=== PATIENT | female | born 1975 | race Two or more races ===

== ENCOUNTER 2020-09-10 10:29 | Outpatient (REF) | payer MEDICARE, MEDICAID, SELFPAY | END 2020-09-10 10:30 | disposition home or self-care (01) | LOC: HO.LAB 10:29 | PROVIDERS: Visit Provider Nurse Practitioner Family | DX: Z20.828 Contact with and (suspected) exposure to other viral communicable diseases (principal) | CPT/HCPCS: U0003 ==

== ENCOUNTER → 2020-10-19 08:56 | Outpatient (BNVA) | payer MEDICARE, MEDICAID, SELFPAY | PROVIDERS: PCP Internal Medicine; Referring Provider Internal Medicine; Visit Provider Internal Medicine Gastroenterology | DX: Z13.89 Encounter for screening for other disorder (principal) | CPT/HCPCS: Q3014 ==

== ENCOUNTER 2020-10-23 12:26 | Emergency (ER) | payer MEDICARE, MEDICAID, SELFPAY ==
[2020-10-23 12:39] VITALS: BP 123/74; PULSE 98; RESP 16; TEMP 36.8; O2SAT 98; BMI 39.6
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
[2020-10-23] MEDS: Acetaminophen 325 MG TABLET 650 MG PO (13:53)
[2020-10-23] MEDS: Ibuprofen 800 MG TABLET PO (15:11)
== END 2020-10-23 15:16 | disposition home or self-care (01) ==
PROVIDERS: Emergency Provider Emergency Medicine; PCP Internal Medicine
DX: S09.90XA Unspecified injury of head, initial encounter (principal); S00.03XA Contusion of scalp, initial encounter; Y00.XXXA Assault by blunt object, initial encounter; Y93.F9 Activity, other caregiving; Y92.9 Unspecified place or not applicable; Y99.0 Civilian activity done for income or pay
CPT/HCPCS: 70450; 72125; 99283; 99284

== ENCOUNTER 2020-11-02 15:18 | Outpatient (REF) | payer MEDICARE, MEDICAID, SELFPAY ==
[2020-11-02 15:47] LABS: MANUAL DIFF FLAG NO
[2020-11-02 15:52] LABS: Basophils Absolute Auto 0.1 X10*3/uL (0.0-0.2); Basophils Percent Auto 0.8 % (0-2); Eosinophils Absolute Auto 0.1 X10*3/uL (0.0-0.4); Hematocrit 33.5 % (37-47); Hemoglobin 10.8 g/dl (12.0-16.0); Imm Gran Abs Auto 0.05 X10*3/uL (0.00-0.03); Imm Gran Pct Auto 0.5 % (0.0-0.4); Immature Retic Fraction 13.8 % (3.0-15.9); Lymphocytes Absolute Auto 1.9 X10*3/uL (1.2-4.9); Lymphocytes Percent Auto 19.6 % (20-40); Mean Corpuscular HGB Conc 32.2 g/dl (31.0-35.0); Mean Corpuscular Hemoglobin 26.5 pg (27.0-33.0); Mean Corpuscular Volume 82.1 fL (80-98); Mean Platelet Volume 11.6 fL (9.4-12.3); Monocytes Percent Auto 10.2 % (2-11); Neutrophils Absolute Auto 6.4 X10*3/uL (2.0-8.3); Neutrophils Percent Auto 67.9 % (45-73); Platelet Count 321 X10*3/uL (160-400); Red Blood Count 4.08 X10*6/uL (4.20-5.50); Red Cell Distribution Width 15.6 % (11.0-16.0); Retic HGB Equivalent 32.3 pg (30.0-35.0); Reticulocyte Percent 1.4 % (0.5-1.8); Reticulocytes Absolute 0.057 X10*6/uL (0.026-0.095); White Blood Count 9.5 X10*3/uL (4.8-10.8)
[2020-11-02 16:12] LABS: Glucose Urine UA NEG (NEG); Leukocyte Esterase Urine TRACE (NEG); Nitrite Urine NEG (NEG); Specific Gravity - Urine >= 1.030 (1.005-1.025); Urine Blood NEG (NEG); Urine Ketones NEG (NEG); Urine Protein NEG (NEG-TRACE)
[2020-11-02 16:14] LABS: Appearance Urine HAZY; Color Urine YELLOW
[2020-11-02 16:18] LABS: Alanine Aminotransferase 23 U/L (0-31); Albumin Level 4.2 g/dL (3.5-5.0); Alkaline Phosphatase 95 U/L (39-117); Anion Gap 14 (12-20); Aspartate Amino Transferase 23 U/L (5-31); Bilirubin Total 0.3 mg/dL (0.0-1.0); Blood Urea Nitrogen 18 mg/dL (9-16); Calcium 8.9 mg/dL (8.4-10.2); Carbon Dioxide 24 mmol/L (22-29); Chloride 104 mmol/L (96-108); Cholesterol 224 mg/dL; Estimated Glomerular Filt Rate > 60; Glucose Random 86 mg/dL (60-115); HDL Cholesterol 52 mg/dL; Iron 63 mcg/dL (30-160); LDL Cholesterol Calculated 150 mg/dl; Percent Iron Saturation 15 % (15-50); Potassium 3.5 mmol/L (3.3-5.1); Sodium 138 mmol/L (135-145); Total Iron Binding Capacity 416 mcg/dL (228-428); Total Protein 7.2 g/dL (6.5-8.0); Triglycerides 113 mg/dL; Unsaturated Iron Binding 353 ug/dL
[2020-11-02 16:19] LABS: Bacteria Urine 2+ /LPF; RBC Urine 0 /HPF (0); Squamous Epithelial Cell Urine 2+ /LPF; Urine Talc Crystals 1+ /LPF; WBC Urine 0-2 /HPF (0-4)
[2020-11-02 16:41] LABS: Ferritin 24 ng/mL (10-250); Free T4 (Free Thyroxine) 1.03 ng/dL (0.71-1.85); Thyroid Stimulating Hormone 0.84 uIU/mL (0.32-4.0)
[2020-11-02 16:52] LABS: Folate 16.8 ng/mL (> or = 4.0); Vitamin B12 645 pg/mL (200-900)
== END 2020-11-02 15:19 | disposition home or self-care (01) ==
LOC: HO.LAB 15:18
PROVIDERS: PCP Internal Medicine; Visit Provider Internal Medicine
DX: D64.9 Anemia, unspecified (principal); E78.00 Pure hypercholesterolemia, unspecified; I10 Essential (primary) hypertension
CPT/HCPCS: 36415; 80053; 80061; 81001; 82306; 82607; 82728; 82746; 83540; 84439; 84443; 85025; 85045

== ENCOUNTER → 2020-11-05 09:04 | Outpatient (BNVA) | payer MEDICARE, MEDICAID, SELFPAY | PROVIDERS: PCP Internal Medicine; Visit Provider Anesthesiology | DX: M46.1 Sacroiliitis, not elsewhere classified (principal); E66.01 Morbid (severe) obesity due to excess calories; M53.3 Sacrococcygeal disorders, not elsewhere classified | CPT/HCPCS: 99212 ==

== ENCOUNTER 2020-12-11 06:11 | Outpatient (REF) | payer MEDICARE, MEDICAID, SELFPAY | END 2020-12-11 06:12 | disposition home or self-care (01) | LOC: HO.RADIR 06:11 | PROVIDERS: Visit Provider Anesthesiology | DX: M46.1 Sacroiliitis, not elsewhere classified (principal); M53.3 Sacrococcygeal disorders, not elsewhere classified; E66.01 Morbid (severe) obesity due to excess calories; M51.36 Other intervertebral disc degeneration, lumbar region; Z88.8 Allergy status to other drugs, medicaments and biological substances; Z91.09 Other allergy status, other than to drugs and biological substances | CPT/HCPCS: 27096; J3300; Q9967 ==

== ENCOUNTER 2020-12-11 08:53 | Day surgery (SDC) | payer MEDICARE, MEDICAID, SELFPAY ==
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
--- NOTE | ~2020-12-11 | FL_ITS ---
EXAMINATION: XR FLUOROSCOPY WITH IMAGES CLINICAL INFORMATION: M53.3 - Sacrococcygeal disorders, not elsewhere classified COMPARISON: MR lumbar spine 12/29/2019 TECHNIQUE: Fluoroscopy performed by Bela Jimenez NP. Fluoroscopy time: 0.4 minutes DAP: 2.9 Gycm2 Images: 3 FINDINGS: There are spinal needles overlying the mid aspect bilateral SI joints with some intra-articular contrast and periarticular contrast. FL/FL guidance in treatment room IMPRESSION: Fluoroscopy for pain management procedures.
[2020-12-11 10:29] VITALS: BP 118/72; PULSE 86; RESP 18; TEMP 36.6; O2SAT 98; BMI 42.3
[2020-12-11 10:41] LABS: UPreg QC Valid YES; Urine Pregnancy NEGATIVE (NEGATIVE)
[2020-12-11] MEDS: Lactated Ringers 1,000 ML 100 ML IVCONT (10:46)
--- NOTE | 2020-12-11 11:29 | PC.NURSE ---
pt to DR Norris for injections. spoke with Dr Marquez. Ok with both DR to do the injections first then the edg and sigmoidoscopy.
--- NOTE | 2020-12-11 12:27 | P.HPSUR_ITS ---
Pre-Procedural Eval Section B Chief Complaint: early satiety,ibs without diarrhea Relevant Family History (Specify if Yes): No Relevant Social History: None Present Medications: see Short Stay Collaborative assessment Medical History: Significant History (Anxiety and depression Barretts esophagus Carpal tunnel syndrome on both sides Cholelithiasis Constipation Fatty liver GERD (gastroesophageal reflux disease) Hypercholesterolemia Hypertension Increa sed BMI Lumbar degenerative disc disease Osteoarthritis, knee Sacroiliac joint dysfunction of both crista) History of Previous Operations: Relevant previous surgery/procedure and date(s) (H/O gastric bypass History of breast mammoplasty History of carpal tunnel release History of section) Allergies: Allergies Allergy/AdvReac Type Severity Reaction Status Date / Time topiramate [From TOPAMAX] Allergy Intermediate NAUSEA & Verified 12/11/20 10:37 VOMITING ENVIRONMENTAL Allergy Severe SINUS Uncoded 12/11/20 10:37 INFXN SYMPTOMS STATED BY PT Review of Systems Sugical H&P ROS: Negative: Constitution, Cardiovascular, Respiratory, Neurological, Psychiatric, Hem-Onc, Allergic/Immunologic, Gastrointestinal, Genitourinary, Musculoskeletal, Integumentary, Endocrine and Eyes/Ears/Nose/Throat Exam Surgical H&P Exam: Normal: HEENT, Normal: Heart, Normal: Lungs, Normal: Extremities, Normal: Abdomen, Normal: Skin and Normal: Neurological Plan Diagnosis/Plan: Unchanged I have reviewed the history and physical and performed a pertinent physical examination on my patient. No changes have occurred unless specified.
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
--- NOTE | 2020-12-11 13:12 | PM.OP ---
Brief Operative Note Date of Service: 12/11/20 Pre-op diagnosis: dysphagia and rectal bleeding Post-op diagnosis: same Procedure: see op note Surgeon: Dayne Marquez MD Anesthesia: MAC Estimated blood loss (mL): 0 Condition: stable Disposition: PACU
[2020-12-11 13:20] VITALS: BP 114/73; PULSE 88; RESP 14; TEMP 37.1; O2SAT 97
[2020-12-11 13:35] VITALS: BP 125/74; PULSE 82; RESP 18; O2SAT 99
== END 2020-12-11 14:12 | disposition home or self-care (01) ==
PROVIDERS: Nurse Practitioner; PCP Internal Medicine; Visit Provider Internal Medicine Gastroenterology
PROC: 0DJD8ZZ Inspection of Lower Intestinal Tract, Via Natural or Artificial Opening Endoscopic (ICD-10-PCS; CPT 45330; principal; 2020-12-11 12:20)
DX: K58.9 Irritable bowel syndrome, unspecified (principal); K64.0 First degree hemorrhoids; R68.81 Early satiety; K22.8 Other specified diseases of esophagus; K20.80 Other esophagitis without bleeding; K44.9 Diaphragmatic hernia without obstruction or gangrene; Z98.84 Bariatric surgery status; M53.3 Sacrococcygeal disorders, not elsewhere classified; M46.1 Sacroiliitis, not elsewhere classified; Z79.899 Other long term (current) drug therapy
CPT/HCPCS: 45330; 43249; 43239; 81025; 88305; 88342; C1726; J3010

== ENCOUNTER → 2020-12-17 12:28 | Outpatient (BNVA) | payer MEDICARE, MEDICAID, SELFPAY | PROVIDERS: PCP Internal Medicine; Visit Provider Internal Medicine Gastroenterology ==

== ENCOUNTER 2021-01-20 08:17 | Emergency (ER) | payer MEDICARE, MEDICAID, SELFPAY ==
--- NOTE | ~2021-01-20 | CT_ITS ---
EXAMINATION: CT HEAD WITHOUT CONTRAST CLINICAL INFORMATION: Headache postconcussion COMPARISON: October 23, 2020 TECHNIQUE: Contiguous axial imaging was performed from the skull base to vertex without intravenous administration of contrast. This CT examination was performed using dose optimization techniques as appropriate, variously including the following: *Automated exposure control *Adjustment of mA and/or kV according to patient size (this includes techniques or standardized protocols for targeted exams where dose is matched to indication/reason for exam; i.e. extremities or head) *Use of iterative reconstruction technique DLP: 702 mGy-cm FINDINGS: There is no evidence of acute intracranial hemorrhage or territorial infarction. No abnormal mass effect or midline shift is seen. Russ to white matter differentiation is well preserved. No extra-axial fluid collections are identified. The ventricles are normal in size. There is no abnormal attenuation within the brain parenchyma. The osseous structures and soft tissues are normal. The mastoid air cells and visualized portions of the paranasal sinuses are well aerated. CT/CT head/brain wo con IMPRESSION: No acute intracranial pathology.
[2021-01-20 08:23] VITALS: BP 147/96; PULSE 107; RESP 20; TEMP 37; O2SAT 98; BMI 40.2
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
[2021-01-20 09:06] LABS: MANUAL DIFF FLAG NO
[2021-01-20 09:07] LABS: Basophils Absolute Auto 0.1 X10*3/uL (0.0-0.2); Basophils Percent Auto 0.7 % (0-2); Eosinophils Absolute Auto 0.1 X10*3/uL (0.0-0.4); Eosinophils Percent Auto 0.8 % (0-4); Hemoglobin 10.5 g/dl (12.0-16.0); Imm Gran Abs Auto 0.05 X10*3/uL (0.00-0.03); Imm Gran Pct Auto 0.6 % (0.0-0.4); Lymphocytes Absolute Auto 1.9 X10*3/uL (1.2-4.9); Lymphocytes Percent Auto 21.4 % (20-40); Mean Corpuscular HGB Conc 31.8 g/dl (31.0-35.0); Mean Corpuscular Hemoglobin 26.5 pg (27.0-33.0); Mean Corpuscular Volume 83.3 fL (80-98); Mean Platelet Volume 10.1 fL (9.4-12.3); Monocytes Absolute Auto 0.8 X10*3/uL (0.1-1.2); Monocytes Percent Auto 9.6 % (2-11); Neutrophils Absolute Auto 5.9 X10*3/uL (2.0-8.3); Neutrophils Percent Auto 66.9 % (45-73); Platelet Count 338 X10*3/uL (160-400); Red Blood Count 3.96 X10*6/uL (4.20-5.50); Red Cell Distribution Width 14.7 % (11.0-16.0); White Blood Count 8.7 X10*3/uL (4.8-10.8)
[2021-01-20] MEDS: Ketorolac Tromethamine 30 MG/ML VIAL IVPUSH (09:33)
[2021-01-20] MEDS: LORazepam 2 MG/ML VIAL 1 MG IVPUSH (09:33)
[2021-01-20] MEDS: Metoclopramide HCl 10 MG/2 ML VIAL IVPUSH (09:34)
[2021-01-20] MEDS: Magnesium Hydrox/Alum Hydrox 30 ML ORAL.SUSP PO (09:36)
[2021-01-20] MEDS: Omeprazole 40 MG CAPSULE.DR PO (09:36)
[2021-01-20] MEDS: 0.9 % Sodium Chloride 1,000 ML 999 ML IVCONT (09:36)
[2021-01-20] MEDS: Lidocaine HCl Viscous 2 % 15 ML SOLUTION MUCOUS MEM (09:36)
[2021-01-20] MEDS: diphenhydrAMINE HCL 50 MG/ML VIAL 25 MG IVPUSH (09:36)
[2021-01-20 09:38] VITALS: BP 121/76; PULSE 97; RESP 20; O2SAT 98
[2021-01-20 09:42] LABS: Alanine Aminotransferase 29 U/L (0-31); Alkaline Phosphatase 109 U/L (39-117); Anion Gap 13 (12-20); Aspartate Amino Transferase 22 U/L (5-31); Bilirubin Direct 0.2 mg/dL (0.0-0.5); Bilirubin Total 0.3 mg/dL (0.0-1.0); Blood Urea Nitrogen 14 mg/dL (9-16); Carbon Dioxide 22 mmol/L (22-29); Chloride 107 mmol/L (96-108); Creatinine Clr Calc Pharmacy 111.7; Estimated Glomerular Filt Rate > 60; Glucose Random 80 mg/dL (60-115); Magnesium 1.9 mg/dL (1.6-2.6); Potassium 4.2 mmol/L (3.3-5.1); Sodium 138 mmol/L (135-145); Total Protein 6.9 g/dL (6.5-8.0)
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
[2021-01-20 11:35] LABS: Glucose Urine UA NEG (NEG); Leukocyte Esterase Urine NEG (NEG); Nitrite Urine NEG (NEG); PH 6.5 (5.0-8.0); Urine Blood NEG (NEG); Urine Ketones NEG (NEG); Urine Protein NEG (NEG-TRACE)
[2021-01-20 11:37] LABS: Appearance Urine CLEAR; Color Urine YELLOW
[2021-01-20 11:45] VITALS: BP 111/77; PULSE 88; RESP 18; O2SAT 100
== END 2021-01-20 12:55 | disposition home or self-care (01) ==
PROVIDERS: Physician Assistant; Emergency Provider Emergency Medicine; PCP Internal Medicine
DX: F41.9 Anxiety disorder, unspecified (principal); K29.00 Acute gastritis without bleeding; G44.329 Chronic post-traumatic headache, not intractable; F07.81 Postconcussional syndrome; I10 Essential (primary) hypertension; E78.00 Pure hypercholesterolemia, unspecified; Z79.899 Other long term (current) drug therapy
CPT/HCPCS: 36415; 70450; 80048; 80076; 81003; 83735; 85025; 96361; 96374; 96375; 99284; J1200; J1885; J2060; J2765

== ENCOUNTER → 2021-01-22 14:30 | Outpatient (BNVA) | payer MEDICARE, MEDICAID, SELFPAY | PROVIDERS: PCP Internal Medicine; Visit Provider Internal Medicine Gastroenterology | DX: R10.9 Unspecified abdominal pain (principal); R63.5 Abnormal weight gain; Z79.899 Other long term (current) drug therapy | CPT/HCPCS: Q3014 ==

== ENCOUNTER → 2021-04-23 08:38 | Outpatient (BNVA) | payer MEDICARE, MEDICAID, SELFPAY | PROVIDERS: PCP Internal Medicine; Visit Provider Internal Medicine Gastroenterology | CPT/HCPCS: Q3014 ==

== ENCOUNTER → 2021-04-24 09:12 | Outpatient (BNVA) | payer MEDICARE, MEDICAID, SELFPAY | PROVIDERS: PCP Internal Medicine; Visit Provider Anesthesiology | DX: M46.1 Sacroiliitis, not elsewhere classified (principal); E66.01 Morbid (severe) obesity due to excess calories; M53.3 Sacrococcygeal disorders, not elsewhere classified | CPT/HCPCS: 99212 ==

== ENCOUNTER 2021-06-07 07:00 | Outpatient (RCR) | payer MEDICARE, MEDICAID, SELFPAY | END 2021-06-17 11:53 | disposition home or self-care (01) | LOC: HO.PTCHIC 07:00 | PROVIDERS: PCP Internal Medicine; Visit Provider Physician Assistant Surgical | DX: S06.0X9D Concussion with loss of consciousness of unspecified duration, subsequent encounter (principal); M54.2 Cervicalgia | CPT/HCPCS: 97110; 97162 ==

== ENCOUNTER 2021-06-18 07:40 | Outpatient (REF) | payer MEDICARE, MEDICAID, SELFPAY ==
--- NOTE | ~2021-06-18 | FL_ITS ---
EXAMINATION: XR FLUOROSCOPY WITH IMAGES CLINICAL INFORMATION: Sacroiliitis COMPARISON: None. TECHNIQUE: Fluoroscopy performed by Bela Jimenez NP. Fluoroscopy time: 0.4 minutes DAP: 7 Gycm2 Images: 4 FINDINGS: Images demonstrate needle placement and contrast injection over the bilateral sacroiliac joints. There is a linear radiopaque density seen in the right pelvis suggestive of an Essure fallopian tube device. FL/FL guidance in treatment room IMPRESSION: Fluoroscopy guidance for pain management procedure.
== END 2021-06-18 07:41 | disposition home or self-care (01) ==
LOC: HO.RADIR 07:40
PROVIDERS: Visit Provider Anesthesiology
DX: M46.1 Sacroiliitis, not elsewhere classified (principal)
CPT/HCPCS: 27096; Q9967

== ENCOUNTER → 2021-06-26 08:16 | Outpatient (BNVA) | payer MEDICARE, MEDICAID, SELFPAY | PROVIDERS: PCP Internal Medicine; Visit Provider Anesthesiology | DX: M46.1 Sacroiliitis, not elsewhere classified (principal); M53.3 Sacrococcygeal disorders, not elsewhere classified; E66.01 Morbid (severe) obesity due to excess calories | CPT/HCPCS: Q3014 ==

== ENCOUNTER → 2021-11-27 14:50 | Outpatient (BNVA) | payer MEDICARE, MEDICAID, SELFPAY | PROVIDERS: PCP Internal Medicine; Visit Provider Anesthesiology | DX: M46.1 Sacroiliitis, not elsewhere classified (principal); M53.3 Sacrococcygeal disorders, not elsewhere classified; E66.01 Morbid (severe) obesity due to excess calories; Z68.41 Body mass index [BMI] 40.0-44.9, adult | CPT/HCPCS: 99212 ==

== ENCOUNTER → 2022-01-06 09:40 | Outpatient (BNVA) | payer MEDICARE, MEDICAID, SELFPAY | PROVIDERS: PCP Internal Medicine; Visit Provider Anesthesiology | DX: Z13.89 Encounter for screening for other disorder (principal) | CPT/HCPCS: Q3014 ==

== ENCOUNTER 2022-01-14 12:48 | Outpatient (REF) | payer MEDICARE, MEDICAID, SELFPAY ==
[2022-01-14 13:20] LABS: COVID-19 Test Negative (Negative); IDNOW Serial# 08D9AD1C
== END 2022-01-14 12:49 | disposition home or self-care (01) ==
LOC: HO.LAB 12:48
PROVIDERS: Visit Provider Internal Medicine
DX: Z20.822 Contact with and (suspected) exposure to COVID-19 (principal)
CPT/HCPCS: 87635; C9803

== ENCOUNTER 2022-04-29 06:10 | Outpatient (REF) | payer MEDICARE, MEDICAID, SELFPAY ==
--- NOTE | ~2022-04-29 | FL_ITS ---
EXAMINATION: XR FLUOROSCOPY WITH IMAGES CLINICAL INFORMATION: M46.1 - Sacroiliitis, not elsewhere classified COMPARISON: None. TECHNIQUE: Fluoroscopy performed by Dr. Bill Norris. Fluoroscopy time: 0.2 minutes. Cumulative Dose: 12.8 mGy. DAP: 3.51 Gy-cm2. Images: 2. FINDINGS: Spinal needle overlies lower bilateral SI joints. There is contrast in the periarticular soft tissues with probable early intra-articular contrast. No vasculature communication appreciated. FL/FL guidance in treatment room IMPRESSION: Fluoroscopy for pain management procedure.
[2022-04-29 11:09] LABS: MANUAL DIFF FLAG NO
[2022-04-29 11:50] LABS: Basophils Absolute Auto 0.1 X10*3/uL (0.0-0.2); Basophils Percent Auto 0.9 % (0-2); Eosinophils Absolute Auto 0.1 X10*3/uL (0.0-0.4); Eosinophils Percent Auto 0.7 % (0-4); Hematocrit 28.7 % (37.0-47.0); Hemoglobin 8.5 g/dl (12.0-16.0); Imm Gran Abs Auto 0.04 X10*3/uL (0.00-0.03); Imm Gran Pct Auto 0.5 % (0.0-0.4); Lymphocytes Percent Auto 25.9 % (20-40); Mean Corpuscular HGB Conc 29.6 g/dl (31.0-35.0); Mean Corpuscular Hemoglobin 21.4 pg (27.0-33.0); Mean Corpuscular Volume 72.1 fL (80.0-98.0); Monocytes Absolute Auto 0.7 X10*3/uL (0.1-1.2); Monocytes Percent Auto 9.1 % (2-11); Neutrophils Absolute Auto 4.8 x10*3/uL (2.0-8.3); Neutrophils Percent Auto 62.9 % (45-73); Platelet Count 413 X10*3/uL (160-400); Red Blood Count 3.98 X10*6/uL (4.20-5.50); Red Cell Distribution Width 17.6 % (11.0-16.0); White Blood Count 7.6 X10*3/uL (4.8-10.8)
[2022-04-29 11:58] LABS: Estimated Average Glucose 108 mg/dL; Hemoglobin A1c % 5.4 %
[2022-04-29 12:02] LABS: Appearance Urine HAZY; Color Urine RED; Glucose Urine UA NEG (NEG); Leukocyte Esterase Urine NEG (NEG); Nitrite Urine NEG (NEG); PH 5.5 (5.0-8.0); Urine Blood 3+ (NEG); Urine Ketones NEG (NEG); Urine Protein 1+ MG/DL (NEG-TRACE)
[2022-04-29 12:20] LABS: WBC Urine 0-2 /HPF (0-4)
[2022-04-29 12:21] LABS: Squamous Epithelial Cell Urine 2+ /LPF
[2022-04-29 12:40] LABS: Ferritin 9 ng/mL (10-250); Free T4 (Free Thyroxine) 1.16 ng/dL (0.71-1.85); Thyroid Stimulating Hormone 0.91 uIU/mL (0.32-4.0)
[2022-04-29 12:44] LABS: Alanine Aminotransferase 14 U/L (0-31); Albumin Level 4.2 g/dL (3.5-5.0); Alkaline Phosphatase 110 U/L (39-117); Anion Gap 15 (12-20); Aspartate Amino Transferase 17 U/L (5-31); Bilirubin Total 0.4 mg/dL (0.0-1.0); Blood Urea Nitrogen 13 mg/dL (9-16); Carbon Dioxide 21 mmol/L (22-29); Chloride 108 mmol/L (96-108); Cholesterol 207 mg/dL; Estimated Glomerular Filt Rate > 60; Glucose Random 88 mg/dL (60-115); HDL Cholesterol 55 mg/dL; Iron 26 mcg/dL (30-160); LDL Cholesterol Calculated 136 mg/dl; Percent Iron Saturation 5 % (15-50); Potassium 4.6 mmol/L (3.3-5.1); Sodium 139 mmol/L (135-145); Total Iron Binding Capacity 532 mcg/dL (228-428); Total Protein 7.2 g/dL (6.5-8.0); Triglycerides 84 mg/dL; Unsaturated Iron Binding 506 ug/dL
[2022-04-29 12:55] LABS: Folate 12.7 ng/mL (> or = 4.0); Vitamin B12 392 pg/mL (200-900)
== END 2022-04-29 06:11 | disposition home or self-care (01) ==
LOC: HO.RADIR 06:10
PROVIDERS: Absent Provider Internal Medicine; PCP Internal Medicine; Visit Provider Anesthesiology
DX: M46.1 Sacroiliitis, not elsewhere classified (principal); M53.3 Sacrococcygeal disorders, not elsewhere classified; E66.01 Morbid (severe) obesity due to excess calories; I10 Essential (primary) hypertension; E78.00 Pure hypercholesterolemia, unspecified; K21.9 Gastro-esophageal reflux disease without esophagitis; E55.9 Vitamin D deficiency, unspecified
CPT/HCPCS: 27096; 36415; 80053; 80061; 81001; 82306; 82607; 82728; 82746; 83036; 83540; 84439; 84443; 85025; J3300

== ENCOUNTER 2022-04-30 08:38 | Emergency (ER) | payer MEDICARE, MEDICAID, SELFPAY ==
--- NOTE | ~2022-04-30 | XR_ITS ---
EXAMINATION: XR CHEST CLINICAL INFORMATION: Leukocytosis COMPARISON: None TECHNIQUE: Frontal view of the chest was obtained. FINDINGS: Lungs grossly clear. No consolidations. Heart size borderline with normal caliber pulmonary vessels. XR/XR chest 1V IMPRESSION: No active disease.
[2022-04-30 09:08] VITALS: BMI 43.4
[2022-04-30 09:11] VITALS: BP 117/70; PULSE 83; RESP 16; TEMP 36.9; O2SAT 97
--- NOTE | 2022-04-30 11:43 | ED_ITS ---
HPI - General Adult General Chief complaint: Recheck/Abnormal Lab/Rx Stated complaint: low iron Time Seen by Provider: 04/30/22 11:25 Source: patient Mode of arrival: ambulatory Limitations: no limitations History of Present Illness HPI narrative: Patient comes to the emergency room after her PCP call her and tell her that her hemoglobin is on the lower side and her iron studies show iron deficiency. Patient states that the labs were done because she has been feeling tired and weak. Patient was recently seen by Gastroenterology, perigastric notes, patient reported a mild rectal GI bleed approximately 3 weeks ago. Also, patient is currently menstruating. Patient denies any abdominal pain, no rectal pain, denies any black stool or rectal bleeding. Related Data Home Medications Medication Instructions Recorded Confirmed clonazepam 0.5 mg tablet 0.5 mg PO TID 04/08/22 04/08/22 duloxetine 20 mg capsule,delayed 20 mg PO BID 04/08/22 04/08/22 release Previous Rx's Medication Instructions Recorded hydrochlorothiazide 25 mg tablet 25 mg PO QAM #90 tabs 09/14/20 loratadine 10 mg tablet 10 mg PO DAILY #28 tabs 09/24/20 cholecalciferol (vitamin D3) 50 50 mcg PO DAILY #28 tabs 10/02/20 mcg (2,000 unit) tablet trazodone 50 mg tablet 50 mg PO BEDTIME PRN insomnia 90 10/03/20 days #90 tabs hydroxyzine HCl 50 mg tablet 50 mg PO BID PRN anxiety #10 tabs 01/20/21 sucralfate 1 gram tablet (Carafate) 1 g PO BID #20 tabs 01/20/21 dicyclomine 10 mg capsule 10 mg PO TID #84 caps 01/22/21 lactulose 10 gram/15 mL oral 30 ml PO BID #1,800 mL 02/04/21 solution atorvastatin 20 mg tablet 20 mg PO BEDTIME 90 days #90 tabs 03/07/21 sennosides 8.6 mg capsule (senna) 8.6 mg PO BID PRN constipation #60 04/23/21 caps simethicone 125 mg capsule 125 mg PO TID-QID PRN abdominal 04/23/21 distention #90 caps docusate sodium 100 mg capsule 100 mg PO DAILY #90 caps 06/24/21 tizanidine 2 mg tablet 2 mg PO TID PRN muscle spasticity 11/27/21 30 days #90 tabs clonazepam 0.5 mg tablet 0.5 mg PO TID #90 tabs 04/21/22 clotrimazole 1 % topical cream 1 appl topical BID 4 weeks #90 04/21/22 grams gabapentin 300 mg capsule 300 mg PO TID #84 caps 04/21/22 miconazole nitrate 2 % topical See Rx Instructions topical BID 30 04/21/22 powder (Zeasorb AF) days #71 grams omeprazole 20 mg capsule,delayed 20 mg PO DAILY 90 days #90 caps 04/21/22 release ascorbic acid (vitamin C) 500 mg 500 mg PO DAILY #28 tabs 04/29/22 tablet (Vitamin C) ferrous sulfate 325 mg (65 mg 325 mg PO DAILY 90 days #90 tabs 04/29/22 iron) tablet ferrous sulfate 325 mg (65 mg 325 mg PO DAILY #30 tabs 04/30/22 iron) tablet polyethylene glycol 3350 17 17 g PO DAILY #238 grams 04/30/22 gram/dose oral powder (Miralax) sennosides 8.6 mg capsule (senna) 8.6 mg PO BID PRN constipation #60 04/30/22 caps Allergies Allergy/AdvReac Type Severity Reaction Status Date / Time topiramate [From TOPAMAX] Allergy Intermediate NAUSEA & Verified 04/30/22 09:08 VOMITING ENVIRONMENTAL Allergy Severe SINUS Uncoded 04/29/22 10:14 INFXN SYMPTOMS STATED BY PT Review of Systems Review of Systems: Constitutional : No Weight loss, No Fever, No Chills, No Night Sweats, complaining of fatigue and weakness ENT/Mouth : No Hearing loss, No Ear Pain, No Nasal Congestion, No Sinus Pain, No Hoarseness, No sore throat, No Rhinorrhea, No Swallowing Difficulty Eyes: No Eye Pain, No Swelling, No Redness, No Foreign Body, No Discharge, No Vision Changes Cardiovascular : No Chest Pain, No SOB, No Dyspnea on Exertion, No Orthopnea, No Edema, No Palpitations Respiratory : No Cough, No Sputum, No Wheezing, No Smoke Exposure, No Dyspnea Gastrointestinal : No Nausea, No Vomiting, No Diarrhea, No Constipation, No abdominal Pain, No Hematochezia, No Melena Genitourinary : no irregular bleeding, No Dysuria, No Urinary Frequency, No Hematuria, No Urinary Incontinence, No Urgency, No Flank Pain, No Urinary Flow Changes, No Hesitancy Musculoskeletal : No joint pain, No Myalgias, No Joint Swelling Skin : No Skin Lesions, No rash Neuro : No Weakness, No Numbness, No Paresthesias, No Loss of Consciousness, No Dizziness, No Headache Psych : No Anxiety/Panic, No Depression, No SI/HI/AH/VH, No Social Issues, Heme/Lymph: No Bruising, No Bleeding,No Lymphadenopathy Endocrine : No Polyuria, No Polydipsia, No Temperature Intolerance [facility] Past Medical History Medical History Anxiety and depression Barretts esophagus Carpal tunnel syndrome on both sides Cholelithiasis Chronic pain syndrome Constipation Fatty liver GERD (gastroesophageal reflux disease) H/O sigmoidoscopy Hypercholesterolemia Hypertension Lumbar degenerative disc disease Osteoarthritis, knee Sacroiliitis Sacroiliitis Tinea corporis Vitamin D deficiency Surgical History H/O colonoscopy H/O esophagogastroduodenoscopy H/O gastric bypass History of breast mammoplasty History of carpal tunnel release History of section Family History Family History Father Colon cancer CVD (cardiovascular disease) Mother Breast cancer Brain tumor Sister Colon cancer Social History Social History Household Members: None Housing: Apartment Alcohol intake: never Patient Tobacco Use Status: Never used Tobacco e-Cigarette/Vaping Use: Never Used Second Hand Smoke Exposure: No Advance Directives: No Advance Directives Information Provided: No Current occupational status: disabled Cognitive needs: No Hearing needs: No Vision needs: No Physical Exam ED Vital Signs: Vital Signs - 24 hr 04/30/22 09:11 Temperature 98.4 F Pulse Rate 83 Respiratory Rate 16 Blood Pressure 117/70 Pulse Oximetry 97 Oxygen Delivery Method Room Air BMI result Body Mass Index 43.4 Const Other: Appearance: Alert. Oriented X3. No acute distress. Eyes: Pupils equal, round and reactive to light. Pale conjunctiva ENT: Pharynx normal. Neck: Normal inspection. Neck supple. No lymph nodes noted. No crepitus CVS: Normal heart rate and rhythm. Pulses normal. Normal S1 and S2 Respiratory: No respiratory distress. Breath sounds normal. No Wheezing. No rales Abdomen: Soft and nontender. No rigidity. No distention. Digital rectal exam shows brown stool Skin: Skin warm and dry. Pale, normal skin turgor Extremities: No lower extremity edema. No Lacerations. No Rash Neuro: Oriented X 3. No motor deficit. No sensory deficit. Moving all extremities. No slurred speech. CN 2 through 12 grossly intact Psych: calm, cooperative, normal affect Course Course Course Narrative: Patient's hemoglobin was 8.5 yesterday, we will repeated today. Occult blood pending. Patient's stool guaiac test is negative. Patient's hemoglobin is better than yesterday. Patient will benefit from p.o. iron. At this time, iron infusion or the laceration is not indicated. I discussed with the patient the plan, patient agrees. Medical Decision Making Lab Data Result diagrams: 04/30/22 11:54 Labs: Lab Results 04/30/22 04/30/22 04/30/22 Range/Units 11:44 11:54 12:30 WBC 14.1 H (4.8-10.8) X10*3/uL RBC 4.41 (4.20-5.50) X10*6/uL Hgb 9.6 L (12.0-16.0) g/dl Hct 31.9 L (37.0-47.0) % MCV 72.3 L (80.0-98.0) fL MCH 21.8 L (27.0-33.0) pg MCHC 30.1 L (31.0-35.0) g/dl RDW 17.6 H (11.0-16.0) % Plt Count 400 (160-400) X10*3/uL MPV 11.4 (9.4-12.3) fL Immature Gran % (Auto) 0.5 H (0.0-0.4) % Neut % (Auto) 81.7 H (45-73) % Lymph % (Auto) 11.5 L (20-40) % [place] % (Auto) 6.0 (2-11) % Eos % (Auto) 0.0 (0-4) % Baso % (Auto) 0.3 (0-2) % Lymph # (Auto) 1.6 (1.2-4.9) X10*3/uL [place] # (Auto) 0.9 (0.1-1.2) X10*3/uL Eos # (Auto) 0.0 (0.0-0.4) X10*3/uL Baso # (Auto) 0.0 (0.0-0.2) X10*3/uL Abs Immat Gran (auto) 0.07 H (0.00-0.03) X10*3/uL Absolute Neuts (auto) 11.5 H (2.0-8.3) x10*3/uL Absolute Nucleated RBC 0.000 (0.0-0.012) X10*3/uL Nucleated RBC % (auto) 0.0 (0.0-0.2) /100WBC Urine Color Urine Appearance Urine pH (5.0-8.0) Ur Specific [place] (1.005-1.025) Urine Protein (NEG-TRACE) MG/DL Urine Glucose (UA) (NEG) MG/DL Urine Ketones (NEG) MG/DL Urine Blood (NEG) Urine Nitrite (NEG) Ur Leukocyte Esterase (NEG) Urine RBC (0) /HPF Urine WBC (0-4) /HPF Ur Squamous Epith Cells /LPF Urine Bacteria /LPF Stool Occult Blood NEGATIVE (NEGATIVE) COVID-19 (ANDER) Negative (Negative) COVID-19 Clin Com See Note 04/30/22 Range/Units 12:30 WBC (4.8-10.8) X10*3/uL RBC (4.20-5.50) X10*6/uL Hgb (12.0-16.0) g/dl Hct (37.0-47.0) % MCV (80.0-98.0) fL MCH (27.0-33.0) pg MCHC (31.0-35.0) g/dl RDW (11.0-16.0) % Plt Count (160-400) X10*3/uL MPV (9.4-12.3) fL Immature Gran % (Auto) (0.0-0.4) % Neut % (Auto) (45-73) % Lymph % (Auto) (20-40) % [place] % (Auto) (2-11) % Eos % (Auto) (0-4) % Baso % (Auto) (0-2) % Lymph # (Auto) (1.2-4.9) X10*3/uL [place] # (Auto) (0.1-1.2) X10*3/uL Eos # (Auto) (0.0-0.4) X10*3/uL Baso # (Auto) (0.0-0.2) X10*3/uL Abs Immat Gran (auto) (0.00-0.03) X10*3/uL Absolute Neuts (auto) (2.0-8.3) x10*3/uL Absolute Nucleated RBC (0.0-0.012) X10*3/uL Nucleated RBC % (auto) (0.0-0.2) /100WBC Urine Color YELLOW Urine Appearance HAZY Urine pH 6.0 (5.0-8.0) Ur Specific [place] 1.025 (1.005-1.025) Urine Protein NEG (NEG-TRACE) MG/DL Urine Glucose (UA) NEG (NEG) MG/DL Urine Ketones NEG (NEG) MG/DL Urine Blood 2+ H (NEG) Urine Nitrite NEG (NEG) Ur Leukocyte Esterase NEG (NEG) Urine RBC 1-4 (0) /HPF Urine WBC 0-2 (0-4) /HPF Ur Squamous Epith Cells 1+ /LPF Urine Bacteria NONE /LPF Stool Occult Blood (NEGATIVE) COVID-19 (ANDER) (Negative) COVID-19 Clin Com Discharge Plan Discharge Clinical Impression: Iron deficiency anemia Patient Disposition: Home, Self-Care Instructions: Iron Deficiency Anemia (ED) Additional Instructions: Please follow-up with your primary care physician tomorrow. If you have any worsening or new symptoms, please return to the emergency room or call 911 Prescriptions: New ferrous sulfate 325 mg (65 mg iron) tablet 325 mg PO DAILY Qty: 30 1RF senna 8.6 mg capsule 8.6 mg PO BID PRN (Reason: constipation) Qty: 60 0RF polyethylene glycol 3350 [Miralax] 17 gram/dose powder 17 g PO DAILY Qty: 238 0RF No Action hydrochlorothiazide 25 mg tablet 25 mg PO QAM Qty: 90 0RF loratadine 10 mg tablet 10 mg PO DAILY Qty: 28 11RF cholecalciferol (vitamin D3) 50 mcg (2,000 unit) tablet 50 mcg PO DAILY Qty: 28 11RF dicyclomine 10 mg capsule 10 mg PO TID Qty: 84 11RF lactulose 10 gram/15 mL solution 30 ml PO BID Qty: 1800 3RF atorvastatin 20 mg tablet 20 mg PO BEDTIME 90 Days Qty: 90 0RF docusate sodium 100 mg capsule 100 mg PO DAILY Qty: 90 3RF ferrous sulfate 325 mg (65 mg iron) tablet 325 mg PO DAILY 90 Days Qty: 90 0RF ascorbic acid (vitamin C) [Vitamin C] 500 mg tablet 500 mg PO DAILY Qty: 28 11RF hydroxyzine HCl 50 mg tablet 50 mg PO BID PRN (Reason: anxiety) Qty: 10 0RF sucralfate [Carafate] 1 gram tablet 1 g PO BID Qty: 20 0RF trazodone 50 mg tablet 50 mg PO BEDTIME PRN (Reason: insomnia) 90 Days Qty: 90 1RF clonazepam 0.5 mg tablet 0.5 mg PO TID duloxetine 20 mg capsule,delayed release(DR/EC) 20 mg PO BID clotrimazole 1 % cream 1 appl topical BID 28 Days Qty: 90 0RF Zeasorb AF 2 % powder See Rx Instructions topical BID 30 Days Qty: 71 2RF Rx Instructions: apply under breast, under abdominal fold and groin area topically 2 times a day; clonazepam 0.5 mg tablet 0.5 mg PO TID Qty: 90 0RF gabapentin 300 mg capsule 300 mg PO TID Qty: 84 5RF omeprazole 20 mg capsule,delayed release(DR/EC) 20 mg PO DAILY 90 Days Qty: 90 3RF simethicone 125 mg capsule 125 mg PO TID-QID PRN (Reason: abdominal distention) Qty: 90 2RF Rx Instructions: soft gel version please senna 8.6 mg capsule 8.6 mg PO BID PRN (Reason: constipation) Qty: 60 3RF tizanidine 2 mg tablet 2 mg PO TID PRN (Reason: muscle spasticity) 30 Days Qty: 90 8RF
[2022-04-30 11:49] LABS: OBS Int Ctl Valid YES; OBS1 NEGATIVE (NEGATIVE)
[2022-04-30 11:58] LABS: MANUAL DIFF FLAG NO
[2022-04-30 11:59] LABS: Basophils Percent Auto 0.3 % (0-2); Hematocrit 31.9 % (37.0-47.0); Hemoglobin 9.6 g/dl (12.0-16.0); Imm Gran Abs Auto 0.07 X10*3/uL (0.00-0.03); Imm Gran Pct Auto 0.5 % (0.0-0.4); Lymphocytes Absolute Auto 1.6 X10*3/uL (1.2-4.9); Lymphocytes Percent Auto 11.5 % (20-40); Mean Corpuscular HGB Conc 30.1 g/dl (31.0-35.0); Mean Corpuscular Hemoglobin 21.8 pg (27.0-33.0); Mean Corpuscular Volume 72.3 fL (80.0-98.0); Mean Platelet Volume 11.4 fL (9.4-12.3); Monocytes Absolute Auto 0.9 X10*3/uL (0.1-1.2); Neutrophils Absolute Auto 11.5 x10*3/uL (2.0-8.3); Neutrophils Percent Auto 81.7 % (45-73); Platelet Count 400 X10*3/uL (160-400); Red Blood Count 4.41 X10*6/uL (4.20-5.50); Red Cell Distribution Width 17.6 % (11.0-16.0); White Blood Count 14.1 X10*3/uL (4.8-10.8)
[2022-04-30 12:39] LABS: Appearance Urine HAZY; Color Urine YELLOW; Glucose Urine UA NEG (NEG); Leukocyte Esterase Urine NEG (NEG); Nitrite Urine NEG (NEG); Specific Gravity - Urine 1.025 (1.005-1.025); UACC Culture Trigger NO; Urine Blood 2+ (NEG); Urine Ketones NEG (NEG); Urine Protein NEG (NEG-TRACE)
[2022-04-30 12:51] LABS: Squamous Epithelial Cell Urine 1+ /LPF; WBC Urine 0-2 /HPF (0-4)
[2022-04-30 12:55] LABS: COVID-19 Test Negative (Negative); IDNOW Serial# 16C4AD1C
== END 2022-04-30 13:43 | disposition home or self-care (01) ==
PROVIDERS: Emergency Provider Emergency Medicine; PCP Internal Medicine
DX: D50.9 Iron deficiency anemia, unspecified (principal); R53.1 Weakness; R79.89 Other specified abnormal findings of blood chemistry; D72.829 Elevated white blood cell count, unspecified; Z20.822 Contact with and (suspected) exposure to COVID-19
CPT/HCPCS: 36415; 71045; 81001; 82272; 85025; 87635; 99283

== ENCOUNTER → 2022-05-28 10:04 | Outpatient (BNVA) | payer MEDICARE, MEDICAID, SELFPAY | PROVIDERS: PCP Internal Medicine; Visit Provider Anesthesiology | DX: M46.1 Sacroiliitis, not elsewhere classified (principal); E66.01 Morbid (severe) obesity due to excess calories; M53.3 Sacrococcygeal disorders, not elsewhere classified; Z68.41 Body mass index [BMI] 40.0-44.9, adult | CPT/HCPCS: 99212 ==

== ENCOUNTER 2022-06-04 14:44 | Outpatient (REF) | payer MEDICARE, MEDICAID, SELFPAY ==
[2022-06-04 15:09] LABS: MANUAL DIFF FLAG NO
[2022-06-04 15:16] LABS: Basophils Absolute Auto 0.1 X10*3/uL (0.0-0.2); Basophils Percent Auto 0.7 % (0-2); Eosinophils Absolute Auto 0.1 X10*3/uL (0.0-0.4); Eosinophils Percent Auto 1.2 % (0-4); Hemoglobin 8.5 g/dl (12.0-16.0); Imm Gran Abs Auto 0.06 X10*3/uL (0.00-0.03); Imm Gran Pct Auto 0.6 % (0.0-0.4); Immature Retic Fraction 28.1 % (3.0-15.9); Lymphocytes Absolute Auto 2.1 X10*3/uL (1.2-4.9); Lymphocytes Percent Auto 21.7 % (20-40); Mean Corpuscular HGB Conc 29.3 g/dl (31.0-35.0); Mean Corpuscular Hemoglobin 21.1 pg (27.0-33.0); Mean Platelet Volume 9.5 fL (9.4-12.3); Monocytes Absolute Auto 0.8 X10*3/uL (0.1-1.2); Monocytes Percent Auto 8.2 % (2-11); Neutrophils Absolute Auto 6.5 x10*3/uL (2.0-8.3); Neutrophils Percent Auto 67.6 % (45-73); Platelet Count 408 X10*3/uL (160-400); Red Blood Count 4.03 X10*6/uL (4.20-5.50); Red Cell Distribution Width 17.2 % (11.0-16.0); Reticulocyte Percent 1.4 % (0.5-1.8); Reticulocytes Absolute 0.054 X10*6/uL (0.026-0.095); White Blood Count 9.7 X10*3/uL (4.8-10.8)
[2022-06-04 15:48] LABS: Alanine Aminotransferase 19 U/L (0-31); Alkaline Phosphatase 114 U/L (39-117); Anion Gap 14 (12-20); Aspartate Amino Transferase 22 U/L (5-31); Bilirubin Total 0.2 mg/dL (0.0-1.0); Blood Urea Nitrogen 15 mg/dL (9-16); Calcium 8.8 mg/dL (8.4-10.2); Carbon Dioxide 24 mmol/L (22-29); Chloride 104 mmol/L (96-108); Estimated Glomerular Filt Rate > 60; Glucose Random 87 mg/dL (60-115); Iron 17 mcg/dL (30-160); Percent Iron Saturation 3 % (15-50); Potassium 4.3 mmol/L (3.3-5.1); Sodium 138 mmol/L (135-145); Total Iron Binding Capacity 530 mcg/dL (228-428); Total Protein 7.1 g/dL (6.5-8.0); Unsaturated Iron Binding 513 ug/dL
[2022-06-04 16:09] LABS: Ferritin 7 ng/mL (10-250)
[2022-06-04 16:24] LABS: Folate 8.5 ng/mL (> or = 4.0); Vitamin B12 344 pg/mL (200-900)
== END 2022-06-04 14:45 | disposition home or self-care (01) ==
LOC: HO.LAB 14:44
PROVIDERS: PCP Internal Medicine; Visit Provider Internal Medicine
DX: D64.9 Anemia, unspecified (principal)
CPT/HCPCS: 36415; 80053; 82607; 82728; 82746; 83540; 85025; 85045

== ENCOUNTER 2022-06-17 13:14 | Outpatient (REF) | payer MEDICARE, MEDICAID, SELFPAY ==
--- NOTE | ~2022-06-17 | MM_ITS ---
EXAMINATION: MM SCREENING DIGITAL BREAST TOMOSYNTHESIS, BILATERAL CLINICAL INFORMATION: Screening. Asymptomatic. Prior history reduction mammoplasty, 2010. The lifetime risk of breast cancer based on the Tyrer-Cuzick Model is 16%. COMPARISON: Mammography: 08/04/2018, 06/17/2017 TECHNIQUE: Digital breast tomosynthesis is performed in both the craniocaudal and mediolateral oblique views along with computer-aided detection (CAD). Synthesized 2D images are generated from the tomosynthesis. Additional left MLO view is provided. FINDINGS: There are scattered areas of fibroglandular density (ACR BI-RADS breast composition Category b). Right breast has smooth nodule posterior upper outer quadrant, 1.5 x 0.8 cm. Margins are partly obscured. The finding represents change from prior studies. Patient will be recalled for additional imaging. The remainder of the breasts show no interval mass or architectural abnormality or abnormal calcifications. The axilla and skin contours are unremarkable. MM/MM tomosynthesis screening BI IMPRESSION: Right: -Nodule posterior upper outer quadrant 1.5 x 0.8 cm. Left: -No mammographic evidence of malignancy. ASSESSMENT: BI-RADS 0: Incomplete - Need Additional Imaging Evaluation RECOMMENDATION: 1. Additional views of the right breast spot CC and spot MLO for margins). 2. Targeted ultrasound right breast. 3. Radiology department staff will contact the patient for additional imaging. This patient's information was entered into a reminder system with a target due date for their next mammogram.
== END 2022-06-17 13:15 | disposition home or self-care (01) ==
LOC: HO.MAMMO 13:14
PROVIDERS: PCP Internal Medicine; Visit Provider Internal Medicine
DX: Z12.31 Encounter for screening mammogram for malignant neoplasm of breast (principal)
CPT/HCPCS: 77063; 77067

== ENCOUNTER 2022-07-01 13:59 | Outpatient (REF) | payer MEDICARE, MEDICAID, SELFPAY ==
--- NOTE | ~2022-07-01 | MM_ITS ---
EXAMINATION: MM DIAGNOSTIC DIGITAL BREAST TOMOSYNTHESIS, RIGHT US DIAGNOSTIC ULTRASOUND BREAST, RIGHT CLINICAL INFORMATION: Recall from screening for smooth nodule posterior upper outer right breast with partly obscured margins. COMPARISON: Mammography: 06/17/2022, 08/04/2018 TECHNIQUE: Digital breast tomosynthesis is performed. 2D images are generated from the tomosynthesis. The following views are obtained: Spot CC, spot MLO. Ultrasound right breast is targeted to the upper and outer quadrant. FINDINGS: There are scattered areas of fibroglandular density (ACR BI-RADS breast composition Category b). The additional views demonstrate smooth macrolobulated nodule with incompletely defined margins posterior outer right breast measuring approximately 1.4 x 0.9 cm. This represents change from prior mammography 2018, prior dimensions 0.8 x 0.4 cm. Ultrasound right breast demonstrates a solid macrolobulated nodule 9:00 position 12 cm from nipple measuring approximately 1.3 x 0.5 x 0.8 cm. There is no increased or decreased through transmission of sound. There is color flow within the lesion. Differential considerations include fibroadenoma as well as reactive intramammary node. Suggest ultrasound-guided sampling. Results are discussed with the patient at time of visit. Results and recommendation called to messenger office ([place]) for Dr. Lazcano on 07/01/2022. MM/MM tomosynthesis added views R IMPRESSION: Solid nodule posterior 9:00-10:00 position under 1.5 cm, possibly fibroadenoma or reactive intramammary node. ASSESSMENT: BI-RADS 4: Suspicious (subcategory 4A: Low suspicion for malignancy) RECOMMENDATION: Ultrasound-guided core biopsy right breast nodule. This patient's information was entered into a reminder system with a target due date for their next mammogram.
== END 2022-07-01 14:00 | disposition home or self-care (01) ==
LOC: HO.MAMMO 13:59
PROVIDERS: Visit Provider Internal Medicine
DX: N63.11 Unspecified lump in the right breast, upper outer quadrant (principal)
CPT/HCPCS: 76642; 77061; 77065

== ENCOUNTER → 2022-07-02 14:56 | Outpatient (BNVA) | payer MEDICARE, MEDICAID, SELFPAY | PROVIDERS: PCP Internal Medicine; Visit Provider Surgery | DX: N63.15 Unspecified lump in the right breast, overlapping quadrants (principal); Z80.3 Family history of malignant neoplasm of breast | CPT/HCPCS: 99202 ==

== ENCOUNTER 2022-07-08 07:48 | Outpatient (REF) | payer MEDICARE, MEDICAID, SELFPAY ==
--- NOTE | ~2022-07-08 | MM_ITS ---
EXAMINATION: ULTRASOUND GUIDED CORE BIOPSY BREAST, RIGHT POST PROCEDURE DIGITAL BREAST TOMOSYNTHESIS, RIGHT CLINICAL INFORMATION: Solid nodule posterior 9:30 right breast approximately 1.3 cm, possibly fibroadenoma or reactive lymph node. COMPARISON: Mammography 06/17/2022, 07/01/2022, ultrasound right breast 07/01/2022. FINDINGS: Proper informed consent is obtained from the patient after discussion of the procedure, potential risks and complications, and alternatives. Patient was given an opportunity for questions. The patient appeared to understand. The patient consented to the procedure and signed the consent form. GUIDANCE: Ultrasound-guided; aseptic technique. LESION: Solid macrolobulated nodule 9:00 12 cm from nipple measuring 1.3 cm in greatest dimension. APPROACH: Lateral medial. ANESTHESIA: 10 mL carbonated 1% lidocaine. DERMATOTOMY: Single skin scott dermatotomy performed. NEEDLE: 14-gauge Achieve core biopsy device with 13.5-gauge co-axial guide needle. CORES: 5. CLIP: HydroMARK; shape: open coil. POST PROCEDURE UNILATERAL DIGITAL BREAST TOMOSYNTHESIS: The post biopsy mammogram is performed in separate room using separate digital breast tomosynthesis equipment from the biopsy procedure. CC and ML views are obtained. Synthesized 2-D images are generated from the tomography. There are scattered areas of fibroglandular density (breast composition category: b). The clip marker is in position. No gross hematoma. The patient tolerated the procedure well. No immediate complications. Home instructions reviewed with the patient. Final pathology results are pending. MM/MM tomosynthesis diagnostic RT IMPRESSION: 1. Status post ultrasound-guided core biopsy right breast. 2. Clip placed: HydroMARK; shape: open coil. 3. Pathology pending. An addendum report will be issued.
[2022-07-08] MEDS: Lidocaine HCl 1 % 20 ML VIAL 9 ML SUBCUT (09:20)
[2022-07-08] MEDS: Sodium Bicarbonate 8.4% 50 MEQ/50 ML VIAL SUBCUT (09:21)
== END 2022-07-08 07:49 | disposition home or self-care (01) ==
LOC: HO.MAMMO 07:48
PROVIDERS: PCP Internal Medicine; Visit Provider Internal Medicine
DX: N63.15 Unspecified lump in the right breast, overlapping quadrants (principal)
CPT/HCPCS: 19083; 77061; 77065; 88305; A4648

== ENCOUNTER → 2022-07-16 10:27 | Outpatient (BNVA) | payer MEDICARE, MEDICAID, SELFPAY | PROVIDERS: PCP Internal Medicine; Visit Provider Surgery | DX: D24.9 Benign neoplasm of unspecified breast (principal); Z80.41 Family history of malignant neoplasm of ovary | CPT/HCPCS: 99212 ==

== ENCOUNTER 2022-07-22 06:09 | Outpatient (REF) | payer MEDICARE, MEDICAID, SELFPAY ==
--- NOTE | ~2022-07-22 | FL_ITS ---
EXAMINATION: XR FLUOROSCOPY WITH IMAGES CLINICAL INFORMATION: Sacroiliitis. COMPARISON: 04/29/2022. TECHNIQUE: Fluoroscopy performed by Dr Norris Fluoroscopy time: 0.2 minutes. Cumulative Dose: 15 mGy. DAP: 4.10 Gy-cm2. Images: 2. FINDINGS: On lateral film needle is seen overlying the lower sacrum with contrast seen in the epidural space. On AP view contrast is seen overlying the sacroiliac joints with needle overlying the left sacroiliac joint. Fallopian tube occlusion device is in place. FL/FL guidance in treatment room IMPRESSION: Fluoroscopy provided for intraoperative pain management procedure.
== END 2022-07-22 06:10 | disposition home or self-care (01) ==
LOC: CF 06:09
PROVIDERS: Visit Provider Anesthesiology
DX: M46.1 Sacroiliitis, not elsewhere classified (principal)
CPT/HCPCS: 27096; J3300

== ENCOUNTER 2022-07-24 13:20 | Outpatient (REF) | payer MEDICARE, MEDICAID, SELFPAY | END 2022-07-24 13:21 | disposition home or self-care (01) | LOC: HO.MDS 13:20 | PROVIDERS: Visit Provider Internal Medicine Medical Oncology | DX: D50.9 Iron deficiency anemia, unspecified (principal) | CPT/HCPCS: 96365; J1756 ==

== ENCOUNTER 2022-08-01 08:06 | Outpatient (REF) | payer MEDICARE, MEDICAID, SELFPAY | END 2022-08-01 08:07 | disposition home or self-care (01) | LOC: HO.MDS 08:06 | PROVIDERS: Visit Provider Internal Medicine Medical Oncology | DX: D50.9 Iron deficiency anemia, unspecified (principal) | CPT/HCPCS: 96365; J1756 ==

== ENCOUNTER 2022-08-08 07:50 | Outpatient (REF) | payer MEDICARE, MEDICAID, SELFPAY | END 2022-08-08 07:51 | disposition home or self-care (01) | LOC: HO.MDS 07:50 | PROVIDERS: Visit Provider Internal Medicine Medical Oncology | DX: D50.9 Iron deficiency anemia, unspecified (principal) | CPT/HCPCS: 96365; J1756 ==

== ENCOUNTER 2022-08-12 10:28 | Outpatient (REF) | payer MEDICARE, MEDICAID, SELFPAY ==
--- NOTE | ~2022-08-12 | XR_ITS ---
EXAMINATION: XR CHEST CLINICAL INFORMATION: Chest pain COMPARISON: Previous chest x-ray April 2022 TECHNIQUE: 2 views of the chest were obtained. FINDINGS: No significant abnormality is noted involving the heart, lungs, mediastinum, bony thorax or soft tissues. XR/XR chest 2V IMPRESSION: Unremarkable examination.
== END 2022-08-12 10:29 | disposition home or self-care (01) ==
LOC: HO.HMGCX 10:28
PROVIDERS: PCP Internal Medicine; Visit Provider Internal Medicine
DX: R07.9 Chest pain, unspecified (principal)
CPT/HCPCS: 71046

== ENCOUNTER 2022-08-15 08:25 | Outpatient (REF) | payer MEDICARE, MEDICAID, SELFPAY | END 2022-08-15 08:26 | disposition home or self-care (01) | LOC: HO.MDS 08:25 | PROVIDERS: Visit Provider Internal Medicine Medical Oncology | DX: D50.9 Iron deficiency anemia, unspecified (principal) | CPT/HCPCS: 96365; J1756 ==

== ENCOUNTER 2022-08-19 10:04 | Outpatient (REF) | payer MEDICARE, MEDICAID, SELFPAY ==
[2022-08-19 18:08] LABS: CT PCR NOT DETECTED (Not Detect.); NG PCR NOT DETECTED (Not Detect.)
== END 2022-08-19 10:05 | disposition home or self-care (01) ==
LOC: HO.LNP 10:04
PROVIDERS: PCP Internal Medicine; Visit Provider Obstetrics & Gynecology
DX: N93.9 Abnormal uterine and vaginal bleeding, unspecified (principal); T83.32XA Displacement of intrauterine contraceptive device, initial encounter; Z01.419 Encounter for gynecological examination (general) (routine) without abnormal findings; Z53.8 Procedure and treatment not carried out for other reasons; Z97.5 Presence of (intrauterine) contraceptive device
CPT/HCPCS: 87491; 87591; 99212

== ENCOUNTER 2022-08-19 11:26 | Outpatient (REF) | payer MEDICARE, MEDICAID, SELFPAY ==
--- NOTE | ~2022-08-19 | US_ITS ---
EXAMINATION: US PELVIS CLINICAL INFORMATION: Abnormal uterine and vaginal bleeding COMPARISON: Previous pelvic ultrasounds most recent February 2019 TECHNIQUE: Ultrasound of the pelvis is performed using both transabdominal and transvaginal transducers along with Doppler. Transvaginal imaging is performed due to inadequate visualization transabdominally. FINDINGS: Exam is very limited. The uterus is not well visualized. The uterus measures 9.7 x 3 x 3.8 cm and appears anteverted and retroflexed. The endometrium is not seen. There is a nabothian cyst in the cervix. The right ovary is enlarged and measures 4.8 x 4.2 x 4.3 cm. There is a 4.2 x 4 x 3.5 cm simple right ovarian cyst. The left ovary is not seen. There is no fluid in the pelvis. US/US pelvic and transvaginal IMPRESSION: Very limited exam. The endometrium and left ovary are not well visualized. The right ovary is enlarged. There is a 4.2 x 4 x 3.5 cm simple right ovarian cyst.
[2022-08-19 12:09] LABS: Hematocrit 34.5 % (37.0-47.0); Hemoglobin 10.6 g/dl (12.0-16.0); Mean Corpuscular HGB Conc 30.7 g/dl (31.0-35.0); Mean Corpuscular Hemoglobin 23.7 pg (27.0-33.0); Mean Corpuscular Volume 77.2 fL (80.0-98.0); Mean Platelet Volume 11.2 fL (9.4-12.3); Platelet Count 293 X10*3/uL (160-400); Red Blood Count 4.47 X10*6/uL (4.20-5.50); Red Cell Distribution Width 24.7 % (11.0-16.0); White Blood Count 9.6 X10*3/uL (4.8-10.8)
[2022-08-19 13:31] LABS: HCG Quantitative < 2 mIU/mL; TSH reflex Free T4 0.96 uIU/mL (0.32-4.0)
== END 2022-08-19 11:27 | disposition home or self-care (01) ==
LOC: HO.US 11:26
PROVIDERS: PCP Internal Medicine; Visit Provider Obstetrics & Gynecology
DX: Z11.3 Encounter for screening for infections with a predominantly sexual mode of transmission (principal); N93.9 Abnormal uterine and vaginal bleeding, unspecified; T83.32XA Displacement of intrauterine contraceptive device, initial encounter
CPT/HCPCS: 36415; 76830; 76856; 84443; 84702; 85027; 87491; 87591; 99212

== ENCOUNTER 2022-08-20 08:23 | Outpatient (REF) | payer MEDICARE, MEDICAID, SELFPAY | END 2022-08-20 08:24 | disposition home or self-care (01) | LOC: HO.MDS 08:23 | PROVIDERS: Visit Provider Internal Medicine Medical Oncology | DX: D50.9 Iron deficiency anemia, unspecified (principal) | CPT/HCPCS: 96365; J1756 ==

== ENCOUNTER → 2022-08-26 09:35 | Outpatient (BNVA) | payer MEDICARE, MEDICAID, SELFPAY | PROVIDERS: PCP Internal Medicine; Visit Provider Obstetrics & Gynecology | DX: N93.9 Abnormal uterine and vaginal bleeding, unspecified (principal); R10.2 Pelvic and perineal pain | CPT/HCPCS: 99212 ==

== ENCOUNTER → 2022-08-27 12:53 | Outpatient (BNVA) | payer MEDICARE, MEDICAID, SELFPAY | PROVIDERS: PCP Internal Medicine; Visit Provider Anesthesiology | DX: M46.1 Sacroiliitis, not elsewhere classified (principal); E66.01 Morbid (severe) obesity due to excess calories; M53.3 Sacrococcygeal disorders, not elsewhere classified; Z68.41 Body mass index [BMI] 40.0-44.9, adult; Z80.41 Family history of malignant neoplasm of ovary | CPT/HCPCS: 99212 ==

== ENCOUNTER 2022-08-29 08:35 | Outpatient (REF) | payer MEDICARE, MEDICAID, SELFPAY | END 2022-08-29 08:36 | disposition home or self-care (01) | LOC: HO.MDS 08:35 | PROVIDERS: Visit Provider Internal Medicine Medical Oncology | DX: D50.9 Iron deficiency anemia, unspecified (principal) | CPT/HCPCS: 96365; J1756 ==

== ENCOUNTER 2022-09-05 08:35 | Outpatient (REF) | payer MEDICARE, MEDICAID, SELFPAY | END 2022-09-05 08:36 | disposition home or self-care (01) | LOC: HO.MDS 08:35 | PROVIDERS: Visit Provider Internal Medicine Medical Oncology | DX: D50.9 Iron deficiency anemia, unspecified (principal) | CPT/HCPCS: 96365; J1756 ==

== ENCOUNTER 2022-09-12 08:29 | Outpatient (REF) | payer MEDICARE, MEDICAID, SELFPAY ==
[2022-09-12 10:21] LABS: MANUAL DIFF FLAG NO
[2022-09-12 11:23] LABS: Basophils Absolute Auto 0.1 X10*3/uL (0.0-0.2); Basophils Percent Auto 0.8 % (0-2); Eosinophils Absolute Auto 0.1 X10*3/uL (0.0-0.4); Eosinophils Percent Auto 1.2 % (0-4); Hematocrit 40.3 % (37.0-47.0); Hemoglobin 12.7 g/dl (12.0-16.0); Imm Gran Abs Auto 0.06 X10*3/uL (0.00-0.03); Imm Gran Pct Auto 0.8 % (0.0-0.4); Mean Corpuscular HGB Conc 31.5 g/dl (31.0-35.0); Mean Corpuscular Hemoglobin 25.3 pg (27.0-33.0); Mean Corpuscular Volume 80.3 fL (80.0-98.0); Mean Platelet Volume 11.2 fL (9.4-12.3); Monocytes Absolute Auto 0.7 X10*3/uL (0.1-1.2); Monocytes Percent Auto 9.4 % (2-11); Neutrophils Absolute Auto 4.6 x10*3/uL (2.0-8.3); Neutrophils Percent Auto 60.8 % (45-73); Platelet Count 311 X10*3/uL (160-400); Red Blood Count 5.02 X10*6/uL (4.20-5.50); White Blood Count 7.5 X10*3/uL (4.8-10.8)
[2022-09-12 13:26] LABS: Alanine Aminotransferase 31 U/L (0-31); Albumin Level 4.2 g/dL (3.5-5.0); Alkaline Phosphatase 101 U/L (39-117); Anion Gap 13 (12-20); Aspartate Amino Transferase 21 U/L (5-31); Bilirubin Total 0.3 mg/dL (0.0-1.0); Blood Urea Nitrogen 12 mg/dL (9-16); Calcium 9.4 mg/dL (8.4-10.2); Carbon Dioxide 22 mmol/L (22-29); Chloride 109 mmol/L (96-108); Estimated Glomerular Filt Rate > 60; Ferritin 416 ng/mL (10-250); Glucose Random 81 mg/dL (60-115); Potassium 4.7 mmol/L (3.3-5.1); Sodium 139 mmol/L (135-145); Total Protein 6.7 g/dL (6.5-8.0)
== END 2022-09-12 08:30 | disposition home or self-care (01) ==
LOC: HO.MDS 08:29
PROVIDERS: PCP Internal Medicine; Visit Provider Internal Medicine Medical Oncology
DX: D50.9 Iron deficiency anemia, unspecified (principal)
CPT/HCPCS: 36415; 80053; 82728; 85025; 96365; J1756

== ENCOUNTER 2022-09-16 15:39 | Outpatient (REF) | payer MEDICARE, MEDICAID, SELFPAY ==
[2022-09-16] MEDS: iohexoL 350 MG/ML 100 ML INFUS..BTL IV (16:35)
== END 2022-09-16 15:40 | disposition home or self-care (01) ==
LOC: HO.CT 15:39
PROVIDERS: PCP Internal Medicine; Visit Provider Obstetrics & Gynecology
DX: R10.2 Pelvic and perineal pain (principal)
CPT/HCPCS: 72193; Q9967

== ENCOUNTER 2022-10-16 08:16 | Outpatient (REF) | payer MEDICARE, MEDICAID, SELFPAY | END 2022-10-16 08:17 | disposition home or self-care (01) | LOC: HO.LNP 08:16 | PROVIDERS: Visit Provider Obstetrics & Gynecology | DX: N93.9 Abnormal uterine and vaginal bleeding, unspecified (principal); R10.2 Pelvic and perineal pain | CPT/HCPCS: 58100; 88305; 99212 ==

== ENCOUNTER → 2022-11-18 08:51 | Outpatient (BNVA) | payer MEDICARE, MEDICAID, SELFPAY | PROVIDERS: PCP Internal Medicine; Referring Provider Internal Medicine; Visit Provider Physician Assistant | DX: Z13.89 Encounter for screening for other disorder (principal) ==

== ENCOUNTER 2023-01-29 17:40 | Outpatient (REF) | payer MEDICARE, MEDICAID, SELFPAY ==
[2023-01-29 18:30] LABS: Influenza A PCR NEGATIVE (Negative); Influenza B PCR NEGATIVE (Negative); Resp Syncy Virus RNA Qual PCR NEGATIVE (Negative); SARS COV2 PCR INHOUSE NEGATIVE (Negative)
== END 2023-01-29 17:41 | disposition home or self-care (01) ==
LOC: HO.LNP 17:40
PROVIDERS: Visit Provider Physician Assistant Medical
DX: Z20.822 Contact with and (suspected) exposure to COVID-19 (principal); R05.9 Cough, unspecified
CPT/HCPCS: 0241U

== ENCOUNTER 2023-02-03 09:27 | Outpatient (REF) | payer MEDICARE, MEDICAID, SELFPAY ==
[2023-02-03 11:13] LABS: MANUAL DIFF FLAG NO
[2023-02-03 11:36] LABS: Basophils Absolute Auto 0.1 X10*3/uL (0.0-0.2); Basophils Percent Auto 0.6 % (0-2); Eosinophils Absolute Auto 0.1 X10*3/uL (0.0-0.4); Eosinophils Percent Auto 0.7 % (0-4); Hematocrit 41.4 % (37.0-47.0); Hemoglobin 13.5 g/dl (12.0-16.0); Imm Gran Abs Auto 0.05 X10*3/uL (0.00-0.03); Imm Gran Pct Auto 0.6 % (0.0-0.4); Lymphocytes Absolute Auto 1.7 X10*3/uL (1.2-4.9); Lymphocytes Percent Auto 20.6 % (20-40); Mean Corpuscular HGB Conc 32.6 g/dl (31.0-35.0); Mean Corpuscular Hemoglobin 29.9 pg (27.0-33.0); Mean Corpuscular Volume 91.6 fL (80.0-98.0); Mean Platelet Volume 12.3 fL (9.4-12.3); Monocytes Absolute Auto 0.6 X10*3/uL (0.1-1.2); Neutrophils Absolute Auto 5.7 x10*3/uL (2.0-8.3); Neutrophils Percent Auto 70.5 % (45-73); Platelet Count 270 X10*3/uL (160-400); Red Blood Count 4.52 X10*6/uL (4.20-5.50); Red Cell Distribution Width 13.1 % (11.0-16.0); White Blood Count 8.1 X10*3/uL (4.8-10.8)
[2023-02-03 12:39] LABS: Alanine Aminotransferase 27 U/L (0-31); Albumin Level 4.2 g/dL (3.5-5.0); Alkaline Phosphatase 100 U/L (39-117); Anion Gap 13 (12-20); Aspartate Amino Transferase 20 U/L (5-31); Bilirubin Direct 0.2 mg/dL (0.0-0.5); Bilirubin Total 0.6 mg/dL (0.0-1.0); Blood Urea Nitrogen 9 mg/dL (9-16); Calcium 9.1 mg/dL (8.4-10.2); Carbon Dioxide 21 mmol/L (22-29); Chloride 111 mmol/L (96-108); Cholesterol 226 mg/dL; Estimated Glomerular Filt Rate > 60; Free T4 (Free Thyroxine) 1.08 ng/dL (0.71-1.85); Glucose Random 79 mg/dL (60-115); HDL Cholesterol 50 mg/dL; LDL Cholesterol Calculated 156 mg/dl; Potassium 4.5 mmol/L (3.3-5.1); Sodium 140 mmol/L (135-145); Thyroid Stimulating Hormone 0.79 uIU/mL (0.32-4.0); Total Protein 6.9 g/dL (6.5-8.0); Triglycerides 103 mg/dL
== END 2023-02-03 09:28 | disposition home or self-care (01) ==
LOC: HO.HMGCLDS 09:27
PROVIDERS: PCP Internal Medicine; Visit Provider Internal Medicine Medical Oncology
DX: E78.00 Pure hypercholesterolemia, unspecified (principal); B34.9 Viral infection, unspecified
CPT/HCPCS: 36415; 80053; 80061; 82248; 84439; 84443; 85025; 85027

== ENCOUNTER 2023-05-18 11:29 | Outpatient (AMB) | payer MEDICARE, MEDICAID, SELFPAY ==
--- NOTE | 2023-05-18 11:29 | A.OFFVIS_ITS ---
Intake Intake Visit Reasons: Abd Pains, Rediscuss [place] Intake Note: Eliza presents as a video call today for Abdominal pains. CC: States she is always having stomach pains, diarrhea with constipation and lots of nausea. Director Athletic Required: No Allergies topiramate [From TOPAMAX] Allergy (Intermediate, Verified 05/18/23 11:30) NAUSEA & VOMITING ENVIRONMENTAL Allergy (Severe, Uncoded 05/18/23 11:30) SINUS INFXN SYMPTOMS STATED BY PT HPI Abd Pains, Rediscuss [place] HPI Details A 47 y/o female WITH HX OF GASTRIC BYPASS, SPONDYLOSIS, cholecystectomy being called for f/u. ? ? ? RECAP; saw [facility] [place] ? she had been c/o abdo pain, nausea, ? Its hard to eat steak- no milk or cheese. ? Went to ER- had a GI shot- it numbed my entire GI tract . ? Omeprazole not really helpful. ? She was very worried about having cancer ? Father -colon cancer @ 50 ? Sister colon cancer in her early 40s. ? TESTS: egd/COLONOSCOPY---01/2020 ? esophagus dilated, retianed eduardo removed, barretts esophagus w/ chronic inactive inflammation on bx, ? colon, with small internal hemorrhoids, fiar prep--rept 3 yrs due to FH CRC ? bx with focal active colitis, no chronic injury ? small bowel f/u--03/2020--rapid transit, small hiatal henria, reflux, no obstruction ? LABS: 05/2020--LFt, BMp--nml, CBC, mild anemia EGD/sigmoidoscopy-11/2020-schatzki ring, internal hemorrhoids--she had dilation of esophagus ? INTERIM; she has ongoing pain in her abdomen she has variable bowel habit she has nausea, cramping sidney with food she can have vomiting attacks as well she does have swollen hands at times she has had these sx since 2001 at least she feels her dysphagia is relapsed--has to take soft diet, EXAM: good color, talking easily, appears comfortable Assessments ? 1. Ongoing abdominal pain and abn bowel habits, prior bx with focal colitis, ? IBD, adhesions from gastric bypass 2. Dysphagia- relapsed, good result with prior dilaiton PLAN: 1/ cont with PPI TID--works better for her 2/ EGD and colonoscopy 3/ Ct e and stool studies [facility] Medical History (Updated 05/18/23 @ 11:50 by Dayne Marquez MD) Anxiety and depression Barretts esophagus Breast mass, right Carpal tunnel syndrome on both sides Cholelithiasis Chronic pain syndrome Constipation Encounter for Essure implantation Family history of breast cancer Family history of ovarian cancer Fatty liver Fibroadenoma GERD (gastroesophageal reflux disease) H/O sigmoidoscopy Hypercholesterolemia Hypertension Lumbar degenerative disc disease Osteoarthritis, knee Tinea corporis Vitamin D deficiency Surgical History (Updated 12/10/22 @ 12:08 by Bethany Frank PA-C) H/O colonoscopy H/O esophagogastroduodenoscopy H/O gastric bypass History of breast mammoplasty History of carpal tunnel release History of section Family History (Updated 11/18/22 @ 09:23 by Seema Leonard CMA) Father Colon cancer CVD (cardiovascular disease) Mother Breast cancer Brain tumor Sister Colon cancer Breast cancer Social History Household Members: Children Housing: Apartment Are you a primary care center manager to a significant other at home: No Do you presently have visiting nurse or other home services: No Alcohol intake: never Patient Tobacco Use Status: Never used Tobacco e-Cigarette/Vaping Use: Never Used Second Hand Smoke Exposure: No service: No Current occupational status: disabled Cognitive needs: No Hearing needs: No Vision needs: No Female Reproductive History Menstrual Age of Menarche: 14 Assessment & Plan Assessment & Plan Orders: Orders CT enterography Today K50.90 - Crohn's disease, unspecified, without complications, R10.33 - Periumbilical pain, R19.8 - Other specified symptoms and signs involving the digestive system and abdomen Lactoferrin, Fecal, Quant. Today K51.50 - Left sided colitis without complications, R19.8 - Other specified symptoms and signs involving the digestive system and abdomen CDiff Gene PCR Today R19.8 - Other specified symptoms and signs involving the digestive system and abdomen GI Panel Today R19.7 - Diarrhea, unspecified, R19.8 - Other specified symptoms and signs involving the digestive system and abdomen Medications: New peg-electrolyte soln 420 gram until fecal effluent is clear; do not exceed a total volume of 2,000 mL 240 mL PO Q10M 4,000 mL 0RF Changed From omeprazole 20 mg PO DAILY 90 days 90 caps 3RF K22.70 - Renee's esophagus without dysplasia To omeprazole 20 mg PO TID 270 caps 3RF 90 days K22.70 - Renee's esophagus without dysplasia Refilled ondansetron 4 mg PO TID PRN 60 tabs 2RF nausea and vomiting 5 days Z12.11 - Encounter for screening for malignant neoplasm of colon Telehealth Telehealth Location of provider rendering services: practice address Location of patient: address on file Patient Identification confirmed using: Name, : Yes Telehealth method: video Patient verbally consented to treatment: Yes Patient verbally consented to billing insurance company: Yes Patient informed of any privacy concerns related to visit: Yes Minutes spent on Phone/Video with Pt.: 12 Coding Level of Care Code Tele Est Pt Level 4 (18179) Diagnoses
== END 2023-05-18 15:56 | disposition home or self-care (01) ==
LOC: HO.HGI 11:29
PROVIDERS: PCP Internal Medicine; Visit Provider Internal Medicine Gastroenterology
DX: K50.90 Crohn's disease, unspecified, without complications (principal); R19.8 Other specified symptoms and signs involving the digestive system and abdomen
CPT/HCPCS: 99214

== ENCOUNTER → 2023-05-18 11:29 | Outpatient (BNVA) | payer MEDICARE, MEDICAID, SELFPAY | PROVIDERS: PCP Internal Medicine; Visit Provider Internal Medicine Gastroenterology ==

== ENCOUNTER 2023-05-28 11:32 | Outpatient (AMB) | payer MEDICARE, MEDICAID, SELFPAY ==
[2023-05-28 11:37] VITALS: BP 118/72; PULSE 76; O2SAT 98; BMI 42.4
--- NOTE | 2023-05-28 11:37 | A.OFFPC_ITS ---
Vital Signs 05/28/23 11:37 Height 5 ft 1.5 in Weight 228 lb BMI 42.4 BP 118/72 Blood Pressure Location Lt brachial Position Sitting Pulse 76 Pulse Source Pulse Oximeter Pulse Oximetry (%) 98 Oxygen Delivery Method Room Air Intake Visit Reasons: cholesterol , obesity, HTN Allergies topiramate [From TOPAMAX] Allergy (Intermediate, Verified 05/28/23 11:37) NAUSEA & VOMITING ENVIRONMENTAL Allergy (Severe, Uncoded 05/28/23 11:37) SINUS INFXN SYMPTOMS STATED BY PT Tobacco use date assessed: 02/10/23 Dental Screening Dental Screen Date: 05/28/23 Did you have a dental visit in the last 12 months?: No Did you have a dental problem in the last 6 months where you did not have access to dental care?: No Was dental information given to patient?: No HPI cholesterol , obesity, HTN HPI Details 47-year-old obese female with GERD hypertension hypercholesterolemia generalized anxiety disorder last seen in January 2023. Patient was advised blood work and was referred to the bottom buffer for colon cancer screening. Patient is here for follow-up mammogram is due next month. Patient was seen by the bottom buffer in 05/18/2023 history of gastric bypass cholecystectomy, patient had colonoscopy done in January 2020 esophagus was dilated Renee's esophagus had another dilatation in November 2020 question of colitis and will schedule for colon test again at that time patient was advised to have CT enterography. Patient also follows up with Rheumatology and had an x-ray of the right knee showing no arthritic changes patient also had right elbow pain but the x-ray was negative also [facility] Medical History (Updated 05/18/23 @ 11:50 by Dayne Marquez MD) Anxiety and depression Barretts esophagus Breast mass, right Carpal tunnel syndrome on both sides Cholelithiasis Chronic pain syndrome Constipation Encounter for Essure implantation Family history of breast cancer Family history of ovarian cancer Fatty liver Fibroadenoma GERD (gastroesophageal reflux disease) H/O sigmoidoscopy Hypercholesterolemia Hypertension Lumbar degenerative disc disease Osteoarthritis, knee Tinea corporis Vitamin D deficiency Surgical History (Updated 12/10/22 @ 12:08 by Bethany Frank PA-C) H/O colonoscopy H/O esophagogastroduodenoscopy H/O gastric bypass History of breast mammoplasty History of carpal tunnel release History of section Family History (Updated 05/28/23 @ 11:38 by Marielos Saavedra CMA) Father Colon cancer CVD (cardiovascular disease) Mother Breast cancer Brain tumor Sister Colon cancer Breast cancer Social History Household Members: Children Housing: Apartment Are you a primary caretaker grounds to a significant other at home: No Do you presently have visiting nurse or other home services: No Alcohol intake: never Patient Tobacco Use Status: Never used Tobacco e-Cigarette/Vaping Use: Never Used Second Hand Smoke Exposure: No service: No Current occupational status: disabled Cognitive needs: No Hearing needs: No Vision needs: No Female Reproductive History Menstrual Age of Menarche: 14 Questionnaire PHQ-9 Over the last 2 weeks, how often have you been bothered by any of the following problems? 1. Little interest or pleasure in doing things: not at all 2. Feeling down, depressed, or hopeless: not at all 3. Trouble falling or staying asleep, or sleeping too much: not at all 4. Feeling tired or having little energy: nearly every day 5. Poor appetite or overeating: not at all 6. Feeling bad about yourself - or that you are a failure or have let yourself or your family down: not at all 7. Trouble concentrating on things, such as reading the newspaper or watching television: nearly every day 8. Moving or speaking so slowly that other people could have noticed. Or the opposite - being so fidgety or restless that you have been moving around a lot more than usual: nearly every day 9. Thoughts that you would be better off or of hurting yourself in some way: not at all Total score: 9 Depression Screening Interpretation: Positive Source: Developed by Drs. Curly Williamson, Yue Ren, Mathew wiley nd colleagues, with an educational kenneth from [employer]. Thrive Questionnaire Date Thrive assessed: 11/11/22 AUDIT C Alcohol Use Questionnaire (AUDIT-C) 1. How often do you have a drink containing alcohol?: Never 2. How many drinks containing alcohol do you have on a typical day when you are drinking?: 1 or 2 (0) 3. How often do you have six or more drinks on one occasion?: Never Total Score: 0 SHARON-7 AMB Questionnaire SHARON-7 Date SHARON - 7 assessed: 11/11/22 Source: Developed by Drs. Curly Williamson, Yue Ren, Mathew Newton and colleagues, with an educational kenneth from [employer]. Physical exam (Primary Care) Vital Signs: Last Vital Signs Pulse 76 05/28/23 11:37 BP 118/72 05/28/23 11:37 Pulse Ox 98 05/28/23 11:37 Oxygen Delivery Method Room Air 05/28/23 11:37 BMI result Body Mass Index 42.4 Tobacco/Smoking Status: Tobacco use Status Tobacco use date assessed 02/10/23 05/28/23 11:43 Patient Tobacco Use Status Never used Tobacco 05/28/23 11:43 e-Cigarette/Vaping Use Never Used 05/28/23 11:43 PHQ-9: PHQ-9 Score PHQ-9: Total score 9 05/28/23 11:43 Depression Screening Interpretation: Positive Thrive Assessment: Date of Thrive Assessment Date Thrive assessed 11/11/22 05/28/23 11:43 Const General: alert; No acute distress Eyes Conjunctivae: conjunctivae normal Resp Auscultation: clear to auscultation bilaterally Cardio Rate: regular rate Rhythm: regular rhythm GI Inspection: Yes normal to inspection Extrem General: Yes normal to inspection and No edema Assessment and Plan Assessment & Plan (1) H/O gastric bypass: Comment: [address] [facility] [address] Tang Code(s): Z98.84 - Bariatric surgery status (2) Morbid obesity: Code(s): E66.01 - Morbid (severe) obesity due to excess calories Plan: Patient needs to diet and exercise (3) Generalized anxiety disorder: Comment: Referral to [facility] Counseling Code(s): F41.1 - Generalized anxiety disorder Plan: Continue with counseling and therapy patient is on clonazepam duloxetine gabapentin hydroxyzine- on gthe waiting list for counselling with [facility] (4) Barretts esophagus: Code(s): K22.70 - Renee's esophagus without dysplasia Qualifiers: Renee's esophagus type: without dysplasia Qualified Code(s): K22.70 - Renee's esophagus without dysplasia Plan: Avoid the foods that causes that usually spicy foods, tomato products, juices, coffee, soda and foods that your sensitive to. After eating do not lie down, allow 3-4 hours before in lie down. And keep the head of bed above 30 degrees to avoid the acid from going up. Patient is on Carafate omeprazole (5) Hypercholesterolemia: Code(s): E78.00 - Pure hypercholesterolemia, unspecified Plan: Avoid fried foods, chicken skin, eggs, butter margarine, pastries and meat. Be it pork or beef they have a lot of cholesterol LDL goal of less than 130 and triglyceride of less than 150 (6) Hypertension: Code(s): I10 - Essential (primary) hypertension Qualifiers: Hypertension type: essential hypertension Qualified Code(s): I10 - Essential (primary) hypertension Plan: Continue with blood pressure medication. Decrease salt intake and exercise continue with hydrochlorothiazide 25 mg once a day Coding Level of Care Code Est Pt Level 4 (75105) Diagnoses H/O gastric bypass Z98.84 Morbid obesity E66.01 Generalized anxiety disorder F41.1 Barretts esophagus K22.70 Renee's esophagus type: without dysplasia Hypercholesterolemia E78.00 Hypertension I10 Hypertension type: essential hypertension
== END 2023-05-28 12:12 | disposition home or self-care (01) ==
PROVIDERS: PCP Internal Medicine; Visit Provider Internal Medicine
DX: K22.70 Barrett's esophagus without dysplasia (principal); Z98.84 Bariatric surgery status; I10 Essential (primary) hypertension; E66.01 Morbid (severe) obesity due to excess calories; Z68.41 Body mass index [BMI] 40.0-44.9, adult; F41.1 Generalized anxiety disorder; E78.00 Pure hypercholesterolemia, unspecified
CPT/HCPCS: 99214

== ENCOUNTER 2023-05-28 12:19 | Outpatient (REF) | payer MEDICARE, MEDICAID, SELFPAY | END 2023-05-28 12:20 | disposition home or self-care (01) | LOC: HO.LAB 12:19 | PROVIDERS: PCP Internal Medicine; Visit Provider Internal Medicine Medical Oncology | DX: Z13.89 Encounter for screening for other disorder (principal) ==

== ENCOUNTER 2023-05-29 08:46 | Outpatient (REF) | payer MEDICARE, MEDICAID, SELFPAY ==
[2023-05-29 10:47] LABS: Alanine Aminotransferase 47 U/L (0-31); Albumin Level 4.2 g/dL (3.5-5.0); Alkaline Phosphatase 107 U/L (39-117); Anion Gap 14 (12-20); Aspartate Amino Transferase 30 U/L (5-31); Bilirubin Total 0.4 mg/dL (0.0-1.0); Blood Urea Nitrogen 11 mg/dL (9-16); Calcium 9.5 mg/dL (8.4-10.2); Carbon Dioxide 23 mmol/L (22-29); Chloride 107 mmol/L (96-108); Cholesterol 238 mg/dL (<200); Estimated Glomerular Filt Rate > 60; Glucose Random 93 mg/dL (60-115); HDL Cholesterol 57 mg/dL (>40); LDL Cholesterol Calculated 164 mg/dL (<100); Potassium 4.1 mmol/L (3.3-5.1); Sodium 140 mmol/L (135-145); Total Protein 7.3 g/dL (6.5-8.0); Triglycerides 89 mg/dL (<150)
[2023-05-29 11:00] LABS: CDiff Gene PCR NEGATIVE (Negative)
[2023-05-29 12:01] LABS: Adenovirus F 40/41 Not Detected (Not Detect.); Astrovirus Not Detected (Not Detect.); Campylobacter Not Detected (Not Detect.); Cryptosporidium Not Detected (Not Detect.); Cyclospora cayetanensis Not Detected (Not Detect.); E. coli EAEC Not Detected (Not Detect.); E. coli EPEC Not Detected (Not Detect.); E. coli ETEC Not Detected (Not Detect.); E. coli STEC Not Detected (Not Detect.); Entamoeba histolytica Not Detected (Not Detect.); Giardia lamblia Not Detected (Not Detect.); Norovirus GI/GII Not Detected (Not Detect.); Plesiomonas shigelloides Not Detected (Not Detect.); Rotavirus A Not Detected (Not Detect.); Salmonella Not Detected (Not Detect.); Sapovirus Not Detected (Not Detect.); Shigella sp./EIEC Not Detected (Not Detect.); Vibrio Not Detected (Not Detect.); Vibrio Cholerae Not Detected (Not Detect.); Yersinia enterocolitica Not Detected (Not Detect.)
[2023-06-06 23:32] LABS: Lactoferrin, Fecal, Quant. 37.98 mcg/mL (<7.25)
== END 2023-05-29 08:47 | disposition home or self-care (01) ==
LOC: HO.LAB 08:46
PROVIDERS: PCP Internal Medicine; Visit Provider Internal Medicine Gastroenterology
DX: R19.7 Diarrhea, unspecified (principal); R19.8 Other specified symptoms and signs involving the digestive system and abdomen; K51.50 Left sided colitis without complications; E78.00 Pure hypercholesterolemia, unspecified
CPT/HCPCS: 36415; 80053; 80061; 83631; 87493; 87507

== ENCOUNTER 2023-06-02 14:48 | Outpatient (AMB) | payer MEDICARE, MEDICAID, SELFPAY ==
[2023-06-02 14:49] VITALS: BP 112/64; PULSE 89; O2SAT 99; BMI 42.0
--- NOTE | 2023-06-02 14:49 | A.OFFVIS_ITS ---
Intake Vital Signs 06/02/23 14:49 Height 5 ft 1.5 in Weight 226 lb BMI 42.0 BP 112/64 Blood Pressure Location Lt brachial Position Sitting Pulse 89 Pulse Source Pulse Oximeter Temp Source Skin Pulse Oximetry (%) 99 Oxygen Delivery Method Room Air Intake Visit Reasons: AWV Intake Note: Patient is here for an Annual Wellness Visit. Heating Technician Required: No Allergies topiramate [From TOPAMAX] Allergy (Intermediate, Verified 06/02/23 15:09) NAUSEA & VOMITING ENVIRONMENTAL Allergy (Severe, Uncoded 06/02/23 15:09) SINUS INFXN SYMPTOMS STATED BY PT Medication List - Last Reconciled 06/02/23 by YANNICK Anaya ascorbic acid (vitamin C) (Vitamin C) 500 mg PO DAILY atorvastatin 40 mg PO DAILY 90 days [AUTO PAP 6-15 CM H20 humidified AIR As directed] cholecalciferol (vitamin D3) 50 mcg PO DAILY clonazepam 0.5 mg PO TID 30 days clotrimazole 1% 1 appl topical BID 4 weeks dicyclomine 10 mg PO TID docusate sodium 200 mg (2 x 100 mg) PO BEDTIME 90 days duloxetine 20 mg PO BID 90 days ferrous sulfate 325 mg PO DAILY 90 days gabapentin 300 mg PO TID 90 days hydrochlorothiazide 25 mg PO DAILY hydroxyzine HCl 50 mg PO BEDTIME PRN 90 days lactulose 30 mL PO BID loratadine 10 mg PO DAILY 90 days miconazole nitrate 2% (Zeasorb AF) apply under breast, under abdominal fold and groin area topically 2 times a day; 30 days omeprazole 20 mg PO TID 90 days ondansetron 4 mg PO TID PRN 5 days peg-electrolyte soln 420 gram 240 mL PO Q10M polyethylene glycol 3350 (Miralax) 17 grams PO DAILY sennosides (senna) 17.2 mg PO DAILY simethicone 125 mg PO TID-QID PRN sucralfate (Carafate) 1 g PO BID 90 days tizanidine 2 mg PO TID PRN 30 days trazodone 50 mg PO BEDTIME PRN 90 days HPI AWV HPI Details Patient is a 47-year-old female who presents today for subsequent wellness visit. Patient of Dr. Lazcano. Patient has upcoming mammogram 06/23/2023. Pap smear 07/2018 which was normal, patient will be seeing fund development manager Dr. Puente for annual exam 07/2023. Sigmoidoscopy 11/2020 with internal hemorrhoids, patient reports that she will be having colonoscopy this year. [place] of care was reviewed with the patient and she was provided with a screening schedule. End of life planning was discussed with the patient and she was provided with healthcare proxy and MOLST forms. [facility] Medical History Anxiety and depression Barretts esophagus Breast mass, right Carpal tunnel syndrome on both sides Cholelithiasis Chronic pain syndrome Constipation Encounter for Essure implantation Family history of breast cancer Family history of ovarian cancer Fatty liver Fibroadenoma GERD (gastroesophageal reflux disease) H/O sigmoidoscopy Hypercholesterolemia Hypertension Lumbar degenerative disc disease Osteoarthritis, knee Tinea corporis Vitamin D deficiency Surgical History H/O colonoscopy H/O esophagogastroduodenoscopy H/O gastric bypass History of breast mammoplasty History of carpal tunnel release History of section Family History Father Colon cancer CVD (cardiovascular disease) Mother Breast cancer Brain tumor Sister Colon cancer Breast cancer Social History Household Members: Children Housing: Apartment Are you a primary career technical counselor to a significant other at home: No Do you presently have visiting nurse or other home services: No Alcohol intake: never Patient Tobacco Use Status: Never used Tobacco e-Cigarette/Vaping Use: Never Used Second Hand Smoke Exposure: No service: No Current occupational status: disabled Cognitive needs: No Hearing needs: No Vision needs: No Female Reproductive History Menstrual Age of Menarche: 14 Questionnaire Medicare Wellness Checkup What [age] your [age]?: 65-69 (47) What gender do you identify with?: female During the past 4 weeks, how much have you been bothered by emotional problems such as feeling anxious, depressed, irritable, sad or downhearted, and blue?: extremely During the past 4 weeks, has your physical & emotional health limited your social activities with family, friends, neighbors, or groups?: extremely During the past 4 weeks, how much bodily pain have you generally had?: severe pain During the past 4 weeks, was someone available to help you if you needed & wanted help?: yes, quite a bit During the past 4 weeks, what was the hardest physical activity you could do for at least 2 minutes?: light Can you get to places out of walking distance without help? (For eg., can you travel alone on buses, taxis or drive your car?): No Can you go shopping for groceries or clothes without someone's help?: No Can you prepare your own meals?: No Can you do your housework without help?: No Because of any health problems, do you need the help of another person with your personal care needs such as eating, bathing, dressing or getting around the house?: Yes Can you handle your own money without help?: No During the past 4 weeks, how would you rate your health in general?: good During the past 4 weeks how have things been going for you?: good & bad parts about equal Are you having difficulties driving your car?: not applicable, I don't use a car Do you always fasten your seat belt when you are in a car?: yes, usually During past 4 weeks, have you been bothered by the following: never: Sexual problems? and Teeth or denture problems?, sometimes: Falling or dizzy when st anding up, Trouble eating well? and Problems using the telephone? and always: Tiredness or fatigue? Have you fallen 2 or more times in the past year?: Yes Are you afraid of falling?: Yes Are you a smoker?: no During the past 4 weeks, how many drinks of wine, beer, or other alcoholic beverages did you have?: no alcohol at all Do you exercise for about 20 minutes 3 or more times a week?: yes, some of the time Have you been given information to help with the following?: yes: Hazards in your house that might hurt you? and yes: Keeping track of your medications? How often do you have trouble taking medicines the way you have been told to yaritza e them?: I always take medicine as prescribed How confident are you that you can control & manage most of your health problems?: somewhat confident What is your race?: or origin or descent Mini Mental State Exam (MMSE) Orientation What is the (year) (season) (date) (day) (month)?: year, season, date, day and month Score Score: 5 Activity of Daily Living Bathing - sponge bath, tub bath or shower: receives help in bathing more than one body part (or not bathed) Dressing - getting clothes from closets & drawers, including inner/outer g arments & fasteners.: receives help getting clothes or getting dressed, or stays undressed Toileting - going to the 'toilet room' for urine/bowel elimination & cleaning self/arranging clothes: goes to toilet room, cleans self, arranges clothes without help Transfer: moves in & out of bed and chair without help (may use support object) Continence: has occasional 'accidents' Feeding: feeds self without help Total Score: 2 Information obtained from: patient Using telephone: independent Traveling: dependent Shopping: dependent Preparing meals: dependent Housework: dependent Taking medicine: needs assistance Managing money: dependent PHQ-9 Over the last 2 weeks, how often have you been bothered by any of the following problems? 1. Little interest or pleasure in doing things: more than half the days 2. Feeling down, depressed, or hopeless: more than half the days 3. Trouble falling or staying asleep, or sleeping too much: nearly every day 4. Feeling tired or having little energy: nearly every day 5. Poor appetite or overeating: nearly every day 6. Feeling bad about yourself - or that you are a failure or have let yourself or your family down: nearly every day 7. Trouble concentrating on things, such as reading the newspaper or watching television: nearly every day 8. Moving or speaking so slowly that other people could have noticed. Or the opposite - being so fidgety or restless that you have been moving around a lot more than usual: nearly every day 9. Thoughts that you would be better off or of hurting yourself in some way: not at all Total score: 22 Depression Screening Interpretation: Positive Depression Screening Follow-up: Community Mental [facility] Worker F/U and Other (on waiting list for therapist ) 23359 - PHQ-9 Billing: Yes Source: Developed by Drs. Curly Williamson, Yue Ren, Mathew Newton and colleagues, with an educational kenneth from [employer]. Physical Exam Vital Signs: Last Vital Signs Pulse 89 09/05/23 14:49 BP 112/64 06/02/23 14:49 Pulse Ox 99 06/02/23 14:49 Oxygen Delivery Method Room Air 06/02/23 14:49 BMI result Body Mass Index 42.0 Const General: cooperative and no acute distress Orientation/consciousness: patient oriented x3 HEENT Other: Whisper test: pass Neuro Other: Balance: Normal Get up and walk: unable to Romberg: negative Tandem gait: able to General: patient oriented x3 Assessment & Plan Assessment & Plan (1) Morbid obesity: Code(s): E66.01 - Morbid (severe) obesity due to excess calories Plan: Healthy food choices and exercise as tolerated (2) Iron deficiency anemia: Code(s): D50.9 - Iron deficiency anemia, unspecified Plan: Continue to follow-up with Dr. Benz (3) Breast cancer screening by mammogram: Code(s): Z12.31 - Encounter for screening mammogram for malignant neoplasm of breast Plan: Patient has an upcoming mammogram 05/2023 (4) Barretts esophagus: Code(s): K22.70 - Renee's esophagus without dysplasia Qualifiers: Renee's esophagus type: without dysplasia Qualified Code(s): K22.70 - Renee's esophagus without dysplasia Plan: Continue to follow-up with Dr. Marquez (5) Anxiety and depression: Code(s): F41.9 - Anxiety disorder, unspecified; F32.9 - Major depressive disorder, single episode, unspecified Plan: Continue current treatment Patient reports that she is on waiting list for therapist Patient denies SI or HI (6) Hypercholesterolemia: Code(s): E78.00 - Pure hypercholesterolemia, unspecified Plan: Continue atorvastatin Low-cholesterol diet and weight loss (7) Hypertension: Code(s): I10 - Essential (primary) hypertension Qualifiers: Hypertension type: essential hypertension Qualified Code(s): I10 - Essential (primary) hypertension Plan: Goal BP equal or less than 140/90 Low-sodium diet (8) Medicare annual wellness visit, subsequent: Code(s): Z00.00 - Encounter for general adult medical examination without abnormal findings Quality Reporting (2019) Depression/Bipolar (159/160/161/177) PHQ-9: Total score: 22 Coding Level of Care Code Medicare Subsequent (G0439) Diagnoses Morbid obesity E66.01 Iron deficiency anemia D50.9 Breast cancer screening by mammogram Z12.31 Barretts esophagus K22.70 Renee's esophagus type: without dysplasia Anxiety and depression F41.9; F32.9 Hypercholesterolemia E78.00 Hypertension I10 Hypertension type: essential hypertension Medicare annual wellness visit, subsequent Z00.00 CPT Codes Advance Care Planning - Time spent: 1-15 minutes, not on file ([id number]) Advance Care Planning Date of discussion: 06/02/23 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
== END 2023-06-02 15:31 | disposition home or self-care (01) ==
PROVIDERS: PCP Internal Medicine; Visit Provider Nurse Practitioner Family
DX: Z00.00 Encounter for general adult medical examination without abnormal findings (principal); I10 Essential (primary) hypertension; K22.70 Barrett's esophagus without dysplasia; F41.9 Anxiety disorder, unspecified; E66.01 Morbid (severe) obesity due to excess calories; F32.9 Major depressive disorder, single episode, unspecified; D50.9 Iron deficiency anemia, unspecified; E78.00 Pure hypercholesterolemia, unspecified
CPT/HCPCS: 1124F; G0439

== ENCOUNTER 2023-06-23 08:38 | Outpatient (REF) | payer MEDICARE, MEDICAID, SELFPAY ==
--- NOTE | ~2023-06-23 | CT_ITS ---
EXAMINATION: CT ENTEROGRAPHY ABDOMEN AND PELVIS WITH CONTRAST CLINICAL INFORMATION: Crohn's disease. COMPARISON: 09/16/2022 TECHNIQUE: Study performed with oral VoLumen (1350 mL) and 480 mL of water to distend the abdomen. The patient was injected with 85 mL Omnipaque 350 intravenous contrast which was administered without adverse effect. Coronal and sagittal reformatted images were obtained at the technologist's workstation. This CT examination was performed using dose optimization techniques as appropriate, variously including the following: *Automated exposure control *Adjustment of mA and/or kV according to patient size (this includes techniques or standardized protocols for targeted exams where dose is matched to indication/reason for exam; i.e. extremities or head) *Use of iterative reconstruction technique DLP: 657 mGy-cm FINDINGS: GASTROINTESTINAL FINDINGS: Stomach: Status post gastric bypass. Small intestine: Satisfactorily distended and normal in appearance. Large intestine: Satisfactorily distended and normal in appearance. No perirectal changes demonstrated. The appendix is normal. Additional findings: No abnormal enhancement of the vasa recta or significant mesenteric or retroperitoneal lymphadenopathy is seen. No abdominal abscess or fistulous tract demonstrated. ABDOMINAL AND PELVIC CT FINDINGS: Liver, gallbladder, biliary tract: The liver is normal in size and contour. No focal hepatic lesion. No biliary ductal dilatation. The gallbladder is distended. Pancreas: No ductal dilatation. Spleen: Not enlarged. Adrenal glands and kidneys: No adrenal mass. The kidneys are symmetric in size and enhance normally. No hydronephrosis or perinephric fluid collection. Ureters and bladder: Urinary bladder is decompressed. Bilateral fallopian tube occlusion devices. Uterus is inverted. Lymphovascular structures: No bulky abdominal or pelvic lymphadenopathy. Bones: No destructive bone lesions. Lung bases: No pleural or pericardial effusion. CT/CT enterography IMPRESSION: No acute abnormality.
[2023-06-23] MEDS: iohexoL 350 MG/ML 75 ML INFUS..BTL 85 ML IV (11:06)
[2023-06-23] MEDS: Sorbitol/Mannit/Xanth Imaging 500 ML LIQUID 1500 ML PO (11:07)
== END 2023-06-23 08:39 | disposition home or self-care (01) ==
LOC: HO.CT 08:38
PROVIDERS: PCP Internal Medicine; Visit Provider Internal Medicine Gastroenterology
DX: Z12.31 Encounter for screening mammogram for malignant neoplasm of breast (principal); R10.33 Periumbilical pain; K50.90 Crohn's disease, unspecified, without complications; R19.8 Other specified symptoms and signs involving the digestive system and abdomen
CPT/HCPCS: 74177; 77063; 77067; Q9967

== ENCOUNTER → 2023-06-23 14:00 | Outpatient (BNV) | payer MEDICARE, MEDICAID, SELFPAY | PROVIDERS: PCP Internal Medicine; Visit Provider Radiology Diagnostic Radiology | DX: Z12.31 Encounter for screening mammogram for malignant neoplasm of breast (principal) | CPT/HCPCS: 77063; 77067 ==

== ENCOUNTER 2023-06-23 14:03 | Outpatient (REF) | payer MEDICARE, MEDICAID, SELFPAY ==
--- NOTE | ~2023-06-23 | MM_ITS ---
EXAMINATION: MM SCREENING DIGITAL BREAST TOMOSYNTHESIS, BILATERAL CLINICAL INFORMATION: Screening. Asymptomatic. COMPARISON: Mammography: This study is compared with prior exams dating back to 2017. TECHNIQUE: Digital breast tomosynthesis is performed in both the craniocaudal and mediolateral oblique views along with computer-aided detection (CAD). Synthesized 2D images are generated from the tomosynthesis. FINDINGS: There are scattered areas of fibroglandular density (ACR BI-RADS breast composition Category b). There are no significant masses, abnormal calcifications, or other abnormalities. There is tissue marker present in the right breast from prior benign percutaneous biopsy. MM/MM tomosynthesis screening BI IMPRESSION: No mammographic evidence of malignancy. ASSESSMENT: BI-RADS BI-RADS 2 - Benign Findings RECOMMENDATION: Routine annual mammography screening. 1 year F/U This examination should not preclude the clinical evaluation of a suspicious palpable abnormality. This patient's information was entered into a reminder system with a target due date for their next mammogram.
== END 2023-06-23 14:04 | disposition home or self-care (01) ==
LOC: HO.MAMMO 14:03
PROVIDERS: PCP Internal Medicine; Visit Provider Internal Medicine
DX: Z12.31 Encounter for screening mammogram for malignant neoplasm of breast (principal)
CPT/HCPCS: 77063; 77067

== ENCOUNTER 2023-08-06 07:11 | Day surgery (SDC) | payer MEDICARE, MEDICAID, SELFPAY ==
[2023-08-04 15:43] VITALS: BMI 42.0
--- NOTE | 2023-08-05 11:58 | P.CONAN_ITS ---
Documented by User: Lucille Jhaveri NP 08/05/23 11:59 HPI - Anesthesia Eval Consult details Narrative: 48yo F for Upper Endoscopy and Colonoscopy PMFSH Active Problems Active Problems: All Active Problems (Updated 06/09/23 @ 11:49 by Heysan MI) Medicare annual wellness visit, subsequent (Acute) Abnormal bowel habits (Acute) H/O gastric bypass (Acute) Morbid obesity (Acute) Mild obstructive sleep apnea (Acute) Pelvic pain (Acute) Attempted IUD removal, unsuccessful (Acute) IUD strings lost (Acute) Abnormal uterine bleeding (AUB) (Acute) Well woman exam (Acute) Chest pain (Acute) Family history of ovarian cancer (Acute) Fibroadenoma (Acute) Family history of breast cancer (Acute) Breast mass, right (Acute) Iron deficiency anemia (Acute) Menorrhagia (Acute) Tinea cruris (Acute) Vision blurring (Acute) Medicare annual wellness visit, initial (Acute) Breast cancer screening by mammogram (Acute) Colon cancer screening (Acute) Obesity (Acute) Generalized anxiety disorder (Acute) Sacroiliitis (Acute) Chronic pain syndrome (Acute) Gastroenteritis (Acute) Osteoarthritis, knee (Acute) Schatzki's ring (Acute) Post concussive syndrome (Acute) Sacroiliitis (Acute) IBS (irritable bowel syndrome) (Acute) Anemia (Acute) Barretts esophagus (Acute) Anxiety and depression (Acute) Allergic rhinitis (Acute) Carpal tunnel syndrome on both sides (Acute) Hypercholesterolemia (Acute) Hypertension (Acute) Vitamin D deficiency (Acute) Tinea corporis (Acute) GERD (gastroesophageal reflux disease) (Acute) Constipation (Acute) Past Medical History Medical History Encounter for Essure implantation Family history of ovarian cancer Fibroadenoma Family history of breast cancer Breast mass, right Chronic pain syndrome H/O sigmoidoscopy Barretts esophagus Anxiety and depression Osteoarthritis, knee Fatty liver Cholelithiasis Carpal tunnel syndrome on both sides Lumbar degenerative disc disease Hypercholesterolemia Hypertension Vitamin D deficiency Tinea corporis GERD (gastroesophageal reflux disease) Constipation Family History Family History Father Colon cancer CVD (cardiovascular disease) Mother Breast cancer Brain tumor Sister Colon cancer Breast cancer Family history of problems with anesthesia: No Surgical History Surgical History H/O esophagogastroduodenoscopy H/O colonoscopy History of section History of breast mammoplasty H/O gastric bypass History of carpal tunnel release History of Problems with Anesthesia: No Social History Social History Household Members: Children Housing: Apartment Are you a primary healthcare consulting manager to a significant other at home: No Do you presently have visiting nurse or other home services: No Alcohol intake: never Patient Tobacco Use Status: Never used Tobacco e-Cigarette/Vaping Use: Never Used Second Hand Smoke Exposure: No Are you DNR?: No Advance Directives: No Advance Directives Information Provided: Yes Nutrition Risks: No Nutritional Risk Patient : No FDLMP: LAST MTH service: No Current occupational status: disabled Cognitive needs: No Hearing needs: No Vision needs: No Meds Allergies Allergy/AdvReac Type Severity Reaction Status Date / Time topiramate [From TOPAMAX] Allergy Intermediate NAUSEA & Verified 06/02/23 15:09 VOMITING ENVIRONMENTAL Allergy Severe SINUS Uncoded 06/02/23 15:09 INFXN SYMPTOMS STATED BY PT Home Medications Medication Instructions Recorded Confirmed Last Taken Type hydrochlorothiazide 25 mg tablet 25 mg PO DAILY 05/18/23 06/02/23 Unknown History sennosides 8.6 mg tablet (senna) 17.2 mg PO DAILY 05/18/23 06/02/23 Unknown History Exam Exam Date and Time: August 05, 2023 1158 Height,Weight and Vital Signs: Height 5 ft 1.5 in Weight 102.512 kg Pertinent Lab Results Pertinent Lab Results: Laboratory Tests 02/03/23 05/29/23 09:36 08:58 WBC 8.1 Hgb 13.5 Hct 41.4 Plt Count 270 Sodium 140 Potassium 4.1 Chloride 107 Carbon Dioxide 23 BUN 11 Creatinine 0.72 Assessment and Plan Assessment Anesthesia Assessment: Chart Reviewed Final Anesthetic Review Family History of Problems with Anesthesia: No History of Problems with Anesthesia: No Documented by User: Yvonne Salomon MD 08/06/23 08:51 [facility] Past Medical History Medical History Encounter for Essure implantation Family history of ovarian cancer Fibroadenoma Family history of breast cancer Breast mass, right Chronic pain syndrome H/O sigmoidoscopy Barretts esophagus Anxiety and depression Osteoarthritis, knee Fatty liver Cholelithiasis Carpal tunnel syndrome on both sides Lumbar degenerative disc disease Hypercholesterolemia Hypertension Vitamin D deficiency Tinea corporis GERD (gastroesophageal reflux disease) Constipation Family History Family History Father Colon cancer CVD (cardiovascular disease) Mother Breast cancer Brain tumor Sister Colon cancer Breast cancer Surgical History Surgical History H/O esophagogastroduodenoscopy H/O colonoscopy History of section History of breast mammoplasty H/O gastric bypass History of carpal tunnel release Social History Social History Household Members: Children Housing: Apartment Are you a primary healthcare consulting manager to a significant other at home: No Do you presently have visiting nurse or other home services: No Alcohol intake: never Patient Tobacco Use Status: Never used Tobacco e-Cigarette/Vaping Use: Never Used Second Hand Smoke Exposure: No Are you DNR?: No Advance Directives: No Advance Directives Information Provided: Yes Nutrition Risks: No Nutritional Risk Patient : No FDLMP: LAST MTH service: No Current occupational status: disabled Cognitive needs: No Hearing needs: No Vision needs: No Meds Allergies Allergy/AdvReac Type Severity Reaction Status Date / Time topiramate [From TOPAMAX] Allergy Intermediate NAUSEA & Verified 06/02/23 15:09 VOMITING ENVIRONMENTAL Allergy Severe SINUS Uncoded 06/02/23 15:09 INFXN SYMPTOMS STATED BY PT Home Medications Medication Instructions Recorded Confirmed Last Taken Type hydrochlorothiazide 25 mg tablet 25 mg PO DAILY 05/18/23 06/02/23 Unknown History sennosides 8.6 mg tablet (senna) 17.2 mg PO DAILY 05/18/23 06/02/23 Unknown History Exam Airway Mallampati Class: II TM Dist: >3cm Neck ROM: Full Loose/Missing/Broken Teeth: No Heart: RRR Lungs: CTA Assessment and Plan Assessment Anesthesia Assessment: Anesthesia Plan Discussed Final Anesthetic Review NPO: Yes ASA Class: III Final Preanesthetic Review: Meds/Allgs Chart Reviewed, Consent Obtained/Reviewed and Anes Risks/Benef Reviewed Patient Risk: Intermediate Procedure Risk: Intermediate Anesthetic Plan Anesthetic Plan: MAC: Disposition: Standard PACU
[2023-08-06 07:31] LABS: UPreg QC Valid YES; Urine Pregnancy NEGATIVE (NEGATIVE)
[2023-08-06 07:34] VITALS: BP 109/68; PULSE 76; RESP 19; TEMP 36.3; O2SAT 98
[2023-08-06] MEDS: Lactated Ringers 1,000 ML 100 ML IVCONT (07:40)
--- NOTE | 2023-08-06 08:09 | MHC.SHP ---
Pre-Procedural Eval Section A Date of Service: 08/06/23 Section B Chief Complaint: Renee's esophagus without dysplasia,L side colit Details of Present Illness: dysphagia Relevant Family History (Specify if Yes): No Relevant Social History: None Present Medications: see Short Stay Collaborative assessment Medical History: Significant History (Anxiety and depression Barretts esophagus Carpal tunnel syndrome on both sides Cholelithiasis Constipation Fatty liver GERD (gastroesophageal reflux disease) Hypercholesterolemia Hypertension Increased BMI Lumbar degenerative disc disease Osteoarthritis, knee Sacroiliac joint dysfunction of both crista) History of Previous Operations: Relevant previous surgery/procedure and date(s) (H/O gastric bypass History of breast mammoplasty History of carpal tunnel release History of section) Allergies: Allergies Allergy/AdvReac Type Severity Reaction Status Date / Time topiramate [From TOPAMAX] Allergy Intermediate NAUSEA & Verified 06/02/23 15:09 VOMITING ENVIRONMENTAL Allergy Severe SINUS Uncoded 06/02/23 15:09 INFXN SYMPTOMS STATED BY PT Review of Systems Sugical H&P ROS: Negative: Constitution, Cardiovascular, Respiratory, Neurological, Psychiatric, Hem-Onc, Allergic/Immunologic, Gastrointestinal, Genitourinary, Musculoskeletal, Integumentary, Endocrine and Eyes/Ears/Nose/Throat Exam Surgical H&P Exam: Normal: HEENT, Normal: Heart, Normal: Lungs, Normal: Extremities, Normal: Abdomen, Normal: Skin and Normal: Neurological Plan Diagnosis/Plan: Unchanged I have reviewed the history and physical and performed a pertinent physical examination on my patient. No changes have occurred unless specified. Time Spent With Patient Time: Total time managing care of this patient today ____ minutes.
--- NOTE | 2023-08-06 08:11 | P.OP_ITS ---
Operative Note Operative Note Date of Service: 08/06/23 Narrative: Operative Information Procedure Description: EGD, Colonoscopy Indication: dysphagia, abdominal pain Anesthesia: MAC FLEXIBLE TRANSORAL UPPER GASTROINTESTINAL ENDOSCOPY AND COLONOSCOPY PROCEDURE NOTE UPPER ENDOSCOPY Consent: Indications for the procedure and potential complications of bleeding, perforation, reaction to medications and missed diagnosis were discussed with the patient and informed consent was obtained. Instrument: Olympus GIF H 190 J mid size upper endoscope Monitoring: Vital signs and clinical assessment, continuous EKG monitoring, Pulse oximetry, Carbon Dioxide monitoring and blood pressure monitoring were done throughout the procedure. Procedure: The patient was placed in the left lateral decubitis position and pre-procedure medications were administered and a bite block was placed. The endoscope was inserted into the mouth and advanced under direct vision to the jejunum. A careful inspection was made as the upper endoscope was withdrawn including a retroflexed examination of the proximal stomach; Findings and interventions are described below. Hx of gastric bypass Findings: Larynx:normal Esophagus: GE junction at 37 cm, diaphragm hiatus at 37 cm, non obstructing schatzki ring noted, balloon dilated at 20 mm at LES and 18 mm at UES, bx taken from GEJ --LES was lax. Stomach pouch: Normal mucosa with mild erythema. Biopsies were obtained. Grade 2 flap valve on retroflexed examination of the cardia. x 2 retained eduardo noted removed with biopsy forceps jejunum: normal bx taken Intervention: Biopsies as noted above, balloon dilation esophagus COLONOSCOPY Instrument: Olympus variable stiffness pediatric scope 190L Colonoscopy Monitoring: Vital signs and clinical assessment, continuous EKG monitoring, Pulse oximetry, Carbon Dioxide monitoring and blood pressure monitoring were done throughout the procedure. Colon withdrawal time was 12 minutes. Procedure: The patient was placed in the left lateral decubitis position and pre-procedure medications were administered. After a digital rectal examination of the ano-rectum, the video colonoscope was inserted into the rectum and advanced through the colon to the cecum/TI. The colonoscope was slowly withdrawn in a retrograde panoramic fashion and the colon mucosa was carefully examined including a retroflexed view of the rectum. Findings and interventions are described below. Procedure Difficulty:moderate Findings: Terminal Ileum-normal, follicular nodular hyperplasia, bx taken Random bx taken from right, left and rectum Cecum: one area kept bleeding and x1 clip applied ?this was due to scope trauma Ascending Colon: normal Transverse Colon -normal Descending Colon:normal Sigmoid Colon: mild diverticulosis Rectum: Retroflexion with small internal hemorrhoids, grade I, 8-10 mm sessile polyp removed with cold snare Anorectum - normal Colon preparation: [place] Bowel Preparation Scale Right colon; 2 Transverse colon: 2 Left colon; 2 (0 = Unprepared colon segment with mucosa not seen due to solid stool that cannot be cleared. 1 = Portion of mucosa of the colon segment seen, but other areas of the colon segment not well seen due to staining, residual stool and/or opaque liquid. 2 = Minor amount of residual staining, small fragments of stool and/or opaque liquid, but mucosa of colon segment seen well. 3 = Entire mucosa of colon segment seen well with no residual staining, small fragments of stool or opaque liquid) Impression and Post Procedure Diagnosis: Endoscopy Findings: lax LES retained foreign bodies, Colonoscopy Findings: polyp internal hemorrhoids diverticular disease Plan: Await Pathology results Repeat Colonoscopy in 5 years due to polyp or earlier if clinically indicated High fiber diet leaflet avoid straining at stool, epsom salts and sitz bath, anusol supps or cream repeat EGD and dilation as needed Above findings were reviewed with the patient and relevant handouts were provided if indicated.
[2023-08-06 09:12] VITALS: BP 113/69; PULSE 69; RESP 18; TEMP 36.1; O2SAT 100
[2023-08-06 09:27] VITALS: BP 128/72; PULSE 64; RESP 18; O2SAT 100
== END 2023-08-06 10:12 | disposition home or self-care (01) ==
PROVIDERS: Nurse Practitioner; PCP Internal Medicine; Visit Provider Internal Medicine Gastroenterology
PROC: (CPT 45385; principal; 2023-08-06 08:20)
DX: R10.9 Unspecified abdominal pain (principal); D12.8 Benign neoplasm of rectum; K57.30 Diverticulosis of large intestine without perforation or abscess without bleeding; K64.0 First degree hemorrhoids; K59.00 Constipation, unspecified; K76.0 Fatty (change of) liver, not elsewhere classified; M79.5 Residual foreign body in soft tissue; K51.50 Left sided colitis without complications; R13.10 Dysphagia, unspecified; K22.70 Barrett's esophagus without dysplasia; K22.2 Esophageal obstruction; K22.4 Dyskinesia of esophagus; K44.9 Diaphragmatic hernia without obstruction or gangrene; Z98.84 Bariatric surgery status; I10 Essential (primary) hypertension; E78.00 Pure hypercholesterolemia, unspecified; F41.8 Other specified anxiety disorders; Z79.899 Other long term (current) drug therapy; Z88.8 Allergy status to other drugs, medicaments and biological substances
CPT/HCPCS: 45385; 45380; 43249; 43239; 43247; 81025; 88305; 88342; C1726

== ENCOUNTER 2023-08-06 13:16 | Observation (INO) | payer MEDICARE, MEDICAID, SELFPAY ==
[2023-08-06] VITALS (15 sets, daily range): BP systolic 93–141; BP diastolic 49–82; PULSE 62–97; RESP 16–20; TEMP 36.1–36.8; O2SAT 96–100; BMI 46.2; BMI 44.1
--- NOTE | 2023-08-06 13:29 | ECG_ITS ---
Test Reason : blood loss Blood Pressure : / mmHG Vent. Rate : 077 BPM Atrial Rate : 077 BPM P-R Int : 148 ms QRS Dur : 066 ms QT Int : 382 ms P-R-T Axes : 046 008 -03 degrees QTc Int : 432 ms Normal sinus rhythm RSR' or QR pattern in V1 suggests right ventricular conduction delay Nonspecific T wave abnormality Abnormal ECG When compared with ECG of 28-NOV-2019 09:12, Nonspecific T wave abnormality now evident in Anterior leads Referred By: Yaakov Pulliam Electronically Signed By:VENUS MARSH MD
--- NOTE | 2023-08-06 13:44 | ED.GENADULT ---
HPI - General Adult General Chief complaint: GI Bleed Stated complaint: RECTAL BLEEDING S/P COLONOSCOPY Time Seen by Provider: 08/06/23 13:24 Source: patient and EMS Mode of arrival: EMS Limitations: no limitations History of Present Illness HPI narrative: This is a 48-year-old female presenting with lower GI bleeding in slight left lower quadrant discomfort for the past few hours, patient reports this morning she had a colonoscopy done by Dr. Marquez earlier today. Reports she got home and has been having large amount of rectal bleeding, that is bright red with clots I filled two small buckle , EMS reports they visualized a container of around 500 cc of blood when they arrived. Patient reports dizziness and weakness. Related Data Home Medications Medication Instructions Recorded Confirmed hydrochlorothiazide 25 mg tablet 25 mg PO DAILY 05/18/23 06/02/23 sennosides 8.6 mg tablet (senna) 17.2 mg PO DAILY 05/18/23 06/02/23 Previous Rx's Medication Instructions Recorded lactulose 10 gram/15 mL oral 30 ml PO BID #1,800 mL 02/04/21 solution simethicone 125 mg capsule 125 mg PO TID-QID PRN abdominal 04/23/21 distention #90 caps dicyclomine 10 mg capsule 10 mg PO TID #84 caps 05/09/22 tizanidine 2 mg tablet 2 mg PO TID PRN muscle spasticity 07/28/22 30 days #90 tabs ascorbic acid (vitamin C) 500 mg 500 mg PO DAILY #90 tabs 09/16/22 tablet (Vitamin C) clotrimazole 1 % topical cream 1 appl topical BID 4 weeks #90 09/16/22 grams duloxetine 20 mg capsule,delayed 20 mg PO BID 90 days #180 caps 09/16/22 release gabapentin 300 mg capsule 300 mg PO TID 90 days #270 caps 09/16/22 hydroxyzine HCl 50 mg tablet 50 mg PO BEDTIME PRN anxiety 90 09/16/22 days #90 tabs loratadine 10 mg tablet 10 mg PO DAILY 90 days #90 tabs 09/16/22 sucralfate 1 gram tablet (Carafate) 1 g PO BID 90 days #180 tabs 09/16/22 trazodone 50 mg tablet 50 mg PO BEDTIME PRN insomnia 90 09/16/22 days #90 tabs AUTO PAP 6-15 CM H20 humidified AIR #1 ea 02/10/23 cholecalciferol (vitamin D3) 50 50 mcg PO DAILY #28 tabs 05/04/23 mcg (2,000 unit) tablet omeprazole 20 mg capsule,delayed 20 mg PO TID 90 days #270 caps 05/18/23 release ondansetron 4 mg disintegrating 4 mg PO TID PRN nausea and 05/18/23 tablet vomiting 5 days #60 tabs peg-electrolyte solution 420 gram 240 ml PO Q10M #4,000 mL 05/18/23 oral solution peg-electrolyte solution 420 gram 240 ml PO Q10M #4,000 mL 06/16/23 oral solution ferrous sulfate 325 mg (65 mg 325 mg PO DAILY 90 days #90 tabs 06/29/23 iron) tablet clonazepam 0.5 mg tablet 0.5 mg PO TID 30 days #90 tabs 07/20/23 sucralfate 100 mg/mL oral 10 ml PO BID #420 mL 07/20/23 suspension atorvastatin 40 mg tablet 40 mg PO DAILY 90 days #90 tabs 07/27/23 miconazole nitrate 2 % topical See Rx Instructions topical BID 30 08/03/23 powder (Zeasorb AF) days #71 grams Allergies Allergy/AdvReac Type Severity Reaction Status Date / Time topiramate [From TOPAMAX] Allergy Intermediate NAUSEA & Verified 08/06/23 13:40 VOMITING ENVIRONMENTAL Allergy Severe SINUS Uncoded 08/06/23 13:40 INFXN SYMPTOMS STATED BY PT Review of Systems Review of Systems: Constitutional : No Weight loss, No Fever, No Chills, No Fatigue, No Malaise ENT/Mouth : No sore throat, No Rhinorrhea Eyes: No Eye Pain, No Swelling, No Redness Cardiovascular : No Chest Pain, No SOB, No Dyspnea on Exertion, No Orthopnea, No Edema, No Palpitations Respiratory : No Cough, No Sputum, No Wheezing Gastrointestinal : No Nausea, No Vomiting, No Diarrhea, No Constipation, + abdominal Pain, No Hematochezia, No Melena Genitourinary : No Dysuria, No Urinary Frequency, No Hematuria, + rectal bleeding Musculoskeletal : No joint pain, No Myalgias, No Joint Swelling Skin : No Skin Lesions, No rash Neuro : No Weakness, No Numbness, + Dizziness, No Headache Psych : No Anxiety/Panic, No Depression All other systems reviewed and are negative Yes all other systems are reviewed and are negative [facility] Past Medical History Attestation statement: The following information was validated with the patient. Source: old records reviewed and nursing notes reviewed Medical History Encounter for Essure implantation Family history of ovarian cancer Fibroadenoma Family history of breast cancer Breast mass, right Chronic pain syndrome H/O sigmoidoscopy Barretts esophagus Anxiety and depression Osteoarthritis, knee Fatty liver Cholelithiasis Carpal tunnel syndrome on both sides Lumbar degenerative disc disease Hypercholesterolemia Hypertension Vitamin D deficiency Tinea corporis GERD (gastroesophageal reflux disease) Constipation Surgical History H/O esophagogastroduodenoscopy H/O colonoscopy History of section History of breast mammoplasty H/O gastric bypass History of carpal tunnel release Family History Family History Father Colon cancer CVD (cardiovascular disease) Mother Breast cancer Brain tumor Sister Colon cancer Breast cancer Social History Social History Household Members: Children Housing: Apartment Are you a primary acute care assistant to a significant other at home: No Do you presently have visiting nurse or other home services: No Unable to assess alcohol history related to: Unknown Alcohol intake: never Patient Tobacco Use Status: Never used Tobacco Smoked in Last 30 Days: No e-Cigarette/Vaping Use: Never Used Second Hand Smoke Exposure: No Use of substances other than those prescribed or required for medical reasons: Unknown Are you DNR?: No Advance Directives: No Advance Directives Information Provided: No Patient : No service: No Current occupational status: disabled Cognitive needs: No Hearing needs: No Vision needs: No Physical Exam ED Vital Signs: Vital Signs - 24 hr 08/06/23 13:41 08/06/23 14:10 08/06/23 14:25 Temperature 97.7 F 98 F 98.3 F Pulse Rate 79 78 78 Respiratory Rate 20 18 18 Blood Pressure 99/65 104/63 113/64 Pulse Oximetry 96 Oxygen Delivery Method Room Air 08/06/23 14:25 08/06/23 14:30 08/06/23 14:30 Temperature 98.3 F 98 F Pulse Rate 77 71 89 Respiratory Rate 18 20 20 Blood Pressure 99/52 L 120/57 L 120/82 Pulse Oximetry 97 98 Oxygen Delivery Method Room Air Room Air 08/06/23 14:39 08/06/23 15:30 Temperature 97 F 97 F Pulse Rate 71 73 Respiratory Rate 18 20 Blood Pressure 120/78 113/52 L Pulse Oximetry 97 99 Oxygen Delivery Method Room Air Room Air BMI result Body Mass Index 44.1 Course Reevaluation(s) Reevaluation #1: Dr. Marquez at bedside patinet will be brought back to the operating room. Labs pending. Will give 1 unit uncrossed PRBC (written and verbal consent obtained.) Time: 13:55 Reevaluation #2: I did ask surgeon if he would like a GI bleeding study however he says not necessary at this time. Patient to go straight to the operating room at this time. Time: 14:00 Reevaluation #3: Patient coming back to the emergency department GI, Dr. Marquez would like patient admited for obs. He states he clipped the area of bleeding and hemo spray was applied. Sending patient back to the emergency department I did discuss this case with hospitalist will admit patient at this time. CBC with slight leukocytosis will give reactive secondary to surgical procedure this morning. Chemistry unremarkable. Urine negative. OBS was initially positive. This is why patient was taken to the operating room. Plan for hospital admission. At time patient being admitted she is hemodynamically stable. Time: 15:25 Medical Decision Making Medical Decision Making [facility] Narrative: 1352 48-year-old female presents with active rectal bleeding for the past few hours had a colonoscopy done this morning here at [facility]. Reports she is feeling small buckets with bright red blood with clots. Physical examination there is active bleeding from the rectum. Patient is noted to have a soft pressure. Not tachycardic peer Concerns for likely postoperative bleeding likely coming from clips or surgical site or areas where a biopsy was taken. Will rule out acute blood loss anemia. Will rule out arrhythmia. No signs of acute abdomen Due to hypotension, dizziness, acute blood loss will order on crossmatch blood. Form sent down to the lab. Plan labs, rectal exam, I will speak to GI Differential Diagnosis Differential Diagnoses: The differential diagnosis associated with the presentation includes Concerns for likely postoperative bleeding likely coming from clips or surgical site or areas where a biopsy was taken. Will rule out acute blood loss anemia. Will rule out arrhythmia. No signs of acute abdomen Admission/Observation Consideration of admission/observation: Escalation of care including admission/observation considered Likely Consult Healthcare Provider Management of the patient was discussed with: Franchise Sales Representative (GI ) Lab Data [facility] Lab Attestation statement: I reviewed the patient's lab results. 08/06/23 14:10 08/06/23 14:10 Labs: Lab Results 08/06/23 08/06/23 Range/Units 13:46 14:10 WBC 12.6 H (4.8-10.8) X10*3/uL RBC 3.92 L (4.20-5.50) X10*6/uL Hgb 11.8 L (12.0-16.0) g/dl Hct 36.3 L (37.0-47.0) % MCV 92.6 (80.0-98.0) fL MCH 30.1 (27.0-33.0) pg MCHC 32.5 (31.0-35.0) g/dl RDW 12.8 (11.0-16.0) % Plt Count 246 (160-400) X10*3/uL MPV 11.3 (9.4-12.3) fL Immature Gran % (Auto) 0.6 H (0.0-0.4) % Neut % (Auto) 80.7 H (45-73) % Lymph % (Auto) 11.5 L (20-40) % [place] % (Auto) 6.0 (2-11) % Eos % (Auto) 0.6 (0-4) % Baso % (Auto) 0.6 (0-2) % Lymph # (Auto) 1.5 (1.2-4.9) X10*3/uL [place] # (Auto) 0.8 (0.1-1.2) X10*3/uL Eos # (Auto) 0.1 (0.0-0.4) X10*3/uL Baso # (Auto) 0.1 (0.0-0.2) X10*3/uL Abs Immat Gran (auto) 0.08 H (0.00-0.03) X10*3/uL Absolute Neuts (auto) 10.1 H (2.0-8.3) x10*3/uL Absolute Nucleated RBC 0.000 (0.0-0.012) X10*3/uL Nucleated RBC % (auto) 0.0 (0.0-0.2) /100WBC Sodium 141 (135-145) mmol/L Potassium 4.0 (3.3-5.1) mmol/L Chloride 110 H (96-108) mmol/L Carbon Dioxide 23 (22-29) mmol/L Anion Gap 12 (12-20) BUN 8 L (9-16) mg/dL Creatinine 0.67 (0.5-1.4) mg/dL Estim Creat Clear Calc 111.9 Estimated GFR > 60 Random Glucose 92 (60-115) mg/dL Calcium 9.2 (8.4-10.2) mg/dL Magnesium 1.7 (1.6-2.6) mg/dL Total Bilirubin 0.3 (0.0-1.0) mg/dL AST 27 (5-31) U/L ALT 34 H (0-31) U/L Alkaline Phosphatase 88 (39-117) U/L Total Protein 6.6 (6.5-8.0) g/dL Albumin 3.9 (3.5-5.0) g/dL Stool Occult Blood POSITIVE (NEGATIVE) COVID-19 (ANDER) Negative (Negative) COVID-19 Clin Com See Note Blood Type O Positive Antibody Screen NEGATIVE Crossmatch See Detail External Record Review External record reviewed: Inpatient record, Office record, Outpatient record, Prior outpatient labs, Prior outpatient radiology, Primary care record and Outside ED record Critical Care Time Critical Care Time Critical Care Time: Yes Total Critical Care Time: 45 Attestation: I attest to this time spent taking care of the patient, obtaining history, physical, reviewing labs, imaging, speaking to my attending, speaking to specialist. Discharge Plan Discharge Clinical Impression: Acute lower GI bleeding Patient Disposition: Still a Patient Interventions: Admission Worksheet (ED) Last Done: 08/06/23 15:04 Discharge Date/Time: 08/06/23 14:31
[2023-08-06 14:01] LABS: OBS Int Ctl Valid YES; OBS1 POSITIVE (NEGATIVE)
--- NOTE | 2023-08-06 14:10 | PC.NURSE ---
1410 consent obtained at bedside and blood started. infusing w/o issue. no sx reaction. left ac 20 g. iv intact. rn in room. vss.
[2023-08-06 14:19] LABS: MANUAL DIFF FLAG NO
[2023-08-06 14:21] LABS: Basophils Absolute Auto 0.1 X10*3/uL (0.0-0.2); Basophils Percent Auto 0.6 % (0-2); Eosinophils Absolute Auto 0.1 X10*3/uL (0.0-0.4); Eosinophils Percent Auto 0.6 % (0-4); Hematocrit 36.3 % (37.0-47.0); Hemoglobin 11.8 g/dl (12.0-16.0); Imm Gran Abs Auto 0.08 X10*3/uL (0.00-0.03); Imm Gran Pct Auto 0.6 % (0.0-0.4); Lymphocytes Absolute Auto 1.5 X10*3/uL (1.2-4.9); Lymphocytes Percent Auto 11.5 % (20-40); Mean Corpuscular HGB Conc 32.5 g/dl (31.0-35.0); Mean Corpuscular Hemoglobin 30.1 pg (27.0-33.0); Mean Corpuscular Volume 92.6 fL (80.0-98.0); Mean Platelet Volume 11.3 fL (9.4-12.3); Monocytes Absolute Auto 0.8 X10*3/uL (0.1-1.2); Neutrophils Absolute Auto 10.1 x10*3/uL (2.0-8.3); Neutrophils Percent Auto 80.7 % (45-73); Platelet Count 246 X10*3/uL (160-400); Red Blood Count 3.92 X10*6/uL (4.20-5.50); Red Cell Distribution Width 12.8 % (11.0-16.0); White Blood Count 12.6 X10*3/uL (4.8-10.8)
--- NOTE | 2023-08-06 14:25 | PM.GICN ---
History of Present Illness Data of Consult Service Date: 08/06/23 Requesting physician: Yaakov Pulliam Primary Care Provider: Minnie aLzcano MD HPI Reason for consult: Gi bleed 48 yr old f being seen for assessment for GI bleeding She had a colonoscopy this morning with EGD. During the colonoscopy she had an area of bleeding possibly from scope trauma in the cecum. A clip was applied and it seemed to cease bleeding. however when she went home she had a large bloody motion or two and felt dizzy with some mild cramping in the RLQ. She denies chest pain, no nausea or vomiting. no sweats or fevers. When she came to ED BP was mildly hypotensive, 1 unit PRBC ordered and fluids given, BP improved to 110 systolic. she denies taking nsaids. Review of Systems Review of Systems: Constitutional : No Weight loss, No Fever, No Chills ENT/Mouth : No sore throat, No Rhinorrhea Eyes: No Swelling, No Redness Cardiovascular : No Chest Pain, No SOB, No Edema Respiratory : No Cough, No Sputum, No Wheezing Gastrointestinal : see HPI Genitourinary : NO Dysuria, No Urinary Frequency, No Hematuria, No Urgency Musculoskeletal : No joint pain, No Myalgias, No Joint Swelling Skin : No Skin Lesions, No rash Neuro : No Weakness, No Numbness, No Dizziness, No Headache Psych : No Anxiety/Panic, No Depression Heme/Lymph: No Bruising, No Lymphadenopathy Endocrine : No Polyuria, No Polydipsia All other systems reviewed and are negative. [facility] Past Medical History Medical History Encounter for Essure implantation Family history of ovarian cancer Fibroadenoma Family history of breast cancer Breast mass, right Chronic pain syndrome H/O sigmoidoscopy Barretts esophagus Anxiety and depression Osteoarthritis, knee Fatty liver Cholelithiasis Carpal tunnel syndrome on both sides Lumbar degenerative disc disease Hypercholesterolemia Hypertension Vitamin D deficiency Tinea corporis GERD (gastroesophageal reflux disease) Constipation Family History Family History Father Colon cancer CVD (cardiovascular disease) Mother Breast cancer Brain tumor Sister Colon cancer Breast cancer Surgical History Surgical History H/O esophagogastroduodenoscopy H/O colonoscopy History of section History of breast mammoplasty H/O gastric bypass History of carpal tunnel release Social History Social History Household Members: Children Housing: Apartment Are you a primary senior resident care director to a significant other at home: No Do you presently have visiting nurse or other home services: No Unable to assess alcohol history related to: Unknown Alcohol intake: never Patient Tobacco Use Status: Never used Tobacco e-Cigarette/Vaping Use: Never Used Second Hand Smoke Exposure: No service: No Current occupational status: disabled Cognitive needs: No Hearing needs: No Vision needs: No Meds Allergies Allergy/AdvReac Type Severity Reaction Status Date / Time topiramate [From TOPAMAX] Allergy Intermediate NAUSEA & Verified 08/06/23 13:40 VOMITING ENVIRONMENTAL Allergy Severe SINUS Uncoded 08/06/23 13:40 INFXN SYMPTOMS STATED BY PT Active Medications: Current Medications Sodium Chloride (Ns) 1,000 mls @ 999 mls/hr IV .Q1H1M JOEY Stop: 08/06/23 14:45 Sodium Chloride (Ns) 1,000 mls @ 999 mls/hr IV .Q1H1M JOEY Stop: 08/06/23 14:45 Sodium Chloride (Ns) 100 mls @ 100 mls/hr IV ONCE ONE Stop: 08/06/23 14:47 Home Medications Medication Instructions Recorded Confirmed Last Taken Type hydrochlorothiazide 25 mg tablet 25 mg PO DAILY 05/18/23 06/02/23 Unknown History sennosides 8.6 mg tablet (senna) 17.2 mg PO DAILY 05/18/23 06/02/23 Unknown History Physical Exam Vital Signs: Vital Signs: Last Vital Signs Temp 97.7 F 08/06/23 13:41 Pulse 79 08/06/23 13:41 Resp 20 08/06/23 13:41 BP 99/65 08/06/23 13:41 Pulse Ox 96 08/06/23 13:41 O2 Del Method Room Air 08/06/23 13:41 BMI result Body Mass Index 44.1 EXAM: GENERAL: The patient is well developed and nontoxic. VITAL SIGNS:see workflow HEENT: Nonicteric sclerae, PERRLA, EOMI. Oropharynx clear. Moist mucous membranes. Conjunctivae appear well perfused. No thyroid mass. CHEST: Chest wall is nontender. HEART: Regular rate and rhythm without murmurs. LUNGS: Clear to auscultation bilaterally. ABDOMEN: Soft, positive bowel sounds, mildly tender RLQ, no organomegaly.no flank tenderness SKIN: No rash, no excessive bruising, petechiae, or purpura. NEUROLOGIC: Cranial nerves II-XII intact without motor/sensory deficit. Psych- nml Results Labs 08/06/23 14:10 08/06/23 14:10 Labs: Short CBC 08/06/23 Range/Units 14:10 WBC 12.6 H (4.8-10.8) X10*3/uL Hgb 11.8 L (12.0-16.0) g/dl Hct 36.3 L (37.0-47.0) % Plt Count 246 (160-400) X10*3/uL Assessment and Plan (1) Acute lower GI bleeding: Status: Acute Plan 1/ Acute GI bleed, presumably from cecum, clip may have fallen off PLAN: 1/ Keep NPO 2/ Colonoscopy today plus/minus EGD 3/ will admit for observation thereafter Procedures Date of Service Date of Service: 08/06/23
--- NOTE | 2023-08-06 14:30 | PC.NURSE ---
pt being transported to OR at this time on monitor w corn shuckersleeve turner. blood started and no transfusion rxn. consent signed at bedside at 1410 prior to start of blood.
--- NOTE | 2023-08-06 14:33 | MHC.SHP ---
Pre-Procedural Eval Section A Date of Service: 08/06/23 The patient is an INPATIENT: Yes The History & Physical has been completed within 30 days and I have reviewed it.: Yes Section B Chief Complaint: RECTAL BLEEDING S/P COLONOSCOPY Allergies: Allergies Allergy/AdvReac Type Severity Reaction Status Date / Time topiramate [From TOPAMAX] Allergy Intermediate NAUSEA & Verified 08/06/23 13:40 VOMITING ENVIRONMENTAL Allergy Severe SINUS Uncoded 08/06/23 13:40 INFXN SYMPTOMS STATED BY PT Plan Diagnosis/Plan: Unchanged I have reviewed the history and physical and performed a pertinent physical examination on my patient. No changes have occurred unless specified. colonoscopy +/- EGD for GIB Time Spent With Patient Time: Total time managing care of this patient today ____ minutes.
[2023-08-06 14:41] LABS: Alanine Aminotransferase 34 U/L (0-31); Albumin Level 3.9 g/dL (3.5-5.0); Alkaline Phosphatase 88 U/L (39-117); Anion Gap 12 (12-20); Aspartate Amino Transferase 27 U/L (5-31); Bilirubin Total 0.3 mg/dL (0.0-1.0); Blood Urea Nitrogen 8 mg/dL (9-16); Calcium 9.2 mg/dL (8.4-10.2); Carbon Dioxide 23 mmol/L (22-29); Chloride 110 mmol/L (96-108); Creatinine Clr Calc Pharmacy 111.9; Estimated Glomerular Filt Rate > 60; Glucose Random 92 mg/dL (60-115); Magnesium 1.7 mg/dL (1.6-2.6); Sodium 141 mmol/L (135-145); Total Protein 6.6 g/dL (6.5-8.0)
--- NOTE | 2023-08-06 14:51 | PC.NURSE ---
bright red rectal blood noted pt denies dizziness vss aware careplan new #22 right wrist ls clear blood infusin without difficulties anesthesia taking pt to endo
[2023-08-06 15:03] LABS: COVID-19 Test Negative (Negative); IDNOW Serial# 58CA691E
--- NOTE | 2023-08-06 15:22 | P.OP_ITS ---
Operative Note Operative Note Date of Service: 08/06/23 Narrative: Operative Information Procedure Description: Colonoscopy Indication: GI bleeding Anesthesia: MAC COLONOSCOPY Instrument: Olympus variable stiffness ADULT scope 190L Colonoscopy Monitoring: Vital signs and clinical assessment, continuous EKG monitoring, Pulse oximetry, Carbon Dioxide monitoring and blood pressure monitoring were done throughout the procedure. Colon withdrawal time was 6 minutes. Procedure: The patient was placed in the left lateral decubitis position and pre-procedure medications were administered. After a digital rectal examination of the ano-rectum, the video colonoscope was inserted into the rectum and advanced through the colon to the cecum/TI. The colonoscope was slowly withdrawn in a retrograde panoramic fashion and the colon mucosa was carefully examined including a retroflexed view of the rectum. Findings and interventions are described below. Procedure Difficulty: easy Findings: Terminal Ileum-normal, no blood seen Cecum: area that was clipped seen with clot around the clip, this was debrided and x 3 more clips were applied, v mild ozzing noted. Hemospray was then applied. clots and fresh blood noted from recent bleeding in colon Ascending Colon: normal Transverse Colon -normal Descending Colon:normal Sigmoid Colon: normal Rectum: Retroflexion with small internal hemorrhoids, grade I No active bleeding sites seen Anorectum - normal Colon preparation: [place] Bowel Preparation Scale Right colon; 2 Transverse colon: 2 Left colon; 2 (0 = Unprepared colon segment with mucosa not seen due to solid stool that cannot be cleared. 1 = Portion of mucosa of the colon segment seen, but other areas of the colon segment not well seen due to staining, residual stool and/or opaque liquid. 2 = Minor amount of residual staining, small fragments of stool and/or opaque liquid, but mucosa of colon segment seen well. 3 = Entire mucosa of colon segment seen well with no residual staining, small fragments of stool or opaque liquid) Impression and Post Procedure Diagnosis: iatrogenic GI bleeding from cecum s/p clips and hemospray Plan: keep on clear today, advance diet tomorrow, admit for observation she will likely drop HGb a little more and will still be passing some blood and clots, but no active bleeding seen, will need to follow clinically. If ongoing or repeat bleeding suspected then CTA and Ir consult Above findings were reviewed with the patient and relevant handouts were provided if indicated.
--- NOTE | 2023-08-06 16:02 | PM.IMHP ---
History of Present Illness Date of Service: 08/06/23 Chief Complaint: Rectal bleed 48 year old female with PMH as listed below who had elective colonoscopy today and had some polyps removed and was having bleeding at the site which was clipped. She went home and was having rectal bleeding and returned to the ED and went for second colonoscopy and with more clipping and hemospray and noted to have old blood . Initial BP was low but she's now stable, Hgb is 11 and she's been given blood. Review of Systems Review of Systems: Gen: no fever Resp: no sob, no cough CV: no chest, no BRAUN, no leg edema GI: No n/v, no abd pain Neuro: No confusion Yes all other systems are reviewed and are negative [facility] Medical History Encounter for Essure implantation Family history of ovarian cancer Fibroadenoma Family history of breast cancer Breast mass, right Chronic pain syndrome H/O sigmoidoscopy Barretts esophagus Anxiety and depression Osteoarthritis, knee Fatty liver Cholelithiasis Carpal tunnel syndrome on both sides Lumbar degenerative disc disease Hypercholesterolemia Hypertension Vitamin D deficiency Tinea corporis GERD (gastroesophageal reflux disease) Constipation Family History Father Colon cancer CVD (cardiovascular disease) Mother Breast cancer Brain tumor Sister Colon cancer Breast cancer Surgical History H/O esophagogastroduodenoscopy H/O colonoscopy History of section History of breast mammoplasty H/O gastric bypass History of carpal tunnel release Social History Household Members: Children Household Members Other:: Daugher Housing: Apartment Are you a primary child care lead teacher to a significant other at home: No Do you presently have visiting nurse or other home services: Yes Unable to assess alcohol history related to: Unknown Alcohol intake: never Patient Tobacco Use Status: Never used Tobacco Smoked in Last 30 Days: No e-Cigarette/Vaping Use: Never Used Second Hand Smoke Exposure: No Use of substances other than those prescribed or required for medical reasons: No Currently Displaying Signs/Symptoms of Drug Intoxication Withdrawal: No Are you DNR?: No Advance Directives: No Advance Directives Information Provided: No Do you have thoughts of harming others: None Do you have a plan to hurt others: No Plan Recently lost weight without trying: No Nutrition Risks: No Nutritional Risk Patient : No : No Poor oral hygiene: No service: No Current occupational status: disabled Cognitive needs: No Hearing needs: No Vision needs: No Meds Allergies Allergy/AdvReac Type Severity Reaction Status Date / Time topiramate [From TOPAMAX] Allergy Intermediate NAUSEA & Verified 08/06/23 13:40 VOMITING ENVIRONMENTAL Allergy Severe SINUS Uncoded 08/06/23 13:40 INFXN SYMPTOMS STATED BY PT Home Medications Medication Instructions Recorded Confirmed Last Taken Type hydrochlorothiazide 25 mg tablet 25 mg PO DAILY 05/18/23 08/06/23 Unknown History sennosides 8.6 mg tablet (senna) 17.2 mg PO DAILY 05/18/23 08/06/23 Unknown History clotrimazole 1 % topical cream 1 appl topical TID 08/06/23 08/06/23 Unknown History dicyclomine 10 mg capsule 10 mg PO TID PRN GI UPSET 08/06/23 08/06/23 Unknown History docusate sodium 100 mg capsule 100 mg PO BID 08/06/23 08/06/23 Unknown History miconazole nitrate 2 % topical 1 appl topical TID 08/06/23 08/06/23 Unknown History powder sucralfate 100 mg/mL oral 10 ml PO BIDAC 08/06/23 08/06/23 Unknown History suspension trazodone 50 mg tablet 50 mg PO BEDTIME 08/06/23 08/06/23 Unknown History Physical Exam Vital Signs and Narrative: Vital Signs: Last Vital Signs Temp 97 F 08/06/23 15:30 Pulse 66 08/06/23 16:00 Resp 18 08/06/23 16:00 BP 131/59 L 08/06/23 16:00 Pulse Ox 100 08/06/23 16:00 O2 Del Method Room Air 08/06/23 16:00 BMI result Body Mass Index 44.1 Const: Other: General: AO X 3, no acute distress Resp: CTA bilateral CVS: S1,S2,RRR GI: +BS, NT, no distention Skin: No rash Neuro: motor grossly intact Psych: appropriate affect Results Labs 08/07/23 05:30 08/06/23 14:10 Labs: Laboratory Results - last 24 hr 08/06/23 08/06/23 13:46 14:10 MCV 92.6 MCH 30.1 MCHC 32.5 RDW 12.8 Plt Count 246 MPV 11.3 Immature Gran % (Auto) 0.6 H Neut % (Auto) 80.7 H Lymph % (Auto) 11.5 L [place] % (Auto) 6.0 Eos % (Auto) 0.6 Baso % (Auto) 0.6 Lymph # (Auto) 1.5 [place] # (Auto) 0.8 Eos # (Auto) 0.1 Baso # (Auto) 0.1 Abs Immat Gran (auto) 0.08 H Absolute Neuts (auto) 10.1 H Absolute Nucleated RBC 0.000 Nucleated RBC % (auto) 0.0 Anion Gap 12 Estim Creat Clear Calc 111.9 Estimated GFR > 60 Random Glucose 92 Calcium 9.2 Magnesium 1.7 Total Bilirubin 0.3 AST 27 ALT 34 H Alkaline Phosphatase 88 Total Protein 6.6 Albumin 3.9 Stool Occult Blood POSITIVE COVID-19 (ANDER) Negative COVID-19 Clin Com See Note Blood Type O Positive Antibody Screen NEGATIVE Crossmatch See Detail Assessment and Plan (1) Acute lower GI bleeding: Status: Acute Plan Lower GI bleeding post colonoscpy and found to have polyp site--H/H is stable, being transfused 1 unit or RBC. BP is stable. Plan: observe overnight for further signs of bleeding, follow H/H. and if stable by AM discharge. Quality Stroke Does the patient have a stroke diagnosis?: No VTE Prior VTE?: No VTE Risk Level:: Medical - low VTE Device Contraindication: Treatment Not Indicated VTE Drug Contraindication: Treatment Not Indicated
[2023-08-06] MEDS: 0.9 % Sodium Chloride 1,000 ML 100 ML IVCONT (18:13)
--- NOTE | 2023-08-06 19:53 | PHA.MEDREC ---
Pharmacy Consult ? Medication Reconciliation Pharmacy has completed the medication reconciliation. Patient confirmed medications. Marlene Webb, ReggieD
[2023-08-06] MEDS: Acetaminophen 325 MG TABLET 650 MG PO (22:45)
[2023-08-07 00:24] VITALS: BP 102/55; PULSE 79; RESP 18; TEMP 36.1; O2SAT 97
[2023-08-07 03:17] LABS: Appearance Urine Clear; Color Urine Yellow; Glucose Urine UA Negative (Negative); Leukocyte Esterase Urine Negative (Negative); Nitrite Urine Negative (Negative); PH 5.5 (5.0-9.0); Specific Gravity - Urine 1.015 (1.005-1.025); UMIC TRIGGER UACC YES; Urine Blood Moderate (2+) (Negative); Urine Ketones Trace mg/dL (Negative); Urine Protein Negative (Neg-Trace)
[2023-08-07 03:30] LABS: Bacteria Urine Trace (None Seen); Hyaline Casts Urine 0-2 /LPF (0-2); RBC Urine 0-2 /HPF (0-2); Squamous Epithelial Cell Urine 0-2 /HPF (0-2); WBC Urine 0-5 /HPF (0-5)
[2023-08-07] MEDS: SUMAtriptan succinate 100 MG TABLET PO (04:29)
[2023-08-07] MEDS: 0.9 % Sodium Chloride 1,000 ML 100 ML IVCONT (04:30)
[2023-08-07 05:19] VITALS: BP 110/55; PULSE 65; RESP 18; TEMP 36.6; O2SAT 97
[2023-08-07 06:21] LABS: Hematocrit 35.3 % (37.0-47.0); Hemoglobin 11.8 g/dl (12.0-16.0); Mean Corpuscular HGB Conc 33.4 g/dl (31.0-35.0); Mean Corpuscular Volume 89.8 fL (80.0-98.0); Mean Platelet Volume 11.2 fL (9.4-12.3); Platelet Count 228 X10*3/uL (160-400); Red Blood Count 3.93 X10*6/uL (4.20-5.50); Red Cell Distribution Width 12.8 % (11.0-16.0); White Blood Count 7.7 X10*3/uL (4.8-10.8)
[2023-08-07 08:00] VITALS: BP 122/58; PULSE 77; RESP 16; TEMP 36.2; O2SAT 96
--- NOTE | 2023-08-07 09:24 | P.DS_ITS ---
DS: Providers Provider Date of Service: 08/07/23 Date of admission: 08/06/23 16:14 Primary care physician: Minnie Lazcano MD DS: Diagnosis Discharge Diagnosis (1) Acute lower GI bleeding: Status: Acute DS: Summary Hospital Course Hospital Course: Chief Complaint: Rectal bleed 48 year old female with PMH as listed below who had elective colonoscopy today and had some polyps removed and was having bleeding at the site which was clipped. She went home and was having rectal bleeding and returned to the ED and went for second colonoscopy and with more clipping and hemospray and noted to have old blood . Initial BP was low but she's now stable, Hgb is 11 and she's been given blood. Hospital course: She admitted overnight, she was transfused 1 unit of RBC. Hgb pre transfusion was 11.8 and remained the same after transfusion. No further bleeding noted. Blood pressure is stable, diet has been advanced, reassured and will be discharged. Time Attestation Discharge coordination time: Greater than 30 minutes Quality: Safe Use of Opioids Does Pt have an Active Cancer Diagnosis on the Problem List?: No Quality: Stroke Does the patient have a stroke diagnosis?: No Physical Exam Vital Signs: Vital Signs: Last Vital Signs Temp 97.2 F 08/07/23 08:00 Pulse 77 08/07/23 08:00 Resp 16 08/07/23 08:00 BP 122/58 L 08/07/23 08:00 Pulse Ox 96 08/07/23 08:00 O2 Del Method Room Air 08/07/23 08:00 BMI result Body Mass Index 44.1 General: AO X 3, no acute distress Resp: CTA bilateral CVS: S1,S2,RRR GI: +BS, NT, no distention Skin: No rash Neuro: motor grossly intact Psych: appropriate affect DS: Data Data Completed and Pending Labs on day of discharge: Laboratory Results - last 24 hr 08/06/23 08/06/23 08/07/23 13:46 14:10 03:00 WBC 12.6 H RBC 3.92 L Hgb 11.8 L Hct 36.3 L MCV 92.6 MCH 30.1 MCHC 32.5 RDW 12.8 Plt Count 246 MPV 11.3 Immature Gran % (Auto) 0.6 H Neut % (Auto) 80.7 H Lymph % (Auto) 11.5 L [place] % (Auto) 6.0 Eos % (Auto) 0.6 Baso % (Auto) 0.6 Lymph # (Auto) 1.5 [place] # (Auto) 0.8 Eos # (Auto) 0.1 Baso # (Auto) 0.1 Abs Immat Gran (auto) 0.08 H Absolute Neuts (auto) 10.1 H Absolute Nucleated RBC 0.000 Nucleated RBC % (auto) 0.0 Sodium 141 Potassium 4.0 Chloride 110 H Carbon Dioxide 23 Anion Gap 12 BUN 8 L Creatinine 0.67 Estim Creat Clear Calc 111.9 Estimated GFR > 60 Random Glucose 92 Calcium 9.2 Magnesium 1.7 Total Bilirubin 0.3 AST 27 ALT 34 H Alkaline Phosphatase 88 Total Protein 6.6 Albumin 3.9 Urine Color Yellow Urine Appearance Clear Urine pH 5.5 Ur Specific [place] 1.015 Urine Protein Negative Urine Glucose (UA) Negative Urine Ketones Trace Urine Blood Moderate (2+) H Urine Nitrite Negative Ur Leukocyte Esterase Negative Urine RBC 0-2 Urine WBC 0-5 Ur Squamous Epith Cells 0-2 Urine Bacteria Trace Hyaline Casts 0-2 Stool Occult Blood POSITIVE COVID-19 (ANDER) Negative COVID-19 Subarctic Limited Com See Note Blood Type O Positive Antibody Screen NEGATIVE Crossmatch See Detail 08/07/23 05:30 WBC 7.7 RBC 3.93 L Hgb 11.8 L Hct 35.3 L MCV 89.8 MCH 30.0 MCHC 33.4 RDW 12.8 Plt Count 228 MPV 11.2 Immature Gran % (Auto) Neut % (Auto) Lymph % (Auto) [place] % (Auto) Eos % (Auto) Baso % (Auto) Lymph # (Auto) [place] # (Auto) Eos # (Auto) Baso # (Auto) Abs Immat Gran (auto) Absolute Neuts (auto) Absolute Nucleated RBC 0.000 Nucleated RBC % (auto) 0.0 Sodium Potassium Chloride Carbon Dioxide Anion Gap BUN Creatinine Estim Creat Clear Calc Estimated GFR Random Glucose Calcium Magnesium Total Bilirubin AST ALT Alkaline Phosphatase Total Protein Albumin Urine Color Urine Appearance Urine pH Ur Specific [place] Urine Protein Urine Glucose (UA) Urine Ketones Urine Blood Urine Nitrite Ur Leukocyte Esterase Urine RBC Urine WBC Ur Squamous Epith Cells Urine Bacteria Hyaline Casts Stool Occult Blood COVID-19 (ANDER) COVID-19 Subarctic Limited Com Blood Type Antibody Screen Crossmatch Discharge Plan Discharge Anticipated Discharge Date/Time: 08/07/23 09:26 Patient Disposition: Home, Self-Care Discharge Diagnosis: Lowe gi bleeding, acute blood loss anemia Referrals: Po,Minnie Justin MD [Primary Care Provider] - 1 Week Discharge Medications: Continued cholecalciferol (vitamin D3) 50 mcg (2,000 unit) tablet 50 mcg PO DAILY Qty: 28 11RF ferrous sulfate 325 mg (65 mg iron) tablet 325 mg PO DAILY 90 Days Qty: 90 2RF atorvastatin 40 mg tablet 40 mg PO DAILY 90 Days Qty: 90 1RF docusate sodium 100 mg capsule 100 mg PO BID trazodone 50 mg tablet 50 mg PO BEDTIME sucralfate 100 mg/mL suspension 10 ml PO BIDAC miconazole nitrate 2 % Powder 1 appl TOPICAL TID dicyclomine 10 mg Capsule 10 mg PO TID PRN (Reason: GI UPSET) (DME) AUTO PAP 6-15 CM H20 humidified AIR See Rx Instructions .Route .MEDSUPPLY Qty: 1 0RF Rx Instructions: As directed hydrochlorothiazide 25 mg tablet 25 mg PO DAILY omeprazole 20 mg capsule,delayed release(DR/EC) 20 mg PO TID 90 Days Qty: 270 3RF No Action ascorbic acid (vitamin C) [Vitamin C] 500 mg tablet 500 mg PO DAILY Qty: 90 3RF duloxetine 20 mg capsule,delayed release(DR/EC) 20 mg PO BID 90 Days Qty: 180 3RF gabapentin 300 mg capsule 300 mg PO TID 90 Days Qty: 270 3RF hydroxyzine HCl 50 mg tablet 50 mg PO BEDTIME PRN (Reason: anxiety) 90 Days Qty: 90 3RF loratadine 10 mg tablet 10 mg PO DAILY 90 Days Qty: 90 3RF ondansetron 4 mg tablet,disintegrating 4 mg PO TID PRN (Reason: nausea and vomiting) 5 Days Qty: 60 2RF simethicone 125 mg capsule 125 mg PO TID-QID PRN (Reason: abdominal distention) Qty: 90 2RF Rx Instructions: soft gel version please tizanidine 2 mg tablet 2 mg PO TID PRN (Reason: muscle spasticity) 30 Days Qty: 90 8RF clonazepam 0.5 mg tablet 0.5 mg PO TID 30 Days Qty: 90 1RF nystatin 100,000 unit/gram powder 1 appl topical TID Qty: 60 2RF clotrimazole 1 % cream 1 appl TOPICAL TID Qty: 45 0RF Wegovy 0.25 mg/0.5 mL pen injector 0.25 mg subcut QWEEK Qty: 2 0RF Rx Instructions: administer weeks 1 through 4 of therapy polyethylene glycol 3350 [Miralax] 17 gram/dose powder 17 g PO BID Qty: 510 2RF mesalamine [Apriso] 0.375 gram capsule,extended release 24hr 1.5 g PO QAM 14 Days Qty: 56 0RF Discharge Orders: Discharge Order (Routine); Ordered 08/07/23 Ordered By: David Duffy Diet: Advance to usual diet Activity on Discharge: As tolerated Stand Alone Forms: Patient Portal Discharge page Care Plan Goals: resolution rectal bleeding Health Concerns: rectal bleeding, acute blood loss anemia Plan of Treatment: avoid taking NSAID (motrin, advil, naproxen or check with pharmacist for over the counter pain medications) for 5 days, follow up with Dr. Marquez, call office on Thursday Assessment: as above Discharge Date/Time: 08/07/23 13:29
[2023-08-07] MEDS: Ascorbic Acid 500 MG TABLET PO (10:19)
[2023-08-07] MEDS: Atorvastatin Calcium 40 MG TABLET PO (10:19)
[2023-08-07] MEDS: DULoxetine HCl 20 MG CAPSULE.DR PO (10:20)
[2023-08-07] MEDS: Gabapentin 300 MG CAPSULE PO (10:20)
[2023-08-07] MEDS: clonazePAM 0.5 MG TABLET PO (10:20)
[2023-08-07] MEDS: Omeprazole 20 MG CAPSULE.DR PO (10:20)
[2023-08-07] MEDS: Docusate Sodium 100 MG CAPSULE PO (10:20)
[2023-08-07] MEDS: Cholecalciferol (Vitamin D3) 25 MCG TABLET 50 MCG PO (10:20)
[2023-08-07] MEDS: Ferrous Sulfate 324 MG TABLET.DR PO (10:20)
--- NOTE | 2023-08-07 11:18 | MHC.CM.PN ---
pt lives with dgter has own ride home had no previous servies
--- NOTE | 2023-08-07 11:50 | MHC.CM.PN ---
pt dcd home no servires
--- NOTE | 2023-08-07 13:19 | HO.POSTANES ---
Post Anesthesia Evaluation Post Anesthesia Evaluation Date of Service: 08/07/23 Vital Signs: Vital Signs Temp Pulse Resp BP Pulse Ox O2 Del Method 08/07/23 08:00 97.2 F 77 16 122/58 L 96 Room Air 08/07/23 05:19 97.8 F 65 18 110/55 L 97 Room Air Anesthesia: Monitored Mental Status: Awake Pain Control: Satisfactory Nausea/Vomiting: None Hydration: Adequate Anesthesia-Related Issues: No Anes. Related Issues
== END 2023-08-07 13:29 | disposition home or self-care (01) ==
LOC: HO.ED 14:07 → HO.SSS 14:09 → HO.S3 17:07
PROVIDERS: Internal Medicine Gastroenterology; Physician Assistant; Admitting Provider Internal Medicine; Emergency Provider Student in an Organized Health Care Education/Training Program; PCP Internal Medicine; Visit Provider Internal Medicine
PROC: 0DJD8ZZ Inspection of Lower Intestinal Tract, Via Natural or Artificial Opening Endoscopic (ICD-10-PCS; CPT 45378; principal; 2023-08-06 14:20)
DX: K92.2 Gastrointestinal hemorrhage, unspecified (principal); D62 Acute posthemorrhagic anemia; I10 Essential (primary) hypertension; K64.0 First degree hemorrhoids; K21.9 Gastro-esophageal reflux disease without esophagitis; E55.9 Vitamin D deficiency, unspecified; Z11.52 Encounter for screening for COVID-19; Z79.899 Other long term (current) drug therapy
CPT/HCPCS: 45378; 36415; 36430; 80053; 81001; 81025; 82272; 83735; 85025; 85027; 86850; 86900; 86901; 86920; 87635; 88305; 88342; 93005; 96360; 96361; 99221; 99284; 99285; C1726; J2704; P9016

== ENCOUNTER → 2023-08-06 14:09 | Outpatient (BNV) | payer MEDICARE, MEDICAID, SELFPAY | PROVIDERS: Emergency Provider Student in an Organized Health Care Education/Training Program; PCP Internal Medicine; Visit Provider Internal Medicine Gastroenterology | DX: K92.2 Gastrointestinal hemorrhage, unspecified (principal); K64.0 First degree hemorrhoids | CPT/HCPCS: 45382; 99232 ==

== ENCOUNTER → 2023-08-06 16:14 | Outpatient (BNV) | payer MEDICARE, MEDICAID, SELFPAY | PROVIDERS: Admitting Provider Internal Medicine; Emergency Provider Student in an Organized Health Care Education/Training Program; PCP Internal Medicine; Visit Provider Internal Medicine | DX: K92.2 Gastrointestinal hemorrhage, unspecified (principal) | CPT/HCPCS: 99223; 99239 ==

== ENCOUNTER 2023-08-31 13:37 | Outpatient (AMB) | payer MEDICARE, MEDICAID, SELFPAY ==
--- NOTE | 2023-08-31 13:41 | A.OFFVIS_ITS ---
Intake Vital Signs 08/31/23 13:46 Height 5 ft 1 in Weight 227 lb 1.218 oz BMI 42.9 BP 139/82 Blood Pressure Location Lt brachial Position Sitting Pulse 71 Intake Visit Reasons: F/U double and CT scan Intake Note: Eliza presents in the office as a follow up EGD/COLO and CT Scan. CC: She is still having rectal bleeding. She is not able to hve solid foods because if she does she bleeds out. She has gone down a pant size due to all of this. She is having cramping and when she eats she feels her body digesting the foods. Once it gets to her lower abdomen she feels it and when she has to have a BM she gets a lot of pains. She is on a very liquid or soft diet since her procedures. She showed me a picture and her stool is solid but has blood all over and inside her stools. Allergies topiramate [From TOPAMAX] Allergy (Intermediate, Verified 08/31/23 13:46) NAUSEA & VOMITING ENVIRONMENTAL Allergy (Severe, Uncoded 08/31/23 13:46) SINUS INFXN SYMPTOMS STATED BY PT HPI F/U double and CT scan HPI Details 48 yr old f here for f/u RECAP; saw [facility] [place] ? she had been c/o abdo pain, nausea, ? Its hard to eat steak- no milk or cheese. ? Went to ER- had a GI shot- it numbed my entire GI tract . ? Omeprazole not really helpful. ? She was very worried about having cancer ? Father -colon cancer @ 50 ? Sister colon cancer in her early 40s. ? TESTS: egd/COLONOSCOPY---01/2020 ? esophagus dilated, retianed eduardo removed, barretts esophagus w/ chronic inactive inflammation on bx, ? colon, with small internal hemorrhoids, fiar prep--rept 3 yrs due to FH CRC ? bx with focal active colitis, no chronic injury ? small bowel f/u--03/2020--rapid transit, small hiatal henria, reflux, no obstruction ? LABS: 05/2020--LFt, BMp--nml, CBC, mild anemia EGD/sigmoidoscopy-11/2020-schatzki ring, internal hemorrhoids--she had dilation of esophagus EGD/Colonoscopy: 08/06/23 Endoscopy Findings: lax LES retained foreign bodies, balloon dilation Colonoscopy Findings: polyp internal hemorrhoids diverticular disease bx: tubular adenoma removed, some inflammation of stomach pouch, She had post biopsy bleed and had to get repeat colo with clipping and hemopsray and stayed in house for one night ? INTERIM; she has crmaps and constipation gas, takes lactulose blood covering stools taking bently as needed no more choking after dilation EXAM: GENERAL: The patient is well developed and nontoxic. VITAL SIGNS:see workflow HEENT: Nonicteric sclerae, PERRLA, EOMI. Oropharynx clear. Moist mucous membranes. Conjunctivae appear well perfused. No thyroid mass. CHEST: Chest wall is nontender. HEART: Regular rate and rhythm without murmurs. LUNGS: Clear to auscultation bilaterally. ABDOMEN: Soft, positive bowel sounds, nontender, no organomegaly.no flank tenderness SKIN: No rash, no excessive bruising, petechiae, or purpura. NEUROLOGIC: Cranial nerves II-XII intact without motor/sensory deficit. Assessments ? 1. Ongoing abdominal pain and abn bowel habits, prior bx with focal colitis, ? IBD, adhesions from gastric bypass--nothing this time, TA removed 2. Dysphagia- good result with prior markus diamond PLAN: 1/ cont with PPI TID-- 2/ add apriso and miralax, stop lactulos e, if ongoing sx then capsule endoscoopy [facility] Medical History Encounter for Essure implantation Family history of ovarian cancer Fibroadenoma Family history of breast cancer Breast mass, right Chronic pain syndrome H/O sigmoidoscopy Barretts esophagus Anxiety and depression Osteoarthritis, knee Fatty liver Cholelithiasis Carpal tunnel syndrome on both sides Lumbar degenerative disc disease Hypercholesterolemia Hypertension Vitamin D deficiency Tinea corporis GERD (gastroesophageal reflux disease) Constipation Surgical History H/O esophagogastroduodenoscopy H/O colonoscopy History of section History of breast mammoplasty H/O gastric bypass History of carpal tunnel release Family History Father Colon cancer CVD (cardiovascular disease) Mother Breast cancer Brain tumor Sister Colon cancer Breast cancer Social History Household Members: Children Household Members Other:: Daugher Housing: Apartment Are you a primary regular senior care provider to a significant other at home: No Do you presently have visiting nurse or other home services: Yes Unable to assess alcohol history related to: Unknown Alcohol intake: never Comment: to OR Patient Tobacco Use Status: Never used Tobacco e-Cigarette/Vaping Use: Never Used Second Hand Smoke Exposure: No service: No Current occupational status: disabled Cognitive needs: No Hearing needs: No Vision needs: No Female Reproductive History Menstrual Age of Menarche: 14 Physical Exam Vital Signs: Last Vital Signs Pulse 71 08/31/23 13:46 BP 139/82 08/31/23 13:46 BMI result Body Mass Index 42.9 Assessment & Plan Assessment & Plan (1) Abnormal bowel habits: Code(s): R19.8 - Other specified symptoms and signs involving the digestive system and abdomen Plan 1. Ongoing abdominal pain and abn bowel habits, prior bx with focal colitis, ? IBD, adhesions from gastric bypass--nothing this time, TA removed 2. Dysphagia- good result with prior dilaiton PLAN: 1/ cont with PPI TID-- 2/ add apriso and miralax, stop lactulose, if ongoing sx then capsule endoscoopy Medications: New polyethylene glycol 3350 (Miralax) 17 grams PO BID 510 grams 2RF mesalamine ER (Apriso) 1.5 grams (4 x 0.375 gram) PO QAM 2 weeks 56 caps 0RF Discontinued lactulose Discontinued Reason: Doctor's Order 30 mL PO BID 1,800 mL 3RF K59.00 - Constipation, unspecified Coding Level of Care Code Est Pt Level 3 (93246) Diagnoses Abnormal bowel habits R19.8
[2023-08-31 13:46] VITALS: BP 139/82; PULSE 71; BMI 42.9
== END 2023-08-31 14:22 | disposition home or self-care (01) ==
PROVIDERS: PCP Internal Medicine; Visit Provider Internal Medicine Gastroenterology
DX: R19.8 Other specified symptoms and signs involving the digestive system and abdomen (principal)
CPT/HCPCS: 99213

== ENCOUNTER → 2023-08-31 13:37 | Outpatient (BNVA) | payer MEDICARE, MEDICAID, SELFPAY | PROVIDERS: PCP Internal Medicine; Visit Provider Internal Medicine Gastroenterology | DX: R91.8 Other nonspecific abnormal finding of lung field (principal) | CPT/HCPCS: 99212 ==

== ENCOUNTER 2023-09-08 08:58 | Outpatient (AMB) | payer MEDICARE, MEDICAID, SELFPAY ==
--- NOTE | 2023-09-08 09:29 | A.OFFPC_ITS ---
Vital Signs 09/08/23 09:31 Height 5 ft 1 in Weight 227 lb 8 oz BMI 43.0 BP 130/70 Blood Pressure Location Lt brachial Position Sitting Intake Visit Reasons: obesity, barretts , cholesterol Intake Note: Patient is here to follow up on Obesity, Barretts, Cholesterol. Complaint of stomach, back and both knee pain. Vehicle Service Agent Required: No Machining Associate: Not Required per policy Accompanied by: Self / Same As Patient Allergies topiramate [From TOPAMAX] Allergy (Intermediate, Verified 09/08/23 09:30) NAUSEA & VOMITING ENVIRONMENTAL Allergy (Severe, Uncoded 08/31/23 13:46) SINUS INFXN SYMPTOMS STATED BY PT Medication List - Last Reconciled 09/08/23 by Minnie Lazcano MD ascorbic acid (vitamin C) (Vitamin C) 500 mg PO DAILY atorvastatin 40 mg PO DAILY 90 days [AUTO PAP 6-15 CM H20 humidified AIR As directed] cholecalciferol (vitamin D3) 50 mcg PO DAILY clonazepam 0.5 mg PO TID 30 days clotrimazole 1% 1 appl topical TID dicyclomine 10 mg PO TID PRN docusate sodium 100 mg PO BID duloxetine 20 mg PO BID 90 days ferrous sulfate 325 mg PO DAILY 90 days gabapentin 300 mg PO TID 90 days hydrochlorothiazide 25 mg PO DAILY hydroxyzine HCl 50 mg PO BEDTIME PRN 90 days loratadine 10 mg PO DAILY 90 days mesalamine ER (Apriso) 1.5 grams (4 x 0.375 gram) PO QAM 2 weeks miconazole nitrate 2% 1 appl topical TID nystatin 1 appl topical TID omeprazole 20 mg PO TID 90 days ondansetron 4 mg PO TID PRN 5 days polyethylene glycol 3350 (Miralax) 17 grams PO BID simethicone 125 mg PO TID-QID PRN sucralfate 10 mL PO BIDAC tizanidine 2 mg PO TID PRN 30 days trazodone 50 mg PO BEDTIME Tobacco use date assessed: 09/08/23 Dental Screening Dental Screen Date: 09/08/23 Did you have a dental visit in the last 12 months?: No Did you have a dental problem in the last 6 months where you did not have access to dental care?: No Was dental information given to patient?: No HPI obesity, barretts , cholesterol HPI Details 48-year-old obese female status post gas tric bypass Renee's esophagus hypercholesterolemia hypertension and generalized anxiety disorder last seen in April 2023. Patient's mammograms up-to-date colonoscopy up-to-date July 2023. Review of the notes was recently seen by the Gastroenterology due to rectal bleeding. Patient had a EGD and colonoscopy find internal hemorrhoids with diverticular disease in tubular adenoma. Patient has a lax lower ext facial sphincter. Noted retained foreign bodies and balloon dilatation done. Advised to continue with proton pump inhibitor patient was prescribed MiraLax and mesalamine. ER visit in July 2023 due to lower GI bleeding post colonoscopy. Noted also on ER visit in June right upper extremity pain with sensory changes diagnosis of headache with normal workup. PAtient was not able to get apriso due to insurance= advised to call gastro. Patient was not really seeing therapist right now and awaiting for a no therapist. Refill on the clonazepam done. Patient also complains of left foot pain has a history of plantar fasciitis and discussed about weight loss. Discussed about blood work having a high cholesterol and discussed about diet. Patient eats 4 eggs every day all mallet. Discussed about the egg yolks. And to limited twice a week on of the egg yolk. [facility] Medical History Encounter for Essure implantation Family history of ovarian cancer Fibroadenoma Family history of breast cancer Breast mass, right Chronic pain syndrome H/O sigmoidoscopy Barretts esophagus Anxiety and depression Osteoarthritis, knee Fatty liver Cholelithiasis Carpal tunnel syndrome on both sides Lumbar degenerative disc disease Hypercholesterolemia Hypertension Vitamin D deficiency Tinea corporis GERD (gastroesophageal reflux disease) Constipation Surgical History H/O esophagogastroduodenoscopy H/O colonoscopy History of section History of breast mammoplasty H/O gastric bypass History of carpal tunnel release Family History Father Colon cancer CVD (cardiovascular disease) Mother Breast cancer Brain tumor Sister Colon cancer Breast cancer Social History Household Members: Children Household Members Other:: Daugher Housing: Apartment Are you a primary pet care associate to a significant other at home: No Do you presently have visiting nurse or other home services: Yes Unable to assess alcohol history related to: Unknown Alcohol intake: never Comment: to OR Patient Tobacco Use Status: Never used Tobacco e-Cigarette/Vaping Use: Never Used Second Hand Smoke Exposure: No service: No Current occupational status: disabled Cognitive needs: No Hearing needs: No Vision needs: No Female Reproductive History Menstrual Age of Menarche: 14 Questionnaire Thrive Questionnaire Date Thrive assessed: 08/07/23 SHARON-7 AMB Questionnaire SHARON-7 Date SHARON - 7 assessed: 11/11/22 Source: Developed by Drs. Curly Williamson, Yue Ren, Mathew Newton and colleagues, with an educational kenneth from [employer]. Physical exam (Primary Care) Vital Signs: Last Vital Signs BP 130/70 09/08/23 09:31 BMI result Body Mass Index 43.0 Tobacco/Smoking Status: Tobacco use Status Tobacco use date assessed 09/08/23 09/08/23 10:00 Patient Tobacco Use Status Never used Tobacco 09/08/23 10:00 e-Cigarette/Vaping Use Never Used 09/08/23 10:00 Thrive Assessment: Date of Thrive Assessment Date Thrive assessed 08/07/23 09/08/23 10:00 Const General: alert; No acute distress Eyes Conjunctivae: conjunctivae normal Resp Auscultation: clear to auscultation bilaterally Cardio Rate: regular rate Rhythm: regular rhythm GI Inspection: Yes normal to inspection Extrem General: Yes normal to inspection and No edema Office Procedures Flu Questionnaire Does the patient have a severe egg allergy?: No Does the patient have severe life threatening allergies?: No Does the patient have a fever or illness today?: No Has the patient ever had Guillain-Ponce Syndrome?: No Has the patient ever had any past reaction to a flu shot?: No Immunizations flu vacc [id number] 6mos up(PF) 60 mcg(15 mcgx4)/0.5 mL IM syringe Performing Provider: Minnie Lazcano MD Performing Location: [facility] Administered by: Marielos Saavedra CMA on 09/08/23 10:04 Dose Route Admin Location Dispensed Lot Number Expiration Date [employer] Tester 0.5 mL IM Left Deltoid 0.5 mL [id number] 03/27/24 [id number] CNZZ VIS Given Date VIS Provided VIS Publication Date 09/08/23 Single Vaccine 21 Eligibility Eligibility Date Funding Source Not [facility] Eligible 09/08/23 Private Assessment and Plan Assessment & Plan (1) Hypertension: Code(s): I10 - Essential (primary) hypertension Qualifiers: Hypertension type: essential hypertension Qualified Code(s): I10 - Essential (primary) hypertension Plan: Continue with blood pressure medication. Decrease salt intake and exercise patient is on hydrochlorothiazide 25 mg once a day (2) Hypercholesterolemia: Code(s): E78.00 - Pure hypercholesterolemia, unspecified Plan: Avoid fried foods, chicken skin, eggs, butter margarine, pastries and meat. Be it pork or beef they have a lot of cholesterol LDL goal of less than 130 and triglyceride of less than 150 patient is on atorvastatin 40 mg once a day (3) GERD (gastroesophageal reflux disease): Code(s): K21.9 - Gastro-esophageal reflux disease without esophagitis Qualifiers: Esophagitis presence: without esophagitis Qualified Code(s): K21.9 - Gastro-esophageal reflux disease without esophagitis Plan: Avoid the foods that causes that usually spicy foods, tomato products, juices, coffee, soda and foods that your sensitive to. After eating do not lie down, allow 3-4 hours before in lie down. And keep the head of bed above 30 degrees to avoid the acid from going up. Patient follows up with Gastroenterology (4) Generalized anxiety disorder: Comment: Referral to [facility] Counsel[facility] Code(s): F41.1 - Generalized anxiety disorder Plan: Continue with therapy. Still awaiting for counseling. (5) Obesity: Code(s): E66.9 - Obesity, unspecified Plan: Diet and exercise (6) H/O gastric bypass: Comment: [address] [facility] [address] Tang Code(s): Z98.84 - Bariatric surgery status Plan: Diet and exercise (7) Acute lower GI bleeding: Code(s): K92.2 - Gastrointestinal hemorrhage, unspecified Plan: Patient follows up with Gastroenterology and has been placed on MiraLax for constipation and mesalamine but was not able to get the mesalamine due to insurance problems. Advised patient to call Gastroenterology for this (8) IUD strings lost: Code(s): T83.32XA - Displacement of intrauterine contraceptive device, initial encounter Plan: Patient states want to be referred to a different gynecology as they did try to get the IUD with no success. (9) Tinea corporis: Code(s): B35.4 - Tinea corporis Plan: Nystatin and clotrimazole refill done (10) Plantar fasciitis of left foot: Code(s): M72.2 - Plantar fascial fibromatosis Plan: Patient wants referral to another manufacturing recruiter. Discussed about weight loss Orders: Orders Influenza [id number] Immunization Today Z23 - Encounter for immunization Referrals THERMODYNAMICS ENGINEER Referral T83.32XA - Displacement of intrauterine contraceptive device, initial encounter Podiatry Referral M72.2 - Plantar fascial fibromatosis Medications: New nystatin 1 appl topical TID 60 grams 2RF B35.4 - Tinea corporis clotrimazole 1% 1 appl topical TID 45 grams 0RF B35.4 - Tinea corporis semaglutide (weight loss) (Tita) administer weeks 1 through 4 of therapy 0.25 mg (0.5 mL) subcut QWEEK 2 mL 0RF E66.9 - Obesity, unspecified Refilled loratadine 10 mg PO DAILY 90 days 90 tabs 3RF J30.9 - Allergic rhinitis, unspecified ondansetron 4 mg PO TID 5 days PRN 60 tabs 2RF nausea and vomiting Z12.11 - Encounter for screening for malignant neoplasm of colon simethicone soft gel version please 125 mg PO TID-QID PRN 90 caps 2RF abdominal distention tizanidine 2 mg PO TID 30 days PRN 90 tabs 8RF muscle spasticity clonazepam 0.5 mg PO TID 30 days 90 tabs 1RF F32.9 - Major depressive disorder, single episode, unspecified, F41.9 - Anxiety disorder, unspecified ascorbic acid (vitamin C) (Vitamin C) 500 mg PO DAILY 90 tabs 3RF duloxetine 20 mg PO BID 90 days 180 caps 3RF F41.1 - Generalized anxiety disorder gabapentin 300 mg PO TID 90 days 270 caps 3RF F41.9 - Anxiety disorder, unspecified hydroxyzine HCl 50 mg PO BEDTIME 90 days PRN 90 tabs 3RF anxiety Coding Level of Care Code Est Pt Level 4 (96295) Diagnoses Essential hypertension I10 Hypertension type: essential hypertension Hypercholesterolemia E78.00 Gastroesophageal reflux disease without esophagitis K21.9 Esophagitis presence: without esophagitis Generalized anxiety disorder F41.1 Obesity E66.9 H/O gastric bypass Z98.84 Acute lower GI bleeding K92.2 IUD strings lost T83.32XA Tinea corporis B35.4 Plantar fasciitis of left foot M72.2
[2023-09-08 09:31] VITALS: BP 130/70; BMI 43.0
== END 2023-09-08 10:47 | disposition home or self-care (01) ==
PROVIDERS: PCP Internal Medicine; Visit Provider Internal Medicine
DX: I10 Essential (primary) hypertension (principal); E78.00 Pure hypercholesterolemia, unspecified; K21.9 Gastro-esophageal reflux disease without esophagitis; Z23 Encounter for immunization; Z98.84 Bariatric surgery status; F41.1 Generalized anxiety disorder; E66.9 Obesity, unspecified; K92.2 Gastrointestinal hemorrhage, unspecified; T83.32XA Displacement of intrauterine contraceptive device, initial encounter; B35.4 Tinea corporis; M72.2 Plantar fascial fibromatosis
CPT/HCPCS: 90471; 90686; 99214

== ENCOUNTER 2023-12-10 08:42 | Outpatient (AMB) | payer MEDICARE, MEDICAID, SELFPAY ==
[2023-12-10 08:48] VITALS: BP 118/68; PULSE 77; O2SAT 98; BMI 43.1
--- NOTE | 2023-12-10 08:48 | A.OFFPC_ITS ---
Vital Signs 12/10/23 08:48 Height 5 ft 1 in Weight 228 lb BMI 43.1 BP 118/68 Blood Pressure Location Lt brachial Position Sitting Pulse 77 Pulse Source Pulse Oximeter Pulse Oximetry (%) 98 Oxygen Delivery Method Room Air Intake Visit Reasons: Obesity generalized anxiety disorder Intake Note: Patient had fall in the shower. Needs a new shower chair. Allergies topiramate [From TOPAMAX] Allergy (Intermediate, Verified 12/10/23 08:48) NAUSEA & VOMITING ENVIRONMENTAL Allergy (Severe, Uncoded 12/10/23 08:48) SINUS INFXN SYMPTOMS STATED BY PT Medication List - Last Reconciled 12/10/23 by Minnie Lazcano MD ascorbic acid (vitamin C) (Vitamin C) 500 mg PO DAILY atorvastatin 40 mg PO DAILY 90 days [AUTO PAP 6-15 CM H20 humidified AIR As directed] cholecalciferol (vitamin D3) 50 mcg PO DAILY clonazepam 0.5 mg PO TID 30 days clotrimazole 1% 1 appl topical TID dicyclomine 10 mg PO TID PRN docusate sodium 100 mg PO BID duloxetine 20 mg PO BID 90 days ferrous sulfate 325 mg PO DAILY 90 days gabapentin 300 mg PO TID 90 days hydrochlorothiazide 25 mg PO DAILY hydroxyzine HCl 50 mg PO BEDTIME PRN 90 days loratadine 10 mg PO DAILY 90 days mesalamine ER (Apriso) 1.5 grams (4 x 0.375 gram) PO QAM 2 weeks miconazole nitrate 2% 1 appl topical TID nystatin 1 appl topical TID omeprazole 20 mg PO TID 90 days ondansetron 4 mg PO TID PRN 5 days polyethylene glycol 3350 (Miralax) 17 grams PO BID semaglutide (weight loss) (Wegovy) 0.25 mg (0.5 mL) subcut QWEEK [SHOWER CHAIR As directed] simethicone 125 mg PO TID-QID PRN sucralfate 10 mL PO BIDAC tizanidine 2 mg PO TID PRN 30 days trazodone 50 mg PO BEDTIME Tobacco use date assessed: 12/10/23 Dental Screening Dental Screen Date: 12/10/23 Did you have a dental visit in the last 12 months?: Yes Did you have a dental problem in the last 6 months where you did not have access to dental care?: No Was dental information given to patient?: Patient has dentist HPI Obesity generalized anxiety disorder HPI Details 48-year-old obese female with hypertensi on hypercholesterolemia GERD generalized anxiety disorder history of gastric bypass coming in for follow-up last seen in August 2023. Mammogram is up-to-date colonoscopy up-to-date. fell in the bathroom on an old bathroom /shower chair- need replacement [facility] Medical History Encounter for Essure implantation Family history of ovarian cancer Fibroadenoma Family history of breast cancer Breast mass, right Chronic pain syndrome H/O sigmoidoscopy Barretts esophagus Anxiety and depression Osteoarthritis, knee Fatty liver Cholelithiasis Carpal tunnel syndrome on both sides Lumbar degenerative disc disease Hypercholesterolemia Hypertension Vitamin D deficiency Tinea corporis GERD (gastroesophageal reflux disease) Constipation Surgical History H/O esophagogastroduodenoscopy H/O colonoscopy History of section History of breast mammoplasty H/O gastric bypass History of carpal tunnel release Family History Father Colon cancer CVD (cardiovascular disease) Mother Breast cancer Brain tumor Sister Colon cancer Breast cancer Social History Household Members: Children Household Members Other:: [facility] [place] Housing: Apartment Are you a primary ostomy care nurse to a significant other at home: No Do you presently have visiting nurse or other home services: Yes Unable to assess alcohol history related to: Unknown Alcohol intake: never Comment: to OR Patient Tobacco Use Status: Never used Tobacco e-Cigarette/Vaping Use: Never Used Second Hand Smoke Exposure: No service: No Current occupational status: disabled Cognitive needs: No Hearing needs: No Vision needs: No Female Reproductive History Menstrual Age of Menarche: 14 Questionnaire PHQ-9 Over the last 2 weeks, how often have you been bothered by any of the following problems? 1. Little interest or pleasure in doing things: more than half the days 2. Feeling down, depressed, or hopeless: more than half the days 3. Trouble falling or staying asleep, or sleeping too much: nearly every day 4. Feeling tired or having little energy: nearly every day 5. Poor appetite or overeating: nearly every day 6. Feeling bad about yourself - or that you are a failure or have let yourself or your family down: nearly every day 7. Trouble concentrating on things, such as reading the newspaper or watching television: nearly every day 8. Moving or speaking so slowly that other people could have noticed. Or the opposite - being so fidgety or restless that you have been moving around a lot more than usual: nearly every day 9. Thoughts that you would be better off or of hurting yourself in some way : not at all Total score: 22 Depression Screening Interpretation: Positive Depression Screening Follow-up: Community Mental Health Worker F/U and Other (on waiting list for therapist ) Depression Screening Done: Yes 29259 - PHQ-9 Billing: Yes Source: Developed by Drs. Curly Williamson, Yue Ren, Mathew Newton and colleagues, with an educational kenneth from [employer]. Thrive Questionnaire Date Thrive assessed: 12/10/23 I am a: Patient What is your living situation today?: I have a steady place to live Within the past 12 months, did the food you bought not last and you didn't have the money to get more?: Never true Within the past 12 months, did you worry whether your food would run out before you got money to buy more?: Never true Do you have trouble paying for medicines?: No Do you have trouble getting transportation to medical appointments?: No Do you have trouble paying your heating and electricity bill?: No Do you have trouble taking care of your child, family member or friend?: No Do you have trouble with day-to-day activities such as bathing, preparing meals, shopping, managing finances, etc.?: No Are you currently unemployed and looking for a job?: No Are you interested in more education?: No Currently or been in a relationship where the following occur: no concerns reported THRIVE Score: 0 AUDIT C Alcohol Use Questionnaire (AUDIT-C) 1. How often do you have a drink containing alcohol?: Never 2. How many drinks containing alcohol do you have on a typical day when you are drinking?: 1 or 2 (0) 3. How often do you have six or more drinks on one occasion?: Never Total Score: 0 SHARON-7 AMB Questionnaire SHARON-7 Date SHARON - 7 assessed: 12/10/23 Feeling nervous, anxious, or on edge: 1 = Several days Not being able to stop or control worryin = Not at all Worrying too much about different things: 0 = Not at all Trouble relaxin = Not at all Being so restless that it is hard to sit still: 0 = Not at all Becoming easily annoyed or irritable: 0 = Not at all Feeling afraid as if something awful might happen: 0 = Not at all Total SHARON-7 score (0-4 normal; 5-9 mild; 10-14 moderate; 15-21 severe): 1 Source: Developed by Drs. Curly Williamson, Yue Ren, Mathew Newton and colleagues, with an educational kenneth from [employer]. Physical exam (Primary Care) Vital Signs: Last Vital Signs Pulse 77 12/10/23 08:48 BP 118/68 12/10/23 08:48 Pulse Ox 98 12/10/23 08:48 Oxygen Delivery Method Room Air 12/10/23 08:48 BMI result Body Mass Index 43.1 Tobacco/Smoking Status: Tobacco use Status Tobacco use date assessed 12/10/23 12/10/23 08:55 Patient Tobacco Use Status Never used Tobacco 12/10/23 08:55 e-Cigarette/Vaping Use Never Used 12/10/23 08:55 PHQ-9: PHQ-9 Score PHQ-9: Total score 22 12/10/23 08:55 Depression Screening Interpretation: Positive Depression Screening Follow-up: Community Mental Health Worker F/U and Other (on waiting list for therapist ) Thrive Assessment: Date of Thrive Assessment Date Thrive assessed 12/10/23 12/10/23 08:55 Currently or been in a relationship where the following occur: no concerns reported Const General: alert; No acute distress Eyes Conjunctivae: conjunctivae normal Resp Auscultation: clear to auscultation bilaterally Cardio Rate: regular rate Rhythm: regular rhythm GI Inspection: Yes normal to inspection Extrem General: Yes normal to inspection and No edema Assessment and Plan Assessment & Plan (1) H/O gastric bypass: Comment: [address] [facility] [address] Tang Code(s): Z98.84 - Bariatric surgery status Plan: Diet and exercise (2) Morbid obesity: Code(s): E66.01 - Morbid (severe) obesity due to excess calories Plan: Diet and exercise (3) Iron deficiency anemia: Code(s): D50.9 - Iron deficiency anemia, unspecified Plan: Continue to monitor blood count (4) Generalized anxiety disorder: Comment: Referral to [facility] Code(s): F41.1 - Generalized anxiety disorder Plan: Continue with counseling and therapy (5) Hypercholesterolemia: Code(s): E78.00 - Pure hypercholesterolemia, unspecified Plan: Avoid fried foods, chicken skin, eggs, butter margarine, pastries and meat. Be it pork or beef they have a lot of cholesterol LDL goal of less than 130 and triglyceride of less than 150. Patient needs blood work on atorvastatin 40 mg once a day (6) Hypertension: Code(s): I10 - Essential (primary) hypertension Qualifiers: Hypertension type: essential hypertension Qualified Code(s): I10 - Essential (primary) hypertension Plan: Continue with blood pressure medication. Decrease salt intake and exercise on hydrochlorothiazide 25 mg once a day (7) GERD (gastroesophageal reflux disease): Code(s): K21.9 - Gastro-esophageal reflux disease without esophagitis Qualifiers: Esophagitis presence: without esophagitis Qualified Code(s): K21.9 - Gastro-esophageal reflux disease without esophagitis Plan: Avoid the foods that causes that usually spicy foods, tomato products, juices, coffee, soda and foods that your sensitive to. After eating do not lie down, allow 3-4 hours before in lie down. And keep the head of bed above 30 degrees to avoid the acid from going up. Orders: Orders Comprehensive Met. Panel Today E78.00 - Pure hypercholesterolemia, unspecified Free T4 (Free Thyroxine) Today E78.00 - Pure hypercholesterolemia, unspecified Thyroid Stimulating Hormone Today E78.00 - Pure hypercholesterolemia, unspecified Complete Blood Count Auto Diff Today E78.00 - Pure hypercholesterolemia, unspecified Lipid Panel Today E78.00 - Pure hypercholesterolemia, unspecified Vitamin B12 and Folate Today E78.00 - Pure hypercholesterolemia, unspecified Referrals Medical Weight Management Referral E66.01 - Morbid (severe) obesity due to excess calories Medications: New [SHOWER CHAIR] As directed 1 ea 0RF M17.10 - Unilateral primary osteoarthritis, unspecified knee Refilled semaglutide (weight loss) (Tita) administer weeks 1 through 4 of therapy 0.25 mg (0.5 mL) subcut QWEEK 2 mL 0RF E66.9 - Obesity, unspecified duloxetine 20 mg PO BID 90 days 180 caps 1RF F41.1 - Generalized anxiety disorder hydrochlorothiazide 25 mg PO DAILY 90 tabs 3RF E78.00 - Pure hypercholesterolemia, unspecified omeprazole 20 mg PO TID 90 days 270 caps 3RF K22.70 - Renee's esophagus without dysplasia atorvastatin 40 mg PO DAILY 90 tabs 1RF 90 days E78.00 - Pure hypercholesterolemia, unspecified trazodone 50 mg PO BEDTIME 90 tabs 3RF E78.00 - Pure hypercholesterolemia, unspecified clonazepam 0.5 mg PO TID 30 days 90 tabs 1RF F32.9 - Major depressive disorder, single episode, unspecified, F41.9 - Anxiety disorder, unspecified clotrimazole 1% 1 appl topical TID 45 grams 3RF B35.4 - Tinea corporis Coding Level of Care Code Est Pt Level 4 (32833) Diagnoses H/O gastric bypass Z98.84 Morbid obesity E66.01 Iron deficiency anemia D50.9 Generalized anxiety disorder F41.1 Hypercholesterolemia E78.00 Essential hypertension I10 Hypertension type: essential hypertension Gastroesophageal reflux disease without esophagitis K21.9 Esophagitis presence: without esophagitis
== END 2023-12-10 10:18 | disposition home or self-care (01) ==
PROVIDERS: PCP Internal Medicine; Visit Provider Internal Medicine
DX: E66.01 Morbid (severe) obesity due to excess calories (principal); Z68.41 Body mass index [BMI] 40.0-44.9, adult; Z98.84 Bariatric surgery status; M46.1 Sacroiliitis, not elsewhere classified; D50.9 Iron deficiency anemia, unspecified; E78.00 Pure hypercholesterolemia, unspecified; K21.9 Gastro-esophageal reflux disease without esophagitis
CPT/HCPCS: 99214

== ENCOUNTER 2023-12-10 10:24 | Outpatient (REF) | payer MEDICARE, MEDICAID, SELFPAY ==
[2023-12-10 10:54] LABS: MANUAL DIFF FLAG NO
[2023-12-10 11:56] LABS: Basophils Absolute Auto 0.1 X10*3/uL (0.0-0.2); Basophils Percent Auto 0.8 % (0-2); Eosinophils Absolute Auto 0.1 X10*3/uL (0.0-0.4); Eosinophils Percent Auto 0.6 % (0-4); Hematocrit 43.6 % (37.0-47.0); Hemoglobin 14.3 g/dl (12.0-16.0); Imm Gran Abs Auto 0.06 X10*3/uL (0.00-0.03); Imm Gran Pct Auto 0.7 % (0.0-0.4); Lymphocytes Absolute Auto 1.8 X10*3/uL (1.2-4.9); Lymphocytes Percent Auto 20.9 % (20-40); Mean Corpuscular HGB Conc 32.8 g/dl (31.0-35.0); Mean Corpuscular Hemoglobin 28.7 pg (27.0-33.0); Mean Corpuscular Volume 87.4 fL (80.0-98.0); Mean Platelet Volume 12.7 fL (9.4-12.3); Monocytes Absolute Auto 0.8 X10*3/uL (0.1-1.2); Monocytes Percent Auto 8.6 % (2-11); Neutrophils Percent Auto 68.4 % (45-73); Platelet Count 198 X10*3/uL (160-400); Red Blood Count 4.99 X10*6/uL (4.20-5.50); Red Cell Distribution Width 13.3 % (11.0-16.0); White Blood Count 8.8 X10*3/uL (4.8-10.8)
[2023-12-10 12:31] LABS: Alanine Aminotransferase 21 U/L (0-31); Albumin Level 4.5 g/dL (3.5-5.0); Alkaline Phosphatase 95 U/L (39-117); Anion Gap 15 (12-20); Aspartate Amino Transferase 20 U/L (5-31); Bilirubin Total 0.4 mg/dL (0.0-1.0); Blood Urea Nitrogen 9 mg/dL (9-16); Calcium 9.7 mg/dL (8.4-10.2); Carbon Dioxide 22 mmol/L (22-29); Chloride 107 mmol/L (96-108); Cholesterol 241 mg/dL (<200); Estimated Glomerular Filt Rate > 60; Glucose Random 80 mg/dL (60-115); HDL Cholesterol 57 mg/dL (>40); LDL Cholesterol Calculated 161 mg/dL (<100); Potassium 3.9 mmol/L (3.3-5.1); Sodium 140 mmol/L (135-145); Triglycerides 115 mg/dL (<150)
[2023-12-10 12:49] LABS: Free T4 (Free Thyroxine) 1.06 ng/dL (0.71-1.85); Thyroid Stimulating Hormone 1.48 uIU/mL (0.32-4.0)
[2023-12-10 13:10] LABS: Folate 9.2 ng/mL (> or = 4.0); Vitamin B12 497 pg/mL (200-900)
== END 2023-12-10 10:25 | disposition home or self-care (01) ==
LOC: HO.LAB 10:24
PROVIDERS: Visit Provider Internal Medicine
DX: E78.00 Pure hypercholesterolemia, unspecified (principal)
CPT/HCPCS: 36415; 80053; 80061; 82607; 82746; 84439; 84443; 85025

== ENCOUNTER → 2024-03-08 12:45 | Outpatient (BNVA) | payer MEDICARE, MEDICAID, SELFPAY | PROVIDERS: PCP Internal Medicine; Visit Provider Physician Assistant Surgical ==

== ENCOUNTER 2024-04-06 09:28 | Outpatient (AMB) | payer OTHER, SELFPAY ==
[2024-04-06 09:33] VITALS: BP 132/80; PULSE 58; O2SAT 100; BMI 42.5
--- NOTE | 2024-04-06 09:33 | MHC.PC.OV ---
Vital Signs 04/06/24 09:33 Height 5 ft 1 in Weight 225 lb BMI 42.5 BP 132/80 Blood Pressure Location Lt brachial Position Sitting Pulse 58 Pulse Source Pulse Oximeter Pulse Oximetry (%) 100 Oxygen Delivery Method Room Air Intake Visit Reasons: HTN, Cholesterol, SHARON Allergies topiramate [From TOPAMAX] Allergy (Intermediate, Verified 03/08/24 13:08) NAUSEA & VOMITING ENVIRONMENTAL Allergy (Severe, Uncoded 03/08/24 13:08) SINUS INFXN SYMPTOMS STATED BY PT Tobacco use date assessed: 12/10/23 Dental Screening Dental Screen Date: 12/10/23 HPI HTN, Cholesterol, SHARON HPI Details 48-year-old morbidly obese female with a history of gastric bypass iron deficiency anemia generalized anxiety disorder hypercholesterolemia hypertension and GERD last seen in November 2023. Patient's mammogram is up-to-date colonoscopy done in 08/17/2023. Review of the notes in 05/17/2024 ER visit for fast heart rate with sudden onset of anxiety had CT of the brain and angio g chest and abdomen negative was given Ativan calm down. PAtient states no [place] but sees a in [facility] for head therapy due to head injury history [facility] [place] [facility] for the Headaches. referred Neurology. going also to weight management. PAtient complains of urge incontinence and seen Gynecology [facility] O[facility] and was rx med and cream . does feel better. wants bedside commode for the urge incontinence [facility] Medical History (Updated 04/06/24 @ 10:16 by Minnie Lazcano MD) Tinea corporis Anemia Colon cancer screening Menorrhagia Vision blurring Medicare annual wellness visit, initial Breast cancer screening by mammogram Sacroiliitis Gastroenteritis Chronic pain syndrome Obesity Encounter for Essure implantation Family history of ovarian cancer Fibroadenoma Family history of breast cancer Breast mass, right H/O sigmoidoscopy Barretts esophagus Osteoarthritis, knee Fatty liver Cholelithiasis Carpal tunnel syndrome on both sides Lumbar degenerative disc disease Hypercholesterolemia Hypertension Vitamin D deficiency GERD (gastroesophageal reflux disease) Constipation Surgical History (Updated 09/16/23 @ 00:04 by Mary Mcgee) H/O esophagogastroduodenoscopy H/O colonoscopy History of section History of breast mammoplasty H/O gastric bypass History of carpal tunnel release Family History Father Colon cancer CVD (cardiovascular disease) Mother Breast cancer Brain tumor Sister Colon cancer Breast cancer Social History Household Members: Children Household Members Other:: Daugher Housing: Apartment Are you a primary career technical counselor to a significant other at home: No Do you presently have visiting nurse or other home services: Yes Unable to assess alcohol history related to: Unknown Alcohol intake: never Comment: to OR Patient Tobacco Use Status: Never used Tobacco e-Cigarette/Vaping Use: Never Used Second Hand Smoke Exposure: No service: No Current occupational status: disabled Cognitive needs: No Hearing needs: No Vision needs: No Female Reproductive History Menstrual Age of Menarche: 14 Questionnaire Thrive Questionnaire Date Thrive assessed: 12/10/23 SHARON-7 AMB Questionnaire SHARON-7 Date SHARON - 7 assessed: 12/10/23 Source: Developed by Drs. Curly Williamson, Yue Ren, Mathew Newton and colleagues, with an educational kenneth from [employer]. Physical exam (Primary Care) Vital Signs: Last Vital Signs Pulse 58 04/06/24 09:33 BP 132/80 04/06/24 09:33 Pulse Ox 100 04/06/24 09:33 Oxygen Delivery Method Room Air 04/06/24 09:33 BMI result Body Mass Index 42.5 Tobacco/Smoking Status: Tobacco use Status Tobacco use date assessed 12/10/23 04/06/24 09:34 Patient Tobacco Use Status Never used Tobacco 04/06/24 09:34 e-Cigarette/Vaping Use Never Used 04/06/24 09:34 Thrive Assessment: Date of Thrive Assessment Date Thrive assessed 12/10/23 04/06/24 09:34 Const General: alert; No acute distress Eyes Conjunctivae: conjunctivae normal Resp Auscultation: clear to auscultation bilaterally Cardio Rate: regular rate Rhythm: regular rhythm GI Inspection: Yes normal to inspection Extrem General: Yes normal to inspection and No edema Assessment and Plan Assessment & Plan (1) H/O gastric bypass: Comment: [address] [facility] [address] Tang Code(s): Z98.84 - Bariatric surgery status Plan: Continue to follow-up with weight management (2) Morbid obesity: Code(s): E66.01 - Morbid (severe) obesity due to excess calories Plan: Diet and exercise (3) Generalized anxiety disorder: Comment: Referral to [facility] Counseling Code(s): F41.1 - Generalized anxiety disorder Plan: Continue with counseling and therapy (4) Iron deficiency anemia: Code(s): D50.9 - Iron deficiency anemia, unspecified Plan: Continue to monitor and take iron rich foods with vitamin-C (5) Barretts esophagus: Code(s): K22.70 - Renee's esophagus without dysplasia Qualifiers: Renee's esophagus type: without dysplasia Qualified Code(s): K22.70 - Renee's esophagus without dysplasia Plan: Avoid the foods that causes that usually spicy foods, tomato products, juices, coffee, soda and foods that your sensitive to. After eating do not lie down, allow 3-4 hours before in lie down. And keep the head of bed above 30 degrees to avoid the acid from going up. (6) Hypercholesterolemia: Code(s): E78.00 - Pure hypercholesterolemia, unspecified Plan: Avoid fried foods, chicken skin, eggs, butter margarine, pastries and meat. Be it pork or beef they have a lot of cholesterol patient is on atorvastatin 40 mg once a day LDL continues to be elevated. (7) Hypertension: Code(s): I10 - Essential (primary) hypertension Qualifiers: Hypertension type: essential hypertension Qualified Code(s): I10 - Essential (primary) hypertension Plan: Continue with blood pressure medication. Decrease salt intake and exercise on hydrochlorothiazide 25 mg once a day (8) Urge incontinence: Code(s): N39.41 - Urge incontinence Orders: Referrals Psychiatry Referral F41.1 - Generalized anxiety disorder Medications: New [bedside Commode] As directed 1 ea 0RF N39.41 - Urge incontinence Refilled semaglutide (weight loss) (Tita) administer weeks 1 through 4 of therapy 0.25 mg (0.5 mL) subcut QWEEK 2 mL 0RF E66.9 - Obesity, unspecified Coding Level of Care Code Est Pt Level 4 (73134) Diagnoses H/O gastric bypass Z98.84 Morbid obesity E66.01 Generalized anxiety disorder F41.1 Iron deficiency anemia D50.9 Renee's esophagus without dysplasia K22.70 Renee's esophagus type: without dysplasia Hypercholesterolemia E78.00 Essential hypertension I10 Hypertension type: essential hypertension Urge incontinence N39.41
== END 2024-04-06 10:24 | disposition home or self-care (01) ==
PROVIDERS: PCP Internal Medicine; Visit Provider Internal Medicine
DX: D50.9 Iron deficiency anemia, unspecified (principal); E66.01 Morbid (severe) obesity due to excess calories; Z68.41 Body mass index [BMI] 40.0-44.9, adult; Z98.84 Bariatric surgery status; F41.1 Generalized anxiety disorder; K22.70 Barrett's esophagus without dysplasia; E78.00 Pure hypercholesterolemia, unspecified; I10 Essential (primary) hypertension; N39.41 Urge incontinence
CPT/HCPCS: 99214

== ENCOUNTER 2024-06-13 14:31 | Outpatient (AMB) | payer OTHER, SELFPAY ==
--- NOTE | 2024-06-13 14:34 | A.OFFVIS_ITS ---
Vital Signs 06/13/24 14:40 Height 5 ft 1 in Weight 211 lb 10.3 oz BMI 40.0 BP 126/58 L Blood Pressure Location Lt brachial Position Sitting Pulse 97 Intake Visit Reasons: ROUTINE PE Intake Note: Eliza presents in the office as a routine follow up. CC: She states that she started wegovy - she states her weight is going down but she is having sleep and respiratory problems. Shortness of breathe when she sleeps. She has an appt next month. Ccu Nurse Required: No Allergies topiramate [From TOPAMAX] Allergy (Intermediate, Verified 06/13/24 14:40) NAUSEA & VOMITING ENVIRONMENTAL Allergy (Severe, Uncoded 06/13/24 14:40) SINUS INFXN SYMPTOMS STATED BY PT HPI HPI ROUTINE PE: Details: 48 yr old f here for f/u RECAP; saw [facility] ? she had been c/o abdo pain, nausea, ? Its hard to eat steak- no milk or cheese. ? Went to ER- had a GI shot- it numbed my entire GI tract . ? Omeprazole not really helpful. ? She was very worried about having cancer ? Father -colon cancer @ 50 ? Sister colon cancer in her early 40s. ? TESTS: egd/COLONOSCOPY---01/2020 ? esophagus dilated, retianed eduardo removed, barretts esophagus w/ chronic inactive inflammation on bx, ? colon, with small internal hemorrhoids, fiar prep--rept 3 yrs due to FH CRC ? bx with focal active colitis, no chronic injury ? small bowel f/u--03/2020--rapid transit, small hiatal henria, reflux, no obstruction ? LABS: 05/2020--LFt, BMp--nml, CBC, mild anemia EGD/sigmoidoscopy-11/2020-schatzki ring, internal hemorrhoids--she had dilation of esophagus EGD/Colonoscopy: 08/06/23 Endoscopy Findings: lax LES retained foreign bodies, balloon dilation Colonoscopy Findings: polyp internal hemorrhoids diverticular disease bx: tubular adenoma removed, some inflammation of stomach pouch, She had post biopsy bleed and had to get repeat colo with clipping and hemospray and stayed in house for one night ? INTERIM; she still has stomach cramping she is trying to eat healthy she feels her food takes a long time to digest sometimes she chokes with water and food she felt dilation helped her before she takes dulcolax for constipation she is taking ozempic she is eating more salad and taking fluids EXAM: GENERAL: The patient is well developed and nontoxic. VITAL SIGNS:see workflow HEENT: Nonicteric sclerae, PERRLA, EOMI. Oropharynx clear. Moist mucous membranes. Conjunctivae appear well perfused. No thyroid mass. CHEST: Chest wall is nontender. HEART: Regular rate and rhythm without murmurs. LUNGS: Clear to auscultation bilaterally. ABDOMEN: Soft, positive bowel sounds, nontender, no organomegaly.no flank tenderness SKIN: No rash, no excessive bruising, petechiae, or purpura. NEUROLOGIC: Cranial nerves II-XII intact without motor/sensory deficit. Assessments ? 1. Ongoing abdominal pain and abn bowel habits, prior bx with focal colitis, ? IBD, adhesions from gastric bypass--nothing this time, TA removed , may also be from ozempic use 2. Dysphagia- good result with prior dilaiton--some recurrence of sx, not taking PPI correctly PLAN: 1/ advised to open capsule PPi--and mix with apples sauce 2/ repeat EGD with balloon dilation --hold ozempic for 1 week before 3/ resent apriso as she never got it and see if helps her sx. [facility] Medical History (Updated 06/13/24 @ 14:58 by Dayne Marquez MD) Tinea corporis Anemia Colon cancer screening Menorrhagia Vision blurring Medicare annual wellness visit, initial Breast cancer screening by mammogram Sacroiliitis Gastroenteritis Chronic pain syndrome Obesity Encounter for Essure implantation Family history of ovarian cancer Fibroadenoma Family history of breast cancer Breast mass, right H/O sigmoidoscopy Barretts esophagus Osteoarthritis, knee Fatty liver Cholelithiasis Carpal tunnel syndrome on both sides Lumbar degenerative disc disease Hypercholesterolemia Hypertension Vitamin D deficiency GERD (gastroesophageal reflux disease) Constipation Surgical History (Updated 09/16/23 @ 00:04 by Mary Mcgee) H/O esophagogastroduodenoscopy H/O colonoscopy History of section History of breast mammoplasty H/O gastric bypass History of carpal tunnel release Family History Father Colon cancer CVD (cardiovascular disease) Mother Breast cancer Brain tumor Sister Colon cancer Breast cancer Social History Household Members: Children Household Members Other:: Daugher Housing: Apartment Are you a primary rn managed care to a significant other at home: No Do you presently have visiting nurse or other home services: Yes Unable to assess alcohol history related to: Unknown Alcohol intake: never Comment: to OR Patient Tobacco Use Status: Never used Tobacco e-Cigarette/Vaping Use: Never Used Second Hand Smoke Exposure: No service: No Current occupational status: disabled Cognitive needs: No Hearing needs: No Vision needs: No Female Reproductive History Menstrual Age of Menarche: 14 Physical Exam Vital Signs: BMI result Body Mass Index 40.0 Assessment & Plan Assessment & Plan (1) Dysphagia: Code(s): R13.10 - Dysphagia, unspecified Category: Medical Plan: see above Medications: Changed From mesalamine ER (Apriso) 1.5 grams (4 x 0.375 gram) PO QAM 2 weeks 56 caps 0RF To mesalamine ER (Apriso) 1.5 grams (4 x 0.375 gram) PO QAM 1 month 120 caps 2RF Coding Level of Care Code Est Pt Level 3 (83507) Diagnoses Dysphagia R13.10
[2024-06-13 14:40] VITALS: BP 126/58; PULSE 97; BMI 40.0
== END 2024-06-13 14:57 | disposition home or self-care (01) ==
PROVIDERS: PCP Internal Medicine; Visit Provider Internal Medicine Gastroenterology
DX: R13.10 Dysphagia, unspecified (principal)
CPT/HCPCS: 99213

== ENCOUNTER → 2024-06-13 14:31 | Outpatient (BNVA) | payer OTHER, SELFPAY | PROVIDERS: PCP Internal Medicine; Visit Provider Internal Medicine Gastroenterology | DX: R13.10 Dysphagia, unspecified (principal) | CPT/HCPCS: 99212 ==

== ENCOUNTER 2024-07-19 09:29 | Outpatient (AMB) | payer OTHER, SELFPAY ==
--- NOTE | 2024-07-19 09:31 | MHC.OFFWIV ---
Intake Vital Signs 07/19/24 09:36 Height 5 ft 1 in Weight 211 lb BMI 39.9 BP 80/62 L Blood Pressure Location Rt brachial Position Sitting Pulse 77 Pulse Source Pulse Oximeter Pulse Oximetry (%) 98 Oxygen Delivery Method Room Air Intake Visit Reasons: EP-low blood pressure Intake Note: Patient here for low blood pressure for the past two days, she states she has been feeling a weird trembling in chest and face. Patient Tobacco Use Status: Never used Tobacco Allergies topiramate [From TOPAMAX] Allergy (Intermediate, Verified 07/19/24 09:32) NAUSEA & VOMITING ENVIRONMENTAL Allergy (Severe, Uncoded 07/19/24 09:32) SINUS INFXN SYMPTOMS STATED BY PT Do you need a note to return to daycare/school/sports/work: No HPI HPI Comments History of Present Illness Details Patient is a 49-year-old female complaining low blood pressure and feeling dizzy for the last 3 days. She tells me she takes 25 mg of hydrochlorothiazide daily and she has been taking an each day, including this morning. She noticed that she was not feeling good for the last few days so she checked her blood pressure each day and noticed it was low. She also is complaining of some left-sided facial numbness and her heart pounding which is worse at night. She tells me her father just on June 22 and so she is still grieving his loss. She states she does feel dizzy every now and then but denies any headaches or chest pain, fevers, urinary or bowel chages, shortness of breath, numbness or tingling in arms or legs, jaw pain, back pain from her baseline, arm pain, neck pain, nausea or vomiting. Patient is taking semaglutide and has had what she thinks is about 20-30 lb weight loss over the last 6 months. [facility] Medical History (Updated 07/19/24 @ 09:52 by Lexi Pozo PA-C) Tinea corporis Anemia Colon cancer screening Menorrhagia Vision blurring Medicare annual wellness visit, initial Breast cancer screening by mammogram Sacroiliitis Gastroenteritis Chronic pain syndrome Obesity Encounter for Essure implantation Family history of ovarian cancer Fibroadenoma Family history of breast cancer Breast mass, right H/O sigmoidoscopy Barretts esophagus Osteoarthritis, knee Fatty liver Cholelithiasis Carpal tunnel syndrome on both sides Lumbar degenerative disc disease Hypercholesterolemia Hypertension Vitamin D deficiency GERD (gastroesophageal reflux disease) Constipation Surgical History (Updated 09/16/23 @ 00:04 by Mary Mcgee) H/O esophagogastroduodenoscopy H/O colonoscopy History of section History of breast mammoplasty H/O gastric bypass History of carpal tunnel release Family History Father Colon cancer CVD (cardiovascular disease) Mother Breast cancer Brain tumor Sister Colon cancer Breast cancer Social History Household Members: Children Household Members Other:: Nely Housing: Apartment Are you a primary residential care officer to a significant other at home: No Do you presently have visiting nurse or other home services: Yes Unable to assess alcohol history related to: Unknown Alcohol intake: never Comment: to OR Patient Tobacco Use Status: Never used Tobacco e-Cigarette/Vaping Use: Never Used Second Hand Smoke Exposure: No service: No Current occupational status: disabled Cognitive needs: No Hearing needs: No Vision needs: No Female Reproductive History Menstrual Age of Menarche: 14 Review of Systems Const All systems reviewed & are unremarkable except as noted in HPI and below Neuro Denies Abnormal speech present Physical Exam Vital Signs: Last Vital Signs Pulse 77 07/19/24 09:36 BP 80/62 L 07/19/24 09:36 Pulse Ox 98 07/19/24 09:36 Oxygen Delivery Method Room Air 07/19/24 09:36 Const General: cooperative, healthy appearing, comfortable, no acute distress and well developed Orientation/consciousness: patient oriented x3 Limitations: no limitations HEENT Head: Yes normal to inspection Ears: hearing grossly normal bilaterally General nose exam: Normal external nose present Face and sinus: Yes normal facial exam Eyes General: appearance normal, both eyes and all related structures Neck Neck: Yes normal visual inspection and Yes full ROM Resp Effort & Inspection: normal respiratory effort and able to speak in complete sentences Auscultation: clear to auscultation bilaterally Cardio Rate: regular rate Rhythm: regular rhythm Heart sounds: normal S1 and S2 Skin General skin exam: no rashes or lesions noted Neuro General: patient oriented x3 Cranial nerves: Yes CN's II-XII intact bilaterally Cognition (Neuro): normal cognition Speech: No Abnormal speech present Gait exam (Neuro): Normal gait present Motor exam (neuro): 5/5 motor strength present throughout Extrem General: Yes normal to inspection Assessment & Plan Assessment & Plan (1) Hypotension: Code(s): I95.9 - Hypotension, unspecified Qualifiers: Hypotension type: unspecified hypotension type Qualified Code(s): I95.9 - Hypotension, unspecified Plan: BP 80/62, cranial nerves intact, strength and sensation are intact in upper and lower extremities. EKG showed normal sinus rhythm with possible inferior infarct but I did not see any ST or T-wave changes. With patient's weight loss, she may not need her blood pressure medication anymore but as she has already taken it today and is having symptomatic hypotension, we will call an ambulance to bring her to the emergency department for fluid resuscitation and workup but this does not appear to be infectious. Called ahead to [facility] ED with expect. Plan See above Coding Level of Care Code Est Pt Level 5 (11814) Diagnoses Hypotension, unspecified hypotension type I95.9 Hypotension type: unspecified hypotension type
[2024-07-19 09:36] VITALS: BP 80/62; PULSE 77; O2SAT 98; BMI 39.9
== END 2024-07-19 10:37 | disposition home or self-care (01) ==
PROVIDERS: PCP Internal Medicine; Visit Provider Physician Assistant
DX: I95.9 Hypotension, unspecified (principal)

== ENCOUNTER → 2024-07-19 09:29 | Outpatient (BNVA) | payer OTHER, SELFPAY | PROVIDERS: PCP Internal Medicine ==

== ENCOUNTER 2024-07-19 10:33 | Emergency (ER) | payer OTHER, SELFPAY ==
--- NOTE | ~2024-07-19 | CT_ITS ---
EXAMINATION: CT HEAD WITHOUT CONTRAST CLINICAL INFORMATION: Dizziness COMPARISON: 01/20/2021 TECHNIQUE: Contiguous axial imaging was performed from the skull base to vertex without intravenous administration of contrast. This CT examination was performed using dose optimization techniques as appropriate, variously including the following: *Automated exposure control *Adjustment of mA and/or kV according to patient size (this includes techniques or standardized protocols for targeted exams where dose is matched to indication/reason for exam; i.e. extremities or head) *Use of iterative reconstruction technique DLP: 607 mGy-cm FINDINGS: No intra or extra-axial fluid collection or hemorrhage, mass, or mass effect. Calvarium intact. CT/CT head/brain wo IV con IMPRESSION: No acute intracranial pathology. Electronically signed by: Néstor Alegre MD 07/19/2024 12:39 PM EDT
--- NOTE | ~2024-07-19 | XR_ITS ---
EXAMINATION: XR CHEST CLINICAL INFORMATION: Chest pain COMPARISON: 08/12/2022 TECHNIQUE: Frontal view of the chest was obtained. FINDINGS: Lungs grossly clear. Heart and pulmonary vessels are normal. No congestive change. XR/XR chest 1V IMPRESSION: No active disease. Electronically signed by: Néstor Alegre MD 07/19/2024 12:11 PM EDT
[2024-07-19 10:41] VITALS: BP 115/61; BP 92/53; PULSE 70; PULSE 71; RESP 16; TEMP 36.4; O2SAT 100; BMI 42.8
--- NOTE | 2024-07-19 10:43 | ECG_ITS ---
Test Reason : CP Blood Pressure : / mmHG Vent. Rate : 066 BPM Atrial Rate : 066 BPM P-R Int : 174 ms QRS Dur : 078 ms QT Int : 400 ms P-R-T Axes : 010 -04 -01 degrees QTc Int : 419 ms Normal sinus rhythm Low voltage QRS Borderline ECG When compared with ECG of 06-AUG-2023 13:48, Nonspecific T wave abnormality, improved in Anterior leads Referred By: Mckinley Estrella Electronically Signed By:Kenny Bess
--- NOTE | 2024-07-19 10:45 | ED_ITS ---
HPI - General Adult General Chief complaint: General Medical Stated complaint: LOW BP 104/70,DIZZY,DISORIENTED,PALP,FROM URG CARE Source: patient Mode of arrival: EMS History of Present Illness HPI narrative: THIS IS 49 YEARS OLD FEMALE PRESENTED TO THE EMERGENCY DEPARTMENT FROM THE URGENT CARE WITH MULTIPLE COMPLAINTS WHICH INCLUDING DIZZINESS PARESTHESIA IN THE PERIORBITAL AREA, GENERALIZED MALAISE. ACCORDING TO THE URGENT CARE SHE WAS HYPOTENSIVE. PATIENT HAS HISTORY OF DIABETES, HYPERTENSION, CHRONIC PAIN. THERE IS NO REPORTED FEVER NO REPORTED VOMITING NO REPORTED ABDOMINAL PAIN NO DIARRHEA. Onset (ago): day(s) (1) Radiation: non-radiation Severity: mild Quality: burning Exacerbating factors: none Associated symptoms: denies other symptoms Related Data Home Medications ?Medication ?Instructions ?Recorded ?Confirmed dicyclomine 10 mg capsule 10 mg PO TID PRN GI UPSET 08/06/23 12/10/23 sucralfate 100 mg/mL oral 10 ml PO BIDAC 08/06/23 12/10/23 suspension estradiol 0.01% (0.1 mg/gram) vaginal 06/13/24 vaginal cream estradiol 0.05 mg/24 hr semiweekly 1 patch transdermal 2XW 06/13/24 transdermal patch progesterone micronized 200 mg 200 mg PO BEDTIME 06/13/24 capsule ubrogepant 100 mg tablet (Ubrelvy) mg PO 06/13/24 vibegron 75 mg tablet (Gemtesa) mg PO 06/13/24 Previous Rx's ?Medication ?Instructions ?Recorded AUTO PAP 6-15 CM H20 humidified AIR #1 ea 02/10/23 polyethylene glycol 3350 17 17 g PO BID #510 grams 08/31/23 gram/dose oral powder (Miralax) hydroxyzine HCl 50 mg tablet 50 mg PO BEDTIME PRN anxiety 90 09/08/23 days #90 tabs nystatin 100,000 unit/gram topical 1 appl topical TID #60 grams 09/08/23 powder ondansetron 4 mg disintegrating 4 mg PO TID PRN nausea and 09/08/23 tablet vomiting 5 days #60 tabs simethicone 125 mg capsule 125 mg PO TID-QID PRN abdominal 09/08/23 distention #90 caps tizanidine 2 mg tablet 2 mg PO TID PRN muscle spasticity 09/08/23 30 days #90 tabs ascorbic acid (vitamin C) 500 mg 500 mg PO DAILY #90 tabs 09/22/23 tablet (Vitamin C) loratadine 10 mg tablet 10 mg PO DAILY 90 days #90 tabs 09/22/23 gabapentin 300 mg capsule 300 mg PO TID 90 days #270 caps 10/13/23 docusate sodium 100 mg capsule 100 mg PO BID #56 caps 11/16/23 SHOWER CHAIR #1 ea 12/10/23 hydrochlorothiazide 25 mg tablet 25 mg PO DAILY #90 tabs 12/10/23 omeprazole 20 mg capsule,delayed 20 mg PO TID 90 days #270 caps 12/10/23 release trazodone 50 mg tablet 50 mg PO BEDTIME #90 tabs 12/10/23 bedside Commode #1 ea 04/06/24 clonazepam 0.5 mg tablet 0.5 mg PO TID 30 days #90 tabs 04/22/24 clotrimazole 1 % topical cream 1 appl topical TID #45 grams 05/03/24 mirabegron 50 mg tablet,extended 50 mg PO DAILY #30 tabs 05/19/24 release 24 hr (Myrbetriq) mesalamine 0.375 gram 1.5 g (4 x 0.375 gram) PO QAM 1 06/13/24 capsule,extended release 24 hr month #120 caps (Apriso) atorvastatin 40 mg tablet 40 mg PO DAILY 90 days #90 tabs 06/27/24 cholecalciferol (vitamin D3) 50 50 mcg PO DAILY #28 tabs 06/27/24 mcg (2,000 unit) tablet duloxetine 20 mg capsule,delayed 20 mg PO BID 90 days #180 caps 06/27/24 release ferrous sulfate 325 mg (65 mg 325 mg PO DAILY 90 days #90 tabs 06/27/24 iron) tablet miconazole nitrate 2 % topical 1 appl topical TID #85 grams 06/27/24 powder semaglutide (weight loss) 1.7 1.7 mg (0.75 mL) subcut QWEEK 30 07/05/24 mg/0.75 mL subcutaneous pen days #3.75 mL injector Allergies Allergy/AdvReac Type Severity Reaction Status Date / Time topiramate [From TOPAMAX] Allergy Intermediate NAUSEA & Verified 07/19/24 10:43 VOMITING ENVIRONMENTAL Allergy Severe SINUS Uncoded 07/19/24 10:43 INFXN SYMPTOMS STATED BY PT Review of Systems 2 Constitutional: Constitutional: Reports no additional constitutional complaints Cardiovascular: Cardiovascular: Reports no additional cardiovascular complaints Gastrointestinal: Gastrointestinal: Reports no additional gastrointestinal complaints [facility] Past Medical History Source: unable to obtain Medical History Tinea corporis Anemia Colon cancer screening Menorrhagia Vision blurring Medicare annual wellness visit, initial Breast cancer screening by mammogram Sacroiliitis Gastroenteritis Chronic pain syndrome Obesity Encounter for Essure implantation Family history of ovarian cancer Fibroadenoma Family history of breast cancer Breast mass, right H/O sigmoidoscopy Barretts esophagus Osteoarthritis, knee Fatty liver Cholelithiasis Carpal tunnel syndrome on both sides Lumbar degenerative disc disease Hypercholesterolemia Hypertension Vitamin D deficiency GERD (gastroesophageal reflux disease) Constipation Surgical History (Updated 09/16/23 @ 00:04 by Mary Mcgee) H/O esophagogastroduodenoscopy H/O colonoscopy History of section History of breast mammoplasty H/O gastric bypass History of carpal tunnel release Family History Family History Father Colon cancer CVD (cardiovascular disease) Mother Breast cancer Brain tumor Sister Colon cancer Breast cancer Social History Social History Household Members: Children Household Members Other:: Daugh Housing: Apartment Are you a primary career services coordinator to a significant other at home: No Do you presently have visiting nurse or other home services: Yes Unable to assess alcohol history related to: Unknown Alcohol intake: never Comment: to OR Patient Tobacco Use Status: Never used Tobacco Smoked in Last 30 Days: No e-Cigarette/Vaping Use: Never Used Second Hand Smoke Exposure: No Use of substances other than those prescribed or required for medical reasons: No Advance Directives: No Advance Directives Information Provided: Yes Do you have a plan to hurt others: No Plan Patient : No service: No Current occupational status: disabled Cognitive needs: No Hearing needs: No Vision needs: No Physical Exam ED Vital Signs: Vital Signs - 24 hr 07/19/24 10:41 07/19/24 11:01 07/19/24 11:59 Temperature 97.6 F Pulse Rate 71 67 68 Respiratory Rate 16 12 18 Blood Pressure 115/61 109/54 L 106/71 Pulse Oximetry 100 100 99 Oxygen Delivery Method Room Air Room Air Room Air 07/19/24 14:08 07/19/24 14:22 Temperature 98.1 F Pulse Rate 63 62 Respiratory Rate 15 13 Blood Pressure 131/86 131/86 Pulse Oximetry 97 96 Oxygen Delivery Method Room Air Room Air BMI result Body Mass Index 42.8 PATIENT LOOKS WELL NOT TOXIC Const General: cooperative and comfortable Nutritional Appearance: well nourished Orientation/consciousness: patient oriented x3 Limitations: no limitations HENMT Head: Yes normal to inspection Face and sinus: Yes normal facial exam Throat: Yes posterior oropharynx normal Neck Neck: Yes normal visual inspection Thyroid: Thyroid normal Resp Effort & Inspection: normal respiratory effort Cardio Jugular venous distension: no JVD Rate: regular rate Rhythm: regular rhythm GI Inspection: Yes normal to inspection Palpation (GI): Soft to palpation, not firm and nontender Auscultation: normal bowel sounds Skin General skin exam: no rashes or lesions noted, elasticity normal and turgor normal Lesions: no lesions Rashes: no rashes Neuro General: patient oriented x3 Course Reevaluation(s) Reevaluation #1: On re-examination at this time the patient is doing much better she is normotensive she is asymptomatic, at this time I think we could safely discharge the patient home Time: 14:08 Medications Administered Discontinued Medications Generic Name Dose Route Start Last Admin Trade Name Freq PRN Reason Stop Dose Admin Lactated Ringer's 1,000 mls @ 999 mls/hr 07/19/24 10:45 07/19/24 14:07 Lr IV 07/19/24 11:45 Infused .Q1H1M JOEY Infusion Lactated Ringer's 1,000 mls @ 999 mls/hr 07/19/24 10:45 07/19/24 14:07 Lr IV 07/19/24 11:45 Infused .Q1H1M JOEY Infusion Medical Decision Making Medical Decision Making [facility] Narrative: PATIENT PRESENTED COMPLAINING OF WEAKNESS DIZZINESS MALAISE HYPOTENSIVE PRE- HOSPITAL PER URGENT CARE WE ARE GOING TO GET LABS EKG ADMINISTER IV FLUIDS REASSESSED Differential Diagnosis Differential Diagnoses: The differential diagnosis associated with the presentation includes DEHYDRATION/ACS Admission/Observation Consideration of admission/observation: Escalation of care including admission/observation considered Lab Data [facility] Lab Attestation statement: I reviewed the patient's lab results. 07/19/24 12:45 07/19/24 11:30 Labs: Lab Results 07/19/24 07/19/24 Range/Units 11:30 12:45 WBC 8.2 (4.8-10.8) X10*3/uL RBC 3.88 L D (4.20-5.50) X10*6/uL Hgb 11.2 L D (12.0-16.0) g/dl Hct 33.2 L D (37.0-47.0) % MCV 85.6 (80.0-98.0) fL MCH 28.9 (27.0-33.0) pg MCHC 33.7 (31.0-35.0) g/dl RDW 14.7 (11.0-16.0) % MPV Not Reportable Sodium 139 (135-145) mmol/L Potassium 4.2 (3.3-5.1) mmol/L Chloride 113 H (96-108) mmol/L Carbon Dioxide 22 (22-29) mmol/L Anion Gap 8 L (12-20) BUN 11 (9-16) mg/dL Creatinine 0.72 (0.5-1.4) mg/dL Estim Creat Clear Calc 101.2 Estimated GFR > 60 Random Glucose 76 (60-115) mg/dL Calcium 8.8 D (8.4-10.2) mg/dL Total Bilirubin 0.4 (0.0-1.0) mg/dL AST 26 (5-31) U/L ALT 22 (0-31) U/L Alkaline Phosphatase 93 (39-117) U/L Troponin I High Sens < 2.7 (<3.5-17.0) ng/L Total Protein 6.7 (6.5-8.0) g/dL Albumin 4.0 (3.5-5.0) g/dL Beta HCG, Quant < 2 mIU/mL Independent Interpretation I performed an independent interpretation of an: EKG (EKG was reviewed interpreted by me as sinus rhythm rate [address]-T changes normal EKG) and CT Scan Radiology Impression Discussion of test interpretation with radiology: I have reviewed the radiologist's reading. Independent Historian Clinical information obtained from an independent historian. History obtained from or confirmed by: EMS Chronic Conditions Patient?s care impacted by: Hypertension Critical Care Time Critical Care Time Critical Care Time: Yes Total Critical Care Time: 60 Attestation: Hypotension prehospital and urgent care and EMS requiring IV fluids Discharge Plan Discharge Clinical Impression: Hypotension, Facial paresthesia Patient Disposition: Home, Self-Care Instructions: How to Take a Blood Pressure (ED), Hypotension (ED) Additional Instructions: Follow-up with your primary care physician return to the emergency department if worse Prescriptions: No Action ascorbic acid (vitamin C) [Vitamin C] 500 mg tablet 500 mg PO DAILY Qty: 90 3RF loratadine 10 mg tablet 10 mg PO DAILY 90 Days Qty: 90 3RF gabapentin 300 mg capsule 300 mg PO TID 90 Days Qty: 270 3RF docusate sodium 100 mg capsule 100 mg PO BID Qty: 56 12RF clonazepam 0.5 mg tablet 0.5 mg PO TID 30 Days Qty: 90 1RF clotrimazole 1 % cream 1 appl TOPICAL TID Qty: 45 0RF mirabegron [Myrbetriq] 50 mg tablet extended release 24 hr 50 mg PO DAILY Qty: 30 0RF atorvastatin 40 mg tablet 40 mg PO DAILY 90 Days Qty: 90 0RF ferrous sulfate 325 mg (65 mg iron) tablet 325 mg PO DAILY 90 Days Qty: 90 0RF cholecalciferol (vitamin D3) 50 mcg (2,000 unit) tablet 50 mcg PO DAILY Qty: 28 0RF miconazole nitrate 2 % powder 1 appl TOPICAL TID Qty: 85 0RF duloxetine 20 mg capsule,delayed release(DR/EC) 20 mg PO BID 90 Days Qty: 180 0RF semaglutide (weight loss) 1.7 mg/0.75 mL pen injector 1.7 mg subcut QWEEK 30 Days Qty: 3.75 2RF Rx Instructions: administer weeks 5 through 8 of therapy sucralfate 100 mg/mL suspension 10 ml PO BIDAC dicyclomine 10 mg Capsule 10 mg PO TID PRN (Reason: GI UPSET) (DME) SHOWER CHAIR See Rx Instructions .Route .MEDSUPPLY Qty: 1 0RF Rx Instructions: As directed trazodone 50 mg tablet 50 mg PO BEDTIME Qty: 90 3RF hydrochlorothiazide 25 mg tablet 25 mg PO DAILY Qty: 90 3RF omeprazole 20 mg capsule,delayed release(DR/EC) 20 mg PO TID 90 Days Qty: 270 3RF (DME) bedside Commode See Rx Instructions .Route .MEDSUPPLY Qty: 1 0RF Rx Instructions: As directed (DME) AUTO PAP 6-15 CM H20 humidified AIR See Rx Instructions .Route .MEDSUPPLY Qty: 1 0RF Rx Instructions: As directed hydroxyzine HCl 50 mg tablet 50 mg PO BEDTIME PRN (Reason: anxiety) 90 Days Qty: 90 3RF ondansetron 4 mg tablet,disintegrating 4 mg PO TID PRN (Reason: nausea and vomiting) 5 Days Qty: 60 2RF simethicone 125 mg capsule 125 mg PO TID-QID PRN (Reason: abdominal distention) Qty: 90 2RF Rx Instructions: soft gel version please tizanidine 2 mg tablet 2 mg PO TID PRN (Reason: muscle spasticity) 30 Days Qty: 90 8RF nystatin 100,000 unit/gram powder 1 appl topical TID Qty: 60 2RF polyethylene glycol 3350 [Miralax] 17 gram/dose powder 17 g PO BID Qty: 510 2RF estradiol 0.05 mg/24 hr patch semiweekly 1 patch transdermal 2XW estradiol 0.01 % (0.1 mg/gram) cream vaginal Gemtesa 75 mg tablet PO progesterone micronized 200 mg capsule 200 mg PO BEDTIME Ubrelvy 100 mg tablet PO mesalamine [Apriso] 0.375 gram capsule,extended release 24hr 1.5 g PO QAM 30 Days Qty: 120 2RF Stand Alone Forms: Work/School Release Print Language: Maori
[2024-07-19 11:01] VITALS: BP 109/54; PULSE 67; RESP 12; O2SAT 100
[2024-07-19 11:59] VITALS: BP 106/71; PULSE 68; RESP 18; O2SAT 99
[2024-07-19] MEDS: Lactated Ringers 1,000 ML 999 ML IV ×2 (12:00)
[2024-07-19 12:02] LABS: Alanine Aminotransferase 22 U/L (0-31); Alkaline Phosphatase 93 U/L (39-117); Anion Gap 8 (12-20); Aspartate Amino Transferase 26 U/L (5-31); Bilirubin Total 0.4 mg/dL (0.0-1.0); Blood Urea Nitrogen 11 mg/dL (9-16); Calcium 8.8 mg/dL (8.4-10.2); Carbon Dioxide 22 mmol/L (22-29); Chloride 113 mmol/L (96-108); Creatinine Clr Calc Pharmacy 101.2; Estimated Glomerular Filt Rate > 60; Glucose Random 76 mg/dL (60-115); Potassium 4.2 mmol/L (3.3-5.1); Sodium 139 mmol/L (135-145); Total Protein 6.7 g/dL (6.5-8.0)
[2024-07-19 12:10] LABS: Troponin-I High Sensitivity < 2.7 ng/L (<3.5-17.0)
[2024-07-19 12:11] LABS: HCG Quantitative < 2 mIU/mL
[2024-07-19 13:15] LABS: Basophils Absolute Auto 0.1 X10*3/uL (0.0-0.2); Basophils Percent Auto 0.6 % (0-2); Eosinophils Absolute Auto 0.1 X10*3/uL (0.0-0.4); Eosinophils Percent Auto 0.7 % (0-4); Hematocrit 33.2 % (37.0-47.0); Hemoglobin 11.2 g/dl (12.0-16.0); Imm Gran Abs Auto 0.04 X10*3/uL (0.00-0.03); Imm Gran Pct Auto 0.5 % (0.0-0.4); Lymphocytes Absolute Auto 1.8 X10*3/uL (1.2-4.9); Lymphocytes Percent Auto 21.5 % (20-40); MANUAL DIFF FLAG SCAN; Mean Corpuscular HGB Conc 33.7 g/dl (31.0-35.0); Mean Corpuscular Hemoglobin 28.9 pg (27.0-33.0); Mean Corpuscular Volume 85.6 fL (80.0-98.0); Monocytes Absolute Auto 0.6 X10*3/uL (0.1-1.2); Monocytes Percent Auto 6.9 % (2-11); Neutrophils Absolute Auto 5.7 x10*3/uL (2.0-8.3); Neutrophils Percent Auto 69.8 % (45-73); PLT CLUMP 1; Red Blood Count 3.88 X10*6/uL (4.20-5.50); Red Cell Distribution Width 14.7 % (11.0-16.0); SCAN SMEAR FLAG 1
[2024-07-19 14:08] VITALS: BP 131/86; PULSE 63; RESP 15; O2SAT 97
[2024-07-19 14:14] LABS: White Blood Count 8.2 X10*3/uL (4.8-10.8)
[2024-07-19 14:22] VITALS: BP 131/86; PULSE 62; RESP 13; TEMP 36.7; O2SAT 96
[2024-07-19 14:30] VITALS: BP 131/86; PULSE 62; RESP 13; TEMP 36.7; O2SAT 96
[2024-07-19 14:37] LABS: Mean Platelet Volume 12.2 fL (9.4-12.3); Platelet Count 207 X10*3/uL (160-400)
[2024-07-19 14:38] LABS: SLIDE REVIEW VERIFIED
== END 2024-07-19 14:30 | disposition home or self-care (01) ==
PROVIDERS: Emergency Provider Emergency Medicine; PCP Internal Medicine
DX: R07.89 Other chest pain (principal); R20.2 Paresthesia of skin; I95.9 Hypotension, unspecified; R11.0 Nausea; R42 Dizziness and giddiness; R10.2 Pelvic and perineal pain; Z79.899 Other long term (current) drug therapy
CPT/HCPCS: 36415; 70450; 71045; 80053; 84484; 84702; 85025; 93005; 96360; 96361; 99212; 99284; J7120

== ENCOUNTER → 2024-07-19 10:43 | Outpatient (BNV) | payer OTHER, SELFPAY | PROVIDERS: Emergency Provider Emergency Medicine; PCP Internal Medicine; Visit Provider Internal Medicine Cardiovascular Disease | DX: R07.9 Chest pain, unspecified (principal) | CPT/HCPCS: 93010 ==

== ENCOUNTER 2024-07-25 16:24 | Outpatient (AMB) | payer OTHER, SELFPAY ==
[2024-07-25 16:30] VITALS: BP 108/82; PULSE 74; O2SAT 94; BMI 41.2
--- NOTE | 2024-07-25 16:30 | MHC.PC.OV ---
Vital Signs 07/25/24 16:30 07/25/24 17:24 Height 5 ft Weight 211 lb BMI 41.2 BP 108/82 132/80 Blood Pressure Location Lt brachial Lt brachial Position Sitting Sitting Pulse 74 Pulse Source Pulse Oximeter Pulse Oximetry (%) 94 Oxygen Delivery Method Room Air Intake Visit Reasons: [facility] 07/19 low bp Intake Note: Pt states she has been feeling dizziness and light headiness today. She feels like her chest is pounding and states a pulse of 74 is low for her. When her BP is low she states hearing becomes difficult and her face becomes tingly/jaw hurts. Plant Engineer Required: No Accompanied by: Self / Same As Patient Allergies topiramate [From TOPAMAX] Allergy (Intermediate, Verified 07/25/24 16:31) NAUSEA & VOMITING ENVIRONMENTAL Allergy (Severe, Uncoded 07/25/24 16:31) SINUS INFXN SYMPTOMS STATED BY PT Tobacco use date assessed: 12/10/23 Dental Screening Dental Screen Date: 12/10/23 HPI [facility] 07/19 low bp HPI Details 49-year-old morbidly obese female with a history of gastric bypass generalized anxiety disorder Barretts esophagus hypercholesterolemia hypertension last seen in 04/16/2024. Patient's mammogram is due colonoscopy up-to-date 2022. Review of the notes in June ER visit for dizziness paresthesias in the periorbital area generalized malaise no fevers diagnosis of hypotension and facial paresthesia. Patient is advised to follow-up. Patient was seen by Gastroenterology also in May for dysphagia and was prescribed mesalamine. PAtient did have a hx of gi bleed having tranfusion 6 months ago, shower bench that slide- states tub is high and looses balance [facility] Medical History Tinea corporis Anemia Colon cancer screening Menorrhagia Vision blurring Medicare annual wellness visit, initial Breast cancer screening by mammogram Sacroiliitis Gastroenteritis Chronic pain syndrome Obesity Encounter for Essure implantation Family history of ovarian cancer Fibroadenoma Family history of breast cancer Breast mass, right H/O sigmoidoscopy Barretts esophagus Osteoarthritis, knee Fatty liver Cholelithiasis Carpal tunnel syndrome on both sides Lumbar degenerative disc disease Hypercholesterolemia Hypertension Vitamin D deficiency GERD (gastroesophageal reflux disease) Constipation Surgical History (Updated 09/16/23 @ 00:04 by Mary Mcgee) H/O esophagogastroduodenoscopy H/O colonoscopy History of section History of breast mammoplasty H/O gastric bypass History of carpal tunnel release Family History Father Colon cancer CVD (cardiovascular disease) Mother Breast cancer Brain tumor Sister Colon cancer Breast cancer Social History Household Members: Children Household Members Other:: Daugher Housing: Apartment Are you a primary morning caregiver to a significant other at home: No Do you presently have visiting nurse or other home services: Yes Unable to assess alcohol history related to: Unknown Alcohol intake: never Comment: to OR Patient Tobacco Use Status: Never used Tobacco Tobacco use type: Cigarette e-Cigarette/Vaping Use: Never Used Second Hand Smoke Exposure: No service: No Current occupational status: disabled Cognitive needs: No Hearing needs: No Vision needs: No Female Reproductive History Menstrual Age of Menarche: 14 Questionnaire Thrive Questionnaire Date Thrive assessed: 12/10/23 SHARON-7 AMB Questionnaire SHARON-7 Date SHARON - 7 assessed: 12/10/23 Source: Developed by Drs. Curly Williamson, Yue Ren, Mathew Newton and colleagues, with an educational kenneth from [employer]. Physical exam (Primary Care) Vital Signs: Last Vital Signs Pulse 74 07/25/24 16:30 BP 108/82 07/25/24 16:30 Pulse Ox 94 07/25/24 16:30 Oxygen Delivery Method Room Air 07/25/24 16:30 BMI result Body Mass Index 41.2 Tobacco/Smoking Status: Tobacco use Status Tobacco use date assessed 12/10/23 07/25/24 16:30 Patient Tobacco Use Status Never used Tobacco 07/25/24 16:30 Tobacco use type Cigarette 07/25/24 16:40 e-Cigarette/Vaping Use Never Used 07/25/24 16:30 Thrive Assessment: Date of Thrive Assessment Date Thrive assessed 12/10/23 07/25/24 16:30 Const General: alert; No acute distress Eyes Conjunctivae: conjunctivae normal Resp Auscultation: clear to auscultation bilaterally Cardio Rate: regular rate Rhythm: regular rhythm GI Inspection: Yes normal to inspection Extrem General: Yes normal to inspection and No edema Coding Level of Care Code Est Pt Level 4 (96597) Diagnoses Hypotension, unspecified hypotension type I95.9 Hypotension type: unspecified hypotension type H/O gastric bypass Z98.84 Morbid obesity E66.01 Iron deficiency anemia due to chronic blood loss D50.0 Iron deficiency anemia type: chronic blood loss Hypercholesterolemia E78.00 Renee's esophagus without dysplasia K22.70 Renee's esophagus type: without dysplasia Generalized anxiety disorder F41.1 Assessment & Plan Assessment & Plan (1) Hypotension: Code(s): I95.9 - Hypotension, unspecified Category: Medical Qualifiers: Hypotension type: unspecified hypotension type Qualified Code(s): I95.9 - Hypotension, unspecified Plan: Patient was taken off blood pressure medication due to hypotension was on hydrochlorothiazide . Hydrochlorothiazide discontinued due to hypotension. Advised to increase oral fluids noted some anemia as well as weight loss. Will continue to monitor blood pressure. (2) H/O gastric bypass: Comment: [address] [facility] [address] Tang Code(s): Z98.84 - Bariatric surgery status Category: Surgical Plan: Continue to follow-up with bariatric surgeon (3) Morbid obesity: Code(s): E66.01 - Morbid (severe) obesity due to excess calories Category: Medical Plan: Diet and exercise (4) Iron deficiency anemia: Code(s): D50.9 - Iron deficiency anemia, unspecified Category: Medical Qualifiers: Iron deficiency anemia type: chronic blood loss Qualified Code(s): D50.0 - Iron deficiency anemia secondary to blood loss (chronic) Plan: . Patient states having perimenopausal symptoms of having irregular bleeding. Will monitor blood count. Noted have anemia which is chronic on iron and vitamin-C (5) Hypercholesterolemia: Code(s): E78.00 - Pure hypercholesterolemia, unspecified Category: Medical Plan: Avoid fried foods, chicken skin, eggs, butter margarine, pastries and meat. Be it pork or beef they have a lot of cholesterol. Retesting cholesterol. (6) Barretts esophagus: Code(s): K22.70 - Renee's esophagus without dysplasia Category: Medical Qualifiers: Renee's esophagus type: without dysplasia Qualified Code(s): K22.70 - Renee's esophagus without dysplasia Plan: Avoid the foods that causes that usually spicy foods, tomato products, juices, coffee, soda and foods that your sensitive to. After eating do not lie down, allow 3-4 hours before in lie down. And keep the head of bed above 30 degrees to avoid the acid from going up. (7) Generalized anxiety disorder: Comment: Referral to [facility] Code(s): F41.1 - Generalized anxiety disorder Category: Medical Plan: Continue with counseling and therapy Orders: Orders Thyroid Stimulating Hormone 3 Months E78.00 - Pure hypercholesterolemia, unspecified Lipid Panel 3 Months E78.00 - Pure hypercholesterolemia, unspecified Vitamin B12 and Folate 3 Months E78.00 - Pure hypercholesterolemia, unspecified IRON PROFILE 3 Months E78.00 - Pure hypercholesterolemia, unspecified Reticulocyte Count 3 Months E78.00 - Pure hypercholesterolemia, unspecified Vitamin D 25-OH Total 3 Months E78.00 - Pure hypercholesterolemia, unspecified Complete Blood Count Auto Diff 3 Months E78.00 - Pure hypercholesterolemia, unspecified Comprehensive Met. Panel 3 Months E78.00 - Pure hypercholesterolemia, unspecified Free T4 (Free Thyroxine) 3 Months E78.00 - Pure hypercholesterolemia, unspecified Ferritin 3 Months E78.00 - Pure hypercholesterolemia, unspecified Medications: Changed From semaglutide (weight loss) administer weeks 5 through 8 of therapy 1.7 mg (0.75 mL) subcut QWEEK 30 days 3.75 mL 2RF E78.00 - Pure hypercholesterolemia, unspecified To semaglutide (weight loss) administer weeks 5 through 8 of therapy 2.4 mg (0.75 mL) subcut QWEEK 4 weeks 3 mL 2RF E78.00 - Pure hypercholesterolemia, unspecified Discontinued hydrochlorothiazide Discontinued Reason: Doctor's Order 25 mg PO DAILY 90 tabs 3RF E78.00 - Pure hypercholesterolemia, unspecified
[2024-07-25 17:24] VITALS: BP 132/80
== END 2024-07-25 17:39 | disposition home or self-care (01) ==
LOC: HO.HMCH 16:24
PROVIDERS: PCP Internal Medicine; Visit Provider Internal Medicine
DX: E78.00 Pure hypercholesterolemia, unspecified (principal); D50.0 Iron deficiency anemia secondary to blood loss (chronic); E66.01 Morbid (severe) obesity due to excess calories; Z68.41 Body mass index [BMI] 40.0-44.9, adult; K22.70 Barrett's esophagus without dysplasia; I95.9 Hypotension, unspecified; Z98.84 Bariatric surgery status; F41.1 Generalized anxiety disorder

== ENCOUNTER → 2024-07-25 16:24 | Outpatient (BNVA) | payer OTHER, SELFPAY | PROVIDERS: PCP Internal Medicine; Visit Provider Internal Medicine | DX: Z23 Encounter for immunization (principal); I95.9 Hypotension, unspecified; E66.01 Morbid (severe) obesity due to excess calories; D50.0 Iron deficiency anemia secondary to blood loss (chronic); E78.00 Pure hypercholesterolemia, unspecified; K22.70 Barrett's esophagus without dysplasia; F41.1 Generalized anxiety disorder; Z98.84 Bariatric surgery status | CPT/HCPCS: 90471; 90656; 99212 ==

== ENCOUNTER 2024-08-16 12:00 | Outpatient (AMB) | payer OTHER, SELFPAY ==
--- NOTE | 2024-08-16 13:03 | MHC.OFFWIV ---
Intake Vital Signs 08/16/24 13:09 Height 5 ft Weight 210 lb BMI 41.0 BP 110/68 Blood Pressure Location Lt brachial Position Sitting Pulse 68 Pulse Source Pulse Oximeter Pulse Oximetry (%) 97 Oxygen Delivery Method Room Air Intake Visit Reasons: EP Back pain Intake Note: Patient here for lower back pain that radiates up the back and has been very painful the last couple of days and has been difficulty walking and sleeping. Patient Tobacco Use Status: Never used Tobacco Allergies topiramate [From TOPAMAX] Allergy (Intermediate, Verified 08/16/24 13:09) NAUSEA & VOMITING ENVIRONMENTAL Allergy (Severe, Uncoded 08/16/24 13:09) SINUS INFXN SYMPTOMS STATED BY PT Do you need a note to return to daycare/school/sports/work: No HPI HPI Comments History of Present Illness Details This is a 49-year-old female with a past medical history of hyperlipidemia, diabetes, chronic back pain and anxiety presenting for evaluation of low back pain that radiates up the left side of her back. Patient states that her chronic low back pain exacerbated 2 days ago and she denies any injury or trauma preceding the worsening of her symptoms. Patient has been taking gabapentin 600 mg 3 times daily without relief of her discomfort. Patient denies any radiation of pain into her left buttock or left lower extremity. [facility] Medical History Tinea corporis Anemia Colon cancer screening Menorrhagia Vision blurring Medicare annual wellness visit, initial Breast cancer screening by mammogram Sacroiliitis Gastroenteritis Chronic pain syndrome Obesity Encounter for Essure implantation Family history of ovarian cancer Fibroadenoma Family history of breast cancer Breast mass, right H/O sigmoidoscopy Barretts esophagus Osteoarthritis, knee Fatty liver Cholelithiasis Carpal tunnel syndrome on both sides Lumbar degenerative disc disease Hypercholesterolemia Hypertension Vitamin D deficiency GERD (gastroesophageal reflux disease) Constipation Surgical History (Updated 09/16/23 @ 00:04 by Mary Mcgee) H/O esophagogastroduodenoscopy H/O colonoscopy History of section History of breast mammoplasty H/O gastric bypass History of carpal tunnel release Family History Father Colon cancer CVD (cardiovascular disease) Mother Breast cancer Brain tumor Sister Colon cancer Breast cancer Social History Household Members: Children Household Members Other:: Daugher Housing: Apartment Are you a primary ambulatory care nurse to a significant other at home: No Do you presently have visiting nurse or other home services: Yes Unable to assess alcohol history related to: Unknown Alcohol intake: never Comment: to OR Patient Tobacco Use Status: Never used Tobacco Tobacco use type: Cigarette e-Cigarette/Vaping Use: Never Used Second Hand Smoke Exposure: No service: No Current occupational status: disabled Cognitive needs: No Hearing needs: No Vision needs: No Female Reproductive History Menstrual Age of Menarche: 14 Review of Systems Const All systems reviewed & are unremarkable except as noted in HPI and below Denies chills, Denies fatigue and Denies fever(s) Eyes Reports no additional complaints ENT Reports no additional complaints and Denies neck pain Card Reports no additional complaints Resp Reports no additional complaints GI Reports no additional complaints Reports no additional complaints Musc Reports back pain, Denies arthralgias, Denies neck pain and Denies radiating pain into limb Skin/Breast Reports system reviewed and no additional complaints, except as documented Neuro Reports no additional complaints Psych Reports no additional complaints Endo Reports no additional complaints and Denies fatigue Aller/Immun Reports no additional complaints Physical Exam Vital Signs: Last Vital Signs Pulse 68 08/16/24 13:09 BP 110/68 08/16/24 13:09 Pulse Ox 97 08/16/24 13:09 Oxygen Delivery Method Room Air 08/16/24 13:09 BMI result Body Mass Index 41.0 Const General: cooperative, healthy appearing, comfortable and no acute distress Nutritional Appearance: overweight Orientation/consciousness: patient oriented x3 Limitations: ambulation with cane General: Yes no CVA tenderness Back/Spine/Pelvis Back: no CVA tenderness and back tenderness (left lumbar paraspinous musculature) Thoracic/Lumbar Spine: thoracic and lumbar spine normal to inspection, paraspinal muscle tenderness on the left, No thoracic spinal tenderness, No lumbar spinal tenderness and No straight leg raise positive Sacroiliac joints: bilaterally nontender Skin General skin exam: no rashes or lesions noted Neuro General: patient oriented x3 Psych Appearance: grossly normal Mental Status: mental status grossly normal Insight: Good insight present (Psych) Judgement: Good judgement present (Psych) Assessment & Plan Assessment & Plan (1) Acute on chronic low back pain: Comment: Given this patient's history coupled with her examination no further imaging is warranted at this time. Code(s): M54.50 - Low back pain, unspecified; G89.29 - Other chronic pain Plan: Anti-inflammatory and muscle relaxant as prescribed; patient has a follow up with her primary care physician in 1 week for a re-evaluation of her symptoms. Plan Prednisone 40 mg daily x5 days; methocarbamol q.i.d. p.r.n. Medications: New prednisone 40 mg (2 x 20 mg) PO DAILY 10 tabs 0RF methocarbamol 750 mg PO Q8H 20 tabs 0RF Coding Level of Care Code Est Pt Level 3 (67473) Diagnoses Acute on chronic low back pain M54.50; G89.29 Time Spent (min) 20
[2024-08-16 13:09] VITALS: BP 110/68; PULSE 68; O2SAT 97; BMI 41.0
== END 2024-08-16 13:38 | disposition home or self-care (01) ==
PROVIDERS: PCP Internal Medicine; Visit Provider Physician Assistant
DX: M54.50 Low back pain, unspecified (principal); G89.29 Other chronic pain

== ENCOUNTER → 2024-08-16 12:00 | Outpatient (BNVA) | payer OTHER, SELFPAY | PROVIDERS: PCP Internal Medicine; Visit Provider Physician Assistant | DX: M54.50 Low back pain, unspecified (principal); G89.29 Other chronic pain | CPT/HCPCS: 99212 ==

== ENCOUNTER 2024-08-22 11:25 | Outpatient (AMB) | payer OTHER, SELFPAY ==
--- NOTE | 2024-08-22 11:30 | AM.OFFWIN_ITS ---
Intake Vital Signs 08/22/24 11:32 Weight 210 lb BP 98/72 Blood Pressure Location Lt brachial Position Sitting Pulse 78 Pulse Source Pulse Oximeter Temp 97.8 F Temp Source Oral Pulse Oximetry (%) 97 Oxygen Delivery Method Room Air Intake Visit Reasons: EP-chest pain, headaches, dizziness lt eye swollen Intake Note: Patient here for chest pressure, headaches, dizziness and left eye pressure Patient Tobacco Use Status: Never used Tobacco Allergies topiramate [From TOPAMAX] Allergy (Intermediate, Verified 08/22/24 11:33) NAUSEA & VOMITING ENVIRONMENTAL Allergy (Severe, Uncoded 08/22/24 11:33) SINUS INFXN SYMPTOMS STATED BY PT Do you need a note to return to daycare/school/sports/work: No HPI HPI Comments History of Present Illness Details This is a 49-year-old female with a past medical history of hyperlipidemia, diabetes, chronic back pain and anxiety presenting for evaluation of chest pressure that she has had intermittently over the weekend. Patient denies having any shortness of breath, cough, hemoptysis, fevers or chills. Patient is also presenting with swelling under her left eye and pain in her left lower eyelid that started yesterday. She denies any visual changes or discharge from her left eye. Patient has taken clonazepam only for relief of her symptoms which she states was helpful for her chest pressure. Patient describes her chest pressure as a 2/10 aching sensation at this time. [facility] Medical History (Updated 08/22/24 @ 12:13 by Sherlyn Rodriguez PA-C) Chest pressure Tinea corporis Anemia Colon cancer screening Menorrhagia Vision blurring Medicare annual wellness visit, initial Breast cancer screening by mammogram Sacroiliitis Gastroenteritis Chronic pain syndrome Obesity Encounter for Essure implantation Family history of ovarian cancer Fibroadenoma Family history of breast cancer Breast mass, right H/O sigmoidoscopy Barretts esophagus Osteoarthritis, knee Fatty liver Cholelithiasis Carpal tunnel syndrome on both sides Lumbar degenerative disc disease Hypercholesterolemia Hypertension Vitamin D deficiency GERD (gastroesophageal reflux disease) Constipation Surgical History (Updated 09/16/23 @ 00:04 by Mary Mcgee) H/O esophagogastroduodenoscopy H/O colonoscopy History of section History of breast mammoplasty H/O gastric bypass History of carpal tunnel release Family History Father Colon cancer CVD (cardiovascular disease) Mother Breast cancer Brain tumor Sister Colon cancer Breast cancer Social History Household Members: Children Household Members Other:: Daugher Housing: Apartment Are you a primary floor care specialist to a significant other at home: No Do you presently have visiting nurse or other home services: Yes Unable to assess alcohol history related to: Unknown Alcohol intake: never Comment: to OR Patient Tobacco Use Status: Never used Tobacco Tobacco use type: Cigarette e-Cigarette/Vaping Use: Never Used Second Hand Smoke Exposure: No service: No Current occupational status: disabled Cognitive needs: No Hearing needs: No Vision needs: No Female Reproductive History Menstrual Age of Menarche: 14 Review of Systems Const All systems reviewed & are unremarkable except as noted in HPI and below Reports no additional complaints and Denies chills Eyes Denies change in vision, Denies eye discharge, Reports irritation (left lower eyelid), Denies loss of vision, Denies other visual disturbances, Denies seeing flashes and Denies spots in vision ENT Reports no additional complaints Card Denies chest pain, Denies dyspnea and Reports other (chest pressure improved with clonazepam) Resp Reports no additional complaints, Denies chest congestion, Denies cough and Denies dyspnea GI Reports no additional complaints, Denies nausea and Denies vomiting Reports no additional complaints Musc Reports no additional complaints Neuro Reports no additional complaints and Denies loss of vision Psych Reports no additional complaints Endo Reports no additional complaints Aller/Immun Reports no additional complaints Physical Exam Vital Signs: Last Vital Signs Temp 97.8 F 08/22/24 11:32 Pulse 78 08/22/24 11:32 BP 98/72 08/22/24 11:32 Pulse Ox 97 08/22/24 11:32 Oxygen Delivery Method Room Air 08/22/24 11:32 Const General: cooperative, healthy appearing, comfortable, no acute distress, well developed, alert, awake and Physically active Nutritional Appearance: average body habitus Orientation/consciousness: patient oriented x3 Limitations: no limitations HEENT Head: Yes normal to inspection and Yes normocephalic Ears: hearing grossly normal bilaterally, external ears normal, TM's normal bilaterally and EAC's normal General nose exam: Normal external nose present Face and sinus: Yes normal facial exam Mouth: Normal oral and palatal mucosa present Teeth and gingiva: dentition normal Throat: Yes posterior oropharynx normal Eyes Other: There is a 2 mm area of hypopigmentation on the mucocutaneous surface of the left lower eyelid that is tender to touch. General: appearance normal, both eyes and all related structures Visual Mack: normal visual mack by confrontation Alignment and Position: alignment normal Periorbital: periorbital findings normal Eyelids: Yes other (Erythema noted on the mucocutaneous border of the left lower eyelid) Pupils: Equal, round and reactive pupils present EOM: EOMs intact bilaterally Resp Effort & Inspection: normal respiratory effort, able to speak in complete sentences, no cough and no respiratory distress Auscultation: clear to auscultation bilaterally Cardio Rate: regular rate Rhythm: regular rhythm Skin General skin exam: no rashes or lesions noted Neuro General: patient oriented x3 Cranial nerves: Yes Equal, round and reactive pupils present Psych Appearance: grossly normal Mental Status: mental status grossly normal Affect: Anxious affect present Attitude: cooperative Insight: Good insight present (Psych) Judgement: Good judgement present (Psych) Results Reviewed Results Reviewed: EKG NSR 66 bpm Assessment & Plan Assessment & Plan (1) Chest pressure: Comment: Clonazepam p.r.n. for her anxiety improves her symptoms. EKG reveals normal sinus rhythm. Code(s): R07.89 - Other chest pain Plan: Clonazepam b.i.d. p.r.n. as previously prescribed; patient to follow up with her primary care physician tomorrow as previously scheduled. (2) Hordeolum externum left lower eyelid: Code(s): H00.015 - Hordeolum externum left lower eyelid Plan: Warm compresses to left lower eyelid 5 times daily, Tylenol OTC q6-8 hours prn pain. Orders: Orders AMB EKG-In Office Today R07.89 - Other chest pain Coding Level of Care Code Est Pt Level 3 (70489) Diagnoses Chest pressure R07.89 Hordeolum externum left lower eyelid H00.015 Time Spent (min) 25
[2024-08-22 11:32] VITALS: BP 98/72; PULSE 78; TEMP 36.6; O2SAT 97
== END 2024-08-22 13:02 | disposition home or self-care (01) ==
PROVIDERS: PCP Internal Medicine; Visit Provider Physician Assistant
DX: R07.89 Other chest pain (principal); H00.015 Hordeolum externum left lower eyelid

== ENCOUNTER → 2024-08-22 11:25 | Outpatient (BNVA) | payer OTHER, SELFPAY | PROVIDERS: PCP Internal Medicine; Visit Provider Physician Assistant | DX: R07.89 Other chest pain (principal); H00.015 Hordeolum externum left lower eyelid | CPT/HCPCS: 93005; 99212 ==

== ENCOUNTER 2024-08-23 09:48 | Outpatient (AMB) | payer OTHER, SELFPAY ==
--- NOTE | 2024-08-23 09:54 | A.OFFPC_ITS ---
Vital Signs 08/23/24 09:56 Height 5 ft Weight 195 lb BMI 38.1 BP 104/52 L Blood Pressure Location Lt brachial Position Sitting Pulse 63 Pulse Source Pulse Oximeter Pulse Oximetry (%) 96 Oxygen Delivery Method Room Air Intake Visit Reasons: obesity Allergies topiramate [From TOPAMAX] Allergy (Intermediate, Verified 08/23/24 09:56) NAUSEA & VOMITING ENVIRONMENTAL Allergy (Severe, Uncoded 08/23/24 09:56) SINUS INFXN SYMPTOMS STATED BY PT Tobacco use date assessed: 12/10/23 Dental Screening Dental Screen Date: 12/10/23 HPI obesity HPI Details 49-year-old obese female(noted 15 lb corby ght loss) status post gastric bypass hypercholesterolemia Barretts generalized anxiety disorder coming in for follow-up. Last seen in July 25 concern about low blood pressure. Patient's mammogram is due urgent care visit in August 22 diagnosis of chest pressure and was given anxiety medication and Cardiology advised warm compresses.. August 16 back pain anti-inflammatory/prednisone given plus muscle relaxant. Received also sleep study done in July 25 demonstrating no sleep apnea [facility] Medical History (Updated 08/23/24 @ 10:18 by Minnie Lazcano MD) Chest pressure Tinea corporis Anemia Colon cancer screening Menorrhagia Vision blurring Medicare annual wellness visit, initial Breast cancer screening by mammogram Sacroiliitis Gastroenteritis Chronic pain syndrome Obesity Encounter for Essure implantation Family history of ovarian cancer Fibroadenoma Family history of breast cancer Breast mass, right H/O sigmoidoscopy Barretts esophagus Osteoarthritis, knee Fatty liver Cholelithiasis Carpal tunnel syndrome on both sides Lumbar degenerative disc disease Hypercholesterolemia Hypertension Vitamin D deficiency GERD (gastroesophageal reflux disease) Constipation Surgical History (Updated 09/16/23 @ 00:04 by Mary Mcgee) H/O esophagogastroduodenoscopy H/O colonoscopy History of section History of breast mammoplasty H/O gastric bypass History of carpal tunnel release Family History Father Colon cancer CVD (cardiovascular disease) Mother Breast cancer Brain tumor Sister Colon cancer Breast cancer Social History Household Members: Children Household Members Other:: Daugher Housing: Apartment Are you a primary landcare facilitator to a significant other at home: No Do you presently have visiting nurse or other home services: Yes Unable to assess alcohol history related to: Unknown Alcohol intake: never Comment: to OR Patient Tobacco Use Status: Never used Tobacco Tobacco use type: Cigarette e-Cigarette/Vaping Use: Never Used Second Hand Smoke Exposure: No service: No Current occupational status: disabled Cognitive needs: No Hearing needs: No Vision needs: No Female Reproductive History Menstrual Age of Menarche: 14 Questionnaire PHQ-9 Over the last 2 weeks, how often have you been bothered by any of the following problems? 1. Little interest or pleasure in doing things: more than half the days 2. Feeling down, depressed, or hopeless: more than half the days 3. Trouble falling or staying asleep, or sleeping too much: nearly every day 4. Feeling tired or having little energy: nearly every day 5. Poor appetite or overeating: nearly every day 6. Feeling bad about yourself - or that you are a failure or have let yourself or your family down: nearly every day 7. Trouble concentrating on things, such as reading the newspaper or watching television: nearly every day 8. Moving or speaking so slowly that other people could have noticed. Or the opposite - being so fidgety or restless that you have been moving around a lot more than usual: nearly every day 9. Thoughts that you would be better off or of hurting yourself in some way: not at all Total score: 22 Depression Screening Interpretation: Positive Depression Screening Follow-up: Community [facility] Worker F/U and Other (on waiting list for therapist ) Depression Screening Done: Yes 87642 - PHQ-9 Billing: Yes Source: Developed by Drs. Curly Williamson, Yue Ren, Mathew Newton and colleagues, with an educational kenneth from [employer]. Thrive Questionnaire Date Thrive assessed: 12/10/23 AUDIT C Alcohol Use Questionnaire (AUDIT-C) 1. How often do you have a drink containing alcohol?: Never 2. How many drinks containing alcohol do you have on a typical day when you are drinking?: 1 or 2 (0) 3. How often do you have six or more drinks on one occasion?: Never Total Score: 0 SHARON-7 AMB Questionnaire SHARON-7 Date SHARON - 7 assessed: 12/10/23 Source: Developed by Drs. Curly Williamson, Yue Ren, Mathew Newton and colleagues, with an educational kenneth from [employer]. Physical exam (Primary Care) Vital Signs: Last Vital Signs Pulse 63 08/23/24 09:56 BP 104/52 L 08/23/24 09:56 Pulse Ox 96 08/23/24 09:56 Oxygen Delivery Method Room Air 08/23/24 09:56 BMI result Body Mass Index 38.1 Tobacco/Smoking Status: Tobacco use Status Tobacco use date assessed 12/10/23 08/23/24 09:55 Patient Tobacco Use Status Never used Tobacco 08/23/24 09:55 Tobacco use type Cigarette 08/23/24 09:55 e-Cigarette/Vaping Use Never Used 08/23/24 09:55 PHQ-9: PHQ-9 Score PHQ-9: Total score 22 08/23/24 09:57 Depression Screening Interpretation: Positive Depression Screening Follow-up: Community Mental Health Worker F/U and Other (on waiting list for therapist ) Thrive Assessment: Date of Thrive Assessment Date Thrive assessed 12/10/23 08/23/24 09:55 Const General: alert; No acute distress Eyes Conjunctivae: conjunctivae normal Resp Auscultation: clear to auscultation bilaterally Cardio Rate: regular rate Rhythm: regular rhythm GI Inspection: Yes normal to inspection Extrem General: Yes normal to inspection and No edema Coding Level of Care Code Est Pt Level 4 (52879) Diagnoses Essential hypertension I10 Hypertension type: essential hypertension Hypercholesterolemia E78.00 Renee's esophagus without dysplasia K22.70 Renee's esophagus type: without dysplasia Generalized anxiety disorder F41.1 H/O gastric bypass Z98.84 Additional Codes PHQ-9 - 45488 - PHQ-9 Billing: Yes ([id number]) Assessment & Plan Assessment & Plan (1) Hypertension: Code(s): I10 - Essential (primary) hypertension Category: Medical Qualifiers: Hypertension type: essential hypertension Qualified Code(s): I10 - Essential (primary) hypertension Plan: Patient has had normal blood pressure this time. Presently on no medication. BP low and advised increase oral fluids (2) Hypercholesterolemia: Code(s): E78.00 - Pure hypercholesterolemia, unspecified Category: Medical Plan: Avoid fried foods, chicken skin, eggs, butter margarine, pastries and meat. Be it pork or beef they have a lot of cholesterol LDL goal of less than 130 and triglyceride of less than 150 on atorvastatin 40 mg once a day (3) Barretts esophagus: Code(s): K22.70 - Renee's esophagus without dysplasia Category: Medical Qualifiers: Renee's esophagus type: without dysplasia Qualified Code(s): K22.70 - Renee's esophagus without dysplasia Plan: Avoid the foods that causes that usually spicy foods, tomato products, juices, coffee, soda and foods that your sensitive to. After eating do not lie down, allow 3-4 hours before in lie down. And keep the head of bed above 30 degrees to avoid the acid from going up. (4) Generalized anxiety disorder: Comment: Referral to [facility] Code(s): F41.1 - Generalized anxiety disorder Category: Medical Plan: Continue with counseling and therapy (5) H/O gastric bypass: Comment: [address] [facility] [address] Tang Code(s): Z98.84 - Bariatric surgery status Category: Surgical Plan: Continue to follow-up with bariatric surgery. Orders: Referrals Ophthalmology Referral H00.015 - Hordeolum externum left lower eyelid Medications: New erythromycin 1 appl ophthalmic-Left DAILY 3.5 grams 0RF H00.015 - Hordeolum externum left lower eyelid lidocaine 5% 1 appl topical BID PRN 35.44 grams 0RF pain G89.29 - Other chronic pain, M54.50 - Low back pain, unspecified ketoconazole 2% 1 appl topical BID 60 grams 0RF G89.29 - Other chronic pain, M54.50 - Low back pain, unspecified Refilled semaglutide (weight loss) administer weeks 5 through 8 of therapy 2.4 mg (0.75 mL) subcut QWEEK 4 weeks 3 mL 2RF E78.00 - Pure hypercholesterolemia, unspecified
[2024-08-23 09:56] VITALS: BP 104/52; PULSE 63; O2SAT 96; BMI 38.1
== END 2024-08-23 10:33 | disposition home or self-care (01) ==
PROVIDERS: PCP Internal Medicine; Visit Provider Internal Medicine
DX: I10 Essential (primary) hypertension (principal); E78.00 Pure hypercholesterolemia, unspecified; K22.70 Barrett's esophagus without dysplasia; F41.1 Generalized anxiety disorder; Z98.84 Bariatric surgery status

== ENCOUNTER → 2024-08-23 09:48 | Outpatient (BNVA) | payer OTHER, SELFPAY | PROVIDERS: PCP Internal Medicine; Visit Provider Internal Medicine | DX: I10 Essential (primary) hypertension (principal); E78.00 Pure hypercholesterolemia, unspecified; K22.70 Barrett's esophagus without dysplasia; F41.1 Generalized anxiety disorder; Z98.84 Bariatric surgery status | CPT/HCPCS: 96127; 99212 ==

== ENCOUNTER 2024-10-17 13:59 | Outpatient (AMB) | payer OTHER, SELFPAY ==
--- NOTE | 2024-10-17 14:08 | MHC.OFFVIS ---
Vital Signs 10/17/24 14:13 Height 5 ft Weight 180 lb BMI 35.2 BP 98/54 L Blood Pressure Location Lt brachial Position Sitting Pulse 64 Intake Visit Reasons: 4 month follow up Intake Note: Junie presents in the office as a 4 month follow up. CC: She states that she is having diarrhea and issues with her stomach. States diarrhea is yellow and very loose. It occurs very other day and she thinks it is due to the medication she is on. Cramps in the stomach. Chromium Plater Required: No Allergies topiramate [From TOPAMAX] Allergy (Intermediate, Verified 10/17/24 14:09) NAUSEA & VOMITING ENVIRONMENTAL Allergy (Severe, Uncoded 10/17/24 14:09) SINUS INFXN SYMPTOMS STATED BY PT HPI HPI 4 month follow up: Details: 48 yr old f here for f/u RECAP; saw [facility] initially ? she had been c/o abdo pain, nausea, ? Its hard to eat steak- no milk or cheese. ? Went to ER- had a GI shot- it numbed my entire GI tract . ? Omeprazole not really helpful. ? She was very worried about having cancer ? Father -colon cancer @ 50 ? Sister colon cancer in her early 40s. ? TESTS: egd/COLONOSCOPY---01/2020 ? esophagus dilated, retianed eduardo removed, barretts esophagus w/ chronic inactive inflammation on bx, ? colon, with small internal hemorrhoids, fair prep--rept 3 yrs due to FH CRC ? bx with focal active colitis, no chronic injury ? small bowel f/u--03/2020--rapid transit, small hiatal henria, reflux, no obstruction ? LABS: 05/2020--LFt, BMp--nml, CBC, mild anemia EGD/sigmoidoscopy-11/2020-schatzki ring, internal hemorrhoids--she had dilation of esophagus EGD/Colonoscopy: 08/06/23 Endoscopy Findings: lax LES retained foreign bodies, balloon dilation Colonoscopy Findings: polyp internal hemorrhoids diverticular disease bx: tubular adenoma removed, some inflammation of stomach pouch, She had post biopsy bleed and had to get repeat colo with clipping and hemospray and stayed in house for one night ? INTERIM; she has been opening mesalamine and mixing with apple sauce as she had issues swallowing the capsules she feels better but not hundred percent she has some cramps and yellowish stools, no blood in stools no nausea or vomiting EXAM: GENERAL: The patient is well developed and nontoxic. VITAL SIGNS:see workflow HEENT: Nonicteric sclerae, PERRLA, EOMI. Oropharynx clear. Moist mucous membranes. Conjunctivae appear well perfused. No thyroid mass. CHEST: Chest wall is nontender. HEART: Regular rate and rhythm without murmurs. LUNGS: Clear to auscultation bilaterally. ABDOMEN: Soft, positive bowel sounds, nontender, no organomegaly.no flank tenderness SKIN: No rash, no excessive bruising, petechiae, or purpura. NEUROLOGIC: Cranial nerves II-XII intact without motor/sensory deficit. Assessments ? 1. Ongoing abdominal pain and abn bowel habits, prior bx with focal colitis, ? IBD, adhesions from gastric bypass--nothing this time, TA removed , may also be from ozempic use 2. Dysphagia- good result with prior dilaiton--better with PPI PLAN: 1/ advised take mesalamine open capsule BID 2 caps 2/ EGD prn 3/ if sx no better then budesonide PFSH Medical History Chest pressure Tinea corporis Anemia Colon cancer screening Menorrhagia Vision blurring Medicare annual wellness visit, initial Breast cancer screening by mammogram Sacroiliitis Gastroenteritis Chronic pain syndrome Obesity Encounter for Essure implantation Family history of ovarian cancer Fibroadenoma Family history of breast cancer Breast mass, right H/O sigmoidoscopy Barretts esophagus Osteoarthritis, knee Fatty liver Cholelithiasis Carpal tunnel syndrome on both sides Lumbar degenerative disc disease Hypercholesterolemia Hypertension Vitamin D deficiency GERD (gastroesophageal reflux disease) Constipation Surgical History H/O esophagogastroduodenoscopy H/O colonoscopy History of section History of breast mammoplasty H/O gastric bypass History of carpal tunnel release Family History Father Colon cancer CVD (cardiovascular disease) Mother Breast cancer Brain tumor Sister Colon cancer Breast cancer Social History Household Members: Children Household Members Other:: Daugher Housing: Apartment Are you a primary day care worker to a significant other at home: No Do you presently have visiting nurse or other home services: Yes Unable to assess alcohol history related to: Unknown Alcohol intake: never Comment: to OR Patient Tobacco Use Status: Never used Tobacco Tobacco use type: Cigarette e-Cigarette/Vaping Use: Never Used Second Hand Smoke Exposure: No service: No Current occupational status: disabled Cognitive needs: No Hearing needs: No Vision needs: No Female Reproductive History Menstrual Age of Menarche: 14 Physical Exam Vital Signs: Last Vital Signs Pulse 64 10/17/24 14:13 BP 98/54 L 10/17/24 14:13 BMI result Body Mass Index 35.2 Assessment & Plan Assessment & Plan (1) GERD (gastroesophageal reflux disease): Code(s): K21.9 - Gastro-esophageal reflux disease without esophagitis Category: Medical Qualifiers: Esophagitis presence: without esophagitis Qualified Code(s): K21.9 - Gastro-esophageal reflux disease without esophagitis Plan: as above Coding Level of Care Code Est Pt Level 3 (41547) Diagnoses Gastroesophageal reflux disease without esophagitis K21.9 Esophagitis presence: without esophagitis
[2024-10-17 14:13] VITALS: BP 98/54; PULSE 64; BMI 35.2
== END 2024-10-17 14:35 | disposition home or self-care (01) ==
PROVIDERS: PCP Internal Medicine; Visit Provider Internal Medicine Gastroenterology
DX: K21.9 Gastro-esophageal reflux disease without esophagitis (principal)
CPT/HCPCS: 99213

== ENCOUNTER → 2024-10-17 13:59 | Outpatient (BNVA) | payer OTHER, SELFPAY | PROVIDERS: PCP Internal Medicine; Visit Provider Internal Medicine Gastroenterology | DX: K21.9 Gastro-esophageal reflux disease without esophagitis (principal); R19.7 Diarrhea, unspecified | CPT/HCPCS: 99212 ==

== ENCOUNTER 2024-10-23 07:20 | Emergency (ER) | payer OTHER, SELFPAY ==
[2024-10-23 07:35] VITALS: BP 133/70; PULSE 80; RESP 20; TEMP 37; O2SAT 97; BMI 35.3
--- NOTE | 2024-10-23 07:44 | ECG_ITS ---
Test Reason : chest pain Blood Pressure : */* mmHG Vent. Rate : 83 BPM Atrial Rate : 83 BPM P-R Int : 166 ms QRS Dur : 74 ms QT Int : 374 ms P-R-T Axes : 57 7 1 degrees QTcB Int : 439 ms Normal sinus rhythm Low voltage QRS Nonspecific T wave abnormality Abnormal ECG When compared with ECG of 19-Jul-2024 10:49, No significant change was found Referred By: Generic ED Physician Electronically Signed By: ALFREDO ZAMUDIO MD
--- NOTE | 2024-10-23 07:47 | MHC.EDTECH ---
EKG done @ 0727 today, not crossing over in system
[2024-10-23 07:56] LABS: MANUAL DIFF FLAG NO
[2024-10-23 08:03] LABS: Basophils Absolute Auto 0.1 X10*3/uL (0.0-0.2); Basophils Percent Auto 0.9 % (0-2); Eosinophils Absolute Auto 0.1 X10*3/uL (0.0-0.4); Eosinophils Percent Auto 1.3 % (0-4); Hematocrit 35.6 % (37.0-47.0); Hemoglobin 11.8 g/dl (12.0-16.0); Imm Gran Abs Auto 0.03 X10*3/uL (0.00-0.03); Imm Gran Pct Auto 0.4 % (0.0-0.4); Lymphocytes Absolute Auto 1.5 X10*3/uL (1.2-4.9); Lymphocytes Percent Auto 21.8 % (20-40); Mean Corpuscular HGB Conc 33.1 g/dl (31.0-35.0); Mean Corpuscular Hemoglobin 28.9 pg (27.0-33.0); Mean Platelet Volume 11.1 fL (9.4-12.3); Monocytes Absolute Auto 0.6 X10*3/uL (0.1-1.2); Monocytes Percent Auto 8.7 % (2-11); Neutrophils Absolute Auto 4.6 x10*3/uL (2.0-8.3); Neutrophils Percent Auto 66.9 % (45-73); Platelet Count 300 X10*3/uL (160-400); Red Blood Count 4.09 X10*6/uL (4.20-5.50); Red Cell Distribution Width 14.3 % (11.0-16.0); White Blood Count 6.9 X10*3/uL (4.8-10.8)
[2024-10-23 08:09] LABS: Anion Gap 11 (12-20); Blood Urea Nitrogen 8 mg/dL (9-16); Carbon Dioxide 22 mmol/L (22-29); Chloride 112 mmol/L (96-108); Creatinine Clr Calc Pharmacy 106.3; Estimated Glomerular Filt Rate > 60; Glucose Random 85 mg/dL (60-115); Potassium 3.6 mmol/L (3.3-5.1); Sodium 141 mmol/L (135-145)
[2024-10-23 08:19] LABS: Troponin-I High Sensitivity < 2.7 ng/L (<3.5-17.0)
--- NOTE | 2024-10-23 09:36 | ED_ITS ---
HPI - Chest Pain General Chief Complaint: Chest Pain Stated Complaint: CP, Anxiety, Low bp Time Seen by Provider: 10/23/24 09:26 Source: patient Mode of arrival: ambulatory Limitations: no limitations History of Present Illness ED Provider: Ajay Armenta PA-C HPI narrative: 49 y/o female with history of anxiety, iron deficiency anemia, Schatzki's ring, irritable bowel syndrome, postconcussive syndrome, abnormal uterine bleeding, lower GI bleeding, GERD and constipation, HTN, HLD who presents to the ER for evaluation of lightheadedness and dizziness for the last couple of weeks. She is also having intermittent episodes of chest pain. She states that about 2 weeks ago she started feeling unwell with URI symptoms. She was diagnosed with RSV. She has been drinking [id number] lemon tea but not eating much the last couple of weeks. She states she has taken her blood pressure at home and has been in the 70s and 80s. She is lightheaded and dizzy when she stands up. She is not a known diabetic and does not check her blood sugars. She reports ongoing generalized malaise, fatigue, cough. She was previously on BP meds but hasnt need them in a while since she lost weight so she was taken off of them. MD complaint: chest pain and other (lightheadedness) Onset (ago): week(s) Timing of current episode: episodic Prior episodes: Yes Onset: during exertion Pain location: left chest and right chest Pain radiation: none Severity: moderate Quality: aching Relieving factors: nothing Exacerbating factors: exertion and other (standing) Context: recent illness Associated symptoms: cough Treatment prior to arrival: none Risk Factors Coronary artery disease risk factors: none Thoracic aortic dissection risk factors: none Related Data Home Medications ?Medication ?Instructions ?Recorded ?Confirmed dicyclomine 10 mg capsule 10 mg PO TID PRN GI UPSET 08/06/23 12/10/23 sucralfate 100 mg/mL oral 10 ml PO BIDAC 08/06/23 12/10/23 suspension estradiol 0.01% (0.1 mg/gram) vaginal 06/13/24 vaginal cream estradiol 0.05 mg/24 hr semiweekly 1 patch transdermal 2XW 06/13/24 transdermal patch progesterone micronized 200 mg 200 mg PO BEDTIME 06/13/24 capsule ubrogepant 100 mg tablet (Ubrelvy) mg PO 06/13/24 vibegron 75 mg tablet (Gemtesa) mg PO 06/13/24 Previous Rx's ?Medication ?Instructions ?Recorded polyethylene glycol 3350 17 17 g PO BID #510 grams 08/31/23 gram/dose oral powder (Miralax) hydroxyzine HCl 50 mg tablet 50 mg PO BEDTIME PRN anxiety 90 09/08/23 days #90 tabs nystatin 100,000 unit/gram topical 1 appl topical TID #60 grams 09/08/23 powder ondansetron 4 mg disintegrating 4 mg PO TID PRN nausea and 09/08/23 tablet vomiting 5 days #60 tabs simethicone 125 mg capsule 125 mg PO TID-QID PRN abdominal 09/08/23 distention #90 caps tizanidine 2 mg tablet 2 mg PO TID PRN muscle spasticity 09/08/23 30 days #90 tabs docusate sodium 100 mg capsule 100 mg PO BID #56 caps 11/16/23 SHOWER CHAIR #1 ea 12/10/23 omeprazole 20 mg capsule,delayed 20 mg PO TID 90 days #270 caps 12/10/23 release trazodone 50 mg tablet 50 mg PO BEDTIME #90 tabs 12/10/23 bedside Commode #1 ea 04/06/24 clonazepam 0.5 mg tablet 0.5 mg PO TID 30 days #90 tabs 04/22/24 clotrimazole 1 % topical cream 1 appl topical TID #45 grams 05/03/24 mirabegron 50 mg tablet,extended 50 mg PO DAILY #30 tabs 05/19/24 release 24 hr (Myrbetriq) mesalamine 0.375 gram 1.5 g (4 x 0.375 gram) PO QAM 1 06/13/24 capsule,extended release 24 hr month #120 caps (Apriso) atorvastatin 40 mg tablet 40 mg PO DAILY 90 days #90 tabs 06/27/24 duloxetine 20 mg capsule,delayed 20 mg PO BID 90 days #180 caps 06/27/24 release methocarbamol 750 mg tablet 750 mg PO Q8H #20 tabs 08/16/24 prednisone 20 mg tablet 40 mg (2 x 20 mg) PO DAILY #10 tabs 08/16/24 ketoconazole 2 % topical cream 1 appl topical BID #60 grams 08/23/24 lidocaine 5 % topical ointment 1 appl topical BID PRN pain #35.44 08/24/24 grams semaglutide (weight loss) 2.4 2.4 mg (0.75 mL) subcut QWEEK 4 08/24/24 mg/0.75 mL subcutaneous pen weeks #3 mL injector ascorbic acid (vitamin C) 500 mg 500 mg PO DAILY #90 tabs 09/17/24 tablet (Vitamin C) ferrous sulfate 325 mg (65 mg 325 mg PO DAILY 90 days #90 tabs 09/17/24 iron) tablet loratadine 10 mg tablet 10 mg PO DAILY 90 days #90 tabs 09/17/24 gabapentin 300 mg capsule 300 mg PO TID 90 days #270 caps 09/18/24 cholecalciferol (vitamin D3) 50 50 mcg PO DAILY #28 tabs 10/15/24 mcg (2,000 unit) tablet miconazole nitrate 2 % topical 1 appl topical TID #85 grams 10/15/24 powder ondansetron 4 mg disintegrating 4 mg PO Q8H PRN nausea and 10/23/24 tablet vomiting #7 tabs Allergies Allergy/AdvReac Type Severity Reaction Status Date / Time topiramate [From TOPAMAX] Allergy Intermediate NAUSEA & Verified 10/23/24 07:40 VOMITING ENVIRONMENTAL Allergy Severe SINUS Uncoded 10/23/24 07:40 INFXN SYMPTOMS STATED BY PT Review of Systems 2 Review of Systems: Yes all other systems are reviewed and are negative PMFSH Past Medical History Medical History Chest pressure Tinea corporis Anemia Colon cancer screening Menorrhagia Vision blurring Medicare annual wellness visit, initial Breast cancer screening by mammogram Sacroiliitis Gastroenteritis Chronic pain syndrome Obesity Encounter for Essure implantation Family history of ovarian cancer Fibroadenoma Family history of breast cancer Breast mass, right H/O sigmoidoscopy Barretts esophagus Osteoarthritis, knee Fatty liver Cholelithiasis Carpal tunnel syndrome on both sides Lumbar degenerative disc disease Hypercholesterolemia Hypertension Vitamin D deficiency GERD (gastroesophageal reflux disease) Constipation Surgical History H/O esophagogastroduodenoscopy H/O colonoscopy History of section History of breast mammoplasty H/O gastric bypass History of carpal tunnel release Family History Family History Father Colon cancer CVD (cardiovascular disease) Mother Breast cancer Brain tumor Sister Colon cancer Breast cancer Social History Social History Household Members: Children Household Members Other:: Daugher Housing: Apartment Are you a primary animal care service worker to a significant other at home: No Do you presently have visiting nurse or other home services: Yes Unable to assess alcohol history related to: Unknown Alcohol intake: never Comment: to OR Patient Tobacco Use Status: Never used Tobacco Tobacco use type: Cigarette e-Cigarette/Vaping Use: Never Used Second Hand Smoke Exposure: No Advance Directives: No Advance Directives Information Provided: Yes Patient : No service: No Current occupational status: disabled Cognitive needs: No Hearing needs: No Vision needs: No Physical Exam 2 Vital Signs: Vital Signs: Last Vital Signs Temp 96.9 F 10/23/24 12:22 Pulse 70 10/23/24 12:22 Resp 18 10/23/24 12:22 BP 122/63 10/23/24 12:22 Pulse Ox 100 10/23/24 12:22 O2 Del Method Room Air 10/23/24 12:22 BMI result Body Mass Index 35.3 Appearance: Alert. Oriented X3. No acute distress. Head: normocephalic, atraumatic. Eyes: Pupils equal, round and reactive to light. ENT: Pharynx normal. No tonsillar swelling or exudate. Neck: Normal inspection. Neck supple. CVS: Normal heart rate and rhythm. Pulses normal. Respiratory: No respiratory distress. Breath sounds normal. Abdomen: Soft and nontender. +BS x4 Skin: Skin warm and dry. Normal skin color. Normal skin turgor. No rashes. Extremities: No lower extremity edema. No joint swelling. Neuro/psych: Oriented X 3. No motor deficit. No sensory deficit. CN II-XII intact. Normal speech and cognition. normal finger to nose and heel to [place] bilaterally. steady gait. NIH 0 Medications Administered Discontinued Medications Generic Name Dose Route Start Last Admin Trade Name Freq PRN Reason Stop Dose Admin Sodium Chloride 1,000 mls @ 999 mls/hr 10/23/24 10:45 10/23/24 12:30 Ns IV 10/23/24 11:45 Infused .Q1H1M JOEY Infusion Medical Decision Making Medical Decision Making [facility] Narrative: 49-year-old female with history previously diagnosed hypertension, no longer requiring antihypertensive medications who presents to the ER for evaluation of low blood pressure and dizziness at home. She states symptoms are going on for 2 weeks with a dizzy spells with standing. Symptoms improve with rest and lying down. She has had decreased p.o. intake but reports increasing her p.o. fluids with no improvement. Blood pressure here was in the 130 systolic. Normal heart rate. Physical exam is unremarkable. Lab workup showing a stable mild anemia. No major metabolic derangement, no MAC or signs of dehydration. Troponin negative. Doubt cardiac etiology. Her neurologic exam is nonfocal. Her orthostatic vital signs were negative. At this time her symptoms most likely related to ongoing viral syndrome, decreased p.o. intake. Encouraged monitoring BP at home, increasing her oral intake following up with her doctor. Return precautions were discussed. Stable for discharge home Differential Diagnosis Differential Diagnoses: The differential diagnosis associated with the presentation includes Orthostatic hypotension, dehydration, MAC, vertigo, low suspicion for organic cause Admission/Observation Consideration of admission/observation: Escalation of care including admission/observation considered Lab Data [facility] Lab Attestation statement: I reviewed the patient's lab results. stable anemia, improved from prior 10/23/24 07:51 10/23/24 07:51 Labs: Lab Results 10/23/24 Range/Units 07:51 WBC 6.9 (4.8-10.8) X10*3/uL RBC 4.09 L (4.20-5.50) X10*6/uL Hgb 11.8 L (12.0-16.0) g/dl Hct 35.6 L (37.0-47.0) % MCV 87.0 (80.0-98.0) fL MCH 28.9 (27.0-33.0) pg MCHC 33.1 (31.0-35.0) g/dl RDW 14.3 (11.0-16.0) % Plt Count 300 D (160-400) X10*3/uL MPV 11.1 (9.4-12.3) fL Immature Gran % (Auto) 0.4 (0.0-0.4) % Neut % (Auto) 66.9 (45-73) % Lymph % (Auto) 21.8 (20-40) % [place] % (Auto) 8.7 (2-11) % Eos % (Auto) 1.3 (0-4) % Baso % (Auto) 0.9 (0-2) % Lymph # (Auto) 1.5 (1.2-4.9) X10*3/uL [place] # (Auto) 0.6 (0.1-1.2) X10*3/uL Eos # (Auto) 0.1 (0.0-0.4) X10*3/uL Baso # (Auto) 0.1 (0.0-0.2) X10*3/uL Abs Immat Gran (auto) 0.03 (0.00-0.03) X10*3/uL Absolute Neuts (auto) 4.6 (2.0-8.3) x10*3/uL Absolute Nucleated RBC 0.000 (0.0-0.012) X10*3/uL Nucleated RBC % (auto) 0.0 (0.0-0.2) /100WBC Sodium 141 (135-145) mmol/L Potassium 3.6 (3.3-5.1) mmol/L Chloride 112 H (96-108) mmol/L Carbon Dioxide 22 (22-29) mmol/L Anion Gap 11 L (12-20) BUN 8 L (9-16) mg/dL Creatinine 0.64 (0.5-1.4) mg/dL Estim Creat Clear Calc 106.3 Estimated GFR > 60 Random Glucose 85 (60-115) mg/dL Calcium 9.0 (8.4-10.2) mg/dL Troponin I High Sens < 2.7 (<3.5-17.0) ng/L Independent Interpretation I performed an independent interpretation of an: EKG Interpretation: ekg w/ normal sinus rhythm, low voltage qrs, vent rate 83 bpm, pr interval 166, no ST segment elevations, no change from prior External Record Review External record reviewed: Outpatient record and Prior outpatient labs Prescription Management I considered prescription management with: Other (meclizine) Chronic Conditions Patient?s care impacted by: Hypertension Critical Care Time Critical Care Time Critical Care Time: No Discharge Plan Discharge Clinical Impression: Lightheadedness Patient Disposition: Home, Self-Care Instructions: Lightheadedness (ED) Additional Instructions: your lab workup today was unremarkable your EKG was normal your blood pressure was normal with laying, sitting and standing it is important that you are eating and drinking well take the prescribed medication as needed for nausea follow up with your doctor this week If you develop new or worsening symptoms call 911 or come back to the ER for further evaluation. Prescriptions: New ondansetron 4 mg tablet,disintegrating 4 mg PO Q8H PRN (Reason: nausea and vomiting) Qty: 7 0RF No Action docusate sodium 100 mg capsule 100 mg PO BID Qty: 56 12RF clonazepam 0.5 mg tablet 0.5 mg PO TID 30 Days Qty: 90 1RF clotrimazole 1 % cream 1 appl TOPICAL TID Qty: 45 0RF mirabegron [Myrbetriq] 50 mg tablet extended release 24 hr 50 mg PO DAILY Qty: 30 0RF atorvastatin 40 mg tablet 40 mg PO DAILY 90 Days Qty: 90 0RF duloxetine 20 mg capsule,delayed release(DR/EC) 20 mg PO BID 90 Days Qty: 180 0RF lidocaine 5 % ointment 1 appl topical BID PRN (Reason: pain) Qty: 35.44 0RF semaglutide (weight loss) 2.4 mg/0.75 mL pen injector 2.4 mg subcut QWEEK 28 Days Qty: 3 2RF Rx Instructions: administer weeks 5 through 8 of therapy ascorbic acid (vitamin C) [Vitamin C] 500 mg tablet 500 mg PO DAILY Qty: 90 0RF loratadine 10 mg tablet 10 mg PO DAILY 90 Days Qty: 90 0RF ferrous sulfate 325 mg (65 mg iron) tablet 325 mg PO DAILY 90 Days Qty: 90 0RF gabapentin 300 mg capsule 300 mg PO TID 90 Days Qty: 270 0RF cholecalciferol (vitamin D3) 50 mcg (2,000 unit) tablet 50 mcg PO DAILY Qty: 28 0RF miconazole nitrate 2 % powder 1 appl TOPICAL TID Qty: 85 0RF sucralfate 100 mg/mL suspension 10 ml PO BIDAC dicyclomine 10 mg Capsule 10 mg PO TID PRN (Reason: GI UPSET) (DME) SHOWER CHAIR See Rx Instructions .Route .MEDSUPPLY Qty: 1 0RF Rx Instructions: As directed trazodone 50 mg tablet 50 mg PO BEDTIME Qty: 90 3RF omeprazole 20 mg capsule,delayed release(DR/EC) 20 mg PO TID 90 Days Qty: 270 3RF (DME) bedside Commode See Rx Instructions .Route .MEDSUPPLY Qty: 1 0RF Rx Instructions: As directed hydroxyzine HCl 50 mg tablet 50 mg PO BEDTIME PRN (Reason: anxiety) 90 Days Qty: 90 3RF ondansetron 4 mg tablet,disintegrating 4 mg PO TID PRN (Reason: nausea and vomiting) 5 Days Qty: 60 2RF simethicone 125 mg capsule 125 mg PO TID-QID PRN (Reason: abdominal distention) Qty: 90 2RF Rx Instructions: soft gel version please tizanidine 2 mg tablet 2 mg PO TID PRN (Reason: muscle spasticity) 30 Days Qty: 90 8RF nystatin 100,000 unit/gram powder 1 appl topical TID Qty: 60 2RF polyethylene glycol 3350 [Miralax] 17 gram/dose powder 17 g PO BID Qty: 510 2RF ketoconazole 2 % cream 1 appl topical BID Qty: 60 0RF prednisone 20 mg tablet 40 mg PO DAILY Qty: 10 0RF methocarbamol 750 mg tablet 750 mg PO Q8H Qty: 20 0RF estradiol 0.05 mg/24 hr patch semiweekly 1 patch transdermal 2XW estradiol 0.01 % (0.1 mg/gram) cream vaginal Gemtesa 75 mg tablet PO progesterone micronized 200 mg capsule 200 mg PO BEDTIME Ubrelvy 100 mg tablet PO mesalamine [Apriso] 0.375 gram capsule,extended release 24hr 1.5 g PO QAM 30 Days Qty: 120 2RF Referrals: Po,Minnie Justin MD [Primary Care Provider] - Interventions: ED Discharge Assessment Last Done: 10/23/24 12:22 Discharge Date/Time: 10/23/24 12:31 Print Language: Amharic
[2024-10-23 10:17] VITALS: BP 107/63; BP 110/73; PULSE 64; PULSE 66
[2024-10-23 10:18] VITALS: BP 119/73; PULSE 70
[2024-10-23 10:30] VITALS: BP 119/73; PULSE 70; RESP 18; TEMP 36.1; O2SAT 100
--- NOTE | 2024-10-23 10:32 | PC.NURSE ---
LS CTA; orthostatic BP's consistent/WNL; SR per tele with no ectopy; LS CTA; neuros intact
[2024-10-23] MEDS: 0.9 % Sodium Chloride 1,000 ML 999 ML IV (11:28)
[2024-10-23 12:22] VITALS: BP 122/63; PULSE 70; RESP 18; TEMP 36.1; O2SAT 100
== END 2024-10-23 12:31 | disposition home or self-care (01) ==
PROVIDERS: Emergency Provider Emergency Medicine; PCP Internal Medicine
DX: R07.89 Other chest pain (principal); F41.9 Anxiety disorder, unspecified; R42 Dizziness and giddiness; I10 Essential (primary) hypertension; R11.0 Nausea; R05.9 Cough, unspecified; Z79.899 Other long term (current) drug therapy
CPT/HCPCS: 36415; 80048; 84484; 85025; 93005; 96360; 99284; 99285

== ENCOUNTER → 2024-10-23 07:44 | Outpatient (BNV) | payer OTHER, SELFPAY | PROVIDERS: Emergency Provider Emergency Medicine; PCP Internal Medicine; Visit Provider Internal Medicine Cardiovascular Disease | DX: R94.31 Abnormal electrocardiogram [ECG] [EKG] (principal) | CPT/HCPCS: 93010 ==

== ENCOUNTER → 2024-10-27 15:47 | Outpatient (BNVA) | payer OTHER, SELFPAY | PROVIDERS: PCP Internal Medicine; Visit Provider Internal Medicine | DX: Z98.84 Bariatric surgery status (principal); G47.33 Obstructive sleep apnea (adult) (pediatric); K22.70 Barrett's esophagus without dysplasia; E78.00 Pure hypercholesterolemia, unspecified; I10 Essential (primary) hypertension; K21.9 Gastro-esophageal reflux disease without esophagitis; F41.1 Generalized anxiety disorder; E66.9 Obesity, unspecified | CPT/HCPCS: 99212 ==

== ENCOUNTER → 2024-11-02 12:44 | Outpatient (BNVA) | payer OTHER, SELFPAY | PROVIDERS: PCP Internal Medicine; Visit Provider Anesthesiology | DX: M46.1 Sacroiliitis, not elsewhere classified (principal); M53.3 Sacrococcygeal disorders, not elsewhere classified; M79.7 Fibromyalgia; E66.01 Morbid (severe) obesity due to excess calories; Z68.35 Body mass index [BMI] 35.0-35.9, adult | CPT/HCPCS: 99212 ==

== ENCOUNTER 2024-11-15 11:35 | Outpatient (REF) | payer OTHER, SELFPAY ==
[2024-11-15 13:15] LABS: MANUAL DIFF FLAG NO
[2024-11-15 14:00] LABS: Basophils Absolute Auto 0.1 X10*3/uL (0.0-0.2); Basophils Percent Auto 0.9 % (0-2); Eosinophils Absolute Auto 0.1 X10*3/uL (0.0-0.4); Hematocrit 37.3 % (37.0-47.0); Imm Gran Abs Auto 0.03 X10*3/uL (0.00-0.03); Imm Gran Pct Auto 0.4 % (0.0-0.4); Immature Retic Fraction 6.8 % (3.0-15.9); Lymphocytes Absolute Auto 1.3 X10*3/uL (1.2-4.9); Lymphocytes Percent Auto 18.7 % (20-40); Mean Corpuscular HGB Conc 32.2 g/dl (31.0-35.0); Mean Corpuscular Hemoglobin 28.8 pg (27.0-33.0); Mean Corpuscular Volume 89.4 fL (80.0-98.0); Mean Platelet Volume 11.4 fL (9.4-12.3); Monocytes Absolute Auto 0.8 X10*3/uL (0.1-1.2); Monocytes Percent Auto 11.3 % (2-11); Neutrophils Absolute Auto 4.7 x10*3/uL (2.0-8.3); Neutrophils Percent Auto 67.7 % (45-73); Platelet Count 310 X10*3/uL (160-400); Red Blood Count 4.17 X10*6/uL (4.20-5.50); Red Cell Distribution Width 14.6 % (11.0-16.0); Retic HGB Equivalent 32.6 pg (30.0-35.0); Reticulocytes Absolute 0.041 X10*6/uL (0.026-0.095); White Blood Count 6.9 X10*3/uL (4.8-10.8)
[2024-11-15 14:52] LABS: Albumin Level 4.4 g/dL (3.5-5.0); Alkaline Phosphatase 89 U/L (39-117); Anion Gap 11 (12-20); Aspartate Amino Transferase 28 U/L (5-31); Bilirubin Total 0.4 mg/dL (0.0-1.0); Blood Urea Nitrogen 9 mg/dL (9-16); Calcium 9.2 mg/dL (8.4-10.2); Carbon Dioxide 26 mmol/L (22-29); Chloride 109 mmol/L (96-108); Cholesterol 203 mg/dL (<200); Estimated Glomerular Filt Rate > 60; Glucose Random 80 mg/dL (60-115); HDL Cholesterol 63 mg/dL (>40); Iron 60 mcg/dL (30-160); LDL Cholesterol Calculated 127 mg/dL (<100); Percent Iron Saturation 19 % (15-50); Potassium 3.8 mmol/L (3.3-5.1); Sodium 142 mmol/L (135-145); Total Iron Binding Capacity 317 mcg/dL (228-428); Total Protein 7.6 g/dL (6.5-8.0); Triglycerides 69 mg/dL (<150); Unsaturated Iron Binding 257 ug/dL
[2024-11-15 15:00] LABS: Alanine Aminotransferase 30 U/L (0-31)
[2024-11-15 15:10] LABS: Ferritin 37 ng/mL (10-250); Free T4 (Free Thyroxine) 1.16 ng/dL (0.71-1.85); Thyroid Stimulating Hormone 0.59 uIU/mL (0.32-4.0); Vitamin D 25-OH Total 16.5 ng/mL (>30)
[2024-11-15 15:19] LABS: Vitamin B12 303 pg/mL (200-900)
== END 2024-11-15 11:36 | disposition home or self-care (01) ==
LOC: HO.LAB 11:35
PROVIDERS: PCP Internal Medicine; Visit Provider Internal Medicine
DX: Z00.00 Encounter for general adult medical examination without abnormal findings (principal); Z23 Encounter for immunization; E78.00 Pure hypercholesterolemia, unspecified; K22.70 Barrett's esophagus without dysplasia; F41.1 Generalized anxiety disorder; N32.81 Overactive bladder; Z98.84 Bariatric surgery status
CPT/HCPCS: 36415; 80053; 80061; 82306; 82607; 82728; 82746; 83540; 84439; 84443; 85025; 85045; 90471; 90715; 96127; 99396

== ENCOUNTER 2024-11-15 11:35 | Outpatient (AMB) | payer OTHER, SELFPAY ==
[2024-11-15 11:41] VITALS: BP 98/52; PULSE 78; O2SAT 98; BMI 35.5
--- NOTE | 2024-11-15 11:41 | A.OFFPC_ITS ---
Vital Signs 11/15/24 11:41 Height 5 ft Weight 182 lb BMI 35.5 BP 98/52 L Blood Pressure Location Lt brachial Position Sitting Pulse 78 Pulse Source Pulse Oximeter Pulse Oximetry (%) 98 Oxygen Delivery Method Room Air Intake Visit Reasons: Annual PE Allergies topiramate [From TOPAMAX] Allergy (Intermediate, Verified 11/15/24 11:41) NAUSEA & VOMITING ENVIRONMENTAL Allergy (Severe, Uncoded 11/15/24 11:41) SINUS INFXN SYMPTOMS STATED BY PT Medication List - Last Reconciled 11/15/24 by Minnie Lazcano MD ascorbic acid (vitamin C) (Vitamin C) 500 mg PO DAILY atorvastatin 40 mg PO DAILY 90 days [bedside Commode As directed] cholecalciferol (vitamin D3) 50 mcg PO DAILY clonazepam 0.5 mg PO TID 30 days clotrimazole 1% 1 appl topical TID dicyclomine 10 mg PO TID PRN docusate sodium 100 mg PO BID duloxetine 40 mg PO DAILY estradiol 1 patch transdermal 2XW estradiol 0.01%(0.1mg/gram) vaginal ferrous sulfate 325 mg PO DAILY 90 days gabapentin 300 mg PO TID 90 days hydroxyzine HCl 50 mg PO BEDTIME PRN 90 days ketoconazole 2% 1 appl topical BID lidocaine 5% 1 appl topical BID PRN loratadine 10 mg PO DAILY 90 days mesalamine ER (Apriso) 1.5 grams (4 x 0.375 gram) PO QAM 1 month methocarbamol 750 mg PO Q8H miconazole nitrate 2% 1 appl topical TID mirabegron ER (Myrbetriq) 50 mg PO DAILY nystatin 1 appl topical TID omeprazole 20 mg PO TID 90 days ondansetron 4 mg PO Q8H PRN polyethylene glycol 3350 (Miralax) 17 grams PO BID progesterone micronized 200 mg PO BEDTIME [SHOWER CHAIR As directed] simethicone 125 mg PO TID-QID PRN sucralfate 10 mL PO BIDAC trazodone 50 mg PO BEDTIME ubrogepant (Ubrelvy) mg PO vibegron (Gemtesa) mg PO Tobacco use date assessed: 10/27/24 Dental Screening Dental Screen Date: 10/27/24 HPI Annual PE HPI Details states always chest pain and anxiety, states wakes up sob occ, , , occ nausea, states blurry vision and 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 The patient has a history of Gastroesophageal Reflux Disease (GERD) which has been managed with counseling. She underwent gastric bypass surgery in 2001. Additionally, she has a history of hypertension, which she describes as lower than average; however, she notes it never reaches 120 mmHg systolic pressure. Previous cholesterol testing indicated an LDL level of 161 mg/dL which prompted plans for follow-up testing. The patient reports anxiety related to weight regain post-gastric bypass and currently engages with mental health services through regular weekly sessions via phone and Skype. She is menopausal and uses hormonal therapy including a patch and cream. She experiences tinnitus and insists it affects her auditory perception. Her tactile sensory experiences are also influenced by a fatty tumor near her armpit which causes discomfort and skin irritation while wearing bras. No substantial auditory or additional adverse dermatological conditions were documented previously. Regarding gastrointestinal health, she experiences difficulty swallowing, necessitating periodic esophageal dilation by a him director. Nausea and occasional vomiting appear during meals. Her constipation is managed using docusate sodium and senna in conjunction with iron supplements. No further interventions for constipation were initiated recently. The patient underwent a colonoscopy in July 2023 following a traumatic episode that involved significant rectal bleeding. There is awareness of a necessity for annual mammography screenings; however, delayed fulfillment was due to transportation issues, despite a strong family history of breast cancer. On exercise, she engages in regular stationary biking and maintains a restricted diet focused on low-calorie, lean, and boiling methods to mitigate weight gain, influenced by previous bariatric surgery outcomes. Elective puckering surgery wasn't favored earlier due to potential infection risks. Overall healthcare includes ongoing pain management for sacroiliitis, and anticipative trials for electrical stimulation treatment following sacroiliitis. - Current on vaccinations; tetanus vacci ne administration planned. - Mammogram was last performed in 2022; discussion for renewal. - Colonoscopy completed in July 2023 . - Regular cholesterol checks scheduled, with concern over previous LDL level. - Engages in regular exercise with stati onary biking. - Engages in regular exercise using a st ationary bike for one hour daily. - Controls dietary intake strictly to ma nage weight and prevent post-gastric bypass weight gain. - Reports no tobacco or alcohol use. - Medication adherence includes complex medication regime; addresses anxiety and hormonal imbalances. - Regular follow-ups with psychiatrist a nd therapist weekly via phone and Skype. - Transportation challenges were mention ed as barriers to healthcare access. - Psychiatric: Reports anxiety and stres s over potential weight gain. - Gastrointestinal: Reports nausea, vomi ting, difficulty swallowing. - Genitourinary: Reports frequent urinat ion at night. - Auditory: Reports tinnitus, ringing so unds. - Dermatological: Notes irritation under arm due to fatty tumor. - Labs: Previous cholesterol results ind icated an LDL of 161 mg/dL. - Labs: October 23 blood work showed ane garth; Hb 11.8 g/dL. [facility] Medical History (Updated 11/15/24 @ 12:06 by Minnie Lazcano MD) Breast cancer screening by mammogram Obesity (BMI 30-39.9) Family history of ovarian cancer Chest pressure Tinea corporis Anemia Colon cancer screening Menorrhagia Vision blurring Medicare annual wellness visit, initial Sacroiliitis Gastroenteritis Chronic pain syndrome Obesity Encounter for Essure implantation Fibroadenoma Family history of breast cancer Breast mass, right H/O sigmoidoscopy Barretts esophagus Osteoarthritis, knee Fatty liver Cholelithiasis Carpal tunnel syndrome on both sides Lumbar degenerative disc disease Hypercholesterolemia Hypertension Vitamin D deficiency GERD (gastroesophageal reflux disease) Constipation Surgical History H/O esophagogastroduodenoscopy H/O colonoscopy History of section History of breast mammoplasty H/O gastric bypass History of carpal tunnel release Family History Father Colon cancer CVD (cardiovascular disease) Mother Breast cancer Brain tumor Sister Colon cancer Breast cancer Social History (Updated 10/27/24 @ 16:05 by ELIE Gregg) Household Members: Children Household Members Other:: Daugher Housing: Apartment Are you a primary career development coordinator/teacher to a significant other at home: No Do you presently have visiting nurse or other home services: Yes Unable to assess alcohol history related to: Unknown Alcohol intake: never Comment: to OR Patient Tobacco Use Status: Never used Tobacco Tobacco use type: Cigarette e-Cigarette/Vaping Use: Never Used Second Hand Smoke Exposure: No service: No Current occupational status: disabled Cognitive needs: No Hearing needs: No Vision needs: No Female Reproductive History Menstrual Age of Menarche: 14 Questionnaire PHQ-9 Over the last 2 weeks, how often have you been bothered by any of the following problems? 1. Little interest or pleasure in doing things: nearly every day 2. Feeling down, depressed, or hopeless: nearly every day 3. Trouble falling or staying asleep, or sleeping too much: nearly every day 4. Feeling tired or having little energy: nearly every day 5. Poor appetite or overeating: nearly every day 6. Feeling bad about yourself - or that you are a failure or have let yourself or your family down: not at all 7. Trouble concentrating on things, such as reading the newspaper or watching television: not at all 8. Moving or speaking so slowly that other people could have noticed. Or the opposite - being so fidgety or restless that you have been moving around a lot more than usual: several days 9. Thoughts that you would be better off or of hurting yourself in some way: not at all Total score: 16 Depression Screening Interpretation: Positive Depression Screening Done: Yes 16691 - PHQ-9 Billing: Yes Source: Developed by Drs. Curly Williamson, Yue Ren, Mathew Newton and colleagues, with an educational kenneth from [employer]. Thrive Questionnaire Date Thrive assessed: 11/15/24 I am a: Patient What is your living situation today?: I choose not to answer this question Within the past 12 months, did the food you bought not last and you didn't have the money to get more?: Often true Within the past 12 months, did you worry whether your food would run out before you got money to buy more?: Often true Do you have trouble paying for medicines?: Yes Do you have trouble getting transportation to medical appointments?: Yes Do you have trouble paying your heating and electricity bill?: Yes Do you have trouble taking care of your child, family member or friend?: No Do you have trouble with day-to-day activities such as bathing, preparing meals, shopping, managing finances, etc.?: Yes Are you currently unemployed and looking for a job?: No Are you interested in more education?: No Please select the resources that you would like help with: Food Currently or been in a relationship where the following occur: No concerns reported THRIVE Score: 4 AUDIT C Alcohol Use Questionnaire (AUDIT-C) 1. How often do you have a drink containing alcohol?: Never Total Score: 0 SHARON-7 AMB Questionnaire SHARON-7 Date SHARON - 7 assessed: 11/15/24 Feeling nervous, anxious, or on edge: 3 = Nearly every day Not being able to stop or control worryin = Nearly every day Worrying too much about different things: 3 = Nearly every day Trouble relaxin = Nearly every day Being so restless that it is hard to sit still: 3 = Nearly every day Becoming easily annoyed or irritable: 3 = Nearly every day Feeling afraid as if something awful might happen: 3 = Nearly every day Total SHARON-7 score (0-4 normal; 5-9 mild; 10-14 moderate; 15-21 severe): 21 Source: Developed by Drs. Curly Williamson, Yue Ren, Mathew Newton and colleagues, with an educational kenneth from [employer]. SHARON-7 Assessment Billing SHARON-7 Assessment Tool: SHARON-7 Assessment 67165 Review of Systems Const Denies poor appetite and Denies weakness Eyes Denies no additional complaints ENT Reports Normal hearing present, Denies dizziness, Denies nasal congestion, Denies tinnitus and Denies sore throat Card Denies chest pain, Denies syncope, Denies rapid heart rate and Denies dyspnea Resp Denies cough and Denies dyspnea GI Denies change in stool character, Reports constipation, Denies diarrhea, Denies nausea and Denies vomiting Denies urinary frequency, Denies difficulty voiding and Denies dysuria Neuro Reports Normal hearing present, Denies confusion, Denies dizziness, Denies syncope and Denies weakness Psych Denies confusion Physical exam (Primary Care) Vital Signs: Last Vital Signs Pulse 78 11/15/24 11:41 BP 98/52 L 11/15/24 11:41 Pulse Ox 98 11/15/24 11:41 Oxygen Delivery Method Room Air 11/15/24 11:41 BMI result Body Mass Index 35.5 Tobacco/Smoking Status: Tobacco use Status Tobacco use date assessed 10/27/24 11/15/24 11:48 Patient Tobacco Use Status Never used Tobacco 11/15/24 11:48 Tobacco use type Cigarette 11/15/24 11:48 e-Cigarette/Vaping Use Never Used 11/15/24 11:48 PHQ-9: PHQ-9 Score PHQ-9: Total score 16 11/15/24 12:24 Depression Screening Interpretation: Positive Thrive Assessment: Date of Thrive Assessment Date Thrive assessed 11/15/24 11/15/24 11:48 Currently or been in a relationship where the following occur: No concerns reported Const General: alert and awake; No confusion Orientation/consciousness: No confusion HENMT Head: Yes normocephalic Ears: external ears normal and TM's normal bilaterally Face and sinus: Yes normal facial exam Mouth: moist mucous membranes Throat: Yes tonsils normal Eyes Conjunctivae: conjunctivae normal Pupils: Equal, round and reactive pupils present and Pupil accommodation reflex normal Direct Ophthalmoscopy: normal light reflex Neck Neck: No lymphadenopathy Thyroid: Thyroid normal Chest Chest palpation & inspection: normal inspection of the chest Resp Effort & Inspection: normal respiratory effort and no audible wheezes Auscultation: clear to auscultation bilaterally, no crackles, no wheezes and lung sounds not diminished Cardio Rate: regular rate Rhythm: regular rhythm Peripheral pulses: radial pulses present and dorsalis pedis present GI Palpation (GI): no masses Auscultation: normal bowel sounds and normoactive bowel sounds Rectal Exam - Female: deferred Skin General skin exam: no rashes or lesions noted Rashes: no rashes Neuro General: deep tendon reflexes 2+ bilaterally and No confusion Cranial nerves: Yes Equal, round and reactive pupils present, Yes Midline tongue present, Yes Normal hearing present and Yes Ability to bilaterally elevate shoulders present Cognition (Neuro): normal cognition Gait exam (Neuro): Normal gait present Motor exam (neuro): 5/5 motor strength present throughout Deep tendon reflexes (DTR's): Right brachioradialis reflex intensity grade: 2+, Left brachioradialis reflex intensity grade: 2+, Right patellar reflex intensity grade: 2+ and Left patellar reflex intensity grade: 2+ Extrem General: No edema Immunizations Boostrix Tdap 2.5 Lf unit-8 mcg-5 Lf/0.5 mL intramuscular syringe Performing Provider: Minnie Lazcano MD [facility] [place] [facility] Administered by: Marielos Saavedra CMA on 11/15/24 12:24 Dose Route Admin Location Dispensed Lot Number Expiration Date [facility] [employer] 0.5 mL IM Left Deltoid 0.5 mL [id number] 01/14/27 30369-550-70 [employer] VIS Given Date VIS Provided VIS Publication Date 11/15/24 Single Vaccine 21 Eligibility Eligibility Date Funding Source Not VFC Eligible 11/15/24 Private Coding Level of Care Code Est Pt Prev Care 40-64y(34168) Diagnoses Annual physical exam Z00.00 Hypercholesterolemia E78.00 Renee's esophagus without dysplasia K22.70 Renee's esophagus type: without dysplasia Generalized anxiety disorder F41.1 H/O gastric bypass Z98.84 Overactive bladder N32.81 Breast cancer screening by mammogram Z12.31 Additional Codes SHARON-7 Assessment Billing - SHARON-7 Assessment Tool: SHARON-7 Assessment 17224 ([id number]) PHQ-9 - 02416 - PHQ-9 Billing: Yes ([id number]) Assessment & Plan Assessment & Plan (1) Annual physical exam: Code(s): Z00.00 - Encounter for general adult medical examination without abnormal findings Category: Medical Plan: Patient is advised to eat healthy, keep well hydrated, keep active and have adequate sleep. (2) Hypercholesterolemia: Code(s): E78.00 - Pure hypercholesterolemia, unspecified Category: Medical Plan: Avoid fried foods, chicken skin, eggs, butter margarine, pastries and meat. Be it pork or beef they have a lot of cholesterol patient needs a repeat of the blood work. On atorvastatin 40 mg once a day (3) Barretts esophagus: Code(s): K22.70 - Renee's esophagus without dysplasia Category: Medical Qualifiers: Renee's esophagus type: without dysplasia Qualified Code(s): K22.70 - Renee's esophagus without dysplasia Plan: Avoid the foods that causes that usually spicy foods, tomato products, juices, coffee, soda and foods that your sensitive to. After eating do not lie down, allow 3-4 hours before in lie down. And keep the head of bed above 30 degrees to avoid the acid from going up. (4) Generalized anxiety disorder: Comment: Referral to [facility], [facility] (09/2024) Code(s): F41.1 - Generalized anxiety disorder Category: Medical Plan: Continue with counseling and therapy (5) H/O gastric bypass: Comment: [address] [facility] [address] Tang Code(s): Z98.84 - Bariatric surgery status Category: Surgical Plan: Continue with bariatric surgeon (6) Overactive bladder: Code(s): N32.81 - Overactive bladder Category: Medical Plan: Continue to follow-up with urology on gemtessa (7) Breast cancer screening by mammogram: Code(s): Z. - Encounter for screening mammogram for malignant neoplasm of breast Category: Medical Plan - Emphasize the need to renew cholesterol testing and review lipid profiles closely due to elevated LDL. - Continue Atorvastatin therapy and encourage adherence for hypercholesterolemia management. - Maintain current hypertension monitoring as readings suggest normal levels. - Continue consultations with gastroenterology concerning esophageal dilation and manage GERD with Omeprazole. - Manage overactive bladder symptoms with Myrbetriq; monitor efficacy. - Continue iron supplements with awareness of possible constipation; advise utilization of Senna and Docusate sodium to mitigate. - Anxiety management through consistent therapy sessions and Clonazepam as needed approved. - Suggest follow-up regarding the fatty tumor if discomfort escalates. - Keep current hormonal therapy regimen involving estrogen patches and progesterone for menopausal symptoms. - Tinnitus to be evaluated if symptoms persist or worsen. - Annual mammograms and up-to-date colonoscopies essential, especially given family cancer history. During this visit, I emphasized the continuation of hypercholesterolemia management with current Atorvastatin therapy while addressing anxiety due to anticipated weight gain from prior gastric bypass procedures. I advanced conversations surrounding transportation challenges impeding access to specialist consultations and follow-up testing and suggested methods to secure necessary appointments for mammograms. Due to patient's complaints of persistent tinnitus, I suggested a potential follow-up on auditory function depending on symptom progression. Risk and benefits of hormonal therapy for menopausal symptoms and strategies to mitigate constipation-induced by iron supplementation were prioritized, focusing on proactive prevention. - Schedule and complete a mammogram as soon as feasible. - Maintain the current regimen for cholesterol management with Atorvastatin. - Follow up with therapeutic appointments; continue engagement as currently provided. - Engage in regular blood monitoring; complete due lab tests. - Maintain iron supplementation but address constipation with proactive countermeasures. - Monitor diet and exercise to prevent significant weight fluctuations. - Avoid excessive moisture on the skin to prevent fungal infections. - Utilize prescribed creams for dermatological complaints as directed. Orders: Orders TDaP Immunization Today Z23 - Encounter for immunization MM tomosynthesis screening BI Today Z12.31 - Encounter for screening mammogram for malignant neoplasm of breast Medications: Refilled tirzepatide (weight loss) (Zepbound) 10 mg (0.5 mL) subcut QWEEK 2 mL 0RF E66.9 - Obesity, unspecified ketoconazole 2% 1 appl topical BID 60 grams 0RF G89.29 - Other chronic pain, M54.50 - Low back pain, unspecified
--- OUTSIDE RECORDS SUMMARY | 2024-11-15 12:47 | XMS_ITS | Continuity of Care Document ---
Author Organization [facility] [employer] [facility] Address [address] [place] [address], [address] [place] [address]- Care Team Providers Care Taxation Agent Name Role Phone Po Minnie TRUONG [id number]/17/[facility] - 11/05/24 [facility] [address], [address] [place] [address]- Attending Physician: Not on Staff, Attending MD Referring Physician: Josy CALVILLO, Malena Gilbert Encounter Type: Pre-OutPatient One Time Allergies, Adverse Reactions, Alerts Substance Criticality Severity Reaction Reaction Severity Status Topamax Active Medications amitriptyline 50 mg oral tablet 1 tablet = 50 mg, By Mouth, Daily at bedtime, 0 Refills, Maintenance, 11/18/20 11:52:00 AM EST, Partial fill upon patient request if the prescription is for a schedule II opioid drug. Start Date: 11/18/20 Status: Ordered Repeat number: 1 amitriptyline 50 mg oral tablet 0 Refills, Maintenance, 11/30/20 2:50:00 PM EST, Partial fill upon patient request if the prescription is for a schedule II opioid drug. Start Date: 11/30/20 Status: Ordered Repeat number: 1 atorvastatin 40 mg oral tablet 1 tablet = 40 mg, By Mouth, Daily at bedtime, # 30 tablet, 1 Refills, Maintenance, 11/19/20 10:42:00AM EST, Tablet, [facility], Partial fill upon patient request if the prescription is for a schedule II opioid drug., 154.9, cm, 11/19/20 8:05:00 EST, Height, 93, kg, 11/17/20 22:24:00EST, Dry Weight Start Date: 11/19/20 Stop Date: 01/18/21 Status: Ordered Quantity: 30.0 Unit: tablet Repeat number: 2 atorvastatin 40 mg oral tablet 0 Refills, Maintenance, 11/30/20 2:51:00 PM EST, Partial fill upon patient request if the prescription is for a schedule II opioid drug. Start Date: 11/30/20 Status: Ordered Repeat number: 1 Clonazepam = 0.5 mg, By Mouth, 2 times a day, 0 Refills, Maintenance, 06/30/11 2:30:13 AM EDT Start Date: 06/30/11 Status: Ordered Repeat number: 1 clonazePAM 0.5 mg oral tablet 0 Refills, Maintenance, 11/30/20 2:50:00 PM EST, Partial fill upon patient request if the prescription is for a schedule II opioid drug. Start Date: 11/30/20 Status: Ordered Repeat number: 1 Daily Multi 1 tablet, By Mouth, Daily, 0 Refills, Maintenance, 09/07/16 11:52:37 AM EST Start Date: 09/07/16 Status: Ordered Repeat number: 1 dicyclomine 10 mg oral capsule 1 capsule = 10 mg, By Mouth, 3 times a day, # 40 capsule, 0 Refills, Maintenance, 11/19/20 10:31:00 AM EST, Capsule, Partial fill upon patient request if the prescription is for a schedule II opioid drug. Start Date: 11/19/20 Stop Date: 11/29/20 Status: Ordered Quantity: 40.0 Unit: capsule Repeat number: 1 dicyclomine 10 mg oral capsule 0 Refills, Maintenance, 11/30/20 2:50:00 PM EST, Partial fill upon patient request if the prescription is for a schedule II opioid drug. Start Date: 11/30/20 Status: Ordered Repeat number: 1 Docu Soft sodium 100 mg oral capsule 1 capsule = 100 mg, By Mouth, 2 times a day, PRN for constipation, 0 Refills, Maintenance, 09/07/1611:50:15 AM EST, Capsule Start Date: 09/07/16 Status: Ordered Repeat number: 1 duloxetine 30 mg oral enteric coated capsule 1 capsule = 30 mg, By Mouth, 2 times a day, # 180 capsule, 0 Refills, Maintenance, 11/19/20 10:32:00AM EST, [facility], Partial fill upon patient request if the prescription is for a schedule II opioid drug. Start Date: 11/19/20 Status: Ordered Quantity: 180.0 Unit: capsule Repeat number: 1 duloxetine 30 mg oral enteric coated capsule 0 Refills, Maintenance, 11/30/20 2:50:00 PM EST, Partial fill upon patient request if the prescription is for a schedule II opioid drug. Start Date: 11/30/20 Status: Ordered Repeat number: 1 ferrous sulfate 325 mg oral tablet 1 tablet = 325 mg, By Mouth, 2 times a day, # 60 tablet, 3 Refills, Maintenance, 11/19/20 10:43:00 AM EST, Tablet, [facility], Partial fill upon patient request if the prescription is for a schedule II opioid drug., 154.9, cm, 11/19/20 8:05:00 EST, Height, 93, kg, 11/17/20 22:24:00 EST, Dry Weight Start Date: 11/19/20 Stop Date: 03/19/21 Status: Ordered Quantity: 60.0 Unit: tablet Repeat number: 4 Flonase 50 mcg/inh nasal spray 1 sprays, Nares, Both, 2 times a day, # 16 Gm, 1 Refills, Maintenance, 08/23/22 1:38:00 PM EST, Lucas, [facility]/pharmacy #[id number], Partial fill upon patient request if the prescription is for a schedule II opioid drug., 1 sprays Nares, Both 2 times a day,x30 days, 154.9, cm, 06/24/22 13:43:00 EDT, Height, 93, kg, 11/17/20 22:24:00 EST, Dry Weight Start Date: 08/23/22 Stop Date: 10/22/22 Status: Ordered Quantity: 16.0 Unit: g Repeat number: 2 gabapentin 300 mg oral capsule 300 mg, 1, capsule, By Mouth, 3 times a day, # 90 capsule, Refills 0, Maintenance, 11/18/20 10:22:00AM EST, Partial fill upon patient request if the prescription is for a schedule II opioid drug. Start Date: 11/18/20 Status: Ordered Quantity: 90.0 Unit: capsule Repeat number: 1 gabapentin 300 mg oral capsule Refills 0, Maintenance, 11/30/20 2:50:00 PM EST, Partial fill upon patient request if the prescription is for a schedule II opioid drug. Start Date: 11/30/20 Status: Ordered Repeat number: 1 hydrochlorothiazide 25 mg oral tablet 25 mg, 1, tablet, By Mouth, Daily, # 30 tablet, Refills 0, Maintenance, 11/19/20 10:41:00 AM EST, Partial fill upon patient request if the prescription is for a schedule II opioid drug. Start Date: 11/19/20 Status: Ordered Quantity: 30.0 Unit: tablet Repeat number: 1 hydrochlorothiazide 25 mg oral tablet Refills 0, Maintenance, 11/30/20 2:50:00 PM EST, Partial fill upon patient request if the prescription is for a schedule II opioid drug. Start Date: 11/30/20 Status: Ordered Repeat number: 1 hydrOXYzine hydrochloride 25 mg oral tablet 1 tablet = 25 mg, By Mouth, Daily, # 30 tablet, 0 Refills, Maintenance, 04/16/21 11:23:00 AM EDT, Tablet, Partial fill upon patient request if the prescription is for a schedule II opioid drug. Start Date: 04/16/21 Status: Ordered Quantity: 30.0 Unit: tablet Repeat number: 1 lactulose 10 gm/15 ml oral syrup 0 Refills, Maintenance, 11/30/20 2:52:00 PM EST, Partial fill upon patient request if the prescription is for a schedule II opioid drug. Start Date: 11/30/20 Status: Ordered Repeat number: 1 magnesium oxide 400 mg oral tablet 1 tablet = 400 mg, By Mouth, Daily, for 30 days, # 30 tablet, 6 Refills, Acute 01/03/25 2:41:00 PM EDT, 06/07/24 2:41:00 PM EDT, Tablet, [facility]/pharmacy #[id number], Partial fill upon patient request if the prescription is for a schedule II opioid drug., 155, cm, 06/07/24 14:19:00 EDT, Height, 104.5, kg, 12/24/23 16:54:00 EDT, Dry Weight Start Date: 06/07/24 Stop Date: 01/03/25 Status: Ordered Quantity: 30.0 Unit: tablet Repeat number: 7 Omeprazole = 20 mg, By Mouth, 2 times a day, 0 Refills, Maintenance, 09/07/16 11:51:55 AM EST Start Date: 09/07/16 Status: Ordered Repeat number: 1 omeprazole 20 mg oral enteric coated capsule 0 Refills, Maintenance, 11/30/20 2:51:00 PM EST, Partial fill upon patient request if the prescription is for a schedule II opioid drug. Start Date: 11/30/20 Status: Ordered Repeat number: 1 predniSONE 10 mg oral tablet See Instructions, 6 tabs po in am on day one, 5 on day 2, 4 on day 3, 3 on day 4, 2 on day 5, 1 on day 6, then stop take with food, # 24 tablet, 0 Refills, Maintenance, 01/15/21 6:19:00 PM EDT, [facility], Partial fill upon patient request if the prescription is for a schedule II opioid drug., 154.9, cm, 11/19/20 10:56:00 EST, Height, 93, kg, 11/17/20 22:24:00 EST, Dry Weight Start Date: 01/15/21 Status: Ordered Quantity: 24.0 Unit: tablet Repeat number: 1 riboflavin 400 mg oral capsule 1 capsule = 400 mg, By Mouth, Daily, # 30 capsule, 3 Refills, Maintenance, 11/30/20 3:03:00 PM EST, Capsule, [facility], Partial fill upon patient request if the prescription is for a schedule II opioid drug., 154.9, cm, 11/19/20 10:56:00 EST, Height, 93, kg, 11/17/20 22:24:00 EST, Dry Weight Start Date: 11/30/20 Stop Date: 03/30/21 Status: Ordered Quantity: 30.0 Unit: capsule Repeat number: 4 sucralfate 1 gm oral tablet 1 Gm, 1, tablet, By Mouth, 2 times a day, # 180 tablet, Refills 0, Maintenance, 11/19/20 10:31:00 AMEST, Partial fill upon patient request if the prescription is for a schedule II opioid drug. Start Date: 11/19/20 Status: Ordered Quantity: 180.0 Unit: tablet Repeat number: 1 sucralfate 1 gm oral tablet Refills 0, Maintenance, 11/30/20 2:50:00 PM EST, Partial fill upon patient request if the prescription is for a schedule II opioid drug. Start Date: 11/30/20 Status: Ordered Repeat number: 1 traZODone 50 mg oral tablet 50 mg, 1, tablet, By Mouth, Daily at bedtime, PRN, Refills 0, Maintenance, insomnia, 09/07/16 11:50:53 AM EST Start Date: 09/07/16 Status: Ordered Repeat number: 1 Ubrelvy 100 mg oral tablet See Instructions, TAKE 1 TAB BY MOUTH ONCE NEEDED FOR MIGRAINE HEADACHE. MAY REPEAT IN 2HRS IF NEEDED. USE NO MORE THAN 2 DOSES IN 24HRS OR 2 DAYS PER WEEK., # 16 tablet, 8 Refills, Maintenance, 06/07/24 2:40:00 PM EDT, [id number], Ubrelvy was working very well. Prior to Ubrelvy sumatriptan was ineffective and due to her hypertension and sinus arrhythmia we are avoiding further triptan u se., 155, cm, 06/07/24 14:19:00 EDT, Height, 104.5, kg, 12/24/23 16:54:00 EDT, Dry Weight Start Date: 06/07/24 Status: Ordered Quantity: 16.0 Unit: tablet Repeat number: 9 Vitamin C 500 mg oral tablet 1 tablet = 500 mg, By Mouth, Daily, # 90 tablet, 4 Refills, Maintenance, 07/04/11 12:00:00 PM EDT, Tablet, [id number] Start Date: 07/04/11 Status: Ordered Quantity: 90.0 Unit: tablet Repeat number: 5 Problem List Condition Confirmation Course Effective Dates Status Health St atus Informant Chronic insomnia Confirmed Active Nasal congestion Confirmed Active Obstructive sleep apnea Confirmed Active Severe obesity (BMI 35.0-39.9) with comorbidity Confirmed Active Tiredness Confirmed Active Patient Care team information Care Team Personnel Name: Minnie Lazcano MD Position: Reference Physician Member Role: PCP Address: [address] [place] [address] Telecom: Care Team Related Persons Name: KINGSLEY CRUZ Name: DEIDRA BILLS Name: ARMANDO BILLS Insurance Providers Guarantor name: ARON CRUZ Health Plan Information #: 1 Payer: [employer] Member Number: [id number] Policy Number: NA Group Number: [facility] Health Plan Information #: 2 Payer: NA Member Number: NA Policy Number: NA Group Number: NA Health Plan Information #: 3 Payer: MEDICARE PART B OUTPT Member Number: NA Policy Number: NA Group Number: NA Health Plan Information #: 4 Payer: [facility] [employer] C[employer] Member Number: [id number] Policy Number: NA Group Number: NA Health Plan Information #: 5 [facility] Member Number: NA Policy Number: NA Group Number: NA
== END 2024-11-15 12:40 | disposition home or self-care (01) ==
PROVIDERS: PCP Internal Medicine; Visit Provider Internal Medicine
DX: Z00.00 Encounter for general adult medical examination without abnormal findings (principal); E78.00 Pure hypercholesterolemia, unspecified; K22.70 Barrett's esophagus without dysplasia; F41.1 Generalized anxiety disorder; Z98.84 Bariatric surgery status; N32.81 Overactive bladder; Z12.31 Encounter for screening mammogram for malignant neoplasm of breast; Z23 Encounter for immunization

== ENCOUNTER 2024-11-25 11:39 | Outpatient (REF) | payer OTHER, SELFPAY ==
--- NOTE | ~2024-11-25 | MM_ITS ---
EXAMINATION: MM SCREENING DIGITAL BREAST TOMOSYNTHESIS, BILATERAL CLINICAL INFORMATION: Screening. Asymptomatic. COMPARISON: Mammography: Comparison is made with available priors TECHNIQUE: Digital breast mammography with tomosynthesis is performed in both the craniocaudal and mediolateral oblique views along with computer-aided detection (CAD). FINDINGS: There are scattered areas of fibroglandular density (ACR BI-RADS breast composition Category b). Bilateral reduction mammoplasty. Right marker clip. There are no significant masses, abnormal calcifications, or other abnormalities. MM/MM tomosynthesis screening BI IMPRESSION: No mammographic evidence of malignancy. ASSESSMENT: BI-RADS BI-RADS 2 - Benign Findings RECOMMENDATION: Routine annual mammography screening. 1 year F/U This examination should not preclude the clinical evaluation of a suspicious palpable abnormality. This patient's information was entered into a reminder system with a target due date for their next mammogram. Electronically signed by: Obdulia Santana DO 11/28/2024 05:26 PM EKTA
--- OUTSIDE RECORDS SUMMARY | 2024-11-25 13:58 | XMS_ITS | Continuity of Care Document ---
Author Organization [facility] [employer] [facility] Address [address] [place] [address], [address] [place] [address]- Care Team Providers Care Automobile Body Repairer Helper Name Role Phone Po Minnie TRUONG Primary Care Physician Encounter [facility] [place] Date(s): 10/20/24 - 11/19/24 [facility] [address] [place], [place] [address] Attending Physician: Sarah Meng Admitting Physician: Sarah Meng Referring Physician: Sarah Meng Encounter Type: Triage Allergies, Adverse Reactions, Alerts Substance Criticality Severity [...] 1 Refills, Maintenance, 08/23/22 1:38:00 PM EST, Boss, [facility]/pharmacy #[id number], Partial fill upon patient request [...] PM EDT, 06/07/24 2:41:00 PM EDT, Tablet, [facility]/pharmacy #[id number], Partial fill upon patient request if the [...] Maintenance, 07/04/11 12:00:00 PM EDT, Tablet, [id number] Start Date: 07/04/11 Status: Ordered Quantity: 90.0 [...] Position: Reference Physician Member Role: PCP Address: [address] [place] [address] Telecom: Care Team Related Persons Name: KINGSLEY CRUZ Name: DEIDRA BILLS Name: ARMANDO BILLS Insurance Providers Guarantor name: ARON CRUZ Health Plan Information #: 1 Payer: NA Member Number: NA Policy Number: NA Group Number: NA Health Plan Information #: 2 Payer: MEDICARE PART B OUTPT Member Number: [place] Policy Number: NA Group Number: [place] Health Plan Information #: 3 Payer: [facility] CARE ALLIANCE/[facility] CARE Member Number: NA Policy Number: NA Group Number: NA Health Plan Information #: 4 Payer: [facility] Member Number: NA Policy Number: NA Group Number: NA
--- OUTSIDE RECORDS SUMMARY | 2024-11-25 13:58 | XMS_ITS | Continuity of Care Document ---
Author Organization [facility] Address [address] [place] [address], [address] [place] [address]- Care Team Providers Care Residence Counselor Name Role Phone Po Minnie TRUONG [id number]s): [facility] [address] [place] [address], 4th [address] [place], [place] [address] Attending Physician: Suellen Andrade MD Admitting Physician: Suellen Andrade MD Referring Physician: Suellen Andrade MD Encounter Type: Pre-OutPatient One Time Allergies, Adverse [...] 1 Refills, Maintenance, 08/23/22 1:38:00 PM EST, Forrest, [facility]/pharmacy #[id number], Partial fill upon patient request [...] PM EDT, 06/07/24 2:41:00 PM EDT, Tablet, [facility]/pharmacy #[id number], Partial fill upon patient request if the [...] Refills, Maintenance, 01/15/21 6:19:00 PM EDT, [facility], Partial fill upon patient [...] Maintenance, 07/04/11 12:00:00 PM EDT, Tablet, [id number] Start Date: 07/04/11 Status: Ordered Quantity: 90.0 [...] Position: Reference Physician Member Role: PCP Address: [address] [place], [place] [address] Telecom: Care Team Related Persons Name: KINGSLEY CRUZ Name: DEIDRA BILLS Name: ARMANDO BILLS Insurance Providers Guarantor name: ARON CRUZ Health Plan Information #: 1 P[facility] CARE Member Number: [id number] Policy Number: NA Group Number: [facility] Health Plan Information #: 2 Payer: NA Member Number: NA Policy Number: NA Group Number: NA Health Plan Information #: 3 Payer: MEDICARE PART B OUTPT Member Number: NA Policy Number: NA Group Number: NA Health Plan Information #: 4 Payer: [facility] CARE ALLIANCE/ONE CARE Member Number: [id number] Policy Number: NA Group Number: NA Health Plan Information #: 5 Payer: [facility] Member Number: NA Policy Number: NA Group Number: NA
== END 2024-11-25 11:40 | disposition home or self-care (01) ==
LOC: HO.MAMMO 11:39
PROVIDERS: PCP Internal Medicine; Visit Provider Internal Medicine
DX: Z12.31 Encounter for screening mammogram for malignant neoplasm of breast (principal)
CPT/HCPCS: 77063; 77067

== ENCOUNTER → 2024-11-25 11:45 | Outpatient (BNV) | payer OTHER, SELFPAY | PROVIDERS: PCP Internal Medicine; Visit Provider Internal Medicine | DX: Z12.31 Encounter for screening mammogram for malignant neoplasm of breast (principal) | CPT/HCPCS: 77063; 77067 ==

== ENCOUNTER 2024-12-07 10:46 | Outpatient (AMB) | payer OTHER, SELFPAY ==
[2024-12-07 11:08] VITALS: BP 102/68; PULSE 72; O2SAT 98; BMI 35.2
--- NOTE | 2024-12-07 11:08 | A.OFFPC_ITS ---
Vital Signs 12/07/24 11:08 Height 5 ft Weight 180 lb BMI 35.2 BP 102/68 Blood Pressure Location Lt brachial Position Sitting Pulse 72 Pulse Source Pulse Oximeter Pulse Oximetry (%) 98 Oxygen Delivery Method Room Air Intake Visit Reasons: obesity Allergies topiramate [From TOPAMAX] Allergy (Intermediate, Verified 12/07/24 11:10) NAUSEA & VOMITING ENVIRONMENTAL Allergy (Severe, Uncoded 12/07/24 11:10) SINUS INFXN SYMPTOMS STATED BY PT Tobacco use date assessed: 10/27/24 Dental Screening Dental Screen Date: 10/27/24 [facility] Medical History (Updated 12/07/24 @ 11:55 by Minnie Lazcano MD) Breast cancer screening by mammogram Obesity (BMI 30-39.9) Family history of ovarian cancer Chest pressure Tinea corporis Anemia Colon cancer screening Menorrhagia Vision blurring Medicare annual wellness visit, initial Sacroiliitis Gastroenteritis Chronic pain syndrome Obesity Encounter for Essure implantation Fibroadenoma Family history of breast cancer Breast mass, right H/O sigmoidoscopy Barretts esophagus Osteoarthritis, knee Fatty liver Cholelithiasis Carpal tunnel syndrome on both sides Lumbar degenerative disc disease Hypercholesterolemia Hypertension Vitamin D deficiency GERD (gastroesophageal reflux disease) Constipation Surgical History H/O esophagogastroduodenoscopy H/O colonoscopy History of section History of breast mammoplasty H/O gastric bypass History of carpal tunnel release Family History Father Colon cancer CVD (cardiovascular disease) Mother Breast cancer Brain tumor Sister Colon cancer Breast cancer Social History (Updated 10/27/24 @ 16:05 by ELIE Gregg) Household Members: Children Household Members Other:: Nely Housing: Apartment Are you a primary child care center administrator to a significant other at home: No Do you presently have visiting nurse or other home services: Yes Unable to assess alcohol history related to: Unknown Alcohol intake: never Comment: to OR Patient Tobacco Use Status: Never used Tobacco Tobacco use type: Cigarette e-Cigarette/Vaping Use: Never Used Second Hand Smoke Exposure: No service: No Current occupational status: disabled Cognitive needs: No Hearing needs: No Vision needs: No Female Reproductive History Menstrual Age of Menarche: 14 Questionnaire PHQ-9 Over the last 2 weeks, how often have you been bothered by any of the following problems? 1. Little interest or pleasure in doing things: nearly every day 2. Feeling down, depressed, or hopeless: nearly every day 3. Trouble falling or staying asleep, or sleeping too much: nearly every day 4. Feeling tired or having little energy: nearly every day 5. Poor appetite or overeating: nearly every day 6. Feeling bad about yourself - or that you are a failure or have let yourself or your family down: not at all 7. Trouble concentrating on things, such as reading the newspaper or watching television: not at all 8. Moving or speaking so slowly that other people could have noticed. Or the opposite - being so fidgety or restless that you have been moving around a lot more than usual: several days 9. Thoughts that you would be better off or of hurting yourself in some way: not at all Total score: 16 Depression Screening Interpretation: Positive Depression Screening Done: Yes 16923 - PHQ-9 Billing: Yes Source: Developed by Drs. Curly Williamson, Yue Ren, Mathew Newton and colleagues, with an educational kenneth from [employer]. Thrive Questionnaire Date Thrive assessed: 11/15/24 I am a: Patient What is your living situation today?: I choose not to answer this question Within the past 12 months, did the food you bought not last and you didn't have the money to get more?: Often true Within the past 12 months, did you worry whether your food would run out before you got money to buy more?: Often true Do you have trouble paying for medicines?: Yes Do you have trouble getting transportation to medical appointments?: Yes Do you have trouble paying your heating and electricity bill?: Yes Do you have trouble taking care of your child, family member or friend?: No Do you have trouble with day-to-day activities such as bathing, preparing meals, shopping, managing finances, etc.?: Yes Are you currently unemployed and looking for a job?: No Are you interested in more education?: No Please select the resources that you would like help with: Food Currently or been in a relationship where the following occur: No concerns reported THRIVE Score: 4 AUDIT C Alcohol Use Questionnaire (AUDIT-C) 1. How often do you have a drink containing alcohol?: Never Total Score: 0 SHARON-7 AMB Questionnaire SHARON-7 Date SHARON - 7 assessed: 11/15/24 Source: Developed by Drs. Curly Williamson, Yue Ren, Mathew Newton and colleagues, with an educational kenneth from [employer]. Fall Risk Assessment Fall Risk Assessment Fall risk assessment: 2 + Falls in past year (Last week fell out of bed. ) Physical exam (Primary Care) Vital Signs: Last Vital Signs Pulse 72 12/07/24 11:08 BP 102/68 12/07/24 11:08 Pulse Ox 98 12/07/24 11:08 Oxygen Delivery Method Room Air 12/07/24 11:08 BMI result Body Mass Index 35.2 Tobacco/Smoking Status: Tobacco use Status Tobacco use date assessed 10/27/24 12/07/24 11:13 Patient Tobacco Use Status Never used Tobacco 12/07/24 11:13 Tobacco use type Cigarette 12/07/24 11:13 e-Cigarette/Vaping Use Never Used 12/07/24 11:13 PHQ-9: PHQ-9 Score PHQ-9: Total score 16 12/07/24 11:52 Depression Screening Interpretation: Positive Thrive Assessment: Date of Thrive Assessment Date Thrive assessed 11/15/24 12/07/24 11:13 Currently or been in a relationship where the following occur: No concerns reported Const General: alert; No acute distress Eyes Conjunctivae: conjunctivae normal Resp Auscultation: clear to auscultation bilaterally Cardio Rate: regular rate Rhythm: regular rhythm GI Inspection: Yes normal to inspection Extrem General: Yes normal to inspection and No edema Coding Level of Care Code Est Pt Level 4 (28822) Diagnoses Essential hypertension I10 Hypertension type: essential hypertension Hypercholesterolemia E78.00 Renee's esophagus without dysplasia K22.70 Renee's esophagus type: without dysplasia Generalized anxiety disorder F41.1 H/O gastric bypass Z98.84 Obesity (BMI 30-39.9) E66.9 Frequency of micturition R35.0 Additional Codes PHQ-9 - 70329 - PHQ-9 Billing: Yes ([id number]) Assessment & Plan Assessment & Plan (1) Hypertension: Code(s): I10 - Essential (primary) hypertension Category: Medical Qualifiers: Hypertension type: essential hypertension Qualified Code(s): I10 - Essential (primary) hypertension (2) Hypercholesterolemia: Code(s): E78.00 - Pure hypercholesterolemia, unspecified Category: Medical (3) Barretts esophagus: Code(s): K22.70 - Renee's esophagus without dysplasia Category: Medical Qualifiers: Renee's esophagus type: without dysplasia Qualified Code(s): K22.70 - Renee's esophagus without dysplasia (4) Generalized anxiety disorder: Comment: Referral to [facility], [facility] (09/2024) Code(s): F41.1 - Generalized anxiety disorder Category: Medical (5) H/O gastric bypass: Comment: [address] [facility] [address] Tang Code(s): Z98.84 - Bariatric surgery status Category: Surgical (6) Obesity (BMI 30-39.9): Code(s): E66.9 - Obesity, unspecified Category: Medical (7) Frequency of micturition: Code(s): R35.0 - Frequency of micturition Category: Medical Plan: urinalysis ordered Plan History of Present Illness The patient is a 49-year-old female presenting with frequent urination and issues related to medication side effects. She has chronic conditions like GERD, hypertension, hypercholesterolemia, Renee's esophagus, and generalized anxiety disorder. She experiences nocturia, waking three to four times at night due to her medication-induced water consumption. Recent symptoms of dizziness and muscular spasms result from her medication for anxiety and overactive bladder, which she has tried regulating by adjusting times of intake. Post-gastric bypass in 2001, she has actively engaged in health maintenance, evidenced by timely mammograms, colonoscopies, and actively managed cholesterol levels. Normal blood results were reported in October except for low vitamin D for which she supplem ents daily. Health Maintenance - Mammogram is up to date - Colonoscopy last conducted in July 2023 - Vitamin D supplementation advised due to low levels (16.5, desired >30) - Blood cholesterol management with recent improvement: LDL reduced from 164 to 127 - Regular bloodwork with all parameters within normal limits except vitamin D Social History - Medication regimen involves clonazepam (for anxiety), gabapentin (for muscle issues), hydroxyzine, methocarbamol, and cholesterol medication - Lifestyle adjustments to minimize nocturnal drinking to improve sleep distance - Participated in and has interest in weight management programs Review of Systems - Neurological: Reports dizziness, muscle spasms, and lightheadedness - Urinary: Reports frequent urination, especially nocturia (3-4 times per night) Physical Exam Results - Labs: Normal blood count, electrolytes, renal function, blood sugar, and liver function tests. Vitamin D low at 16.5 (desired >30) - Cholesterol: LDL decreased from 164 to 127 Plan Urinalysis will investigate overactive bladder symptoms. Medication schedules for clonazepam and gabapentin are suggested to shift towards evening dosages to help reduce daytime symptoms. Consistent vitamin D intake is emphasized due to persistently low serum levels. The continued positive trajectory of cholesterol levels is crucial for her cardiovascular health, supported by regular monitoring and adjustments to her lifestyle as necessary. Patient was informed and verbally consented to the use of an ambient scribe for clinic note documentation during this visit. Discussion Notes During our discussion, we identified the challenges posed by the current medication regimen, specifically addressing the side effects such as dizziness and muscle spasms. I suggested modifying the intake schedule of certain medications like clonazepam and gabapentin to minimize these side effects, focusing on evening administration to prevent interference with her daily activities. Maintaining vitamin D levels and continued vigilance with cholesterol monitoring were discussed. Support and compliance were emphasized, and her concerns over nocturia were noted, leading to a plan for a urinalysis to explore further causes. We acknowledged her adherence to preventive health measures and her improvement in cholesterol levels. Follow-up care coordination and appropriate scheduling were reinforced, and the patient's understanding and agreement were obtained. Patient Instructions - Limit fluid intake two hours before bedtime to minimize nocturia - Continue daily vitamin D supplementation - Adjust medication timing to mostly evening doses to reduce daytime dizziness - Ensure adequate sleep ? aim for 6-8 hours per night - Follow up with weight management strategies as needed - Coordinate further with prescribed dietary and cholesterol management plan - Await results of urinalysis for further bladder assessment and communicate findings or symptoms of concern promptly Orders: Orders AMB Urinalysis Automated Today R35.0 - Frequency of micturition, Z13.9 - E ncounter for screening, unspecified
== END 2024-12-07 12:02 | disposition home or self-care (01) ==
LOC: HO.HMCH 10:49
PROVIDERS: PCP Internal Medicine; Visit Provider Internal Medicine
DX: I10 Essential (primary) hypertension (principal); E78.00 Pure hypercholesterolemia, unspecified; E66.9 Obesity, unspecified; Z68.35 Body mass index [BMI] 35.0-35.9, adult; K22.70 Barrett's esophagus without dysplasia; F41.1 Generalized anxiety disorder; Z98.84 Bariatric surgery status; R35.0 Frequency of micturition

== ENCOUNTER → 2024-12-07 10:46 | Outpatient (BNVA) | payer OTHER, SELFPAY | PROVIDERS: PCP Internal Medicine; Visit Provider Internal Medicine | DX: I10 Essential (primary) hypertension (principal); E78.00 Pure hypercholesterolemia, unspecified; K22.70 Barrett's esophagus without dysplasia; F41.1 Generalized anxiety disorder; E66.9 Obesity, unspecified; R35.0 Frequency of micturition; Z98.84 Bariatric surgery status | CPT/HCPCS: 96127; 99212 ==

== ENCOUNTER 2024-12-26 12:05 | Emergency (ER) | payer OTHER, SELFPAY ==
[2024-12-26 12:10] VITALS: BP 106/53; PULSE 62; RESP 16; TEMP 36.7; O2SAT 96; BMI 34.6
--- NOTE | 2024-12-26 12:14 | ED_ITS ---
HPI - General Adult General Chief complaint: Eye Problems Stated complaint: Blurry/Burning Sensation in Both Eyes Time Seen by Provider: 12/26/24 20:15 Source: patient Limitations: no limitations History of Present Illness ED Provider: Elly Heath PA-C HPI narrative: 49-year-old female with a history of fibromyalgia, hypertension, hyperlipidemia, GERD, constipation, IBS, arthritis, iron deficiency anemia, who presents with bilateral eyelid pain and swelling x3 months. Patient states when she wakes in the morning both the upper and lower lids are swollen and red. she describes the pain as a burning sensation. The globe itself is not affected. Denies new facial products, soap or other body products. She denies being in contact with an environmental irritant. Patient saw her primary care provider, was prescribed an ointment, however her insurance would not cover it; she can not recall what it was. Related Data Home Medications ?Medication ?Instructions ?Recorded ?Confirmed dicyclomine 10 mg capsule 10 mg PO TID PRN GI UPSET 08/06/23 11/15/24 sucralfate 100 mg/mL oral 10 ml PO BIDAC 08/06/23 11/15/24 suspension estradiol 0.01% (0.1 mg/gram) vaginal 06/13/24 11/15/24 vaginal cream estradiol 0.05 mg/24 hr semiweekly 1 patch transdermal 2XW 06/13/24 11/15/24 transdermal patch progesterone micronized 200 mg 200 mg PO BEDTIME 06/13/24 11/15/24 capsule ubrogepant 100 mg tablet (Ubrelvy) mg PO 06/13/24 11/15/24 Previous Rx's ?Medication ?Instructions ?Recorded polyethylene glycol 3350 17 17 g PO BID #510 grams 08/31/23 gram/dose oral powder (Miralax) hydroxyzine HCl 50 mg tablet 50 mg PO BEDTIME PRN anxiety 90 09/08/23 days #90 tabs nystatin 100,000 unit/gram topical 1 appl topical TID #60 grams 09/08/23 powder simethicone 125 mg capsule 125 mg PO TID-QID PRN abdominal 09/08/23 distention #90 caps SHOWER CHAIR #1 ea 12/10/23 trazodone 50 mg tablet 50 mg PO BEDTIME #90 tabs 12/10/23 bedside Commode #1 ea 04/06/24 clonazepam 0.5 mg tablet 0.5 mg PO TID 30 days #90 tabs 04/22/24 clotrimazole 1 % topical cream 1 appl topical TID #45 grams 05/03/24 mirabegron 50 mg tablet,extended 50 mg PO DAILY #30 tabs 05/19/24 release 24 hr (Myrbetriq) mesalamine 0.375 gram 1.5 g (4 x 0.375 gram) PO QAM 1 06/13/24 capsule,extended release 24 hr month #120 caps (Apriso) methocarbamol 750 mg tablet 750 mg PO Q8H #20 tabs 08/16/24 ondansetron 4 mg disintegrating 4 mg PO Q8H PRN nausea and 10/23/24 tablet vomiting #7 tabs duloxetine 40 mg capsule,delayed 40 mg PO DAILY #30 caps 10/27/24 release lidocaine 5 % topical ointment 1 appl topical BID PRN pain #35.44 11/09/24 grams ketoconazole 2 % topical cream 1 appl topical BID #60 grams 11/15/24 miconazole nitrate 2 % topical 1 appl topical TID #85 grams 11/29/24 powder ascorbic acid (vitamin C) 500 mg 500 mg PO DAILY #90 tabs 12/13/24 tablet (Vitamin C) atorvastatin 40 mg tablet 40 mg PO DAILY 90 days #90 tabs 12/13/24 cholecalciferol (vitamin D3) 50 50 mcg PO DAILY #28 tabs 12/13/24 mcg (2,000 unit) tablet docusate sodium 100 mg capsule 100 mg PO BID #56 caps 12/13/24 ferrous sulfate 325 mg (65 mg 325 mg PO DAILY 90 days #90 tabs 12/13/24 iron) tablet loratadine 10 mg tablet 10 mg PO DAILY 90 days #90 tabs 12/13/24 omeprazole 20 mg capsule,delayed 20 mg PO TID 90 days #270 caps 12/13/24 release gabapentin 300 mg capsule 300 mg PO TID 90 days #270 caps 12/14/24 erythromycin 5 mg/gram (0.5 %) eye 0.5 inch ophthalmic (eye) QID 5 12/26/24 ointment days #3.5 grams Allergies Allergy/AdvReac Type Severity Reaction Status Date / Time topiramate [From TOPAMAX] Allergy Intermediate NAUSEA & Verified 12/26/24 12:11 VOMITING ENVIRONMENTAL Allergy Severe SINUS Uncoded 12/07/24 11:10 INFXN SYMPTOMS STATED BY PT Review of Systems Review of Systems: Yes all other systems are reviewed and are negative Constitutional: Constitutional: Denies fatigue and Denies fever(s) Eyes: Eyes: Denies change in vision, Denies eye discharge and Reports irritation Respiratory: Respiratory: Denies cough Gastrointestinal: Gastrointestinal: Denies nausea and Denies vomiting Endocrine: Endocrine: Denies fatigue [facility] Past Medical History Attestation statement: The following information was validated with the patient. Medical History (Updated 12/26/24 @ 21:04 by SHANIA Ureña) Breast cancer screening by mammogram Obesity (BMI 30-39.9) Family history of ovarian cancer Chest pressure Tinea corporis Anemia Colon cancer screening Menorrhagia Vision blurring Medicare annual wellness visit, initial Sacroiliitis Gastroenteritis Chronic pain syndrome Obesity Encounter for Essure implantation Fibroadenoma Family history of breast cancer Breast mass, right H/O sigmoidoscopy Barretts esophagus Osteoarthritis, knee Fatty liver Cholelithiasis Carpal tunnel syndrome on both sides Lumbar degenerative disc disease Hypercholesterolemia Hypertension Vitamin D deficiency GERD (gastroesophageal reflux disease) Constipation Surgical History H/O esophagogastroduodenoscopy H/O colonoscopy History of section History of breast mammoplasty H/O gastric bypass History of carpal tunnel release Family History Family History Father Colon cancer CVD (cardiovascular disease) Mother Breast cancer Brain tumor Sister Colon cancer Breast cancer Social History Social History (Updated 10/27/24 @ 16:05 by ELIE Gregg) Household Members: Children Household Members Other:: Daugher Housing: Apartment Are you a primary healthcare consulting manager to a significant other at home: No Do you presently have visiting nurse or other home services: Yes Unable to assess alcohol history related to: Unknown Alcohol intake: never Comment: to OR Patient Tobacco Use Status: Never used Tobacco Tobacco use type: Cigarette Smoked in Last 30 Days: No e-Cigarette/Vaping Use: Never Used Second Hand Smoke Exposure: No Use of substances other than those prescribed or required for medical reasons: No Advance Directives: No Advance Directives Information Provided: Yes Patient : No service: No Current occupational status: disabled Cognitive needs: No Hearing needs: No Vision needs: No Physical Exam ED Vital Signs: Vital Signs - 24 hr 12/26/24 12:10 12/26/24 19:08 12/26/24 21:23 Temperature 98.0 F 98.3 F 99.3 F Pulse Rate 62 57 75 Respiratory Rate 16 18 16 Blood Pressure 106/53 L 117/67 144/83 H Pulse Oximetry 96 98 97 Oxygen Delivery Method Room Air Room Air Room Air 12/26/24 21:40 Temperature 99.3 F Pulse Rate 75 Respiratory Rate 16 Blood Pressure 144/83 H Pulse Oximetry 97 Oxygen Delivery Method Room Air BMI result Body Mass Index 34.6 Const Other: Alert Orientation/consciousness: patient oriented x3 Eyes Other: the globe is white there was no injection, the lids bilaterally are symmetric, no swelling or over erythema noted. The upper lids are mildly pink, subtly irritated, no ocular discharge Resp Effort & Inspection: normal respiratory effort Cardio Other: normal peripheral perfusion Skin Other: warm dry no rash Neuro General: patient oriented x3, gait normal, no focal motor deficits and CN's II- XI intact bilaterally Psych Other: cooperative Course Course Course Narrative: RME: 49-year-old female presents to ED for bilateral burning/burning that have been off and on. Patient denies any loss of vision or headache. Patient denies any recent eye trauma wearing contacts. Patient to be evaluated [facility]. Medications Administered Discontinued Medications Generic Name Dose Route Start Last Admin Trade Name Freq PRN Reason Stop Dose Admin Erythromycin 1 cm 12/26/24 21:04 12/26/24 21:33 Erythromycin Base 0.5% Oph Oin 1 Gm Tube EYE-BOTH 12/26/24 21:05 1 cm ONCE ONE Administration Fluorescein Sodium 1 strip 12/26/24 20:15 12/26/24 21:33 Fluorescein Sodium Strip EYE-BOTH 12/26/24 20:16 Not Given ONCE ONE Medical Decision Making Medical Decision Making MDM Narrative: 49-year-old female with a history of fibromyalgia, hypertension, hyperlipidemia, GERD, constipation, IBS, arthritis, iron deficiency anemia, who presents with bilateral eyelid pain and swelling x3 months. Patient states when she wakes in the morning both the upper and lower lids are swollen and red. she describes the pain as a burning sensation. The globe itself is not affected. Denies new facial products, soap or other body products. She denies being in contact with an environmental irritant. Patient saw her primary care provider, was prescribed an ointment, however her insurance would not cover it; she can not recall what it was. no relevant chronic issues History: Per patient I have considered the following differential diagnoses: Conjunctivitis, blepharitis, eczema, periorbital cellulitis Plan: Patient has had symptoms for 3 months, I believe she must be coming in contact with something that is irritating the lids. Her exam was unremarkable at this time, maybe some mild erythema of the upper lids, perhaps it is eczema. We will treat for blepharitis, we will use erythromycin, she has no risk factors for Pseudomonas. 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 We will give her the contact for Ophthalmology. Discharge Plan Discharge Clinical Impression: Blepharitis of both eyes Patient Disposition: Home, Self-Care Instructions: Blepharitis (ED) Additional Instructions: I am treating you for suspect infection of the eyelids. It is called blepharitis. See home care instructions. Use the erythromycin ointment as directed, it is placed within the eye and then over the lids. You need to follow up with an welfare centre manager, I am providing you with a contact. You can also use an over the counter eye cream that is specific for eczema. This will help to hydrate your eye lids, do not put it in the eye. Cetaphil eye gel cream can be purchased OTC at any store/pharmacy. Prescriptions: New erythromycin 5 mg/gram (0.5 %) ointment 0.5 inch ophthalmic (eye) QID 5 Days Qty: 3.5 0RF No Action clonazepam 0.5 mg tablet 0.5 mg PO TID 30 Days Qty: 90 1RF clotrimazole 1 % cream 1 appl TOPICAL TID Qty: 45 0RF mirabegron [Myrbetriq] 50 mg tablet extended release 24 hr 50 mg PO DAILY Qty: 30 0RF lidocaine 5 % ointment 1 appl topical BID PRN (Reason: pain) Qty: 35.44 0RF miconazole nitrate 2 % powder 1 appl TOPICAL TID Qty: 85 0RF omeprazole 20 mg capsule,delayed release(DR/EC) 20 mg PO TID 90 Days Qty: 270 0RF atorvastatin 40 mg tablet 40 mg PO DAILY 90 Days Qty: 90 0RF ascorbic acid (vitamin C) [Vitamin C] 500 mg tablet 500 mg PO DAILY Qty: 90 0RF ferrous sulfate 325 mg (65 mg iron) tablet 325 mg PO DAILY 90 Days Qty: 90 0RF loratadine 10 mg tablet 10 mg PO DAILY 90 Days Qty: 90 0RF docusate sodium 100 mg capsule 100 mg PO BID Qty: 56 0RF cholecalciferol (vitamin D3) 50 mcg (2,000 unit) tablet 50 mcg PO DAILY Qty: 28 0RF gabapentin 300 mg capsule 300 mg PO TID 90 Days Qty: 270 0RF sucralfate 100 mg/mL suspension 10 ml PO BIDAC dicyclomine 10 mg Capsule 10 mg PO TID PRN (Reason: GI UPSET) ondansetron 4 mg tablet,disintegrating 4 mg PO Q8H PRN (Reason: nausea and vomiting) Qty: 7 0RF (DME) SHOWER CHAIR See Rx Instructions .Route .MEDSUPPLY Qty: 1 0RF Rx Instructions: As directed trazodone 50 mg tablet 50 mg PO BEDTIME Qty: 90 3RF (DME) bedside Commode See Rx Instructions .Route .MEDSUPPLY Qty: 1 0RF Rx Instructions: As directed hydroxyzine HCl 50 mg tablet 50 mg PO BEDTIME PRN (Reason: anxiety) 90 Days Qty: 90 3RF simethicone 125 mg capsule 125 mg PO TID-QID PRN (Reason: abdominal distention) Qty: 90 2RF Rx Instructions: soft gel version please nystatin 100,000 unit/gram powder 1 appl topical TID Qty: 60 2RF polyethylene glycol 3350 [Miralax] 17 gram/dose powder 17 g PO BID Qty: 510 2RF duloxetine 40 mg capsule,delayed release(DR/EC) 40 mg PO DAILY Qty: 30 0RF Rx Instructions: CHD Molly methocarbamol 750 mg tablet 750 mg PO Q8H Qty: 20 0RF estradiol 0.05 mg/24 hr patch semiweekly 1 patch transdermal 2XW estradiol 0.01 % (0.1 mg/gram) cream vaginal progesterone micronized 200 mg capsule 200 mg PO BEDTIME Ubrelvy 100 mg tablet PO mesalamine [Apriso] 0.375 gram capsule,extended release 24hr 1.5 g PO QAM 30 Days Qty: 120 2RF ketoconazole 2 % cream 1 appl topical BID Qty: 60 0RF Referrals: Kaden Diaz [Physician] - (suspect blepharitis) Interventions: ED Discharge Assessment Last Done: 12/26/24 21:40 Discharge Date/Time: 12/26/24 21:41 Print Language: Citizen [place]
[2024-12-26 19:08] VITALS: BP 117/67; PULSE 57; RESP 18; TEMP 36.8; O2SAT 98
[2024-12-26 21:23] VITALS: BP 144/83; PULSE 75; RESP 16; TEMP 37.4; O2SAT 97
[2024-12-26] MEDS: Erythromycin Base 0.5% Oph Oin 1 GM TUBE 1 CM EYE-BOTH (21:33)
[2024-12-26 21:40] VITALS: BP 144/83; PULSE 75; RESP 16; TEMP 37.4; O2SAT 97
== END 2024-12-26 21:41 | disposition home or self-care (01) ==
PROVIDERS: Emergency Provider Emergency Medicine; PCP Internal Medicine
DX: H01.004 Unspecified blepharitis left upper eyelid (principal); H01.001 Unspecified blepharitis right upper eyelid; H53.8 Other visual disturbances; Z79.899 Other long term (current) drug therapy
CPT/HCPCS: 99283; 99284

== ENCOUNTER 2025-01-24 06:24 | Outpatient (REF) | payer OTHER, SELFPAY ==
--- NOTE | ~2025-01-24 | FL_ITS ---
EXAMINATION: FL GUIDANCE ONLY HISTORY: M46.1 - Sacroiliitis, not elsewhere classified COMPARISON: None available. TECHNIQUE: Fluoroscopy time: 0.2 minutes. Cumulative Dose: 2.41 mGy. DAP: 0.0232 mGym2 Images: 2. FINDINGS: Images demonstrate needles and contrast material in the regions of the bilateral sacroiliac joints. FL/FL guidance in treatment room IMPRESSION: Fluoroscopy during procedure. Please see procedure report for additional information. Electronically signed by: Curly Madera MD 01/25/2025 03:48 PM EDT
== END 2025-01-24 06:25 | disposition home or self-care (01) ==
LOC: CF 06:24
PROVIDERS: Visit Provider Anesthesiology
DX: M46.1 Sacroiliitis, not elsewhere classified (principal); M53.3 Sacrococcygeal disorders, not elsewhere classified; E66.01 Morbid (severe) obesity due to excess calories
CPT/HCPCS: 27096; J2003; J2795; J3301; Q9967

== ENCOUNTER 2025-01-24 11:41 | Outpatient (AMB) | payer OTHER, SELFPAY ==
[2025-01-24 11:54] VITALS: BP 110/66; PULSE 70; RESP 16; O2SAT 97
--- NOTE | 2025-01-24 11:54 | A.OFFVIS_ITS ---
Vital Signs 01/24/25 11:54 01/24/25 12:07 BP 110/66 106/68 Blood Pressure Location Lt brachial Lt brachial Position Sitting Sitting Respiration 16 16 Pulse 70 82 Pulse Source Pulse Oximeter Pulse Oximeter Pulse Oximetry (%) 97 97 Oxygen Delivery Method Room Air Room Air Intake Visit Reasons: BILATERAL THERAPEUTIC SIJ INJECTIONS Certified Emergency Vehicle Technician Required: No Allergies topiramate [From TOPAMAX] Allergy (Intermediate, Verified 01/24/25 11:55) NAUSEA & VOMITING ENVIRONMENTAL Allergy (Severe, Uncoded 01/24/25 11:55) SINUS INFXN SYMPTOMS STATED BY PT Medication List - Last Reconciled 01/24/25 by Mandie Moreno LPN ascorbic acid (vitamin C) (Vitamin C) 500 mg PO DAILY atorvastatin 40 mg PO DAILY 90 days [bedside Commode As directed] cholecalciferol (vitamin D3) 50 mcg PO DAILY clonazepam 0.5 mg PO TID 30 days clotrimazole 1% 1 appl topical TID dicyclomine 10 mg PO TID PRN docusate sodium 100 mg PO BID duloxetine 40 mg PO DAILY erythromycin 0.5 inches ophthalmic (eye) QID 5 days estradiol 1 patch transdermal 2XW estradiol 0.01%(0.1mg/gram) vaginal ferrous sulfate 325 mg PO DAILY 90 days gabapentin 300 mg PO TID 90 days hydroxyzine HCl 50 mg PO BEDTIME PRN 90 days ketoconazole 2% 1 appl topical BID lidocaine 5% 1 appl topical BID PRN loratadine 10 mg PO DAILY 90 days mesalamine ER (Apriso) 1.5 grams (4 x 0.375 gram) PO QAM 1 month methocarbamol 750 mg PO Q8H miconazole nitrate 2% 1 appl topical TID mirabegron ER (Myrbetriq) 50 mg PO DAILY nystatin 1 appl topical TID omeprazole 20 mg PO TID 90 days ondansetron 4 mg PO Q8H PRN polyethylene glycol 3350 (Miralax) 17 grams PO BID progesterone micronized 200 mg PO BEDTIME [SHOWER CHAIR As directed] simethicone 125 mg PO TID-QID PRN sucralfate 10 mL PO BIDAC trazodone 50 mg PO BEDTIME ubrogepant (Ubrelvy) mg PO PFSH Medical History (Updated 12/27/24 @ 00:02 by Mary Mcgee) Breast cancer screening by mammogram Obesity (BMI 30-39.9) Family history of ovarian cancer Chest pressure Tinea corporis Anemia Colon cancer screening Menorrhagia Vision blurring Medicare annual wellness visit, initial Sacroiliitis Gastroenteritis Chronic pain syndrome Obesity Encounter for Essure implantation Fibroadenoma Family history of breast cancer Breast mass, right H/O sigmoidoscopy Barretts esophagus Osteoarthritis, knee Fatty liver Cholelithiasis Carpal tunnel syndrome on both sides Lumbar degenerative disc disease Hypercholesterolemia Hypertension Vitamin D deficiency GERD (gastroesophageal reflux disease) Constipation Surgical History H/O esophagogastroduodenoscopy H/O colonoscopy History of section History of breast mammoplasty H/O gastric bypass History of carpal tunnel release Family History Father Colon cancer CVD (cardiovascular disease) Mother Breast cancer Brain tumor Sister Colon cancer Breast cancer Social History (Updated 10/27/24 @ 16:05 by ELIE Gregg) Household Members: Children Household Members Other:: Daugher Housing: Apartment Are you a primary care manager to a significant other at home: No Do you presently have visiting nurse or other home services: Yes Unable to assess alcohol history related to: Unknown Alcohol intake: never Comment: to OR Patient Tobacco Use Status: Never used Tobacco Tobacco use type: Cigarette e-Cigarette/Vaping Use: Never Used Second Hand Smoke Exposure: No service: No Current occupational status: disabled Cognitive needs: No Hearing needs: No Vision needs: No Female Reproductive History Menstrual Age of Menarche: 14 Physical Exam Vital Signs: Last Vital Signs Pulse 82 01/24/25 12:07 Resp 16 01/24/25 12:07 BP 106/68 01/24/25 12:07 Pulse Ox 97 01/24/25 12:07 Oxygen Delivery Method Room Air 01/24/25 12:07 Assessment & Plan Assessment & Plan (1) Sacroiliitis: Code(s): M46.1 - Sacroiliitis, not elsewhere classified Category: Medical (2) Morbid obesity: Code(s): E66.01 - Morbid (severe) obesity due to excess calories Category: Medical (3) Sacroiliac joint dysfunction of both sides: Code(s): M53.3 - Sacrococcygeal disorders, not elsewhere classified Category: Medical Plan: ? Plan Bilateral therapeutic sacroiliac joint injection Informed consent was explained thoroughly to the patient.? All questions about benefits and risks for the procedure were answered. Patient came to the operating room she was positioned prone on the operating table with the pillow under her abdomen.? Time-out was performed delineating correct site and side of the procedure name and date of of the patient. Her lower back and buttocks was prepped with ChloraPrep prepped and draped with sterile towels.C-arm was brought over the operating field and sq picture of patient's pelvis was demonstrated on the screen.? For each joint tilting C-arm contralateral to the site of the joint of the patient the most posterior portion of the joints were superimposed of the anterior portion of the joint . Skin was injected in the projection of the joint slightly medial to the location of the joint with 25 gauge 1/2 inch needle using local lidocaine 2% mixed with ropivacaine 0.5% 1 After that 22 gauge 3 and 1/2 inch needle was driven to each joint in tunnel vision fashion.? When needle entered the joint capsule injection of the contrast was performed demonstrating intra-articular and minimally periarticular spread of the contrast.? After that of bupivacaine 0.5% 4 cc mixed with Kenalog 40 mg was injected into each joint.? Total dose of Kenalog was 80 mg. Upon completion of the injections the needles were removed and pressure were applied.? Sterile dressing was applied.? Orders: Orders FL guidance in treatment room Today M46.1 - Sacroiliitis, not elsewhere classified Coding Level of Care Code Procedure Only Diagnoses Sacroiliitis M46.1 Morbid obesity E66.01 Sacroiliac joint dysfunction of both sides M53.3
[2025-01-24 12:07] VITALS: BP 106/68; PULSE 82; RESP 16; O2SAT 97
--- OUTSIDE RECORDS SUMMARY | 2025-01-24 13:51 | XMS_ITS | Clinical Summary ---
Author Organization [facility] Address [id number] [place] [id number] Care Team Providers Care Solderer Electronic Name Role Phone Minnie Lazcano MD Primary Care Provider Surgical History Surgery Date Site/Laterality Comments GASTRIC BYPASS PROCEDURE: SD GASTRIC RSTCV W/BYP W/SM INT RCNSTJ LIMIT ABSRPJ BREAST SURGERY 2010 PROCEDURE: SD UNLISTED PROCEDURE BREAST; COMMENT: breast reduction TUBAL LIGATION 01/12/2012 PROCEDURE: HISTORICAL TUBAL LIGATION; COMMENT: Essure in office Medical History Medical History Date Comments Anemia DX:Anemia Anxiety DX:Anxiety Family History Medical History Relation Name Comments Hypertension Mother Relation Name Status Comments Father Alive Mother Alive Social History Tobacco Use Types Packs/Day Years Used Date Smoking Tobacco: Never Smokeless Tobacco: Never Alcohol Use Standard Drinks/Week Comments No 0 (1 standard drink = 0.6 oz pur e alcohol) Comments Unknown Sex and Gender Information Value Date Recorded Sex Assigned at Not on file Legal Sex Female 2:27 AM EST Gender Identity Not on file Sexual Orientation Not on file Obstetrics History Last Filed Vital Signs Vital Sign Reading Time Taken Comments Blood Pressure - - Pulse - - Temperature - - Respiratory Rate - - Oxygen Saturation - - Inhaled Oxygen Concentration - - Weight 103 kg (227 lb) 11/05/2023 12:51 PM EST Height 154.9 cm (5' 1 ) 11/05/2023 12:51 PM EST Body Mass Index 42.89 11/05/2023 12:51 PM EST Plan of Treatment Upcoming Encounters Date Type Department Care Team (Late st Contact Info) Description 03/01/2025 1:00 PM EDT Office Visit Orthopedic Surgery - [place] [address] [phone] Mateo Jennings, DPM [address] [phone] Health Maintenance Due Date Last Done Comments Breast Cancer Screening 1976 DTaP,Tdap,and Td Vaccines (1 - Tdap) 1995 Hepatitis B Vaccines (1 of 3 - 19+ 3-dose series) 1995 Cervical Cancer Screening: P ap Smear 1997 Colorectal Cancer Screening: Colonoscopy 08/31/2022 Depression Screening 08/31/2022 HIV Screening 08/31/2022 Hepatitis C Screening 08/31/2022 Social Influencers of Health Screening 08/31/2022 COVID-19 Vaccine ( - 2023-2 5 season) 2024 Influenza Vaccine (Season Ended) 2025 HIB Vaccines Aged Out No longer eligi ble based on patient's age to complete this topic HPV Vaccines Aged Out No longer eligi ble based on patient's age to complete this topic Hepatitis A Vaccines Aged Out No long er eligible based on patient's age to complete this topic IPV Vaccines Aged Out No longer eligi ble based on patient's age to complete this topic MMR Vaccines Aged Out No longer eligi ble based on patient's age to complete this topic Meningococcal ACWY Vaccine Aged Out N o longer eligible based on patient's age to complete this topic Meningococcal B Vaccine Aged Out No l onger eligible based on patient's age to complete this topic Pneumococcal Vaccine: Pediat rics (0 to 5 Years) and At-Risk Patients (6 to 64 Years) Aged Out No longer eligible b ased on patient's age to complete this topic RSV Immunization Patients Un nikki 20 months Aged Out No longer eligible b ased on patient's age to complete this topic Varicella Vaccines Aged Out No longer eligible based on patient's age to complete this topic Insurance [place]ICA[place] - [place] Care Teams Solderer Electronic Relationship Specialty Start Date End Date Minnie Lazcano MD [address] [place] [address] [address] [facility] [place] [address] PCP - General 07/10/23
== END 2025-01-24 13:05 | disposition home or self-care (01) ==
LOC: HO.PMCPRC 11:41
PROVIDERS: PCP Internal Medicine; Visit Provider Anesthesiology
DX: M46.1 Sacroiliitis, not elsewhere classified (principal); E66.01 Morbid (severe) obesity due to excess calories; M53.3 Sacrococcygeal disorders, not elsewhere classified
CPT/HCPCS: 27096

== ENCOUNTER 2025-01-26 15:07 | Outpatient (AMB) | payer OTHER, SELFPAY ==
--- NOTE | 2025-01-26 15:15 | A.OFFPC_ITS ---
Vital Signs 01/26/25 15:16 Height 5 ft 1 in Weight 184 lb 6 oz BMI 34.8 BP 114/66 Blood Pressure Location Lt brachial Position Sitting Pulse 66 Pulse Source Pulse Oximeter Temp 97.5 F Temp Source Temporal Artery Scan Pulse Oximetry (%) 99 Oxygen Delivery Method Room Air Intake Visit Reasons: obesity Card Painter Required: No Accompanied by: Self / Same As Patient Allergies topiramate [From TOPAMAX] Allergy (Intermediate, Verified 01/26/25 15:28) NAUSEA & VOMITING ENVIRONMENTAL Allergy (Severe, Uncoded 01/26/25 15:28) SINUS INFXN SYMPTOMS STATED BY PT Tobacco use date assessed: 10/27/24 Dental Screening Dental Screen Date: 10/27/24 [facility] Medical History (Updated 01/26/25 @ 15:31 by Minnie Lazcano MD) Breast cancer screening by mammogram Obesity (BMI 30-39.9) Family history of ovarian cancer Chest pressure Tinea corporis Anemia Colon cancer screening Menorrhagia Vision blurring Medicare annual wellness visit, initial Sacroiliitis Gastroenteritis Chronic pain syndrome Obesity Encounter for Essure implantation Fibroadenoma Family history of breast cancer Breast mass, right H/O sigmoidoscopy Barretts esophagus Osteoarthritis, knee Fatty liver Cholelithiasis Carpal tunnel syndrome on both sides Lumbar degenerative disc disease Hypercholesterolemia Hypertension Vitamin D deficiency GERD (gastroesophageal reflux disease) Constipation Surgical History H/O esophagogastroduodenoscopy H/O colonoscopy History of section History of breast mammoplasty H/O gastric bypass History of carpal tunnel release Family History Father Colon cancer CVD (cardiovascular disease) Mother Breast cancer Brain tumor Sister Colon cancer Breast cancer Social History (Updated 10/27/24 @ 16:05 by ELIE Gregg) Household Members: Children Household Members Other:: Daugher Housing: Apartment Are you a primary manager progressive care to a significant other at home: No Do you presently have visiting nurse or other home services: Yes Unable to assess alcohol history related to: Unknown Alcohol intake: never Comment: to OR Patient Tobacco Use Status: Never used Tobacco Tobacco use type: Cigarette e-Cigarette/Vaping Use: Never Used Second Hand Smoke Exposure: No service: No Current occupational status: disabled Cognitive needs: No Hearing needs: No Vision needs: No Female Reproductive History Menstrual Age of Menarche: 14 Questionnaire Thrive Questionnaire Date Thrive assessed: 11/15/24 I am a: Patient What is your living situation today?: I choose not to answer this question Within the past 12 months, did the food you bought not last and you didn't have the money to get more?: Often true Within the past 12 months, did you worry whether your food would run out before you got money to buy more?: Often true Do you have trouble paying for medicines?: Yes Do you have trouble getting transportation to medical appointments?: Yes Do you have trouble paying your heating and electricity bill?: Yes Do you have trouble taking care of your child, family member or friend?: No Do you have trouble with day-to-day activities such as bathing, preparing meals, shopping, managing finances, etc.?: Yes Are you currently unemployed and looking for a job?: No Are you interested in more education?: No Please select the resources that you would like help with: Food Currently or been in a relationship where the following occur: No concerns reported THRIVE Score: 4 SHARON-7 AMB Questionnaire SHARON-7 Date SHARON - 7 assessed: 11/15/24 Source: Developed by Drs. Curly Williamson, Yue Ren, Mathew Newton and colleagues, with an educational kenneth from [employer]. Physical exam (Primary Care) Vital Signs: Last Vital Signs Temp 97.5 F 01/26/25 15:16 Pulse 66 01/26/25 15:16 BP 114/66 01/26/25 15:16 Pulse Ox 99 01/26/25 15:16 Oxygen Delivery Method Room Air 01/26/25 15:16 BMI result Body Mass Index 34.8 Tobacco/Smoking Status: Tobacco use Status Tobacco use date assessed 10/27/24 01/26/25 15:16 Patient Tobacco Use Status Never used Tobacco 01/26/25 15:16 Tobacco use type Cigarette 01/26/25 15:16 e-Cigarette/Vaping Use Never Used 01/26/25 15:16 Thrive Assessment: Date of Thrive Assessment Date Thrive assessed 11/15/24 01/26/25 15:16 Currently or been in a relationship where the following occur: No concerns reported Const General: alert; No acute distress Eyes Conjunctivae: conjunctivae normal Resp Auscultation: clear to auscultation bilaterally Cardio Rate: regular rate Rhythm: regular rhythm GI Inspection: Yes normal to inspection Extrem General: Yes normal to inspection and No edema Coding Level of Care Code Est Pt Level 4 (90562) New Pt Prev Care 40-64y(78860) Diagnoses Abdominal pain R10.9 Gastroesophageal reflux disease without esophagitis K21.9 Esophagitis presence: without esophagitis Essential hypertension I10 Hypertension type: essential hypertension Hypercholesterolemia E78.00 Renee's esophagus without dysplasia K22.70 Renee's esophagus type: without dysplasia Generalized anxiety disorder F41.1 H/O gastric bypass Z98.84 Acute on chronic low back pain M54.50; G89.29 Assessment & Plan Assessment & Plan (1) Abdominal pain: Code(s): R10.9 - Unspecified abdominal pain Category: Medical Plan: Resolved but was having panic attack. (2) GERD (gastroesophageal reflux disease): Code(s): K21.9 - Gastro-esophageal reflux disease without esophagitis Category: Medical Qualifiers: Esophagitis presence: without esophagitis Qualified Code(s): K21.9 - Gastro-esophageal reflux disease without esophagitis Plan: Avoid the foods that causes that usually spicy foods, tomato products, juices, coffee, soda and foods that your sensitive to. After eating do not lie down, allow 3-4 hours before in lie down. And keep the head of bed above 30 degrees to avoid the acid from going up. (3) Hypertension: Code(s): I10 - Essential (primary) hypertension Category: Medical Qualifiers: Hypertension type: essential hypertension Qualified Code(s): I10 - Essential (primary) hypertension Plan: Continue to monitor. Decrease salt intake and exercise, (4) Hypercholesterolemia: Code(s): E78.00 - Pure hypercholesterolemia, unspecified Category: Medical Plan: Avoid fried foods, chicken skin, eggs, butter margarine, pastries and meat. Be it pork or beef they have a lot of cholesterol (5) Barretts esophagus: Code(s): K22.70 - Renee's esophagus without dysplasia Category: Medical Qualifiers: Renee's esophagus type: without dysplasia Qualified Code(s): K22.70 - Renee's esophagus without dysplasia Plan: Avoid the foods that causes that usually spicy foods, tomato products, juices, coffee, soda and foods that your sensitive to. After eating do not lie down, allow 3-4 hours before in lie down. And keep the head of bed above 30 degrees to avoid the acid from going up. (6) Generalized anxiety disorder: Comment: Referral to [facility] (09/2024) Code(s): F41.1 - Generalized anxiety disorder Category: Medical Plan: Continue with counseling and therapy. Will be seeing a new counsellor. MATT(prescriber) [facility] 04/06/2025 evaluation will be seeing [facility] (7) H/O gastric bypass: Comment: [address] [facility] [address] Tang Code(s): Z98.84 - Bariatric surgery status Category: Surgical Plan: Continue to follow-up with bariatric takes. PAtient was asked to follow up with weight management. (8) Acute on chronic low back pain: Comment: Given this patient's history coupled with her examination no further imaging is warranted at this time. Code(s): M54.50 - Low back pain, unspecified; G89.29 - Other chronic pain Category: Medical Plan: seeing PAin management and has sacroiliac injection and is working Plan History of Present Illness The patient is a 49-year-old female presenting with complaints related to her multiple chronic health conditions, notably gastrointestinal and psychological symptoms post-bariatric surgery. Her history of gastroesophageal reflux disease and Renee's esophagus persists despite previous interventions. She reports continued stress owing to hypertension and hypercholesterolemia management. Following an ER visit for blepharitis in November 2022, initiated treatment with erythromycin ointment has been ongoing. The patient experiences severe, intermittent abdominal pain, particularly after dietary lapses or inadequate nutrition, as evidenced by her last ER visit where anemia and liver function a bnormalities were detected. These symptoms exacerbate her anxiety, impacting her mental and emotional well-being. The sacroiliac joint pain has been addressed through a recent therapeutic injection that resulted in some improvement, although she continues to need further assistance with pain management. The patient's attempts at weight control have been hindered by limitations in medication availability. She notes significant psychosocial stress, including menopause and familial transitions, adding to her insomnia and headache complaints. Health Maintenance - Mammogram: Up to date, as of October 2024. - Colonoscopy: Last completed in July 2023. - Recommendations provided for dietary adjustments focusing on bland, non-spicy foods to manage reflux symptoms. - Suggestion of incrementally increasing physical activity to support weight management. - Continues psychological evaluation and therapy with [facility] for mental health support. - Referral for ophthalmology follow-up recommended after ER visit for blepharitis. Social History - Reports living alone, experiencing stress associated with her daughter's upcoming marriage. - Describes eating a diet high in fish (such as salmon) and boiled eggs but has avoided fried and spicy foods. - Engaging in activity modifying exercises post-joint injection, with a request for guidance on a sustainable exercise regimen. - Expresses concern regarding weight gain post-discontinuation of weight management medication, now limited by insurance coverage. Review of Systems - Constitutional: Reports significant fatigue. - Ophthalmic: Reports recent episode of eye discomfort, diagnosed as blepharitis. - Cardiovascular: Denies acute chest pain or palpitations. - Gastrointestinal: Reports severe, intermittent abdominal pain, nausea, and vom iting. - Musculoskeletal: Reports sacroiliac joint pain; recent therapeutic injection provided relief. - Neurological: Reports severe headaches, denies syncope or seizures. - Psychiatric: Reports anxiety, panic attacks, and insomnia. Physical Exam Results - Labs: Anemia with hemoglobin 10.7, hematocrit 33.1; elevated liver function tests noted in November ER visit. - Tests: Recent mammogram up to date October 2024; colonoscopy last performed July 2023. - Diagnostics: Therapeutic sacroiliac joint injection performed with symptomatic relief noted. Plan Continuation of dietary management for gastroesophageal reflux disease will form the cornerstone of the treatment strategy alongside lifestyle adjustments to address weight gain. Ongoing supervision and potential re-initiation of weight management support are crucial given current medication limitations. Hypertension and hypercholesterolemia management will remain under careful observation with modifications as needed based on current healthcare practices and patient response. The patient will persist with scheduled therapy for mental health support while being advised on additional psychotherapeutic and pharmacological interventions for anxiety and insomnia. Assessment of pain management efficacy and potential additional therapeutic input will be addressed through follow-up appointments, while ophthalmology evaluation remains imperative following an ER visit due to blepharitis. Continuous dialogues will be held around potential nutritional strategies to improve anemia and liver function decline, further guided by periodic laboratory evaluations. Patient was informed and verbally consented to the use of an ambient scribe for clinic note documentation during this visit. Discussion Notes In our consultation, we thoroughly reviewed the patient's existing health conditions and the coordination of multi-specialty care tailored to her needs. We addressed her chronic conditions including hypertension and hyperchole sterolemia, reinforcing medication adherence and lifestyle changes. For her recent severe abdominal pain episodes likely tied to dietary management challenges, I advocated for dietary strategies and stress management to mitigate symptoms. We reviewed the benefits, such as symptomatic relief from the recent sacroiliac joint injection, against the potential risks of continued pain without proper management and agreed on pursuing further management reviews. On discussing weight management meds, I articulated insurance challenges and the importance of sustainable lifestyle changes. During our psychosocial dialogue, I expressed empathy and gave anticipatory guidance on the impact of menopause and family life changes. Ongoing inquiry into ophthalmology care was advised following her recent ER visit. The need for continued mental health therapy was underscored with particular regard to psychiatric medication changes and their importance in tackling insomnia and anxiety. In conclusion, I reassured of continued support and timely interventions aligned with her evolving needs. Patient Instructions - Continue dietary adjustments: eat a bland diet, avoid spicy foods, reduce meat, and include boiled eggs only every other day. - Pursue follow-up with spray operator recommended for blepharitis care; contact [facility] for scheduling. - Maintain hydration, regular exercise, and balanced meals to support weight management. - Monitor for and report any worsening symptoms or new problems immediately. - Ensure follow-up for therapy and psychiatric evaluation to discuss insomnia and anxiety interventions. - Arrange scheduled lab work and visit for review of ongoing health maintenance needs.
[2025-01-26 15:16] VITALS: BP 114/66; PULSE 66; TEMP 36.4; O2SAT 99; BMI 34.8
--- OUTSIDE RECORDS SUMMARY | 2025-01-26 17:01 | XMS_ITS | Clinical Summary ---
Author Organization [facility] Address [address] [place] [phone] Care Team Providers Care Graphics Artist Name Role Phone Minnie Lazcano MD Primary Care Provider [phone] Surgical History Surgery Date Site/Laterality Comments GASTRIC BYPASS PROCEDURE: [place] GASTRIC RSTCV W/BYP W/SM INT RCNSTJ LIMIT ABSRPJ BREAST SURGERY 2010 PROCEDURE: [place] UNLISTED PROCEDURE BREAST; COMMENT: breast reduction TUBAL [...] PM EDT Office Visit Orthopedic Surgery - [place] [address] [phone] Mateo Jennings, DPM [address] [address] Health Maintenance Due Date Last Done Comments [...] topic Insurance [place] - [place] Care Teams Graphics Artist Relationship Specialty Start Date End Date Minnie Lazcano MD [address] [place] [address] [address] [facility] [place] [address] PCP - General 07/10/23
== END 2025-01-26 15:47 | disposition home or self-care (01) ==
LOC: HO.HMCH 15:08
PROVIDERS: PCP Internal Medicine; Visit Provider Internal Medicine
DX: Z00.00 Encounter for general adult medical examination without abnormal findings (principal); K22.70 Barrett's esophagus without dysplasia; R10.9 Unspecified abdominal pain; K21.9 Gastro-esophageal reflux disease without esophagitis; I10 Essential (primary) hypertension; E78.00 Pure hypercholesterolemia, unspecified; F41.1 Generalized anxiety disorder; Z98.84 Bariatric surgery status; M54.50 Low back pain, unspecified; G89.29 Other chronic pain

== ENCOUNTER → 2025-01-26 15:07 | Outpatient (BNVA) | payer OTHER, SELFPAY | PROVIDERS: PCP Internal Medicine; Visit Provider Internal Medicine | DX: E66.9 Obesity, unspecified (principal); R10.9 Unspecified abdominal pain; K21.9 Gastro-esophageal reflux disease without esophagitis; I10 Essential (primary) hypertension; E78.00 Pure hypercholesterolemia, unspecified; K22.70 Barrett's esophagus without dysplasia; F41.1 Generalized anxiety disorder; M54.50 Low back pain, unspecified; G89.29 Other chronic pain; Z98.84 Bariatric surgery status; Z68.34 Body mass index [BMI] 34.0-34.9, adult | CPT/HCPCS: 99212; 99396 ==

== ENCOUNTER 2025-02-01 12:33 | Outpatient (AMB) | payer OTHER, SELFPAY ==
[2025-02-01 12:55] VITALS: BP 117/73; PULSE 63; O2SAT 97; BMI 34.8
--- NOTE | 2025-02-01 12:55 | MHC.OFFVIS ---
Vital Signs 02/01/25 12:55 Height 5 ft 1 in Weight 184 lb BMI 34.8 BP 117/73 Blood Pressure Location Rt brachial Position Sitting Pulse 63 Pulse Source Pulse Oximeter Pulse Oximetry (%) 97 Oxygen Delivery Method Room Air Intake Visit Reasons: 3 months FU Allergies topiramate [From TOPAMAX] Allergy (Intermediate, Verified 02/01/25 12:59) NAUSEA & VOMITING ENVIRONMENTAL Allergy (Severe, Uncoded 01/26/25 15:28) SINUS INFXN SYMPTOMS STATED BY PT HPI Comments Details: Ms. Salas is back in my office after therapeutic sacroiliac joint injection bilateral. The patient reported very good pain relief after the injection. She reported today pain 5/10 while before the procedure her pain was 10/10. She reports improved mobility and improved activities of daily living. She reports that pain is starting to come back already. She went for psychological evaluation in preparation for bilateral cure on X PNS. Unfortunately she did not pay for her psychological evaluation yet. I recommended her to pay as soon as possible and after that schedule appointment with me we will discuss trial of cure on X PNS for bilateral sacroiliac joint innervation. [facility] Medical History (Updated 01/26/25 @ 15:31 by Minnie Lazcano MD) Breast cancer screening by mammogram Obesity (BMI 30-39.9) Family history of ovarian cancer Chest pressure Tinea corporis Anemia Colon cancer screening Menorrhagia Vision blurring Medicare annual wellness visit, initial Sacroiliitis Gastroenteritis Chronic pain syndrome Obesity Encounter for Essure implantation Fibroadenoma Family history of breast cancer Breast mass, right H/O sigmoidoscopy Barretts esophagus Osteoarthritis, knee Fatty liver Cholelithiasis Carpal tunnel syndrome on both sides Lumbar degenerative disc disease Hypercholesterolemia Hypertension Vitamin D deficiency GERD (gastroesophageal reflux disease) Constipation Surgical History H/O esophagogastroduodenoscopy H/O colonoscopy History of section History of breast mammoplasty H/O gastric bypass History of carpal tunnel release Family History Father Colon cancer CVD (cardiovascular disease) Mother Breast cancer Brain tumor Sister Colon cancer Breast cancer Social History (Updated 10/27/24 @ 16:05 by ELIE Gregg) Household Members: Children Household Members Other:: Daugher Housing: Apartment Are you a primary continuum of care manager to a significant other at home: No Do you presently have visiting nurse or other home services: Yes Unable to assess alcohol history related to: Unknown Alcohol intake: never Comment: to OR Patient Tobacco Use Status: Never used Tobacco Tobacco use type: Cigarette e-Cigarette/Vaping Use: Never Used Second Hand Smoke Exposure: No service: No Current occupational status: disabled Cognitive needs: No Hearing needs: No Vision needs: No Female Reproductive History Menstrual Age of Menarche: 14 Review of Systems Const All systems reviewed & are unremarkable except as noted in HPI and below ENT Reports Normal hearing present Neuro Reports Normal hearing present, Denies Abnormal speech present, Denies confusion and Denies Sensory deficit (Neuro) Psych Denies confusion Physical Exam Vital Signs: Last Vital Signs Pulse 63 02/01/25 12:55 BP 117/73 02/01/25 12:55 Pulse Ox 97 02/01/25 12:55 Oxygen Delivery Method Room Air 02/01/25 12:55 BMI result Body Mass Index 34.8 Const General: No confusion Nutritional Appearance: obese morbidly obese Orientation/consciousness: No confusion Eyes General: appearance normal, both eyes and all related structures Pupils: Equal, round and reactive pupils present EOM: EOMs intact bilaterally Neck Neck: Yes full ROM Chest Chest palpation & inspection: normal inspection of the chest Resp Effort & Inspection: normal respiratory effort, able to speak in complete sentences, normal respiratory pattern, no audible wheezes and no cough Cardio Jugular venous distension: no JVD GI Inspection: Yes normal to inspection Neuro General: No confusion Cranial nerves: Yes Equal, round and reactive pupils present and Yes Normal hearing present Speech: No Abnormal speech present Gait exam (Neuro): Normal gait present Motor exam (neuro): 5/5 motor strength present throughout Sensory Exam: No Sensory deficit (Neuro) Extrem General: No pedal edema Psych Speech and movement: Normal speech and movement present Affect: normal affect Attitude: cooperative Thought process: Normal thought process present Thought content: Normal thought content present Insight: Good insight present (Psych) Judgement: Good judgement present (Psych) Assessment & Plan Assessment & Plan (1) Sacroiliitis: Code(s): M46.1 - Sacroiliitis, not elsewhere classified Category: Medical Plan: SI joint injections started to fade in effectiveness. It not see any reason to continue this procedures. She was denied neuromodulation by [facility] for bilateral sacroiliac joint innervation stimulation cure on X. however now she was referred for evaluation with [facility] and with the hope that this will be more favorable for her. She just needs to pay for the evaluation for us to be seen. As soon as she will pay for her psychological evaluation she will schedule appointment with me and we will discuss cure on X PNS. (2) Morbid obesity: Code(s): E66.01 - Morbid (severe) obesity due to excess calories Category: Medical (3) Sacroiliac joint dysfunction of both sides: Code(s): M53.3 - Sacrococcygeal disorders, not elsewhere classified Category: Medical (4) Fibromyalgia: Code(s): M79.7 - Fibromyalgia Category: Medical Plan I will schedule this patient for therapeutic sacroiliac joint injection. It has been 2 years since she received 1 injection it might be helpful for her to control her pain. I also gave her brochure about [facility] psychiatry. In the past [facility] denied her as the patient for neuromodulation. However [facility] psychiatry might find it differently. If she will be approved by [facility] I will schedule her for trial of cure on X PNS bilateral sacroiliac joint innervation I recommended her low impact aerobic exercise as most effective and well known remedy for fibromyalgia. Coding Level of Care Code Est Pt Level 3 (21193) Diagnoses Sacroiliitis M46.1 Morbid obesity E66.01 Sacroiliac joint dysfunction of both sides M53.3 Fibromyalgia M79.7
--- OUTSIDE RECORDS SUMMARY | 2025-02-01 13:40 | XMS_ITS | Clinical Summary ---
Author Organization [facility] Address [address] [place] [phone] Care Team Providers Care Hosted Services Analyst Name Role Phone Minnie Lazcano MD Primary Care Provider [phone] Surgical History Surgery Date Site/Laterality Comments GASTRIC BYPASS PROCEDURE: [place] GASTRIC RSTCV W/BYP W/SM INT RCNSTJ LIMIT ABSRPJ BREAST SURGERY 2010 PROCEDURE: [place] UNLISTED PROCEDURE BREAST; COMMENT: breast reduction TUBAL [...] PM EDT Office Visit Orthopedic Surgery - [place] [address] [phone] Mateo Jennings, DPM [address] [address] Health Maintenance Due Date Last Done Comments [...] topic Insurance [place] - [place] Care Teams Hosted Services Analyst Relationship Specialty Start Date End Date Minnie Lazcano MD [address] [place] [address] [address] [facility] [place] [address] PCP - General 07/10/23
== END 2025-02-01 13:24 | disposition home or self-care (01) ==
LOC: HO.PMC 12:34
PROVIDERS: PCP Internal Medicine; Visit Provider Anesthesiology
DX: M46.1 Sacroiliitis, not elsewhere classified (principal); M53.3 Sacrococcygeal disorders, not elsewhere classified; M79.7 Fibromyalgia; E66.01 Morbid (severe) obesity due to excess calories
CPT/HCPCS: 99213

== ENCOUNTER → 2025-02-01 12:33 | Outpatient (BNVA) | payer OTHER, SELFPAY | PROVIDERS: PCP Internal Medicine; Visit Provider Anesthesiology | DX: M46.1 Sacroiliitis, not elsewhere classified (principal); E66.01 Morbid (severe) obesity due to excess calories; M53.3 Sacrococcygeal disorders, not elsewhere classified; M79.7 Fibromyalgia; Z68.34 Body mass index [BMI] 34.0-34.9, adult | CPT/HCPCS: 99212 ==

== ENCOUNTER 2025-02-13 13:40 | Outpatient (AMB) | payer OTHER, SELFPAY ==
--- OUTSIDE RECORDS SUMMARY | 2025-02-13 13:44 | XMS_ITS | Clinical Summary ---
Author Organization [facility] Address [address] [place] [phone] Care Team Providers Care Home Performance Consultant Name Role Phone Minnie Lazcano MD Primary Care Provider [phone] Surgical History Surgery Date Site/Laterality Comments GASTRIC BYPASS PROCEDURE: [place] GASTRIC RSTCV W/BYP W/SM INT RCNSTJ LIMIT ABSRPJ BREAST SURGERY 2010 PROCEDURE: [place] UNLISTED PROCEDURE BREAST; COMMENT: breast reduction TUBAL [...] PM EDT Office Visit Orthopedic Surgery - [place] [address] [phone] Mateo Jennings, DPM [address] [address] Health Maintenance Due Date Last Done Comments [...] topic Insurance [place] - [place] Care Teams Home Performance Consultant Relationship Specialty Start Date End Date Minnie Lazcano MD [address] [place] [address] [address] [facility] [place] [address] PCP - General 07/10/23
--- NOTE | 2025-02-13 13:56 | A.OFFVIS_ITS ---
Vital Signs 02/13/25 13:57 Height 5 ft 1 in Weight 182 lb 15.739 oz BMI 34.6 BP 110/62 Blood Pressure Location Lt brachial Position Sitting Pulse 72 Intake Visit Reasons: 6 mo f/u Intake Note: Eliza presents in the office as a 6 month follow up. CC: States that she was having severe cramping in the stomach so she went to the ED. She states that she was having constipation and always has issues with having bowel movements. Clinical Quality Manager Required: No Allergies topiramate [From TOPAMAX] Allergy (Intermediate, Verified 02/13/25 13:59) NAUSEA & VOMITING ENVIRONMENTAL Allergy (Severe, Uncoded 02/13/25 13:59) SINUS INFXN SYMPTOMS STATED BY PT HPI HPI 6 mo f/u: Details: 49 yr old f here for f/u for abdominal pain and focal colitis RECAP; saw [facility] initially ? she had been c/o abdo pain, nausea, ? Its hard to eat steak- no milk or cheese. ? Went to ER- had a GI shot- it numbed my entire GI tract . ? Omeprazole not really helpful. ? She was very worried about having cancer ? Father -colon cancer @ 50 ? Sister colon cancer in her early 40s. ? TESTS: egd/COLONOSCOPY---01/2020 ? esophagus dilated, retianed eduardo removed, barretts esophagus w/ chronic inactive inflammation on bx, ? colon, with small internal hemorrhoids, fair prep--rept 3 yrs due to FH CRC ? bx with focal active colitis, no chronic injury ? small bowel f/u--03/2020--rapid transit, small hiatal henria, reflux, no obstruction ? LABS: 05/2020--LFt, BMp--nml, CBC, mild anemia EGD/sigmoidoscopy-11/2020-schatzki ring, internal hemorrhoids--she had dilation of esophagus EGD/Colonoscopy: 08/06/23 Endoscopy Findings: lax LES retained foreign bodies, balloon dilation Colonoscopy Findings: polyp internal hemorrhoids diverticular disease bx: tubular adenoma removed, some inflammation of stomach pouch, She had post biopsy bleed and had to get repeat colo with clipping and hemospray and stayed in house for one night ? INTERIM; she has been having abdominal pain LUQ for last 3 months she is off wygovy she is taking mesalamine and it reduces her pain to 4-6/10 intensity if she passes stool then the pain also reduces no nausea or vomiting she went to ED fro one attacks, severe attack, was sent home has seen some blood in stool denies dysphagia urine is clear EXAM: GENERAL: The patient is well developed and nontoxic. VITAL SIGNS:see workflow HEENT: Nonicteric sclerae, PERRLA, EOMI. Oropharynx clear. Moist mucous membranes. Conjunctivae appear well perfused. No thyroid mass. CHEST: Chest wall is nontender. HEART: Regular rate and rhythm without murmurs. LUNGS: Clear to auscultation bilaterally. ABDOMEN: Soft, positive bowel sounds, nontender, no organomegaly.no flank tenderness SKIN: No rash, no excessive bruising, petechiae, or purpura. NEUROLOGIC: Cranial nerves II-XII intact without motor/sensory deficit. Assessments ? 1. Ongoing abdominal pain and abn bowel habits, prior bx with focal colitis, ? IBD, adhesions from gastric bypass--nothing this time, TA removed , stopped ozempic now 2. Dysphagia- good result with prior dilaiton--better with PPI PLAN: 1/ cont with mesalamine open capsule BID 2 caps 2/ EGD 3/ recheck labs incl stool lactoferrin, 4/ open omeprazole cap and mix with apple sauce as well, may not be absorbing PFSH Medical History Breast cancer screening by mammogram Obesity (BMI 30-39.9) Family history of ovarian cancer Chest pressure Tinea corporis Anemia Colon cancer screening Menorrhagia Vision blurring Medicare annual wellness visit, initial Sacroiliitis Gastroenteritis Chronic pain syndrome Obesity Encounter for Essure implantation Fibroadenoma Family history of breast cancer Breast mass, right H/O sigmoidoscopy Barretts esophagus Osteoarthritis, knee Fatty liver Cholelithiasis Carpal tunnel syndrome on both sides Lumbar degenerative disc disease Hypercholesterolemia Hypertension Vitamin D deficiency GERD (gastroesophageal reflux disease) Constipation Surgical History H/O esophagogastroduodenoscopy H/O colonoscopy History of section History of breast mammoplasty H/O gastric bypass History of carpal tunnel release Family History Father Colon cancer CVD (cardiovascular disease) Mother Breast cancer Brain tumor Sister Colon cancer Breast cancer Social History Household Members: Children Household Members Other:: Daugher Housing: Apartment Are you a primary rn progressive care to a significant other at home: No Do you presently have visiting nurse or other home services: Yes Unable to assess alcohol history related to: Unknown Alcohol intake: never Comment: to OR Patient Tobacco Use Status: Never used Tobacco Tobacco use type: Cigarette e-Cigarette/Vaping Use: Never Used Second Hand Smoke Exposure: No service: No Current occupational status: disabled Cognitive needs: No Hearing needs: No Vision needs: No Female Reproductive History Menstrual Age of Menarche: 14 Physical Exam Vital Signs: Last Vital Signs Pulse 72 02/13/25 13:57 BP 110/62 02/13/25 13:57 BMI result Body Mass Index 34.6 Assessment & Plan Assessment & Plan (1) Frequency of micturition: Code(s): R35.0 - Frequency of micturition Category: Medical Plan: as above (2) Abdominal pain: Code(s): R10.9 - Unspecified abdominal pain Category: Medical Plan: as above Orders: Orders Vitamin B6 Today R10.9 - Unspecified abdominal pain, R35.0 - Frequency of micturition Vitamin B3 (Niacin) Today R10.9 - Unspecified abdominal pain, R35.0 - Frequency of micturition Vitamin C Today R10.9 - Unspecified abdominal pain, R35.0 - Frequency of micturition Magnesium Today R10.9 - Unspecified abdominal pain, R35.0 - Frequency of micturition Complete Blood Count Auto Diff Today R10.9 - Unspecified abdominal pain, R35.0 - Frequency of micturition Comprehensive Met. Panel Today K75.81 - Nonalcoholic steatohepatitis ([place]), R10.9 - Unspecified abdominal pain, R35.0 - Frequency of micturition Lactoferrin, Fecal, Quant. Today K51.50 - Left sided colitis without complications, R10.9 - Unspecified abdominal pain, R35.0 - Frequency of micturition Vitamin B1 Today R10.9 - Unspecified abdominal pain, R35.0 - Frequency of micturition Vitamin B12 and Folate Today R10.9 - Unspecified abdominal pain, R35.0 - Frequency of micturition C Reactive Protein Today R10.9 - Unspecified abdominal pain, R35.0 - Frequency of micturition Ferritin Today R10.9 - Unspecified abdominal pain, R35.0 - Frequency of micturition Vitamin B5 (Pantothenic Acid) Today R10.9 - Unspecified abdominal pain, R35.0 - Frequency of micturition Zinc Today R10.9 - Unspecified abdominal pain, R35.0 - Frequency of micturition Vitamin D 25-OH Total Today R10.9 - Unspecified abdominal pain, R35.0 - Frequency of micturition Coding Level of Care Code Est Pt Level 4 (05600) Diagnoses Frequency of micturition R35.0 Abdominal pain R10.9
[2025-02-13 13:57] VITALS: BP 110/62; PULSE 72; BMI 34.6
== END 2025-02-13 14:32 | disposition home or self-care (01) ==
LOC: HO.HGI 13:41
PROVIDERS: PCP Internal Medicine; Visit Provider Internal Medicine Gastroenterology
DX: R35.0 Frequency of micturition (principal); R10.9 Unspecified abdominal pain
CPT/HCPCS: 99214

== ENCOUNTER 2025-02-13 13:40 | Outpatient (REF) | payer OTHER, SELFPAY ==
--- OUTSIDE RECORDS SUMMARY | 2025-02-13 14:53 | XMS_ITS | Clinical Summary ---
[facility] Organization [facility] Address [address] [place] [phone] Care Team Providers Care Converter Supervisor Name Role Phone Minnie Lazcano MD Primary Care Provider [phone] Surgical History Surgery Date Site/Laterality Comments GASTRIC BYPASS PROCEDURE: [place] GASTRIC RSTCV W/BYP W/SM INT RCNSTJ LIMIT ABSRPJ BREAST SURGERY 2010 PROCEDURE: [place] UNLISTED PROCEDURE BREAST; COMMENT: breast reduction TUBAL [...] PM EDT Office Visit Orthopedic Surgery - [place] [address] [phone] Mateo Jennings, DPM [address] [address] Health Maintenance Due Date Last Done Comments [...] topic Insurance [place] - [place] Care Teams Converter Supervisor Relationship Specialty Start Date End Date Minnie Lazcano MD [address] [place] [address] [address] [facility] [place] [address] PCP - General 07/10/23
[2025-02-13 15:27] LABS: MANUAL DIFF FLAG NO
[2025-02-13 15:47] LABS: Basophils Absolute Auto 0.1 X10*3/uL (0.0-0.2); Basophils Percent Auto 0.5 % (0-2); Eosinophils Percent Auto 0.4 % (0-4); Hematocrit 32.3 % (37.0-47.0); Hemoglobin 10.6 g/dl (12.0-16.0); Imm Gran Abs Auto 0.05 X10*3/uL (0.00-0.03); Imm Gran Pct Auto 0.5 % (0.0-0.4); Lymphocytes Absolute Auto 1.6 X10*3/uL (1.2-4.9); Lymphocytes Percent Auto 14.4 % (20-40); Mean Corpuscular HGB Conc 32.8 g/dl (31.0-35.0); Mean Corpuscular Hemoglobin 28.3 pg (27.0-33.0); Mean Corpuscular Volume 86.4 fL (80.0-98.0); Mean Platelet Volume 10.9 fL (9.4-12.3); Monocytes Percent Auto 8.8 % (2-11); Neutrophils Absolute Auto 8.4 x10*3/uL (2.0-8.3); Neutrophils Percent Auto 75.4 % (45-73); Platelet Count 330 X10*3/uL (160-400); Red Blood Count 3.74 X10*6/uL (4.20-5.50); Red Cell Distribution Width 13.1 % (11.0-16.0); White Blood Count 11.1 X10*3/uL (4.8-10.8)
[2025-02-13 17:05] LABS: Alanine Aminotransferase 78 U/L (0-31); Anion Gap 11 (12-20); Aspartate Amino Transferase 52 U/L (5-31); Bilirubin Total 0.3 mg/dL (0.0-1.0); Blood Urea Nitrogen 16 mg/dL (9-16); C Reactive Protein 0.35 mg/dL (< or = 0.50); Calcium 8.8 mg/dL (8.4-10.2); Carbon Dioxide 26 mmol/L (22-29); Chloride 106 mmol/L (96-108); Estimated Glomerular Filt Rate > 60; Ferritin 14 ng/mL (10-250); Glucose Random 82 mg/dL (60-115); Magnesium 2.1 mg/dL (1.6-2.6); Potassium 3.9 mmol/L (3.3-5.1); Sodium 139 mmol/L (135-145); Vitamin D 25-OH Total 19.5 ng/mL (>30)
[2025-02-13 17:11] LABS: Folate 8.1 ng/mL (> or = 4.0); Vitamin B12 308 pg/mL (200-900)
[2025-02-13 17:19] LABS: Alkaline Phosphatase 113 U/L (39-117)
[2025-02-16 02:14] LABS: Zinc 68 mcg/dL (60-130)
[2025-02-17 17:58] LABS: Vitamin B6 15.5 ng/mL (2.1-21.7)
[2025-02-18 10:54] LABS: Vitamin C 0.5 mg/dL (0.3-2.7)
[2025-02-19 14:04] LABS: Vitamin B1 13 nmol/L (8-30)
[2025-02-21 01:53] LABS: Nicotinamide <20 ng/mL (see note); Vit B3 - Nicotinic Acid <20 ng/mL (see note); Vitamin B5 (Pantothenic Acid) <=40 ng/mL (<275)
== END 2025-02-13 13:41 | disposition home or self-care (01) ==
LOC: HO.LAB 13:40
PROVIDERS: PCP Internal Medicine; Visit Provider Internal Medicine Gastroenterology
DX: R10.9 Unspecified abdominal pain (principal); R35.0 Frequency of micturition; K75.81 Nonalcoholic steatohepatitis (NASH); K51.50 Left sided colitis without complications
CPT/HCPCS: 36415; 80053; 82180; 82306; 82607; 82728; 82746; 83735; 84207; 84425; 84591; 84630; 85025; 86140; 99212

== ENCOUNTER 2025-02-14 10:31 | Outpatient (REF) | payer OTHER, SELFPAY ==
--- OUTSIDE RECORDS SUMMARY | 2025-02-14 11:49 | XMS_ITS | Clinical Summary ---
[facility] Organization [facility] Address [address] [place] [phone] Care Team Providers Care Land Reclamation Specialist Name Role Phone Minnie Lazcano MD Primary Care Provider Surgical History Surgery Date Site/Laterality Comments GASTRIC BYPASS PROCEDURE: [place] GASTRIC RSTCV W/BYP W/SM INT RCNSTJ LIMIT ABSRPJ BREAST SURGERY 2010 PROCEDURE: [place] UNLISTED PROCEDURE BREAST; COMMENT: breast reduction TUBAL [...] PM EDT Office Visit Orthopedic Surgery - [place] [address] [phone] Mateo Jennings, DPM [address] [address] Health Maintenance Due Date Last Done Comments [...] topic Insurance [place] - [place] Care Teams Land Reclamation Specialist Relationship Specialty Start Date End Date Minnie Lazcano MD [address] [place] [address] [address] [facility] [place] [address] PCP - General 07/10/23
[2025-02-17 22:34] LABS: Lactoferrin, Fecal, Quant. 38.92 mcg/mL (<7.25)
== END 2025-02-14 10:32 | disposition home or self-care (01) ==
LOC: HO.LNP 10:31
PROVIDERS: Visit Provider Internal Medicine Gastroenterology
DX: K51.50 Left sided colitis without complications (principal); R10.9 Unspecified abdominal pain; R35.0 Frequency of micturition
CPT/HCPCS: 83631

== ENCOUNTER 2025-02-15 13:23 | Outpatient (AMB) | payer OTHER, SELFPAY ==
--- NOTE | 2025-02-15 13:26 | MHC.OFFVIS ---
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 The injections performed on January 24 have provided a 50% relief in pain, improving her ability to carry out routine daily activities. Despite these improvements, she continues to experience pain upon waking, though notably less intense, with adverse changes in weather exacerbating her condition. Additionally, she presents with a history of right knee pain associated with osteoarthritis, which has previously been treated with injections, most recent performed at least 2 years ago. The knee pain results in instability and has been compounded by recent weight gain due to cessation of [employer] without insurance coverage. This has hindered her ability to pursue an active lifestyle which is exacerbating her weight condition. Authorization for a SIJ peripheral nerve stimulator remains pending, aimed at providing further relief for her chronic pain issues. - Onset and Timing: Pain has persisted since before January 24; injections were given on that date, resulting in improved symptoms. - Quality and Character: Described as severe prior to injection; current pain less intense and less constant. - Primary Location: Sacroiliac joint/bilateral back pain. - Exacerbating Factors: Poor weather, especially rain, causes worsening. - Relieving Factors: Sacroiliac joint injections provided 50% relief. - Activities/Functions Impacted: Low impact as ability to perform daily activities has improved, but waking up and inclement weather still cause difficulties. - Affect: Pain impacts the patient?s ability to participate in physical activity, leading to emotional stress over weight gain. - Analgesia: Post-injection pain level reduced to approximately 5 out of 10. - Adverse Effects: No reported side effects from pain relief interventions. - Activities of Daily Living: Pain initially hindered basic tasks like getting out of bed and dressing; now improved. - Aberrant Drug Related Behaviors: No abnormal behaviors related to pain medication reported. [facility] Medical History Breast cancer screening by mammogram Obesity (BMI 30-39.9) Family history of ovarian cancer Chest pressure Tinea corporis Anemia Colon cancer screening Menorrhagia Vision blurring Medicare annual wellness visit, initial Sacroiliitis Gastroenteritis Chronic pain syndrome Obesity Encounter for Essure implantation Fibroadenoma Family history of breast cancer Breast mass, right H/O sigmoidoscopy Barretts esophagus Osteoarthritis, knee Fatty liver Cholelithiasis Carpal tunnel syndrome on both sides Lumbar degenerative disc disease Hypercholesterolemia Hypertension Vitamin D deficiency GERD (gastroesophageal reflux disease) Constipation Surgical History H/O esophagogastroduodenoscopy H/O colonoscopy History of section History of breast mammoplasty H/O gastric bypass History of carpal tunnel release Family History Father Colon cancer CVD (cardiovascular disease) Mother Breast cancer Brain tumor Sister Colon cancer Breast cancer Social History Household Members: Children Household Members Other:: Jane Housing: Apartment Are you a primary career development consultant to a significant other at home: No Do you presently have visiting nurse or other home services: Yes Unable to assess alcohol history related to: Unknown Alcohol intake: never Comment: to OR Patient Tobacco Use Status: Never used Tobacco Tobacco use type: Cigarette e-Cigarette/Vaping Use: Never Used Second Hand Smoke Exposure: No service: No Current occupational status: disabled Cognitive needs: No Hearing needs: No Vision needs: No Female Reproductive History Menstrual Age of Menarche: 14 Review of Systems Const Details: - Musculoskeletal: Reports back pain improvement but ongoing knee pain. Denies recent significant injury. - General: Reports significant weight gain post-medication cessation. - Neurological: Denies new neurological symptoms. - Endocrine: Reports previous usage of weight loss medication, now ceased. Physical Exam Vital Signs: Last Vital Signs Pulse 71 02/15/25 13:28 BP 119/66 02/15/25 13:28 BMI result Body Mass Index 35.0 General: awake, alert, oriented. Answers questions appropriately. Fully engaged in examination. Skin: warm, dry, intact HEENT: Normocephalic. Hearing intact. Cardiac: External chest normal in appearance. Respiratory: No cough, audible wheezing or stridor. Abdomen: without gross distension. MS: No obvious swelling or deformities. Able to transition from sit to stand unassisted. Ambulates with bilaterally normal heel strike and toe off Neurological: Oriented to person, place, time and situation. Thought process intact. No gait abnormalities appreciated. Ambulates with the use of a cane Psychiatric: Appropriate mood and affect. Good judgment and insight. Assessment & Plan Assessment & Plan (1) Right knee pain: Code(s): M25.561 - Pain in right knee Category: Medical (2) Sacroiliitis: Code(s): M46.1 - Sacroiliitis, not elsewhere classified Category: Medical (3) Morbid obesity: Code(s): E66.01 - Morbid (severe) obesity due to excess calories Category: Medical (4) Sacroiliac joint dysfunction of both sides: Code(s): M53.3 - Sacrococcygeal disorders, not elsewhere classified Category: Medical (5) Osteoarthritis, knee: Code(s): M17.10 - Unilateral primary osteoarthritis, unspecified knee Category: Medical Plan The patient is being managed primarily through anticipated approval for bilateral sacroiliac peripheral nerve stimulator to address chronic sacroiliac joint pain, promising enhanced pain relief. Knee assessment with an x-ray is planned to address osteoarthritic symptoms, following which a steroid injection could be administered to improve function and mobility. Given the discontinuation of weight-reducing medication, regaining an active lifestyle post-pain management intervention will be essential. The approach centers on both pain alleviation and functional recovery. We discussed the ongoing wait for approval from [facility] for peripheral nerve stimulator, emphasizing its potential in improving the patient?s sacroiliac joint pain management and everyday function. The benefits and possible procedural risks have been reviewed with her consent to proceed pending approval. The need for diagnostic imaging of her knee was explained, focusing on identifying osteoarthritic changes that may warrant a steroid injection for symptom management. The intersection of her pain management with her weight was discussed, with recommendations to reintegrate physical activity as pain subsides. Will schedule for fluoroscopy guided right intra-articular knee injection with local anesthetic. Patient was informed and verbally consented to the use of an ambient scribe for clinic note documentation during this visit. Orders: Orders XR knee RT 4V Today M25.561 - Pain in right knee Patient Instructions: - Await contact for peripheral nerve stimulator scheduling following [facility] approval. - Proceed with knee x-ray as soon as possible; follow-up for results. - Consider purchasing a knee brace for support until further treatment. - Engage in activities compatible with current pain management to the extent possible to aid in weight control, as tolerated. - Maintain communication with the care team regarding any worsening symptoms or new developments in pain or function. - Follow-up with the primary care provider for additional guidance on managing obesity. Coding Level of Care Code Est Pt Level 3 (69579) Complex EM visit Add On G2211 Diagnoses Right knee pain M25.561 Sacroiliitis M46.1 Morbid obesity E66.01 Sacroiliac joint dysfunction of both sides M53.3 Osteoarthritis, knee M17.10
[2025-02-15 13:28] VITALS: BP 119/66; PULSE 71; BMI 35.0
--- OUTSIDE RECORDS SUMMARY | 2025-02-15 13:59 | XMS_ITS | Clinical Summary ---
Author Organization [facility] Address [id number] [place] [id number] Care Team Providers Care Copy Holder Name Role Phone Minnie Lazcano MD Primary Care Provider [phone] Surgical History Surgery Date Site/Laterality Comments GASTRIC [...] PM EDT Office Visit Orthopedic Surgery - [place] [address] [phone] Mateo Jennings, DPM [address] [address] Health Maintenance Due Date Last Done Comments [...] topic Insurance [place] - [place] Care Teams Copy Holder Relationship Specialty Start Date End Date Minnie Lazcano MD [address] [place] [address] [address] [facility] [place] [address] PCP - General 07/10/23
== END 2025-02-15 13:47 | disposition home or self-care (01) ==
LOC: HO.PMC 13:25
PROVIDERS: PCP Internal Medicine; Visit Provider Registered Nurse Emergency
DX: M25.561 Pain in right knee (principal); M46.1 Sacroiliitis, not elsewhere classified; E66.01 Morbid (severe) obesity due to excess calories; M53.3 Sacrococcygeal disorders, not elsewhere classified; M17.10 Unilateral primary osteoarthritis, unspecified knee
CPT/HCPCS: 99213; G2211

== ENCOUNTER 2025-02-15 13:23 | Outpatient (REF) | payer OTHER, SELFPAY ==
--- NOTE | ~2025-02-15 | XR_ITS ---
EXAMINATION: XR KNEE 4 OR MORE VIEWS RIGHT HISTORY: M25.561 - Pain in right knee COMPARISON: Comparison is made with the prior examination dated 01/24/2019. FINDINGS: Four views of the right knee are submitted. Osseous mineralization is normal. There is no fracture or dislocation. The joint spaces are preserved. Again seen are small osteophytes off the patella. The soft tissues are unremarkable. There is no joint effusion. XR/XR knee RT 4V IMPRESSION: Mild patellofemoral osteoarthritis. Electronically signed by: Curly Madera MD 02/15/2025 02:30 PM EDT
--- OUTSIDE RECORDS SUMMARY | 2025-02-15 14:25 | XMS_ITS | Clinical Summary ---
Author Organization [facility] Address [address] [place] [id number] Care Team Providers Care Manager General Name Role Phone Minnie Lazcano MD Primary Care Provider [phone] Surgical History Surgery Date Site/Laterality Comments GASTRIC BYPASS PROCEDURE: [place] GASTRIC RSTCV W/BYP W/SM INT RCNSTJ LIMIT ABSRPJ BREAST SURGERY 2010 PROCEDURE: [place] UNLISTED PROCEDURE BREAST; COMMENT: breast reduction TUBAL [...] PM EDT Office Visit Orthopedic Surgery - [place] [address] [phone] Mateo Jennings, DPM [address] [address] Health Maintenance Due Date Last Done Comments [...] topic Insurance [place] Care Teams Manager General Relationship Specialty Start Date End Date Minnie Lazcano MD [address] [place] [address] [address] [facility] [place] [address] PCP - General 07/10/23
== END 2025-02-15 13:24 | disposition home or self-care (01) ==
LOC: HO.XRAY 13:23
PROVIDERS: PCP Internal Medicine; Visit Provider Registered Nurse Emergency
DX: M25.561 Pain in right knee (principal); M17.11 Unilateral primary osteoarthritis, right knee; M46.1 Sacroiliitis, not elsewhere classified; M53.3 Sacrococcygeal disorders, not elsewhere classified; E66.01 Morbid (severe) obesity due to excess calories; Z68.35 Body mass index [BMI] 35.0-35.9, adult
CPT/HCPCS: 73564; 99212

== ENCOUNTER → 2025-02-15 13:56 | Outpatient (BNV) | payer OTHER, SELFPAY | PROVIDERS: PCP Internal Medicine; Visit Provider Radiology Diagnostic Radiology | DX: M22.2X1 Patellofemoral disorders, right knee (principal) | CPT/HCPCS: 73564 ==

== ENCOUNTER 2025-03-03 07:04 | Day surgery (SDC) | payer OTHER, SELFPAY ==
[2025-03-01 15:36] VITALS: BMI 35.0
--- NOTE | 2025-03-02 10:18 | P.CONAN_ITS ---
Documented by User: Lucille Jhaveri NP 03/02/25 10:27 HPI - Anesthesia Eval Consult details Narrative: 49yo F for Bilateral Sacroiloac Joint Innervation Peripheral Nerve Stimulator Trial [facility] Active Problems Active Problems: All Active Problems Colitis (Acute) Right knee pain (Acute) Abdominal pain (Acute) Frequency of micturition (Acute) Breast cancer screening by mammogram (Acute) Overactive bladder (Acute) Annual physical exam (Acute) Fibromyalgia (Acute) Obesity (BMI 30-39.9) (Acute) Hordeolum externum left lower eyelid (Acute) Chest pressure (Acute) Chest pressure (Acute) Acute on chronic low back pain (Acute) Hypotension (Acute) Dysphagia (Acute) Urge incontinence (Acute) Plantar fasciitis of left foot (Acute) Acute lower GI bleeding (Acute) Medicare annual wellness visit, subsequent (Acute) Abnormal bowel habits (Acute) H/O gastric bypass (Acute) Morbid obesity (Acute) Mild obstructive sleep apnea (Acute) Pelvic pain (Acute) Attempted IUD removal, unsuccessful (Acute) IUD strings lost (Acute) Abnormal uterine bleeding (AUB) (Acute) Well woman exam (Acute) Chest pain (Acute) Fibroadenoma (Acute) Family history of breast cancer (Acute) Breast mass, right (Acute) Iron deficiency anemia (Acute) Generalized anxiety disorder (Acute) Sacroiliitis (Acute) Osteoarthritis, knee (Acute) Schatzki's ring (Acute) Post concussive syndrome (Acute) IBS (irritable bowel syndrome) (Acute) Barretts esophagus (Acute) Allergic rhinitis (Acute) Carpal tunnel syndrome on both sides (Acute) Hypercholesterolemia (Acute) Hypertension (Acute) Vitamin D deficiency (Acute) GERD (gastroesophageal reflux disease) (Acute) Constipation (Acute) Past Medical History Medical History Breast cancer screening by mammogram Obesity (BMI 30-39.9) Family history of ovarian cancer Chest pressure Tinea corporis Anemia Colon cancer screening Menorrhagia Vision blurring Medicare annual wellness visit, initial Sacroiliitis Gastroenteritis Chronic pain syndrome Obesity Encounter for Essure implantation Fibroadenoma Family history of breast cancer Breast mass, right H/O sigmoidoscopy Barretts esophagus Osteoarthritis, knee Fatty liver Cholelithiasis Carpal tunnel syndrome on both sides Lumbar degenerative disc disease Hypercholesterolemia Hypertension Vitamin D deficiency GERD (gastroesophageal reflux disease) Constipation Family History Family History Father Colon cancer CVD (cardiovascular disease) Mother Breast cancer Brain tumor Sister Colon cancer Breast cancer Family history of problems with anesthesia: No Surgical History Surgical History H/O esophagogastroduodenoscopy H/O colonoscopy History of section History of breast mammoplasty History of carpal tunnel release H/O gastric bypass History of Problems with Anesthesia: No Social History Social History Household Members: Children Household Members Other:: Daugher Housing: Apartment Are you a primary residential child care counselor to a significant other at home: No Do you presently have visiting nurse or other home services: Yes Unable to assess alcohol history related to: Unknown Alcohol intake: never Comment: to OR Patient Tobacco Use Status: Never used Tobacco Tobacco use type: Cigarette e-Cigarette/Vaping Use: Never Used Second Hand Smoke Exposure: No Use of substances other than those prescribed or required for medical reasons: No Are you DNR?: No Advance Directives: No Advance Directives Information Provided: Yes Patient : No service: No Current occupational status: disabled Cognitive needs: No Hearing needs: No Vision needs: No Meds Allergies Allergy/AdvReac Type Severity Reaction Status Date / Time topiramate [From TOPAMAX] Allergy Intermediate NAUSEA & Verified 02/15/25 13:30 VOMITING ENVIRONMENTAL Allergy Severe SINUS Uncoded 02/13/25 13:59 INFXN SYMPTOMS STATED BY PT Home Medications ?Medication ?Instructions ?Recorded ?Confirmed ?Last Taken ?Type dicyclomine 10 mg capsule 10 mg PO TID PRN GI UPSET 08/06/23 01/24/25 Unknown History sucralfate 100 mg/mL oral 10 ml PO BIDAC 08/06/23 01/24/25 Unknown History suspension estradiol 0.01% (0.1 mg/gram) vaginal 06/13/24 01/24/25 Unknown History vaginal cream estradiol 0.05 mg/24 hr semiweekly 1 patch transdermal 2XW 06/13/24 01/24/25 Unknown History transdermal patch progesterone micronized 200 mg 200 mg PO BEDTIME 06/13/24 01/24/25 Unknown History capsule ubrogepant 100 mg tablet (Ubrelvy) mg PO 06/13/24 01/24/25 Unknown History duloxetine 60 mg capsule,delayed 60 mg PO DAILY 01/26/25 Unknown History release vibegron 75 mg tablet (Gemtesa) 75 mg PO DAILY 01/26/25 Unknown History Exam Height,Weight and Vital Signs: Height 5 ft 1 in Weight 83.971 kg Pertinent Lab Results Pertinent Lab Results: Laboratory Tests 02/13/25 15:23 WBC 11.1 H Hgb 10.6 L Hct 32.3 L Plt Count 330 Sodium 139 Potassium 3.9 Chloride 106 Carbon Dioxide 26 BUN 16 Creatinine 0.72 Narrative Narrative: EKG 09/2024 Vent. Rate : 83 BPM Atrial Rate : 83 BPM P-R Int : 166 ms QRS Dur : 74 ms QT Int : 374 ms P-R-T Axes : 57 7 1 degrees QTcB Int : 439 ms Normal sinus rhythm Low voltage QRS Nonspecific T wave abnormality Abnormal ECG When compared with ECG of 19-Jul-2024 10:49, No significant change was found Assessment and Plan Assessment Anesthesia Assessment: Chart Reviewed Final Anesthetic Review Family History of Problems with Anesthesia: No History of Problems with Anesthesia: No Documented by User: Bill Sousa MD 03/03/25 09:23 [facility] Past Medical History Medical History Breast cancer screening by mammogram Obesity (BMI 30-39.9) Family history of ovarian cancer Chest pressure Tinea corporis Anemia Colon cancer screening Menorrhagia Vision blurring Medicare annual wellness visit, initial Sacroiliitis Gastroenteritis Chronic pain syndrome Obesity Encounter for Essure implantation Fibroadenoma Family history of breast cancer Breast mass, right H/O sigmoidoscopy Barretts esophagus Osteoarthritis, knee Fatty liver Cholelithiasis Carpal tunnel syndrome on both sides Lumbar degenerative disc disease Hypercholesterolemia Hypertension Vitamin D deficiency GERD (gastroesophageal reflux disease) Constipation Cognitive capacity: normal Functional capacity: independent ambulation Family History Family History Father Colon cancer CVD (cardiovascular disease) Mother Breast cancer Brain tumor Sister Colon cancer Breast cancer Surgical History Surgical History H/O esophagogastroduodenoscopy H/O colonoscopy History of section History of breast mammoplasty History of carpal tunnel release H/O gastric bypass Social History Social History Household Members: Children Household Members Other:: Janehanane Housing: Apartment Are you a primary residential child care counselor to a significant other at home: No Do you presently have visiting nurse or other home services: Yes Unable to assess alcohol history related to: Unknown Alcohol intake: never Comment: to OR Patient Tobacco Use Status: Never used Tobacco Tobacco use type: Cigarette e-Cigarette/Vaping Use: Never Used Second Hand Smoke Exposure: No Use of substances other than those prescribed or required for medical reasons: No Are you DNR?: No Advance Directives: No Advance Directives Information Provided: Yes Patient : No service: No Current occupational status: disabled Cognitive needs: No Hearing needs: No Vision needs: No Meds Allergies Allergy/AdvReac Type Severity Reaction Status Date / Time topiramate [From TOPAMAX] Allergy Intermediate NAUSEA & Verified 02/15/25 13:30 VOMITING ENVIRONMENTAL Allergy Severe SINUS Uncoded 02/13/25 13:59 INFXN SYMPTOMS STATED BY PT Home Medications ?Medication ?Instructions ?Recorded ?Confirmed ?Last Taken ?Type dicyclomine 10 mg capsule 10 mg PO TID PRN GI UPSET 08/06/23 01/24/25 Unknown History sucralfate 100 mg/mL oral 10 ml PO BIDAC 08/06/23 01/24/25 Unknown History suspension estradiol 0.01% (0.1 mg/gram) vaginal 06/13/24 01/24/25 Unknown History vaginal cream estradiol 0.05 mg/24 hr semiweekly 1 patch transdermal 2XW 06/13/24 01/24/25 Unknown History transdermal patch progesterone micronized 200 mg 200 mg PO BEDTIME 06/13/24 01/24/25 Unknown History capsule ubrogepant 100 mg tablet (Ubrelvy) mg PO 06/13/24 01/24/25 Unknown History duloxetine 60 mg capsule,delayed 60 mg PO DAILY 01/26/25 Unknown History release vibegron 75 mg tablet (Gemtesa) 75 mg PO DAILY 01/26/25 Unknown History Exam Exam Date and Time: 03/03/2025 Airway Mallampati Class: II TM Dist: >3cm Neck ROM: Full Heart: rrr Lungs: cta Assessment and Plan Assessment Anesthesia Assessment: Anesthesia Plan Discussed Final Anesthetic Review NPO: Yes ASA Class: II Final Preanesthetic Review: No Changes in Pt Med Stat, Meds/Allgs Chart Reviewed, Consent Obtained/Reviewed and Anes Risks/Benef Reviewed Patient Risk: Low Procedure Risk: Low Anesthetic Plan Anesthetic Plan: MAC: Disposition: Standard PACU and Extended PACU
--- NOTE | ~2025-03-03 | FL_ITS ---
EXAMINATION: XR FLUOROSCOPY WITH IMAGES CLINICAL INFORMATION: SI joint nerve stimulator, bilateral. COMPARISON: None available. TECHNIQUE: Fluoroscopy provided to: Dr. Norris Fluoroscopy time: 49.9 seconds DAP: 5.6006 Gycm2 Images: 5 FINDINGS: 5 fluoroscopic spot images obtained of the lower lumbar spine/sacrum during placement of bilateral sacral nerve stimulators. Please refer to the full operative report for details. FL/FL guidance in OR IMPRESSION: Fluoroscopic guidance. Electronically signed by: Lex Samaniego MD 03/03/2025 12:38 PM EDT
[2025-03-03 08:14] VITALS: BMI 36.2
[2025-03-03 08:34] VITALS: BP 95/63; PULSE 74; RESP 16; TEMP 36.4; O2SAT 96
[2025-03-03 08:38] LABS: UPreg QC Valid YES; Urine Pregnancy NEGATIVE (NEGATIVE)
[2025-03-03] MEDS: Lactated Ringers 1,000 ML 100 ML IVCONT (08:48)
--- NOTE | 2025-03-03 09:34 | MHC.SHP ---
Pre-Procedural Eval Section A - 24 Hr Update-Section A only Date of Service: 03/03/25 The patient is an INPATIENT: No Changes since office visit: Yes Patient answered all questions The patient has been examined within 24 hours of the surgical procedure. The History & Physical has been completed within 30 days and I have reviewed it.: No Section B - Complete if H&P > 30 days Chief Complaint: Sacrococcygeal disorders,Sacroiliitis Details of Present Illness: as above Relevant Family History (Specify if Yes): No Relevant Social History: None Present Medications: None Medical History: No relevant PMH History of Previous Operations: No relevant previous surgery Allergies: Allergies Allergy/AdvReac Type Severity Reaction Status Date / Time topiramate [From TOPAMAX] Allergy Intermediate NAUSEA & Verified 02/15/25 13:30 VOMITING ENVIRONMENTAL Allergy Severe SINUS Uncoded 02/13/25 13:59 INFXN SYMPTOMS STATED BY PT Review of Systems Sugical H&P ROS: Negative: Constitution, Cardiovascular, Respiratory, Neurological, Psychiatric, Hem-Onc, Allergic/Immunologic, Gastrointestinal, Genitourinary, Musculoskeletal, Integumentary, Endocrine and Eyes/Ears/Nose/Throat Exam Surgical H&P Exam: Normal: HEENT, Normal: Heart, Normal: Lungs, Normal: Extremities, Normal: Abdomen, Normal: Skin and Normal: Neurological Plan Diagnosis/Plan: Unchanged I have reviewed the history and physical and performed a pertinent physical examination on my patient. No changes have occurred unless specified. Time Spent With Patient Time: Total time managing care of this patient today ____ minutes.
[2025-03-03 10:55] VITALS: BP 91/55; PULSE 70; RESP 18; TEMP 36.1; O2SAT 97
[2025-03-03 11:10] VITALS: BP 113/72; PULSE 60; RESP 20; O2SAT 98
--- NOTE | 2025-03-03 11:11 | W.PM.OPN ---
Operative Note Operative Note Date of Service: 03/03/25 Narrative: trial of the sacroiliac joint innervation stimulation Curonix bilateral. Informed consent was thoroughly explained to the patient.? Risks and benefits were explained as bleeding infection peripheral nerve damage and other no unspecified risks. Patient ? was taken to the operating room, she was positioned prone on the operating table with the pillow under her pelvis.? [place] [employer] monitors were applied and patient was deeply sedated. Time out was performed delineated correct name and of the patient, site, side and nature of the procedure, Need for DVT prophylaxis, risk of fire, need for antibiotics. patient received cefazolin 2 g preoperatively 20 minutes before the onset of the procedure Her lower back and buttocks was prepped with ChloraPrep twice, and laparoscopy whole-body sterile drape was applied.? Sterilely draped C-arm was brought over the operating field and sq picture of patient's pelvis was demonstrated on the screen.? Attention was concentrated on the right SI joint innervation first. The sacral ala on the right was chosen as a target of the needle insertion. 3 cm above the sacral ala projection in the lumbar area injection of the local anesthetic miixture of lidocaine 2% with ropivacaine 0.5% one-to-one was performed in the skin. Using 11 blade scalpel small scott in the skin was performed. 16 gauge introducer Curonix malleable needle? was inserted through the scott and advanced toward the sacral alae on the right under AP and lateral images.? After needle met the bone on sacral ala it was redirected slightly posterior and continued to advance alongside the curvature of the sacral bone.? When the tip of the needle reached the end of the projection of the sacroiliac joint inferiorly advancement stops and guitar wire was introduced into the needle.? It went through the needle without difficulties.? After that 8 electrode stimulating array lead was inserted through the needle and advanced to the desired position.? The needle was removed and care was taken not to dislodge the lead.? The driving stylet was removed from the lead and it was replaced with stimulating copper wire antenna electrode.? After that the knot was tied just below the level of the 2nd antenna ? contact.Mastisol was applied to the skin and Steri-Strips was used to fix the stimulating lead to the skin.? after the sacral dg on the left was chosen as the target of the 2nd needle insertion. 3 cm above the sacral allow projection in the lumbar area injection of the local anesthetic was performed in the skin. Local anesthetic comprised of lidocaine 2% mixed with ropivacaine 0.5% one-to-one. 16 gauge introducer Curonix malleable needle was inserted through the scott and advanced toward the sacral dg on the left under anterior posterior and lateral images. After needle met the bone on sacral ala it was redirected slightly posterior and continued to advance alongside the curvature of the sacral bone. When the tip of the needle reached the end of the projection of the sacroiliac joint inferiorly advancement stopped and guitar wire was introduced into the needle. It went through the needle without difficulty. After that 8 electrode stimulating RA lead was inserted through the needle and advanced it to the desired position. The needle was removed and care was taken not to dislodge the lead. The driving stylette was removed from the lead and it was replaced with stimulating copper wire electrode. After that the knot was tied just below the level of the 2nd antenna contact. Mastisol was applied to the skin and Steri-Strips were used to fix the stimulating leads to the skin.Sterile dressing applied, stimulating pad was applied and taped to the skin using Medipore tape. Upon completion of the procedure the patient was awaken she was taken outside of the operating room to recovery room where she recovered uneventfully.
--- NOTE | 2025-03-03 11:15 | P.BOP_ITS ---
Brief Operative Note Date of Service: 03/03/25 Pre-op diagnosis: sacroiliitis, sacroiliac joint pain Post-op diagnosis: same Procedure: Trial of Curonix PNS of bilateral SI joint innervation stimulation. Implants: none permanent Surgeon: Bill Norris MD Anesthesia: MAC Was an Miniature Set Builder used for this Procedure?: No Estimated blood loss (mL): 4 Condition: stable Disposition: PACU
[2025-03-03 11:25] VITALS: BP 106/69; PULSE 61; RESP 20; TEMP 36.2; O2SAT 100
== END 2025-03-03 12:13 | disposition home or self-care (01) ==
PROVIDERS: Nurse Practitioner; PCP Internal Medicine; Visit Provider Anesthesiology
PROC: (CPT 64555; principal; 2025-03-03 09:50)
DX: M46.1 Sacroiliitis, not elsewhere classified (principal); M53.3 Sacrococcygeal disorders, not elsewhere classified
CPT/HCPCS: 64555 ×2; 81025; C1897; J0690; J2003; J2250; J2405; J2704; J2795; J3010

== ENCOUNTER → 2025-03-03 07:04 | Outpatient (BNV) | payer OTHER, SELFPAY | PROVIDERS: PCP Internal Medicine; Visit Provider Anesthesiology | DX: M46.1 Sacroiliitis, not elsewhere classified (principal); M53.3 Sacrococcygeal disorders, not elsewhere classified | CPT/HCPCS: 64555 ==

== ENCOUNTER 2025-03-07 06:10 | Outpatient (REF) | payer OTHER, SELFPAY | END 2025-03-07 06:11 | disposition home or self-care (01) | LOC: CF 06:10 | PROVIDERS: Visit Provider Anesthesiology | DX: Z13.89 Encounter for screening for other disorder (principal) ==

== ENCOUNTER 2025-03-10 09:39 | Outpatient (AMB) | payer OTHER, SELFPAY ==
--- NOTE | 2025-03-10 09:40 | A.OFFVIS_ITS ---
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 The patient experienced increased discomfort initially post-procedure, but subsequently reported a reduction in her usual low back pain by about 50% to 70%. The pain is associated with morning stiffness, which hinders her ability to initiate daily activities. Walking has been a beneficial activity that alleviates her pain. Additionally, muscle spasms have been documented in her leg, predominantly associated with device overstimulation, which required modification. - Onset: Chronic, exacerbated by recent surgical procedure. - Quality: Initially increased discomfort post-procedure, now improved with less pressure sensation. - Location: Primarily in the low back, with extension to the leg manifesting as muscle spasms. - Radiation: Spine to lower extremity. - Exacerbating Factors: Overstimulation from the spinal device, morning stiffness. - Relieving Factors: Device adjustment, walking, less pressure on spinal region. - Affect: Patient finds her overall mood and function improved with the pain device. - Analgesia: Approximately 50% to 70% pain reduction post-device placement. - Adverse Effects: Initial increased pain post-surgery; muscle spasm due to overstimulation. - Activities of Daily Living: Improvement in walking and daily functions; initial post-surgical recovery hindered daily activity. - Aberrant Drug Related Behaviors: None reported. [facility] Medical History Breast cancer screening by mammogram Obesity (BMI 30-39.9) Family history of ovarian cancer Chest pressure Tinea corporis Anemia Colon cancer screening Menorrhagia Vision blurring Medicare annual wellness visit, initial Sacroiliitis Gastroenteritis Chronic pain syndrome Obesity Encounter for Essure implantation Fibroadenoma Family history of breast cancer Breast mass, right H/O sigmoidoscopy Barretts esophagus Osteoarthritis, knee Fatty liver Cholelithiasis Carpal tunnel syndrome on both sides Lumbar degenerative disc disease Hypercholesterolemia Hypertension Vitamin D deficiency GERD (gastroesophageal reflux disease) Constipation Surgical History H/O esophagogastroduodenoscopy H/O colonoscopy History of section History of breast mammoplasty History of carpal tunnel release H/O gastric bypass Family History Father Colon cancer CVD (cardiovascular disease) Mother Breast cancer Brain tumor Sister Colon cancer Breast cancer Social History Household Members: Children Household Members Other:: Daugher Housing: Apartment Are you a primary rn complex care to a significant other at home: No Do you presently have visiting nurse or other home services: Yes Unable to assess alcohol history related to: Unknown Alcohol intake: never Comment: to OR Patient Tobacco Use Status: Never used Tobacco Tobacco use type: Cigarette e-Cigarette/Vaping Use: Never Used Second Hand Smoke Exposure: No service: No Current occupational status: disabled Cognitive needs: No Hearing needs: No Vision needs: No Female Reproductive History Menstrual Age of Menarche: 14 Review of Systems Const Details: - Musculoskeletal: Reports right knee pain. - Neurological: Reports improvement in low back pain, with initial increase in discomfort post-surgical procedure. Denies ongoing significant pain. - General: Denies significant issues aside from those discussed. Physical Exam Vital Signs: Last Vital Signs Pulse 82 03/10/25 09:43 Resp 16 03/10/25 09:43 BP 119/58 L 03/10/25 09:43 Pulse Ox 98 03/10/25 09:43 Oxygen Delivery Method Room Air 03/10/25 09:43 BMI result Body Mass Index 36.5 General: awake, alert, oriented. Answers questions appropriately. Fully engaged in examination. Skin: warm, dry, intact HEENT: Normocephalic. Hearing intact. Cardiac: External chest normal in appearance. Respiratory: No cough, audible wheezing or stridor. Abdomen: without gross distension. MS: No obvious swelling or deformities. Able to transition from sit to stand unassisted. Ambulates with bilaterally normal heel strike and toe off Neurological: Oriented to person, place, time and situation. Thought process intact. Ambulates with the use of a cane Psychiatric: Appropriate mood and affect. Good judgment and insight. Curonix PNS Trial lead removal: Dressing was taken down, area was cleansed with chloraprep, insertion site was visualized and without redness/irritation/drainage. Steri strips removed and both leads withdrawn without resistance; leads examined and noted to be without concern. Area cleansed again, bacitracin dressing was applied, area covered with bandaid. Assessment & Plan Assessment & Plan (1) Right knee pain: Code(s): M25.561 - Pain in right knee Category: Medical (2) Sacroiliitis: Code(s): M46.1 - Sacroiliitis, not elsewhere classified Category: Medical (3) Morbid obesity: Code(s): E66.01 - Morbid (severe) obesity due to excess calories Category: Medical (4) Sacroiliac joint dysfunction of both sides: Code(s): M53.3 - Sacrococcygeal disorders, not elsewhere classified Category: Medical (5) Osteoarthritis, knee: Code(s): M17.10 - Unilateral primary osteoarthritis, unspecified knee Category: Medical Plan The patient will undergo permanent implantation of spinal electrodes due to a marked decrease in pain and improved function during the trial period. This procedure's benefits include better management of symptoms, ease of device use, and elimination of external irritation risks. We will also address knee pain with potential injections and continued support with braces to stabilize and minimize discomfort during increased ambulation. Coordination for insurance ap [facility] is planned, alongside a follow-up for device-fitting logistics. I discussed the transition from a trial to permanent electrode implantation with the patient, emphasizing the advantages such as improved pain control and reduced external irritation risks. We covered potential procedure risks, including infection and device malfunction, and reviewed anticipated benefits aligning with her reported outcomes. Consent was obtained to proceed pending insurance authorization. Follow-up visits will ensure the ongoing review of her recovery, device adjustments, and management of any emerging issues. Patient was informed and verbally consented to the use of an ambient scribe for clinic note documentation during this visit. Patient Instructions: - Use supportive devices, such as knee braces, to stabilize while walking. - Engage in gentle walking exercises to alleviate stiffness. - Follow up on insurance approval for a permanent PNS electrode implant. - Contact care provider if experiencing increased pain, fever, or signs of infection at incision sites. Coding Level of Care Code Est Pt Level 3 (92489) Complex EM visit Add On G2211 Diagnoses Right knee pain M25.561 Sacroiliitis M46.1 Morbid obesity E66.01 Sacroiliac joint dysfunction of both sides M53.3 Osteoarthritis, knee M17.10
[2025-03-10 09:43] VITALS: BP 119/58; PULSE 82; RESP 16; O2SAT 98; BMI 36.5
== END 2025-03-10 10:25 | disposition home or self-care (01) ==
PROVIDERS: PCP Internal Medicine; Visit Provider Registered Nurse Emergency
DX: M25.561 Pain in right knee (principal); M46.1 Sacroiliitis, not elsewhere classified; E66.01 Morbid (severe) obesity due to excess calories; M53.3 Sacrococcygeal disorders, not elsewhere classified; M17.10 Unilateral primary osteoarthritis, unspecified knee
CPT/HCPCS: 99024

== ENCOUNTER → 2025-03-10 09:39 | Outpatient (BNVA) | payer OTHER, SELFPAY | PROVIDERS: PCP Internal Medicine; Visit Provider Registered Nurse Emergency | DX: M25.561 Pain in right knee (principal); M54.50 Low back pain, unspecified; M46.1 Sacroiliitis, not elsewhere classified; E66.01 Morbid (severe) obesity due to excess calories; M53.3 Sacrococcygeal disorders, not elsewhere classified; M17.10 Unilateral primary osteoarthritis, unspecified knee | CPT/HCPCS: 99212 ==

== ENCOUNTER 2025-04-21 05:52 | Day surgery (SDC) | payer OTHER, SELFPAY ==
--- OUTSIDE RECORDS SUMMARY | 2025-03-25 23:59 | XMS_ITS | Continuity of Care Document ---
Author Organization [facility] Address [address] [place] [id number] Care Team Providers Care Hotel Security Officer Name Role Phone Minnie Lazcano MD Primary Care Physician [phone] Encounter [facility] NBR [id number] Date(s): 10/05/24 - 03/25/[address] [address] Attending Physician: Emi Conte MD Admitting Physician: Emi Conte MD Referring Physician: Minnie Lazcano MD Encounter Type: Pre-OutPatient One Time Allergies, [...] a schedule II opioid drug., 154.9, cm, 02/22/21 8:05:00 EST, Height, 93, kg, 11/17/20 22:24:00EST, [...] 1 Refills, Maintenance, 08/23/22 1:38:00 PM EST, [place], [facility]/pharmacy #[id number], Partial fill upon patient [...] Date: 11/30/20 Status: Ordered Repeat number: 1 Omeprazole = 20 mg, By Mouth, 2 [...] Refills, Maintenance, 11/30/20 3:03:00 PM EST, Capsule, [facility], Partial fill [...] insomnia Confirmed Active Nasal congestion Confirmed Active Obese class I Confirmed Active Obstructive sleep apnea Confirmed Active Tiredness Confirmed Active Patient Care team information Care Team Personnel Name: Minnie Lazcano MD Position: Reference Physician Member Role: PCP Address: [address] [place] [address] Telecom: Care Team Related Persons Name: KINGSLEY CRUZ Name: DEIDRA BILLS Name: ARMANDO BILLS Insurance Providers Guarantor name: ARON CRUZ Health Plan Information #: 1 Payer: [facility] [employer] Payer Identifier: NA Member Number: [id number] Group Number: [id number] Subscriber Identifier: [id number] Relationship to Subscriber: self Coverage Type: Medicare Managed Care (Includes Medicare Advantage Plans) Coverage Verification Date: NA Telecom: NA Address: Health Plan Information #: 2 Payer: MEDICARE B Payer Identifier: NA Member Number: [id number] Group Number: [id number] Subscriber Identifier: [id number] Relationship to Subscriber: self Coverage Type: NA Coverage Verification Date: NA Telecom: NA Address: Health Plan Information #: 3 Payer: [facility] Payer Identifier: NA Member Number: [id number] Group Number: [id number] Subscriber Identifier: [id number] Relationship to Subscriber: self Coverage Type: Medicare Managed Care (Includes Medicare Advantage Plans) Coverage Verification Date: [place] Telecom: NA Address: [place] Health Plan Information #: 4 Payer: [employer] Payer Identifier: [place] Member Number: [id number] Group Number: [id number] Subscriber Identifier: [id number] Relationship to Subscriber: self Coverage Type: MEDICAID Coverage Verification Date: [place] Telecom: [place] Address: NA
[2025-04-19 12:49] VITALS: BMI 36.5
[2025-04-21] VITALS (7 sets, daily range): BP systolic 95–105; BP diastolic 55–67; PULSE 65–79; RESP 16–20; TEMP 36.1–37; O2SAT 93–97; BMI 37.4
--- NOTE | ~2025-04-21 | FL_ITS ---
EXAMINATION: FL GUIDANCE ONLY HISTORY: SI joint nerve stimulator implant COMPARISON: None available. TECHNIQUE: Fluoroscopy time: 1 minute, 19.9 seconds. Cumulative Dose: 24.355 mGy. DAP: 10.594 mGym2 Images: 3. FINDINGS: Fluoroscopic spot films of the pelvis demonstrate bilateral sacral stimulators in place. FL/FL guidance in OR IMPRESSION: Fluoroscopy during procedure. Please see procedure report for additional information. Electronically signed by: Curly Madera MD 04/21/2025 10:43 AM EDT
[2025-04-21 06:39] LABS: UPreg QC Valid YES
--- NOTE | 2025-04-21 06:45 | MHC.SHP ---
Pre-Procedural Eval Section A - 24 Hr Update-Section A only Date of Service: 04/21/25 The patient is an INPATIENT: No Changes since office visit: Yes Patient answered all questions The patient has been examined within 24 hours of the surgical procedure. The History & Physical has been completed within 30 days and I have reviewed it.: No Section B - Complete if H&P > 30 days Chief Complaint: Sacrococcygeal disorders,sacroiliitis Details of Present Illness: as Allergies: Allergies Allergy/AdvReac Type Severity Reaction Status Date / Time topiramate (From TOPAMAX) Allergy Intermediate NAUSEA & Verified 03/10/25 09:47 VOMITING ENVIRONMENTAL Allergy Severe SINUS Uncoded 03/07/25 16:20 INFXN SYMPTOMS STATED BY PT Review of Systems Sugical H&P ROS: Negative: Cardiovascular, Neurological, Psychiatric, Hem-Onc, Allergic/Immunologic, Genitourinary, Integumentary, Endocrine and Eyes/Ears/Nose/Throat and Yes, Specify: Constitution (Morbid obesity, history of gastric bypass.), Respiratory (Mild obstructive sleep apnea), Gastrointestinal (GERD, constipation.) and Musculoskeletal (Fibromyalgia, sacroiliitis, bilateral SI joint dysfunction.) Exam Surgical H&P Exam: Normal: HEENT, Normal: Heart, Normal: Lungs, Normal: Extremities, Normal: Skin and Normal: Neurological and Significant Findings: Abdomen (Enlarged 2 to fat ) Plan Diagnosis/Plan: Unchanged I have reviewed the history and physical and performed a pertinent physical examination on my patient. No changes have occurred unless specified. Time Spent With Patient Time: Total time managing care of this patient today ____ minutes.
[2025-04-21] MEDS: Lactated Ringers 1,000 ML 80 ML IVCONT (07:09)
--- NOTE | 2025-04-21 08:03 | HO.ANESPROP2 ---
HPI - Anesthesia Eval Consult details Narrative: stim implant si jt PMFSH Active Problems Active Problems: All Active Problems Colitis (Acute) Right knee pain (Acute) Abdominal pain (Acute) Frequency of micturition (Acute) Overactive bladder (Acute) Annual physical exam (Acute) Fibromyalgia (Acute) Hordeolum externum left lower eyelid (Acute) Chest pressure (Acute) Acute on chronic low back pain (Acute) Hypotension (Acute) Dysphagia (Acute) Urge incontinence (Acute) Plantar fasciitis of left foot (Acute) Acute lower GI bleeding (Acute) Medicare annual wellness visit, subsequent (Acute) Abnormal bowel habits (Acute) Morbid obesity (Acute) Mild obstructive sleep apnea (Acute) Pelvic pain (Acute) Attempted IUD removal, unsuccessful (Acute) IUD strings lost (Acute) Abnormal uterine bleeding (AUB) (Acute) Well woman exam (Acute) Chest pain (Acute) Iron deficiency anemia (Acute) Generalized anxiety disorder (Acute) Sacroiliitis (Acute) Osteoarthritis, knee (Acute) Schatzki's ring (Acute) Post concussive syndrome (Acute) IBS (irritable bowel syndrome) (Acute) Allergic rhinitis (Acute) Breast cancer screening by mammogram (Acute) Obesity (BMI 30-39.9) (Acute) Chest pressure (Acute) H/O gastric bypass (Acute) Fibroadenoma (Acute) Family history of breast cancer (Acute) Breast mass, right (Acute) Barretts esophagus (Acute) Carpal tunnel syndrome on both sides (Acute) Hypercholesterolemia (Acute) Hypertension (Acute) Vitamin D deficiency (Acute) GERD (gastroesophageal reflux disease) (Acute) Constipation (Acute) Past Medical History Medical History Breast cancer screening by mammogram Obesity (BMI 30-39.9) Family history of ovarian cancer Chest pressure Tinea corporis Anemia Colon cancer screening Menorrhagia Vision blurring Medicare annual wellness visit, initial Sacroiliitis Gastroenteritis Chronic pain syndrome Obesity Encounter for Essure implantation Fibroadenoma Family history of breast cancer Breast mass, right H/O sigmoidoscopy Barretts esophagus Osteoarthritis, knee Fatty liver Cholelithiasis Carpal tunnel syndrome on both sides Lumbar degenerative disc disease Hypercholesterolemia Hypertension Vitamin D deficiency GERD (gastroesophageal reflux disease) Constipation Family History Family History Father Colon cancer CVD (cardiovascular disease) Mother Breast cancer Brain tumor Sister Colon cancer Breast cancer Family history of problems with anesthesia: No Surgical History Surgical History History of insertion of nerve stimulator H/O esophagogastroduodenoscopy H/O colonoscopy History of section History of breast mammoplasty History of carpal tunnel release H/O gastric bypass History of Problems with Anesthesia: No Social History Social History Household Members: Children Household Members Other:: Jane Housing: Apartment Are you a primary eye care professional to a significant other at home: No Do you presently have visiting nurse or other home services: Yes Unable to assess alcohol history related to: Unknown Alcohol intake: never Comment: to OR Patient Tobacco Use Status: Never used Tobacco Tobacco use type: Cigarette e-Cigarette/Vaping Use: Never Used Second Hand Smoke Exposure: No Use of substances other than those prescribed or required for medical reasons: No Advance Directives: No Advance Directives Information Provided: Yes Patient : No : No Poor oral hygiene: No service: No Current occupational status: disabled Cognitive needs: No Hearing needs: No Vision needs: No Meds Allergies Allergy/AdvReac Type Severity Reaction Status Date / Time topiramate (From TOPAMAX) Allergy Intermediate NAUSEA & Verified 03/10/25 09:47 VOMITING ENVIRONMENTAL Allergy Severe SINUS Uncoded 03/07/25 16:20 INFXN SYMPTOMS STATED BY PT Active Medications: Current Medications Lactated Ringer's (Lr) 1,000 mls @ 80 mls/hr IVCONT .[id number] Last Admin: 04/21/25 07:09 Dose: 80 mls/hr Home Medications ?Medication ?Instructions ?Recorded ?Confirmed ?Last Taken ?Type dicyclomine 10 mg capsule 10 mg PO TID PRN GI UPSET 08/06/23 03/07/25 Unknown History sucralfate 100 mg/mL oral 10 ml PO BIDAC 08/06/23 04/19/25 Unknown History suspension estradiol 0.01% (0.1 mg/gram) 1 appl vaginal DAILY 06/13/24 04/19/25 Unknown History vaginal cream estradiol 0.05 mg/24 hr semiweekly 1 patch transdermal 2XW 06/13/24 04/19/25 Unknown History transdermal patch progesterone micronized 200 mg 200 mg PO BEDTIME 06/13/24 04/19/25 Unknown History capsule ubrogepant 100 mg tablet (Ubrelvy) 100 mg PO ONCE PRN Migraine 06/13/24 04/19/25 Unknown History Headache duloxetine 60 mg capsule,delayed 60 mg PO DAILY 01/26/25 04/19/25 Unknown History release vibegron 75 mg tablet (Gemtesa) 75 mg PO DAILY 01/26/25 04/19/25 Unknown History Exam Height,Weight and Vital Signs: Height 5 ft Weight 86.9 kg Last Vital Signs Temp 97.0 F 04/21/25 06:47 Pulse 70 04/21/25 06:47 Resp 16 04/21/25 06:47 BP 97/61 04/21/25 06:47 Pulse Ox 97 04/21/25 06:47 O2 Del Method Room Air 04/21/25 06:47 Pertinent Lab Results Pertinent Lab Results: Laboratory Tests 04/21/25 06:16 Urine Test NEGATIVE Airway Mallampati Class: II TM Dist: >3cm Neck ROM: Full Heart: rrr Lungs: cta Assessment and Plan Assessment Anesthesia Assessment: Anesthesia Plan Discussed and Chart Reviewed Final Anesthetic Review Family History of Problems with Anesthesia: No History of Problems with Anesthesia: No NPO: Yes ASA Class: II Final Preanesthetic Review: No Changes in Pt Med Stat, Meds/Allgs Chart Reviewed, Consent Obtained/Reviewed and Anes Risks/Benef Reviewed Patient Risk: Intermediate Procedure Risk: Low Anesthetic Plan Anesthetic Plan: MAC: Disposition: Standard PACU
--- NOTE | 2025-04-21 10:33 | PM.OP ---
Brief Operative Note Date of Service: 04/21/25 Pre-op diagnosis: Sacroiliitis, sacroiliac joint infarction bilateral. Post-op diagnosis: same Procedure: Implantation of Curonix peripheral nerve stimulation of sacroiliac joint innervation bilateral. Surgeon: Bill Norris MD Was an Tooling Manager used for this Procedure?: No Estimated blood loss (mL): 28 Pathology: none sent Condition: stable Disposition: PACU
--- NOTE | 2025-04-21 10:36 | W.PM.OPN ---
Operative Note Operative Note Date of Service: 04/21/25 Narrative: Implantation of the sacroiliac joint innervation stimulation Curonix bilateral. Informed consent was thoroughly explained to the patient.? Risks and benefits were explained as bleeding infection peripheral nerve damage and other unspecified risks. Patient ? was taken to the operating room, she was positioned prone on the operating table with the pillow under her pelvis.? [employer] monitors were applied and patient was deeply sedated. Time out was performed delineated correct name and of the patient, site, side and nature of the procedure, Need for DVT prophylaxis, risk of fire, need for antibiotics. patient received cefazolin 2 g preoperatively 20 minutes before the onset of the procedure Her lower back and buttocks were prepped with ChloraPrep twice, and laparoscopy whole-body sterile drape was applied, Ioban filled applied over the drape..? Sterilely draped C-arm was brought over the operating field and sq picture of patient's pelvis was demonstrated on the screen.? Attention was concentrated first on the right SI joint. The sacral ala on the right was chosen as a target of the needle insertion. 3 cm above the sacral ala projection in the lumbar area injection of the local anesthetic miixture of lidocaine 2% with ropivacaine 0.5% one-to-one was performed in the skin in vertical fashion approximately 4.5 cm. 10 blade scalpel was used to make 4.5 cm skin incision. The incision was widened and deepened until subcutaneous fascia was exposed. Thorough hemostasis was obtained using electrocautery. After the 16 gauge introducer Curonix malleable needle? was inserted through the fascia and advanced toward the sacral alae on the right under AP and lateral images.? After needle met the bone on sacral ala it was redirected posterior and continued to advance alongside the curvature of the sacral bone.? When the tip of the needle reached the end of the projection of the sacroiliac joint inferiorly advancement stops and guitar wire was introduced into the needle.? It went through the needle without difficulties.? After that 4 electrode permanent stimulating array lead with plastic tines was inserted through the needle and advanced to the desired position.? The needle was removed and care was taken not to dislodge the lead.? The driving stylet was removed from the lead and it was replaced with stimulating copper wire antenna electrode.? After the anchoring device was dislodged on the stimulating lead and advanced to the level of fascia. It was deployed on the stimulating lead and after the the wings of the anchoring device were suture to the underlying fascia using 0 -0 Tycron sutures. After that attention was attracted to sacral dg on the left. 3 cm above the sacral up projection of the lumbar area injection of the local anesthetic mixture of lidocaine 2% and ropivacaine 0.5% one-to-one was performed in the skin in the vertical fashion approximately 4.5 cm. Using 10 blade scalpel vertical incision was made 4.5 cm long. The incision was widened and deepened until subcutaneous fascia was exposed. Thorough hemostasis was obtained using electrocautery. After that 16 gauge introducer Fastclickonix malleable needle was inserted through the fascia and advanced to were the sacral allow on the left under anterior posterior and lateral images. After needle met the bone on the sacral ala it was redirected posterior and continue to advance alongside the curvature of the sacral bone. When the tip of the needle reached the end of the projection of the sacroiliac joint inferiorly advancement stops and guitar wire was introduced into the needle. It went through the needle without difficulty. After that 4 electrode permanent stimulating lead with plastic tines was inserted through the needle and advanced to the desired position. The needle was removed and care was taken not to dislodge the lead. The driving stylette was removed from the lead and it was replaced with stimulating copper wire antenna electrode. After that anchoring device was dislodged on the stimulating lead and advanced to the level of fascia it was deployed on stimulating lead and after that the wings of the anchoring device were sutured to the underlying fascia using 0-0 Tycron sutures. After that attention was attracted to the midline spine in the projection of L3-L4 vertebra where the skin was infiltrated using lidocaine 2% and ropivacaine 0.5% one-to-one, after that 6 cm long incision was made and thorough hemostasis was obtained. The incision was widened and deepened and after that thorough irrigation was performed on all 3 incisions. The tunneling device was used to dislodge the stimulating leads into the midline incision. The knots were formed on each of the electrode, after that the coil was formed above the level of the knots. The coil was kept together with 0-0 silk free ties. After that Adeline clamp was used to form the pocket for the coil, the coil was inserted into the pocket and all wounds were irrigated again using normal saline mixed with vancomycin. After that thorough hemostasis was checked again, 0-2 Polysorb sutures were used to close all the wounds in 2 layers. After that eduardo and 0-2 silk sutures were applied to each of the wounds. Sterile dressing was applied using the Medipore tape. After that the stimulating paddle was taped to the area of the implantation of the device and abdominal binder was given to the patient to wear. After that the patient was awake, she was taken outside of the operating room to recovery room where she recovered uneventfully.
== END 2025-04-21 11:44 | disposition home or self-care (01) ==
PROVIDERS: Anesthesiology; PCP Internal Medicine; Visit Provider Anesthesiology
PROC: (CPT 64555; principal; 2025-04-21 07:30)
DX: M53.3 Sacrococcygeal disorders, not elsewhere classified (principal); M46.1 Sacroiliitis, not elsewhere classified
CPT/HCPCS: 64555 ×2; 64590; 81025; C1713; C1816; J0131; J0690; J2003; J2250; J2704; J2795; J3010; J3374

== ENCOUNTER → 2025-04-21 05:52 | Outpatient (BNV) | payer OTHER, SELFPAY | PROVIDERS: PCP Internal Medicine; Visit Provider Anesthesiology | DX: M46.1 Sacroiliitis, not elsewhere classified (principal) | CPT/HCPCS: 64555 ==

== ENCOUNTER 2025-04-28 10:11 | Outpatient (AMB) | payer OTHER, SELFPAY ==
--- OUTSIDE RECORDS SUMMARY | 2025-04-24 01:20 | XMS_ITS | Continuity of Care Document ---
Author Organization [facility] ter Address [address] [place] [id number]- Care Team Providers Care E Learning Manager Name Role Phone Po Minnie TRUONG Primary Care Physician [id number] Date(s): 04/23/25 - 04/24/[address] [address]- Encounter Diagnosis Arm pain(Final) - 04/24/25 Discharge Disposition: A-D/C Home Attending Physician: Toya Mckeon DO Admitting Physician: Toya Mckeon DO Referring Physician: Not on Staff, Referring MD Encounter Type: Disch ES Allergies, Adverse Reactions, Alerts Substance Criticality Severity [...] Date: 11/30/20 Status: Ordered Repeat number: 1 Dilaudid Inj 1 mg, Injection, IV Push Slowly, Once, STAT, 04/23/25 10:18:00 PM EDT, Stop date 04/23/25 10:30:56 PMEDT Start Date: 04/23/25 Stop Date: 04/23/25 Status: Completed Repeat number: 1 Docu Soft sodium 100 [...] 1 Refills, Maintenance, 08/23/22 1:38:00 PM EST, [place], [facility]/pharmacy #[id number], Partial fill upon patient request if [...] sleep apnea Confirmed Active Tiredness Confirmed Active Results Radiology Reports * Exam Date Time Procedure Performing Provider Status 04/24/25 12:[address] Cervical Spine W/O Contrast Auth (Verified) Notes: (CT Cervical Spine W/O Contrast) Reason For Exam: right neck pain after nerve stimulator;Back Pain RESULT: CT Cervical Spine W/O Contrast CT Cervical Spine W/O Contrast Hx of Present Illness: had bilateral simulation back surgery; Reason: Back Pain; right neck pain after nerve stimulator; Clinical Question(s): Fracture Dislocation TECHNIQUE: Spiral CT of the cervical spine without contrast, formatted in 3 planes. Weight-based protocol using automatic tube modulation was used to optimize exposure parameters. RADIATION DOSE PARAMETERS: CTDIvol Body: 10.30 mGy, DLP Body: 284 mGy*cm. COMPARISON: Multiple priors, most recent CT head 12/24/2023, CTA neck 11/17/2020 FINDINGS: Spine: No fracture. No acute osseous abnormalities. Normal alignment. No locked or perched facet. Mild multilevel degenerative disc space narrowing andend plate irregularity, most prominent at C5-C6. Soft tissues and lung apices: Unremarkable. Clear lung apices. IMPRESSION: No acute abnormality of the cervical spine. I have personally reviewed the images and I agree with this report. WSN: [id number] Ordering Physician: Bi Macias Dictated By: Lashell Lancaster MD Dictated Date/Time: 04/24/25 1:02 am Reviewed By: Tyrell Tello MD Signed By: Tyrell Tello MD Signed Date/Time: 04/24/25 1:07 am Transcribed By: HUMBERTO Transcribed Date/Time: 04/24/25 0:38 am * Exam Date Time Procedure Performing Provider Status 04/24/25 12:[address] Lumbar Spine W/O Contrast Auth (Verified) Notes: (CT Lumbar Spine W/O Contrast) Reason For Exam: nerve stimulator put in pain from neck r/o compression stenosis;Back Pain RESULT: CT Lumbar Spine W/O Contrast CT Thoracic Spine W/O Contrast, CT Lumbar Spine W/O Contrast INDICATION: Hx of Present Illness: had bilateral simulation back surgery; Reason: Back Pain; Clinical Question(s): Fracture Dislocation, Fracture/Dislocation TECHNIQUE: Noncontrast CT of the thoracic spine was performed. Bone and soft tissue algorithms werereconstructed along with coronal and sagittal computations. Weight-based protocol using automatic tube modulation was used to optimize exposure parameters. RADIATION DOSE PARAMETERS: CTDIvol Body: 33.60 mGy, DLP Body: 1816 mGy*cm. COMPARISON: Multiple priors, most recent CTA chest and abdomen 12/24/2023, CT abdomen and pelvis 09/07/2016 FINDINGS: Spine: No fractures or bone lesion. The alignment is maintained. Mild degenerative changes are noted including disc height loss and endplate osteophytosis. Soft tissues: No acute abnormality in the paravertebral soft tissues. Partially imaged stimulator is visualized within the superficial soft tissues of the lower back. Partially imaged mild cardiomegaly. Multiple left renal parapelvic cysts. Postsurgical changes within the stomach. IMPRESSION: No acute abnormality of the thoracolumbar spine. I have personally reviewed the images and I agree with this report. WSN: [id number] Ordering Physician: Bi Macias Dictated By: Lashell Lancaster MD Dictated Date/Time: 04/24/25 1:05 am Reviewed By: Tyrell Tello MD Signed By: Tyrell Tello MD Signed Date/Time: 04/24/25 1:10 am Transcribed By: HUMBERTO Transcribed Date/Time: 04/24/25 0:25 am * Exam Date Time Procedure Performing Provider Status 04/24/25 12:[address] Thoracic Spine W/O Contrast Auth (Verified) Notes: (CT Thoracic Spine W/O Contrast) Reason For Exam: Back Pain RESULT: CT Thoracic Spine W/O Contrast CT Thoracic Spine W/O Contrast, CT Lumbar Spine W/O Contrast INDICATION: Hx of Present Illness: had bilateral simulation back surgery; Reason: Back Pain; Clinical Question(s): Fracture Dislocation, Fracture/Dislocation TECHNIQUE: Noncontrast CT of the thoracic spine was performed. Bone and soft tissue algorithms werereconstructed along with coronal and sagittal computations. Weight-based protocol using automatic tube modulation was used to optimize exposure parameters. RADIATION DOSE PARAMETERS: CTDIvol Body: 33.60 mGy, DLP Body: 1816 mGy*cm. COMPARISON: Multiple priors, most recent CTA chest and abdomen 12/24/2023, CT abdomen and pelvis 09/07/2016 FINDINGS: Spine: No fractures or bone lesion. The alignment is maintained. Mild degenerative changes are noted including disc height loss and endplate osteophytosis. Soft tissues: No acute abnormality in the paravertebral soft tissues. Partially imaged stimulator is visualized within the superficial soft tissues of the lower back. Partially imaged mild cardiomegaly. Multiple left renal parapelvic cysts. Postsurgical changes within the stomach. IMPRESSION: No acute abnormality of the thoracolumbar spine. I have personally reviewed the images and I agree with this report. WSN: [id number] Ordering Physician: Bi Macias Dictated By: Lashell Lancaster MD Dictated Date/Time: 04/24/25 1:05 am Reviewed By: Tyrell Tello MD Signed By: Tyrell Tello MD Signed Date/Time: 04/24/25 1:10 am Transcribed By: HUMBERTO Transcribed Date/Time: 04/24/25 0:25 am * Exam Date Time Procedure Performing Provider Status 04/23/25 5:56 PM Chest 2 Views Frontal and Lat Auth (Verified) Notes: (Chest 2 Views Frontal and Lat) Reason For Exam: Chest Pain;Other: RESULT: Chest 2 Views Frontal and Lat Chest 2 Views Frontal and Lat Hx of Present Illness: had bilateral simulation back surgery; Reason: Other:; Chest Pain; COMPARISON: July 17, 2023. FINDINGS: LINES AND TUBES: None. LUNGS AND PLEURA: Clear lungs. Normal pulmonary vascularity. No evidence of pleural effusion. No pneumothorax. HEART, MEDIASTINUM AND KEELY: Heart is normal in size. Normal mediastinal and hilar contour. BONES AND SOFT TISSUES: No acute abnormality. IMPRESSION: No acute abnormality. WSN: [id number] Ordering Physician: Bi Macias Dictated By: Curly Sotomayor DO Dictated Date/Time: 04/23/25 5:58 pm Reviewed By: Curly Sotomayor DO Signed By: Curly Sotomayor DO Signed Date/Time: 04/23/25 5:58 pm Transcribed By: HUMBERTO Transcribed Date/Time: 04/23/25 5:58 pm EKG study * Event Display: EKG Authored Date: [id number] Patient Care team information Care Team Personnel Name: Minnie Lazcano MD Position: Reference Physician Member Role: PCP Address: [address] [place] [address] Telecom: Care Team Related Persons Name: KINGSLEY CRUZ Name: DEIDRA BILLS Name: ARMANDO BILLS Insurance Providers Guarantor name: ARON CRUZ Health Plan Information #: 1 Payer: [facility] Payer Identifier: NA Member Number: [id number] Group Number: [id number] Subscriber Identifier: [id number] Relationship to Subscriber: self Coverage Type: Medicare Managed Care (Includes Medicare Advantage Plans) Coverage Verification Date: NA Telecom: NA Address:
--- NOTE | 2025-04-28 10:14 | MHC.OFFVIS ---
Vital Signs 04/28/25 10:17 Height 5 ft Weight 193 lb BMI 37.7 BP 133/64 Blood Pressure Location Lt brachial Position Sitting Pulse 82 Pulse Source Pulse Oximeter Pulse Oximetry (%) 97 Oxygen Delivery Method Room Air Intake Visit Reasons: S/p B/l SI Innerv PNS Implant Curonix 04/21/25 Intake Note: Pain today 8/10 Administrative Support Technician Required: No Accompanied by: Daughter Allergies topiramate (From TOPAMAX) Allergy (Intermediate, Verified 04/28/25 10:18) NAUSEA & VOMITING ENVIRONMENTAL Allergy (Severe, Uncoded 03/07/25 16:20) SINUS INFXN SYMPTOMS STATED BY PT HPI Comments Details: The patient is a 49-year-old female presenting with 1 week postoperative follow-up for bilateral sacroiliac joint Curonix peripheral neurosimulator implantation on 04/21/[address] Norris. She reports recent onset of severe neck pain rated at 10/10, radiating to her right arm, and a CT scan at recent [facility] visit has identified a pinched nerve per patient. She is awaiting further management from her PCP. Patient reports she was given Dilaudid IV in [facility] with good relief. The patient also experiences low back pain rated at 8/10, managed with oxycodone for post-op pain, and reports intermittent relief from the neurosimulator so far at low capacity. She is adhering to postoperative care instructions, including sponge baths and brace use, with no signs of infection at incision sites. The dressings were changed today in the office. Dressings were removed. The eduardo and sutures are intact. The wounds are clean, no pathological discharge, no redness, no swelling, no local temperature or tenderness on palpation. The wounds were washed with ChloraPrep and bacitracin ointment with dry sterile dressings were applied. Denies any recent cough, cold, infection, fever or any other significant changes in medical history since last office visit. PRIOR: The patient is a 49-year-old female presenting for follow-up, one-week status post bilateral sacroiliac joint peripheral nerve stimulation trial with Curonix. The patient experienced increased discomfort initially post-procedure, but subsequently reported a reduction in her usual low back pain by about 50% to 70%. The pain is associated with morning stiffness, which hinders her ability to initiate daily activities. Walking has been a beneficial activity that alleviates her pain. Additionally, muscle spasms have been documented in her leg, predominantly associated with device overstimulation, which required modification. - Onset: Chronic, exacerbated by recent surgical procedure. - Quality: Initially increased discomfort post-procedure, now improved with less pressure sensation. - Location: Primarily in the low back, with extension to the leg manifesting as muscle spasms. - Radiation: Spine to lower extremity. - Exacerbating Factors: Overstimulation from the spinal device, morning stiffness. - Relieving Factors: Device adjustment, walking, less pressure on spinal region. - Affect: Patient finds her overall mood and function improved with the pain device. - Analgesia: Approximately 50% to 70% pain reduction post-device placement. - Adverse Effects: Initial increased pain post-surgery; muscle spasm due to overstimulation. - Activities of Daily Living: Improvement in walking and daily functions; initial post-surgical recovery hindered daily activity. - Aberrant Drug Related Behaviors: None reported. [facility] Medical History Breast cancer screening by mammogram Obesity (BMI 30-39.9) Family history of ovarian cancer Chest pressure Tinea corporis Anemia Colon cancer screening Menorrhagia Vision blurring Medicare annual wellness visit, initial Sacroiliitis Gastroenteritis Chronic pain syndrome Obesity Encounter for Essure implantation Fibroadenoma Family history of breast cancer Breast mass, right H/O sigmoidoscopy Barretts esophagus Osteoarthritis, knee Fatty liver Cholelithiasis Carpal tunnel syndrome on both sides Lumbar degenerative disc disease Hypercholesterolemia Hypertension Vitamin D deficiency GERD (gastroesophageal reflux disease) Constipation Surgical History History of insertion of nerve stimulator H/O esophagogastroduodenoscopy H/O colonoscopy History of section History of breast mammoplasty History of carpal tunnel release H/O gastric bypass Family History Father Colon cancer CVD (cardiovascular disease) Mother Breast cancer Brain tumor Sister Colon cancer Breast cancer Social History Household Members: Children Household Members Other:: Daugher Housing: Apartment Are you a primary transitional care liaison to a significant other at home: No Do you presently have visiting nurse or other home services: Yes Unable to assess alcohol history related to: Unknown Alcohol intake: never Comment: tolerable Patient Tobacco Use Status: Never used Tobacco Tobacco use type: Cigarette e-Cigarette/Vaping Use: Never Used Second Hand Smoke Exposure: No service: No Current occupational status: disabled Cognitive needs: No Hearing needs: No Vision needs: No Female Reproductive History Menstrual Age of Menarche: 14 Review of Systems Const All systems reviewed & are unremarkable except as noted in HPI and below Physical Exam Vital Signs: Last Vital Signs Pulse 82 04/28/25 10:17 BP 133/64 04/28/25 10:17 Pulse Ox 97 04/28/25 10:17 Oxygen Delivery Method Room Air 04/28/25 10:17 BMI result Body Mass Index 37.7 General: Appears afebrile. Alert and oriented. Mood and affect appropriate. Follows and participates in conversation appropriately. Respiratory effort is unlabored. No cough. Able to transition from sit to stand unassisted. Ambulates with bilaterally normal heel strike and toe off. Neck Neck: Yes normal visual inspection, Yes no lymphadenopathy, Yes supple, No anterior neck swelling, Yes no JVD, No prominent supraclavicular fat pad and Yes prominent dorsocervical fat pad Back/Spine/Pelvis Other: The dressings were changed today in the office. Dressings were removed. The eduardo and sutures are intact. The wounds are clean, no pathological discharge, no redness, no swelling, no local temperature or tenderness on palpation. The wounds were washed with ChloraPrep and bacitracin ointment with dry sterile dressings were applied. Cervical Spine: cervical muscular tenderness, pain with cervical ROM, cervical spasm, No Cervical spine tenderness and No step off deformity Thoracic/Lumbar Spine: thoracic and lumbar spine normal to inspection, Thoracic/lumbar spine scar(s), pain with thoraco-lumbar ROM, thoraco-lumbar ROM limited, No thoracic spinal tenderness and No lumbar spinal tenderness Sacroiliac joints: bilaterally tender to palpation Results Reviewed Results Reviewed: No imaging reports are available for review today. Assessment & Plan Assessment & Plan (1) Fibromyalgia: Code(s): M79.7 - Fibromyalgia Category: Medical (2) Sacroiliitis: Code(s): M46.1 - Sacroiliitis, not elsewhere classified Category: Medical (3) Sacroiliitis: Code(s): M46.1 - Sacroiliitis, not elsewhere classified Category: Medical (4) Cervicalgia: Code(s): M54.2 - Cervicalgia Category: Medical (5) Chronic sacroiliac joint pain: Code(s): M53.3 - Sacrococcygeal disorders, not elsewhere classified; G89.29 - Other chronic pain Category: Medical Plan The dressings were changed today in the office. The patient will follow up in one week for dressing change and eduardo/sutures removal. The patient was also educated about device operation. Adjustments to the neurosimulator will be made as needed. Avoid showers for another week, continue using the brace and sponge baths to ensure proper healing of the incision sites. The patient will maintain the current pain management strategy with oxycodone and monitor for side effects. Refill sent today. Script sent for Keflex as patient reports she was not able to fill medication last week. All questions and concerns have been answered and patient agreed with the plan. Follow up in 1 week for eduardo/suture removal and sooner as needed. Patient was informed and verbally consented to the use of an ambient scribe for clinic note documentation during this visit. Medications: Changed From oxycodone-acetaminophen 5-325 mg Partial Fill upon patient request. 1 tab PO Q6H 8 days PRN 32 tabs 0RF postoperative pain To oxycodone-acetaminophen 5-325 mg Partial Fill upon patient request. 1 tab PO Q8H PRN 30 tabs 0RF postoperative pain 7 days Refilled cephalexin take OTC probiotics in between the doses of the antibiotics with food 1,000 mg (2 x 500 mg) PO TID 42 caps 0RF 7 days Coding Level of Care Code Est Pt Level 4 (27209) Complex EM visit Add On G2211 Diagnoses Fibromyalgia M79.7 Sacroiliitis M46.1 Cervicalgia M54.2 Chronic sacroiliac joint pain M53.3; G89.29
[2025-04-28 10:17] VITALS: BP 133/64; PULSE 82; O2SAT 97; BMI 37.7
== END 2025-04-28 10:35 | disposition home or self-care (01) ==
LOC: HO.PMC 10:12
PROVIDERS: PCP Internal Medicine; Visit Provider Nurse Practitioner Family
DX: M79.7 Fibromyalgia (principal); M46.1 Sacroiliitis, not elsewhere classified; M54.2 Cervicalgia; M53.3 Sacrococcygeal disorders, not elsewhere classified; G89.29 Other chronic pain
CPT/HCPCS: 99024

== ENCOUNTER → 2025-04-28 10:11 | Outpatient (BNVA) | payer OTHER, SELFPAY | PROVIDERS: PCP Internal Medicine; Visit Provider Nurse Practitioner Family | DX: M79.7 Fibromyalgia (principal); M46.1 Sacroiliitis, not elsewhere classified; M54.2 Cervicalgia; M53.3 Sacrococcygeal disorders, not elsewhere classified; G89.29 Other chronic pain | CPT/HCPCS: 99212 ==

== ENCOUNTER 2025-05-05 07:54 | Outpatient (AMB) | payer OTHER, SELFPAY ==
--- NOTE | 2025-05-05 08:06 | A.OFFPC_ITS ---
Vital Signs 05/05/25 08:09 Height 5 ft Weight 199 lb 15.348 oz BMI 39.0 BP 140/90 H Blood Pressure Location Lt brachial Position Sitting Pulse 82 Pulse Source Pulse Oximeter Temp 97.3 F Temp Source Temporal Artery Scan Pulse Oximetry (%) 97 Oxygen Delivery Method Room Air Intake Visit Reasons: [facility] 04/30 pinched nerve Intake Note: Patient is here to follow-up after a visit the emergency department at [facility] on 04/30/25. Braze Operator Required: No Terrapin Fisher: Present Accompanied by: Daughter Allergies topiramate (From TOPAMAX) Allergy (Intermediate, Verified 05/05/25 08:09) NAUSEA & VOMITING ENVIRONMENTAL Allergy (Severe, Uncoded 05/05/25 08:09) SINUS INFXN SYMPTOMS STATED BY PT Tobacco use date assessed: 05/05/25 Dental Screening Dental Screen Date: 10/27/24 HPI HPI Comments History of Present Illness Details 49 y/o Female patient who presents to [facility] today for EDF. Pt was admitted at [facility] on 04/30 for an evaluation and Treatment of right Neck/Arm pain. Pt has h/o Chronic Pain under management at [facility]. She has an appointment today with them at 10 am. Pt currently takes Oxy and Acetaminophen with minimal relief. Patient asking to be referred for Physical therapy. [facility] Medical History (Updated 05/05/25 @ 08:49 by Emma Jameson NP) Neck pain on right side Breast cancer screening by mammogram Obesity (BMI 30-39.9) Family history of ovarian cancer Chest pressure Tinea corporis Anemia Colon cancer screening Menorrhagia Vision blurring Medicare annual wellness visit, initial Sacroiliitis Gastroenteritis Chronic pain syndrome Obesity Encounter for Essure implantation Fibroadenoma Family history of breast cancer Breast mass, right H/O sigmoidoscopy Barretts esophagus Osteoarthritis, knee Fatty liver Cholelithiasis Carpal tunnel syndrome on both sides Lumbar degenerative disc disease Hypercholesterolemia Hypertension Vitamin D deficiency GERD (gastroesophageal reflux disease) Constipation Surgical History (Updated 05/05/25 @ 08:23 by ELIE Kaminski) History of back surgery History of insertion of nerve stimulator H/O esophagogastroduodenoscopy H/O colonoscopy History of section History of breast mammoplasty History of carpal tunnel release H/O gastric bypass Family History Father Colon cancer CVD (cardiovascular disease) Mother Breast cancer Brain tumor Sister Colon cancer Breast cancer Social History Household Members: Children Household Members Other:: Daugher Housing: Apartment Are you a primary disabilities caregiver to a significant other at home: No Do you presently have visiting nurse or other home services: Yes Unable to assess alcohol history related to: Unknown Alcohol intake: never Comment: tolerable Patient Tobacco Use Status: Never used Tobacco Tobacco use type: Cigarette e-Cigarette/Vaping Use: Never Used Second Hand Smoke Exposure: No service: No Current occupational status: disabled Cognitive needs: No Hearing needs: No Vision needs: No Female Reproductive History Menstrual Age of Menarche: 14 Questionnaire Thrive Questionnaire Date Thrive assessed: 11/15/24 I am a: Patient What is your living situation today?: I choose not to answer this question Within the past 12 months, did the food you bought not last and you didn't have the money to get more?: Often true Within the past 12 months, did you worry whether your food would run out before you got money to buy more?: Often true Do you have trouble paying for medicines?: Yes Do you have trouble getting transportation to medical appointments?: Yes Do you have trouble paying your heating and electricity bill?: Yes Do you have trouble taking care of your child, family member or friend?: No Do you have trouble with day-to-day activities such as bathing, preparing meals, shopping, managing finances, etc.?: Yes Are you currently unemployed and looking for a job?: No Are you interested in more education?: No Please select the resources that you would like help with: Food Currently or been in a relationship where the following occur: No concerns reported THRIVE Score: 4 SHARON-7 AMB Questionnaire SHARON-7 Date SHARON - 7 assessed: 11/15/24 Source: Developed by Drs. Curly Williamson, Yue Ren, Mathew Newton and colleagues, with an educational kenneth from [employer]. Review of Systems Const All systems reviewed & are unremarkable except as noted in HPI and below Physical exam (Primary Care) Vital Signs: Last Vital Signs Temp 97.3 F 05/05/25 08:09 Pulse 82 05/05/25 08:09 BP 140/90 H 05/05/25 08:09 Pulse Ox 97 05/05/25 08:09 Oxygen Delivery Method Room Air 05/05/25 08:09 BMI result Body Mass Index 39.0 Tobacco/Smoking Status: Tobacco use Status Tobacco use date assessed 05/05/25 05/05/25 08:25 Patient Tobacco Use Status Never used Tobacco 05/05/25 08:25 Tobacco use type Cigarette 05/05/25 08:25 e-Cigarette/Vaping Use Never Used 05/05/25 08:25 Thrive Assessment: Date of Thrive Assessment Date Thrive assessed 11/15/24 05/05/25 08:25 Currently or been in a relationship where the following occur: No concerns reported Const General: no acute distress Nutritional Appearance: obese Orientation/consciousness: patient oriented x3 Limitations: wheelchair Back/Spine/Pelvis Cervical Spine: cervical spasm and Cervical spine tenderness Neuro General: patient oriented x3 Coding Level of Care Code Est Pt Level 4 (13535) Diagnoses Cervicalgia M54.2 Time Spent (min) 20 Assessment & Plan Assessment & Plan (1) Cervicalgia: Code(s): M54.2 - Cervicalgia Category: Medical Plan: Placed a New Referral to pain management. Continue on current regiment. Ordered PT. Orders: Orders PT Evaluation and Treatment Today M54.2 - Cervicalgia Referrals Pain Management Referral M54.2 - Cervicalgia
[2025-05-05 08:09] VITALS: BP 140/90; PULSE 82; TEMP 36.3; O2SAT 97; BMI 39.0
== END 2025-05-05 08:44 | disposition home or self-care (01) ==
LOC: HO.HMCH 07:55
PROVIDERS: PCP Internal Medicine; Visit Provider Nurse Practitioner Family
DX: M54.2 Cervicalgia (principal)

== ENCOUNTER → 2025-05-05 07:54 | Outpatient (BNVA) | payer OTHER, SELFPAY | PROVIDERS: PCP Internal Medicine; Visit Provider Nurse Practitioner Family | DX: M54.2 Cervicalgia (principal); M79.7 Fibromyalgia; M79.601 Pain in right arm; M54.50 Low back pain, unspecified; M47.812 Spondylosis without myelopathy or radiculopathy, cervical region; M62.838 Other muscle spasm; M46.1 Sacroiliitis, not elsewhere classified; M53.3 Sacrococcygeal disorders, not elsewhere classified; G89.29 Other chronic pain; Z79.891 Long term (current) use of opiate analgesic; Z96.82 Presence of neurostimulator | CPT/HCPCS: 99212 ==

== ENCOUNTER 2025-05-05 09:53 | Outpatient (AMB) | payer OTHER, SELFPAY ==
--- NOTE | 2025-05-05 10:04 | MHC.OFFVIS ---
Vital Signs 05/05/25 10:05 Height 5 ft Weight 199 lb BMI 38.9 BP 111/56 L Blood Pressure Location Lt brachial Position Sitting Respiration 16 Pulse 67 Pulse Source Pulse Oximeter Pulse Oximetry (%) 99 Oxygen Delivery Method Room Air Intake Visit Reasons: S/p B/l SI Innerv PNS Impl 04/21/25 (2nd Visit) Backup Administrative Coordinator Required: No Allergies topiramate (From TOPAMAX) Allergy (Intermediate, Verified 05/05/25 10:04) NAUSEA & VOMITING ENVIRONMENTAL Allergy (Severe, Uncoded 05/05/25 08:09) SINUS INFXN SYMPTOMS STATED BY PT HPI Comments Details: The patient is a 49-year-old female presenting with 2 week2 postoperative follow-up for bilateral sacroiliac joint Curonix peripheral neurosimulator implantation on 04/21/[address] Norris and for eduardo/sutures removal. The patient also experiences moderate low back pain rated at 8/10, managed with oxycodone for post-op pain, and reports intermittent relief from the neurosimulator so far at low capacity. She is adhering to postoperative care instructions, including sponge baths and brace use, with no signs of infection at incision sites. Patient completed post-op antibiotic course. The dressings were changed today in the office. Dressings were removed. The eduardo and sutures are intact. The wounds are clean, no pathological discharge, no redness, no swelling, no local temperature or tenderness on palpation. The wounds were washed with ChloraPrep, eduardo and sutures were removed. The incision wounds were washed with ChloraPrep, Steri-strips and bacitracin ointment with dry sterile dressings were applied. The patient also reports significant neck pain, which led her to seek emergency care at [facility] and consult her primary care provider. She describes the neck pain as being associated with a pinched nerve, confirmed by a CT scan, although the results were not available during the visit. The pain is accompanied by tingling and throbbing sensations in the right arm, suggesting cervical radiculopathy. The patient has a history of fibromyalgia, which exacerbates her pain sensitivity and complicates her pain management. Patient reports she was given Dilaudid IV in [facility] ER with good relief. She reports that her fibromyalgia symptoms are more pronounced at night, leading to increased discomfort and emotional distress. Denies any recent cough, cold, infection, fever or any other significant changes in medical history since last office visit. PRIOR: The patient is a 49-year-old female presenting for follow-up, one-week status post bilateral sacroiliac joint peripheral nerve stimulation trial with Curonix. The patient experienced increased discomfort initially post-procedure, but subsequently reported a reduction in her usual low back pain by about 50% to 70%. The pain is associated with morning stiffness, which hinders her ability to initiate daily activities. Walking has been a beneficial activity that alleviates her pain. Additionally, muscle spasms have been documented in her leg, predominantly associated with device overstimulation, which required modification. - Onset: Chronic, exacerbated by recent surgical procedure. - Quality: Initially increased discomfort post-procedure, now improved with less pressure sensation. - Location: Primarily in the low back, with extension to the leg manifesting as muscle spasms. - Radiation: Spine to lower extremity. - Exacerbating Factors: Overstimulation from the spinal device, morning stiffness. - Relieving Factors: Device adjustment, walking, less pressure on spinal region. - Affect: Patient finds her overall mood and function improved with the pain device. - Analgesia: Approximately 50% to 70% pain reduction post-device placement. - Adverse Effects: Initial increased pain post-surgery; muscle spasm due to overstimulation. - Activities of Daily Living: Improvement in walking and daily functions; initial post-surgical recovery hindered daily activity. - Aberrant Drug Related Behaviors: None reported. [facility] Medical History Neck pain on right side Breast cancer screening by mammogram Obesity (BMI 30-39.9) Family history of ovarian cancer Chest pressure Tinea corporis Anemia Colon cancer screening Menorrhagia Vision blurring Medicare annual wellness visit, initial Sacroiliitis Gastroenteritis Chronic pain syndrome Obesity Encounter for Essure implantation Fibroadenoma Family history of breast cancer Breast mass, right H/O sigmoidoscopy Barretts esophagus Osteoarthritis, knee Fatty liver Cholelithiasis Carpal tunnel syndrome on both sides Lumbar degenerative disc disease Hypercholesterolemia Hypertension Vitamin D deficiency GERD (gastroesophageal reflux disease) Constipation Surgical History History of back surgery History of insertion of nerve stimulator H/O esophagogastroduodenoscopy H/O colonoscopy History of section History of breast mammoplasty History of carpal tunnel release H/O gastric bypass Family History Father Colon cancer CVD (cardiovascular disease) Mother Breast cancer Brain tumor Sister Colon cancer Breast cancer Social History Household Members: Children Household Members Other:: Daugher Housing: Apartment Are you a primary health care social worker to a significant other at home: No Do you presently have visiting nurse or other home services: Yes Unable to assess alcohol history related to: Unknown Alcohol intake: never Comment: tolerable Patient Tobacco Use Status: Never used Tobacco Tobacco use type: Cigarette e-Cigarette/Vaping Use: Never Used Second Hand Smoke Exposure: No service: No Current occupational status: disabled Cognitive needs: No Hearing needs: No Vision needs: No Female Reproductive History Menstrual Age of Menarche: 14 Review of Systems Const All systems reviewed & are unremarkable except as noted in HPI and below Physical Exam Vital Signs: Last Vital Signs Pulse 67 05/05/25 10:05 Resp 16 05/05/25 10:05 BP 111/56 L 05/05/25 10:05 Pulse Ox 99 05/05/25 10:05 Oxygen Delivery Method Room Air 05/05/25 10:05 BMI result Body Mass Index 38.9 General: Appears afebrile. Alert and oriented. Mood and affect appropriate. Follows and participates in conversation appropriately. Respiratory effort is unlabored. No cough. Able to transition from sit to stand unassisted. Ambulates with bilaterally normal heel strike and toe off. Neck Neck: Yes normal visual inspection, Yes no lymphadenopathy, Yes supple, No anterior neck swelling, Yes no JVD, No prominent supraclavicular fat pad and Yes prominent dorsocervical fat pad Back/Spine/Pelvis Other: The dressings were changed today in the office. Dressings were removed. The eduardo and sutures were removed today. The wounds are clean, no pathological discharge, no redness, no swelling, no local temperature or tenderness on palpation. The wounds were washed with ChloraPrep, Steri-strips and bacitracin ointment with dry sterile dressings were applied. Cervical Spine: No Lhermitte's sign positive, cervical muscular tenderness, pain with cervical ROM, cervical spasm, No Cervical spine tenderness and No step off deformity Thoracic/Lumbar Spine: thoracic and lumbar spine normal to inspection, Thoracic/lumbar spine scar(s), pain with thoraco-lumbar ROM, thoraco-lumbar ROM limited, No thoracic spinal tenderness and No lumbar spinal tenderness Sacroiliac joints: bilaterally tender to palpation Results Reviewed Results Reviewed: No imaging reports are available for review today. Assessment & Plan Assessment & Plan (1) Fibromyalgia: Code(s): M79.7 - Fibromyalgia Category: Medical (2) Cervicalgia: Code(s): M54.2 - Cervicalgia Category: Medical (3) Neck pain on right side: Code(s): M54.2 - Cervicalgia Category: Medical (4) Cervical spondylosis: Code(s): M47.812 - Spondylosis without myelopathy or radiculopathy, cervical region Category: Medical (5) Muscle spasms of neck: Code(s): M62.838 - Other muscle spasm Category: Medical (6) Sacroiliitis: Code(s): M46.1 - Sacroiliitis, not elsewhere classified Category: Medical (7) Sacroiliitis: Code(s): M46.1 - Sacroiliitis, not elsewhere classified Category: Medical (8) Chronic sacroiliac joint pain: Code(s): M53.3 - Sacrococcygeal disorders, not elsewhere classified; G89.29 - Other chronic pain Category: Medical Plan The dressings were changed today in the office. Dressing change and eduardo/sutures removal was performed in the office today. The patient was also educated about device operation by [facility]. Adjustments to the neurosimulator were made. Avoid showers for 48 48 hours, continue using the brace and sponge baths to ensure proper healing of the incision sites. The patient will maintain the current pain management strategy with oxycodone and methocarbamol and monitor for side effects. Refills sent today. Patient will start PT for acute neck symptoms, PT referral placed by PCP. All questions and concerns have been answered and patient agreed with the plan. Follow up as needed. Patient was informed and verbally consented to the use of an ambient scribe for clinic note documentation during this visit. Medications: Changed From methocarbamol 750 mg PO Q8H 20 tabs 0RF M47.812 - Spondylosis without myelopathy or radiculopathy, cervical region, M54.2 - Cervicalgia, M62.838 - Other muscle spasm, M79.7 - Fibromyalgia To methocarbamol 750 mg PO BID PRN 60 tabs 1RF muscle spasm 30 days M47.812 - Spondylosis without myelopathy or radiculopathy, cervical region, M54.2 - Cervicalgia, M62.838 - Other muscle spasm, M79.7 - Fibromyalgia Refilled oxycodone-acetaminophen 5-325 mg Partial Fill upon patient request. 1 tab PO Q8H PRN 30 tabs 0RF postoperative pain 7 days Coding Level of Care Code Est Pt Level 4 (55215) Complex EM visit Add On G2211 Diagnoses Fibromyalgia M79.7 Cervicalgia M54.2 Neck pain on right side M54.2 Cervical spondylosis M47.812 Muscle spasms of neck M62.838 Sacroiliitis M46.1 Chronic sacroiliac joint pain M53.3; G89.29
[2025-05-05 10:05] VITALS: BP 111/56; PULSE 67; RESP 16; O2SAT 99; BMI 38.9
== END 2025-05-05 10:42 | disposition home or self-care (01) ==
LOC: HO.PMC 09:54
PROVIDERS: PCP Internal Medicine; Visit Provider Nurse Practitioner Family
DX: M79.7 Fibromyalgia (principal); M54.2 Cervicalgia; M47.812 Spondylosis without myelopathy or radiculopathy, cervical region; M62.838 Other muscle spasm; M46.1 Sacroiliitis, not elsewhere classified; M53.3 Sacrococcygeal disorders, not elsewhere classified; G89.29 Other chronic pain
CPT/HCPCS: 99214; G2211

== ENCOUNTER 2025-05-26 13:02 | Outpatient (AMB) | payer OTHER, SELFPAY ==
--- NOTE | 2025-05-26 13:06 | MHC.PC.OV ---
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 External Required: No Accompanied by: Daughter Allergies topiramate (From TOPAMAX) Allergy (Intermediate, Verified 05/26/25 13:12) NAUSEA & VOMITING ENVIRONMENTAL Allergy (Severe, Uncoded 05/26/25 13:07) SINUS INFXN SYMPTOMS STATED BY PT Tobacco use date assessed: 05/26/25 Dental Screening Dental Screen Date: 10/27/24 Did you have a dental visit in the last 12 months?: Yes Did you have a dental problem in the last 6 months where you did not have access to dental care?: No Was dental information given to patient?: Patient has dentist [facility] Medical History (Updated 05/26/25 @ 13:16 by Minnie Lazcano MD) Chest pressure Neck pain on right side Breast cancer screening by mammogram Obesity (BMI 30-39.9) Family history of ovarian cancer Tinea corporis Anemia Colon cancer screening Menorrhagia Vision blurring Medicare annual wellness visit, initial Sacroiliitis Gastroenteritis Chronic pain syndrome Obesity Encounter for Essure implantation Fibroadenoma Family history of breast cancer Breast mass, right H/O sigmoidoscopy Barretts esophagus Osteoarthritis, knee Fatty liver Cholelithiasis Carpal tunnel syndrome on both sides Lumbar degenerative disc disease Hypercholesterolemia Hypertension Vitamin D deficiency GERD (gastroesophageal reflux disease) Constipation Surgical History History of back surgery History of insertion of nerve stimulator H/O esophagogastroduodenoscopy H/O colonoscopy History of section History of breast mammoplasty History of carpal tunnel release H/O gastric bypass Family History Father Colon cancer CVD (cardiovascular disease) Mother Breast cancer Brain tumor Sister Colon cancer Breast cancer Social History Household Members: Children Household Members Other:: Daugher Housing: Apartment Are you a primary intensive care unit registered nurse to a significant other at home: No Do you presently have visiting nurse or other home services: Yes Unable to assess alcohol history related to: Unknown Alcohol intake: never Comment: tolerable Patient Tobacco Use Status: Never used Tobacco Tobacco use type: Cigarette e-Cigarette/Vaping Use: Never Used Second Hand Smoke Exposure: No service: No Current occupational status: disabled Cognitive needs: No Hearing needs: No Vision needs: No Female Reproductive History Menstrual Age of Menarche: 14 Questionnaire PHQ-9 Over the last 2 weeks, how often have you been bothered by any of the following problems? 1. Little interest or pleasure in doing things: nearly every day 2. Feeling down, depressed, or hopeless: nearly every day 3. Trouble falling or staying asleep, or sleeping too much: nearly every day 4. Feeling tired or having little energy: nearly every day 5. Poor appetite or overeating: nearly every day 6. Feeling bad about yourself - or that you are a failure or have let yourself or your family down: not at all 7. Trouble concentrating on things, such as reading the newspaper or watching television: not at all 8. Moving or speaking so slowly that other people could have noticed. Or the opposite - being so fidgety or restless that you have been moving around a lot more than usual: several days 9. Thoughts that you would be better off or of hurting yourself in some way: not at all Total score: 16 Depression Screening Interpretation: Positive Depression Screening Done: Yes Source: Developed by Drs. Curly Williamson, Yue Ren, Mathew Newton and colleagues, with an educational kenneth from [employer]. Thrive Questionnaire Date Thrive assessed: 11/15/24 I am a: Patient What is your living situation today?: I choose not to answer this question Within the past 12 months, did the food you bought not last and you didn't have the money to get more?: Often true Within the past 12 months, did you worry whether your food would run out before you got money to buy more?: Often true Do you have trouble paying for medicines?: Yes Do you have trouble getting transportation to medical appointments?: Yes Do you have trouble paying your heating and electricity bill?: Yes Do you have trouble taking care of your child, family member or friend?: No Do you have trouble with day-to-day activities such as bathing, preparing meals, shopping, managing finances, etc.?: Yes Are you currently unemployed and looking for a job?: No Are you interested in more education?: No Please select the resources that you would like help with: Food Currently or been in a relationship where the following occur: No concerns reported THRIVE Score: 4 AUDIT C Alcohol Use Questionnaire (AUDIT-C) 1. How often do you have a drink containing alcohol?: Never 3. How often do you have six or more drinks on one occasion?: Never Total Score: 0 SHARON-7 AMB Questionnaire SHARON-7 Date SHARON - 7 assessed: 05/26/25 Feeling nervous, anxious, or on edge: 3 = Nearly every day Not being able to stop or control worryin = Nearly every day Worrying too much about different things: 3 = Nearly every day Trouble relaxin = Nearly every day Being so restless that it is hard to sit still: 1 = Several days Becoming easily annoyed or irritable: 3 = Nearly every day Feeling afraid as if something awful might happen: 3 = Nearly every day Total SHARON-7 score (0-4 normal; 5-9 mild; 10-14 moderate; 15-21 severe): 19 Source: Developed by Drs. Curly Williamson, Yue Ren, Mathew Newton and colleagues, with an educational kenneth from [employer]. SHARON-7 Assessment Billing SHARON-7 Assessment Tool: SHARON-7 Assessment 82590 Physical exam (Primary Care) Vital Signs: Last Vital Signs Pulse 71 05/26/25 13:07 BP 130/68 05/26/25 13:07 Pulse Ox 97 05/26/25 13:07 Oxygen Delivery Method Room Air 05/26/25 13:07 BMI result Body Mass Index 38.3 Tobacco/Smoking Status: Tobacco use Status Tobacco use date assessed 05/26/25 05/26/25 13:17 Patient Tobacco Use Status Never used Tobacco 05/26/25 13:09 Tobacco use type Cigarette 05/26/25 13:09 e-Cigarette/Vaping Use Never Used 05/26/25 13:09 PHQ-9: PHQ-9 Score PHQ-9: Total score 16 05/26/25 13:17 Depression Screening Interpretation: Positive Thrive Assessment: Date of Thrive Assessment Date Thrive assessed 11/15/24 05/26/25 13:09 Currently or been in a relationship where the following occur: No concerns reported Const General: alert; No acute distress Eyes Conjunctivae: conjunctivae normal Resp Auscultation: clear to auscultation bilaterally Cardio Rate: regular rate Rhythm: regular rhythm GI Inspection: Yes normal to inspection Extrem General: Yes normal to inspection and No edema Coding Level of Care Code Est Pt Level 4 (01272) Complex EM visit Add On G2211 Diagnoses Hypercholesterolemia E78.00 H/O gastric bypass Z98.84 Obesity (BMI 30-39.9) E66.9 Renee's esophagus without dysplasia K22.70 Renee's esophagus type: without dysplasia Low back pain M54.50 Additional Codes SHARON-7 Assessment Billing - SHARON-7 Assessment Tool: SHARON-7 Assessment 08940 ([id number]) Assessment & Plan Assessment & Plan (1) Hypercholesterolemia: Code(s): E78.00 - Pure hypercholesterolemia, unspecified Category: Medical Plan: Avoid fried foods, chicken skin, eggs, butter margarine, pastries and meat. Be it pork or beef they have a lot of cholesterol LDL goal of less than 130 and triglyceride of less than 150 (2) H/O gastric bypass: Comment: [address] [facility] [address] Tang Code(s): Z98.84 - Bariatric surgery status Category: Surgical Plan: Continue to follow-up with bariatric (3) Obesity (BMI 30-39.9): Code(s): E66.9 - Obesity, unspecified Category: Medical Plan: Diet and exercise (4) Barretts esophagus: Code(s): K22.70 - Renee's esophagus without dysplasia Category: Medical Qualifiers: Renee's esophagus type: without dysplasia Qualified Code(s): K22.70 - Renee's esophagus without dysplasia Plan: Avoid the foods that causes that usually spicy foods, tomato products, juices, coffee, soda and foods that your sensitive to. After eating do not lie down, allow 3-4 hours before in lie down. And keep the head of bed above 30 degrees to avoid the acid from going up. (5) Low back pain: Code(s): M54.50 - Low back pain, unspecified Category: Medical Plan: Review of the notes has been seeing pain management has had implants of chronic Plan History of Present Illness The patient is a 49-year-old female presenting for follow-up of multiple chronic conditions including GERD, hypertension, hypercholesterolemia, and Renee's esophagus. The patient has a history of obesity and underwent gastric bypass surgery in 2001. She has been diagnosed with GERD and Renee's esophagus, with the last esophagogastroduodenoscopy (EGD) performed in July 2023. Hypertension and hypercholesterolemia are ongoing issues, with the last cholesterol test in October 2024 showing an LDL of 127 mg/dL. The patient is also managing generalized anxiety disorder and is under the care of a painter rough for lower back pain. The patient has a history of anemia with recent blood work showing hemoglobin at 10.6 g/dL and hematocrit at 32.3%, along with mild thrombocytosis and leukocytosis. Vitamin D deficiency was noted, and liver function tests showed mild elevation, likely related to fatty liver disease. Preventative care measures include an up-to-date mammogram and a colonoscopy performed in July 2023. Health Maintenance - Mammogram: Up to date - Colonoscopy: Performed in July 2023 Social History Review of Systems - Musculoskeletal: Reports lower back pain Physical Exam - Neurological: Squeeze fingers, close eyes tightly, point toes up Results - Labs: Anemia with hemoglobin at 10.6 g/dL, hematocrit at 32.3%, mild thrombocytosis, leukocytosis - Labs: Vitamin D deficiency - Labs: Mildly elevated liver function tests - Imaging: EGD in July 2023 - Imaging: Colonoscopy in July 2023 Plan Patient was informed and verbally consented to the use of an ambient scribe for clinic note documentation during this visit. 1. Obesity The patient is advised to continue follow-up with bariatrics and focus on diet and exercise to manage obesity. 2. Gastroesophageal Reflux Disease (Gerd) The patient should continue current management for GERD, including medication adherence and lifestyle modifications as previously advised. 3. Hypertension Blood pressure management plan includes monitoring and medication adherence as previously discussed. 4. Hypercholesterolemia The patient is advised to maintain an LDL goal of less than 130 mg/dL and triglycerides less than 150 mg/dL through diet, exercise, and medication adherence. 5. Renee's Esophagus Regular surveillance with EGD is recommended to monitor Renee's esophagus. 6. Generalized Anxiety Disorder The patient should continue current management for generalized anxiety disorder, including medication and therapy as needed. 7. Irritable Bowel Syndrome The patient has been receiving Entyvio infusions for irritable bowel syndrome, and follow-up with gastroenterology is advised. 8. Anemia The patient should continue monitoring anemia with regular blood work and address any underlying causes as identified. 9. Vitamin D Deficiency The patient is advised to continue vitamin D supplementation as prescribed. 10. Lower Back Pain The patient is under the care of pain management for lower back pain and should continue with the current treatment plan. Discussion Notes During the visit, we discussed the management of the patient's chronic conditions, including GERD, hypertension, and hypercholesterolemia. I emphasized the importance of medication adherence and lifestyle modifications, such as diet and exercise, to manage these conditions effectively. We also reviewed the patient's recent diagnostic results, including blood work and imaging studies, and discussed the need for regular follow-up with specialists, including gastroenterology and pain management. The patient was advised to continue with current treatment plans and to schedule follow-up appointments as needed. Patient Instructions - Continue taking all prescribed medications as directed. - Follow up with bariatrics for weight management. - Maintain a healthy diet and regular exercise routine. - Schedule follow-up appointments with gastroenterology and pain management. - Monitor blood pressure and cholesterol levels regularly.
[2025-05-26 13:07] VITALS: BP 130/68; PULSE 71; O2SAT 97; BMI 38.3
== END 2025-05-26 13:44 | disposition home or self-care (01) ==
LOC: HO.HMCH 13:03
PROVIDERS: PCP Internal Medicine; Visit Provider Internal Medicine
DX: E78.00 Pure hypercholesterolemia, unspecified (principal); Z98.84 Bariatric surgery status; E66.9 Obesity, unspecified; Z68.38 Body mass index [BMI] 38.0-38.9, adult; K22.70 Barrett's esophagus without dysplasia; M54.50 Low back pain, unspecified

== ENCOUNTER → 2025-05-26 13:02 | Outpatient (BNVA) | payer OTHER, SELFPAY | PROVIDERS: PCP Internal Medicine; Visit Provider Internal Medicine | DX: F41.1 Generalized anxiety disorder (principal); E66.9 Obesity, unspecified; E78.00 Pure hypercholesterolemia, unspecified; Z98.84 Bariatric surgery status; K22.70 Barrett's esophagus without dysplasia; M54.50 Low back pain, unspecified; K21.9 Gastro-esophageal reflux disease without esophagitis; I10 Essential (primary) hypertension; E55.9 Vitamin D deficiency, unspecified; K58.9 Irritable bowel syndrome, unspecified; Z68.38 Body mass index [BMI] 38.0-38.9, adult | CPT/HCPCS: 96127; 99212 ==

== ENCOUNTER 2025-05-31 09:20 | Outpatient (AMB) | payer OTHER, SELFPAY ==
--- NOTE | 2025-05-31 09:33 | A.OFFVIS_ITS ---
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 She reports that her pain continues to improve in the lower back. She reports improved mobility, she states that she is in contact with Curonix representatives to improve stimulation. However on the background of improved lower back pain her cervicalgia neck pain started to become worse. She reports pain in the neck on the right side of the neck radiating down the right upper extremity all the way to the wrist but not to the fingers. She was admitted to emergency room recently somewhere in the town, they performed CT scan which is not available for me. I decided today to schedule patient for the EMG and nerve conduction study. I will prescribe her tizanidine 2 mg t.i.d.. I also will see this patient in 1 month. With diagnosis of radiculopathy confirmed by EMG more advanced studies might be required, the patient will be sent for MRI, and possibly to a neurosurgeon. If there is no radiculopathy on EMG and nerve conduction tests I would need to consider her pain related to arthritis of the cervical spine. PRIOR: The patient is a 49-year-old female presenting for follow-up, one-week status post bilateral sacroiliac joint peripheral nerve stimulation trial with Curonix. The patient experienced increased discomfort initially post-procedure, but subsequently reported a reduction in her usual low back pain by about 50% to 70%. The pain is associated with morning stiffness, which hinders her ability to initiate daily activities. Walking has been a beneficial activity that alleviates her pain. Additionally, muscle spasms have been documented in her leg, predominantly associated with device overstimulation, which required modification. - Onset: Chronic, exacerbated by recent surgical procedure. - Quality: Initially increased discomfort post-procedure, now improved with less pressure sensation. - Location: Primarily in the low back, with extension to the leg manifesting as muscle spasms. - Radiation: Spine to lower extremity. - Exacerbating Factors: Overstimulation from the spinal device, morning stiff ness. - Relieving Factors: Device adjustment, walking, less pressure on spinal region. - Affect: Patient finds her overall mood and function improved with the pain device. - Analgesia: Approximately 50% to 70% pain reduction post-device placement. - Adverse Effects: Initial increased pain post-surgery; muscle spasm due to overstimulation. - Activities of Daily Living: Improvement in walking and daily functions; initial post-surgical recovery hindered daily activity. - Aberrant Drug Related Behaviors: None reported. [facility] Medical History (Updated 05/31/25 @ 09:56 by Bill Norris MD) Chest pressure Neck pain on right side Breast cancer screening by mammogram Obesity (BMI 30-39.9) Family history of ovarian cancer Tinea corporis Anemia Colon cancer screening Menorrhagia Vision blurring Medicare annual wellness visit, initial Sacroiliitis Gastroenteritis Chronic pain syndrome Obesity Encounter for Essure implantation Fibroadenoma Family history of breast cancer Breast mass, right H/O sigmoidoscopy Barretts esophagus Osteoarthritis, knee Fatty liver Cholelithiasis Carpal tunnel syndrome on both sides Lumbar degenerative disc disease Hypercholesterolemia Hypertension Vitamin D deficiency GERD (gastroesophageal reflux disease) Constipation Surgical History History of back surgery History of insertion of nerve stimulator H/O esophagogastroduodenoscopy H/O colonoscopy History of section History of breast mammoplasty History of carpal tunnel release H/O gastric bypass Family History Father Colon cancer CVD (cardiovascular disease) Mother Breast cancer Brain tumor Sister Colon cancer Breast cancer Social History Household Members: Children Household Members Other:: Nely Housing: Apartment Are you a primary skin care specialist to a significant other at home: No Do you presently have visiting nurse or other home services: Yes Unable to assess alcohol history related to: Unknown Alcohol intake: never Comment: tolerable Patient Tobacco Use Status: Never used Tobacco Tobacco use type: Cigarette e-Cigarette/Vaping Use: Never Used Second Hand Smoke Exposure: No service: No Current occupational status: disabled Cognitive needs: No Hearing needs: No Vision needs: No Female Reproductive History Menstrual Age of Menarche: 14 Review of Systems Const All systems reviewed & are unremarkable except as noted in HPI and below ENT Reports Normal hearing present Neuro Reports Normal hearing present, Denies Abnormal speech present and Denies Sensory deficit (Neuro) Physical Exam Vital Signs: Last Vital Signs Pulse 85 05/31/25 09:34 Resp 18 05/31/25 09:34 BP 117/67 05/31/25 09:34 Pulse Ox 98 05/31/25 09:34 Oxygen Delivery Method Room Air 05/31/25 09:34 Const General: cooperative, healthy appearing and comfortable Nutritional Appearance: well nourished and obese morbidly obese Orientation/consciousness: oriented to person, oriented to place, oriented to time and patient oriented x3 Eyes General: appearance normal, both eyes and all related structures Pupils: Equal, round and reactive pupils present EOM: EOMs intact bilaterally Neck Other: Axial neck compression aggravates the pain. Flexing forward and flexing backwards both aggravates the pain but flexing backwards aggravate pain more than flexing forward. Spurling test is positive on the right. Performing Spurling test on the left causes discomfort in the right side of the neck. Valsalva is positive for pain in the neck. However Lhermitte test is negative. Chest Chest palpation & inspection: normal inspection of the chest Resp Effort & Inspection: normal respiratory effort, able to speak in complete sentences, normal respiratory pattern, no audible wheezes and no cough Cardio Jugular venous distension: no JVD GI Inspection: Yes normal to inspection Neuro General: oriented to person, oriented to place, oriented to time and patient oriented x3 Cranial nerves: Yes Equal, round and reactive pupils present and Yes Normal hearing present Speech: No Abnormal speech present Gait exam (Neuro): Normal gait present Motor exam (neuro): 5/5 motor strength present throughout Sensory Exam: No Sensory deficit (Neuro) Extrem General: No pedal edema Psych Speech and movement: Normal speech and movement present Affect: normal affect Attitude: cooperative Thought process: Normal thought process present Thought content: Normal thought content present Insight: Good insight present (Psych) Judgement: Good judgement present (Psych) Assessment & Plan Assessment & Plan (1) Fibromyalgia: Code(s): M79.7 - Fibromyalgia Category: Medical (2) Cervicalgia: Code(s): M54.2 - Cervicalgia Category: Medical (3) Neck pain on right side: Code(s): M54.2 - Cervicalgia Category: Medical (4) Cervical spondylosis: Code(s): M47.812 - Spondylosis without myelopathy or radiculopathy, cervical region Category: Medical (5) Muscle spasms of neck: Code(s): M62.838 - Other muscle spasm Category: Medical (6) Sacroiliitis: Code(s): M46.1 - Sacroiliitis, not elsewhere classified Category: Medical (7) Sacroiliitis: Code(s): M46.1 - Sacroiliitis, not elsewhere classified Category: Medical (8) Chronic sacroiliac joint pain: Code(s): M53.3 - Sacrococcygeal disorders, not elsewhere classified; G89.29 - Other chronic pain Category: Medical (9) Radiculopathy, cervical: Code(s): M54.12 - Radiculopathy, cervical region Category: Medical Plan The patient is doing very well after the implantation of the Curonix bilateral peripheral nerve stimulation for sacroiliac joint innervation. She is working with [facility] to adjust her stimulation. On the background of improved low back pain she reports aggravation of the pain in the cervical spine with radiation to the right upper extremity. I will schedule her for EMG and nerve conduction velocity study. I will see her in 1 month. She requests me to refill for her tizanidine which I used to prescribe her in the past. I agreed and I will prescribe her tizanidine. She denied in the past side effects and she reports better pain control with this medication. Orders: Orders NE nerve conduction velocity Today M54.12 - Radiculopathy, cervical region NE electromyogram (EMG) Today M54.12 - Radiculopathy, cervical region Medications: New tizanidine 2 mg PO TID PRN 90 tabs 8RF muscle spasticity 30 days Discontinued methocarbamol Discontinued Reason: Doctor's Order 750 mg PO BID 30 days PRN 60 tabs 1RF muscle spasm M47.812 - Spondylosis without myelopathy or radiculopathy, cervical region, M54.2 - Cervicalgia, M62.838 - Other muscle spasm, M79.7 - Fibromyalgia Patient Instructions: I here by testify that I spent 32 minutes in conversation with this patient as well as planning her care and organizing this note. Coding Level of Care Code Est Pt Level 4 (19863) Diagnoses Fibromyalgia M79.7 Cervicalgia M54.2 Neck pain on right side M54.2 Cervical spondylosis M47.812 Muscle spasms of neck M62.838 Sacroiliitis M46.1 Chronic sacroiliac joint pain M53.3; G89.29 Radiculopathy, cervical M54.12
[2025-05-31 09:34] VITALS: BP 117/67; PULSE 85; RESP 18; O2SAT 98
== END 2025-05-31 09:53 | disposition home or self-care (01) ==
PROVIDERS: PCP Internal Medicine; Visit Provider Anesthesiology
DX: M79.7 Fibromyalgia (principal); M54.2 Cervicalgia; M47.812 Spondylosis without myelopathy or radiculopathy, cervical region; M62.838 Other muscle spasm; M46.1 Sacroiliitis, not elsewhere classified; M53.3 Sacrococcygeal disorders, not elsewhere classified; G89.29 Other chronic pain; M54.12 Radiculopathy, cervical region
CPT/HCPCS: 99214

== ENCOUNTER → 2025-05-31 09:20 | Outpatient (BNVA) | payer OTHER, SELFPAY | PROVIDERS: PCP Internal Medicine; Visit Provider Anesthesiology | DX: M25.511 Pain in right shoulder (principal); M79.7 Fibromyalgia; M54.2 Cervicalgia; M47.812 Spondylosis without myelopathy or radiculopathy, cervical region; M62.838 Other muscle spasm; M46.1 Sacroiliitis, not elsewhere classified; M53.3 Sacrococcygeal disorders, not elsewhere classified; G89.29 Other chronic pain; M54.12 Radiculopathy, cervical region | CPT/HCPCS: 99212 ==

== ENCOUNTER 2025-06-06 06:14 | Outpatient (REF) | payer OTHER, SELFPAY ==
--- NOTE | ~2025-06-06 | FL_ITS ---
EXAMINATION: FL GUIDANCE ONLY HISTORY: M17.10 - Unilateral primary osteoarthritis, unspecified knee COMPARISON: Correlation is made with plain films of the right knee dated 02/15/2025. TECHNIQUE: Fluoroscopy time: 0.1 minute. Cumulative Dose: 0.475 mGy. DAP: 0.45250 mGym2 Images: 1. FINDINGS: A single fluoroscopic spot film of the right knee in the AP projection demonstrates a needle in place and contrast material in the joint space. FL/FL guidance in treatment room IMPRESSION: Fluoroscopy during procedure. Please see procedure report for additional information. Electronically signed by: Curly Madera MD 06/06/2025 09:03 AM EDT
== END 2025-06-06 06:15 | disposition home or self-care (01) ==
LOC: CF 06:14
PROVIDERS: Visit Provider Anesthesiology
DX: M17.11 Unilateral primary osteoarthritis, right knee (principal); M25.561 Pain in right knee
CPT/HCPCS: 20610; J2003; J2795; J3301; Q9967

== ENCOUNTER 2025-06-06 08:28 | Outpatient (AMB) | payer OTHER, SELFPAY ==
[2025-06-06 08:36] VITALS: BP 102/61; PULSE 71; RESP 18; O2SAT 99; BMI 38.3
--- NOTE | 2025-06-06 08:36 | MHC.OFFVIS ---
Vital Signs 06/06/25 08:36 Height 5 ft Weight 196 lb BMI 38.3 BP 102/61 Blood Pressure Location Lt brachial Position Sitting Respiration 18 Pulse 71 Pulse Source Pulse Oximeter Pulse Oximetry (%) 99 Oxygen Delivery Method Room Air Intake Visit Reasons: RIGHT INTRA-ARTICULAR KNEE INJECTION Certified Home Health Aide Required: No Allergies topiramate (From TOPAMAX) Allergy (Intermediate, Verified 05/31/25 09:33) NAUSEA & VOMITING ENVIRONMENTAL Allergy (Severe, Uncoded 05/26/25 13:07) SINUS INFXN SYMPTOMS STATED BY PT [facility] Medical History (Updated 06/06/25 @ 09:42 by Bill Norris MD) Chest pressure Neck pain on right side Breast cancer screening by mammogram Obesity (BMI 30-39.9) Family history of ovarian cancer Tinea corporis Anemia Colon cancer screening Menorrhagia Vision blurring Medicare annual wellness visit, initial Sacroiliitis Gastroenteritis Chronic pain syndrome Obesity Encounter for Essure implantation Fibroadenoma Family history of breast cancer Breast mass, right H/O sigmoidoscopy Barretts esophagus Osteoarthritis, knee Fatty liver Cholelithiasis Carpal tunnel syndrome on both sides Lumbar degenerative disc disease Hypercholesterolemia Hypertension Vitamin D deficiency GERD (gastroesophageal reflux disease) Constipation Surgical History History of back surgery History of insertion of nerve stimulator H/O esophagogastroduodenoscopy H/O colonoscopy History of section History of breast mammoplasty History of carpal tunnel release H/O gastric bypass Family History Father Colon cancer CVD (cardiovascular disease) Mother Breast cancer Brain tumor Sister Colon cancer Breast cancer Social History Household Members: Children Household Members Other:: Daugher Housing: Apartment Are you a primary auto care center manager to a significant other at home: No Do you presently have visiting nurse or other home services: Yes Unable to assess alcohol history related to: Unknown Alcohol intake: never Comment: tolerable Patient Tobacco Use Status: Never used Tobacco Tobacco use type: Cigarette e-Cigarette/Vaping Use: Never Used Second Hand Smoke Exposure: No service: No Current occupational status: disabled Cognitive needs: No Hearing needs: No Vision needs: No Female Reproductive History Menstrual Age of Menarche: 14 Physical Exam Vital Signs: Last Vital Signs Pulse 71 06/06/25 08:36 Resp 18 06/06/25 08:36 BP 102/61 06/06/25 08:36 Pulse Ox 99 06/06/25 08:36 Oxygen Delivery Method Room Air 06/06/25 08:36 BMI result Body Mass Index 38.3 Assessment & Plan Assessment & Plan (1) Right knee pain: Code(s): M25.561 - Pain in right knee Category: Medical (2) Osteoarthritis of right knee: Code(s): M17.11 - Unilateral primary osteoarthritis, right knee Category: Medical Plan Right image guided intra-articular knee steroid injection. Ms. Salas is very pleasant 49 years old female who is suffering from severe osteoarthritis of the left knee. The x-ray demonstrated severe narrowing of the lateral and moderately narrowing medial intra-articular interval between the femur and the tibia. Therefore decision was made to perform image guided intra-articular knee steroid injection. Informed consent was explained, the patient was taken to the operating room and positioned supine on the operating table with the gel pad under the right knee. The right knee was prepped and draped with ChloraPrep and sterile self adhesive utility towels. C-arm was brought over the operating field and sq picture of the right knee joint was demonstrated on the screen. On the anterior lateral surface of the knee the local anesthetic was injected into the skin. After that 22 gauge 3-1/2 inch needle was driven to were the silhouette of the joint in tunnel vision fashion. When tip of the needle entered the joint injection of the contrast was performed demonstrating arthrogram. After that injection of the ropivacaine 0.5% 4 mL mixed with Kenalog 40 mg was performed into the knee joint. The needle was withdrawn and sterile Band-Aid was applied. The patient tolerated the procedure well no immediate complications were observed. Orders: Orders FL guidance in treatment room Today M17.10 - Unilateral primary osteoarthritis, unspecified knee Coding Level of Care Code Procedure Only Diagnoses Right knee pain M25.561 Osteoarthritis of right knee M17.11
== END 2025-06-06 09:00 | disposition home or self-care (01) ==
LOC: HO.PMCPRC 08:28
PROVIDERS: PCP Internal Medicine; Visit Provider Anesthesiology
DX: M25.561 Pain in right knee (principal); M17.11 Unilateral primary osteoarthritis, right knee
CPT/HCPCS: 20610; 77002

== ENCOUNTER 2025-06-26 13:56 | Outpatient (AMB) | payer OTHER, SELFPAY ==
--- NOTE | 2025-06-26 13:59 | A.OFFVIS_ITS ---
Vital Signs 06/26/25 14:00 Height 5 ft Weight 196 lb 3.382 oz BMI 38.3 BP 112/71 Blood Pressure Location Lt brachial Position Sitting Pulse 82 Intake Visit Reasons: 4 month f/u Intake Note: Junie presents in the office as a 4 month follow up. CC: Allergies topiramate (From TOPAMAX) Allergy (Intermediate, Verified 06/26/25 14:00) NAUSEA & VOMITING ENVIRONMENTAL Allergy (Severe, Uncoded 06/26/25 14:00) SINUS INFXN SYMPTOMS STATED BY PT HPI HPI 4 month f/u: Details: 50 yr old f here for f/u for abdominal pain and focal colitis RECAP; saw [facility] [place] [place] ? she had been c/o abdo pain, nausea, ? Its hard to eat steak- no milk or cheese. ? Went to ER- had a GI shot- it numbed my entire GI tract . ? Omeprazole not really helpful. ? She was very worried about having cancer ? Father -colon cancer @ 50 ? Sister colon cancer in her early 40s. ? TESTS: egd/COLONOSCOPY---01/2020 ? esophagus dilated, retianed eduardo removed, barretts esophagus w/ chronic inactive inflammation on bx, ? colon, with small internal hemorrhoids, fair prep--rept 3 yrs due to FH CRC ? bx with focal active colitis, no chronic injury ? small bowel f/u--03/2020--rapid transit, small hiatal henria, reflux, no obstruction ? LABS: 05/2020--LFt, BMp--nml, CBC, mild anemia EGD/sigmoidoscopy-11/2020-schatzki ring, internal hemorrhoids--she had dilation of esophagus EGD/Colonoscopy: 08/06/23 Endoscopy Findings: lax LES retained foreign bodies, balloon dilation Colonoscopy Findings: polyp internal hemorrhoids diverticular disease bx: tubular adenoma removed, some inflammation of stomach pouch, She had post biopsy bleed and had to get repeat colo with clipping and hemospray and stayed in house for one night ? INTERIM; insurance refused weight loss shots she is upset as she is gaining weight again she is going to weight managment to see if can help she is happy with entyvio, she feels much better with it, on 8 week cycle now minimal pain, lactoferrin was high feels maybe it is not lsting 8 weeks, maybe 6 weeks still taking PPI EXAM: GENERAL: The patient is well developed and nontoxic. VITAL SIGNS:see workflow HEENT: Nonicteric sclerae, PERRLA, EOMI. Oropharynx clear. Moist mucous membranes. Conjunctivae appear well perfused. No thyroid mass. CHEST: Chest wall is nontender. HEART: Regular rate and rhythm without murmurs. LUNGS: Clear to auscultation bilaterally. ABDOMEN: Soft, positive bowel sounds, nontender, no organomegaly.no flank tenderness SKIN: No rash, no excessive bruising, petechiae, or purpura. NEUROLOGIC: Cranial nerves II-XII intact without motor/sensory deficit. Assessments ? 1. Ongoing abdominal pain and abn bowel habits, prior bx with focal colitis, ? IBD, adhesions from gastric bypass--nothing this time, TA removed , stopped ozempic now--much better with entyvio, suspect subacute IBD 2. Dysphagia- good result with prior dilaiton--better with PPI PLAN: 1/ 8 weekly entyvio, can consider q 6 weeks, but its a little early --recheck lactoferrin now [facility] Medical History Chest pressure Neck pain on right side Breast cancer screening by mammogram Obesity (BMI 30-39.9) Family history of ovarian cancer Tinea corporis Anemia Colon cancer screening Menorrhagia Vision blurring Medicare annual wellness visit, initial Sacroiliitis Gastroenteritis Chronic pain syndrome Obesity Encounter for Essure implantation Fibroadenoma Family history of breast cancer Breast mass, right H/O sigmoidoscopy Barretts esophagus Osteoarthritis, knee Fatty liver Cholelithiasis Carpal tunnel syndrome on both sides Lumbar degenerative disc disease Hypercholesterolemia Hypertension Vitamin D deficiency GERD (gastroesophageal reflux disease) Constipation Surgical History History of back surgery History of insertion of nerve stimulator H/O esophagogastroduodenoscopy H/O colonoscopy History of section History of breast mammoplasty History of carpal tunnel release H/O gastric bypass Family History Father Colon cancer CVD (cardiovascular disease) Mother Breast cancer Brain tumor Sister Colon cancer Breast cancer Social History Household Members: Children Household Members Other:: Daugher Housing: Apartment Are you a primary healthcare facility administrator to a significant other at home: No Do you presently have visiting nurse or other home services: Yes Unable to assess alcohol history related to: Unknown Alcohol intake: never Comment: tolerable Patient Tobacco Use Status: Never used Tobacco Tobacco use type: Cigarette e-Cigarette/Vaping Use: Never Used Second Hand Smoke Exposure: No service: No Current occupational status: disabled Cognitive needs: No Hearing needs: No Vision needs: No Female Reproductive History Menstrual Age of Menarche: 14 Physical Exam Vital Signs: Last Vital Signs Pulse 82 06/26/25 14:00 BP 112/71 06/26/25 14:00 BMI result Body Mass Index 38.3 Assessment & Plan Assessment & Plan (1) Colitis: Code(s): K52.9 - Noninfective gastroenteritis and colitis, unspecified Category: Medical Plan: as above Orders: Orders Lactoferrin, Fecal, Quant. Today K51.50 - Left sided colitis without complications Coding Level of Care Code Est Pt Level 3 (43652) Diagnoses Colitis K52.9
[2025-06-26 14:00] VITALS: BP 112/71; PULSE 82; BMI 38.3
== END 2025-06-26 15:12 | disposition home or self-care (01) ==
LOC: HO.HGI 13:57
PROVIDERS: PCP Internal Medicine; Visit Provider Internal Medicine Gastroenterology
DX: K52.9 Noninfective gastroenteritis and colitis, unspecified (principal)
CPT/HCPCS: 99213

== ENCOUNTER → 2025-06-26 13:56 | Outpatient (BNVA) | payer OTHER, SELFPAY | PROVIDERS: PCP Internal Medicine; Visit Provider Internal Medicine Gastroenterology | DX: K51.50 Left sided colitis without complications (principal) | CPT/HCPCS: 99212 ==

== ENCOUNTER 2025-07-07 13:20 | Outpatient (AMB) | payer OTHER, SELFPAY ==
--- NOTE | 2025-07-07 14:07 | A.OFFVIS_ITS ---
Vital Signs 07/07/25 14:10 Height 5 ft Weight 196 lb BMI 38.3 BP 136/79 Blood Pressure Location Lt brachial Position Sitting Pulse 73 Pulse Source Pulse Oximeter Pulse Oximetry (%) 99 Oxygen Delivery Method Room Air Intake Visit Reasons: S/P RIGHT INTRA-ARTICULAR KNEE INJECTION 06/06/25 Intake Note: Pain today 510 Kitchen Lead Required: No Accompanied by: Self / Same As Patient Allergies topiramate (From TOPAMAX) Allergy (Intermediate, Verified 07/07/25 14:11) NAUSEA & VOMITING ENVIRONMENTAL Allergy (Severe, Uncoded 06/26/25 14:00) SINUS INFXN SYMPTOMS STATED BY PT HPI Comments Details: The patient is a 50-year-old female presenting with pain management concerns. The patient reports persistent right shoulder and radiating neck pain as associated with a pinched nerve, initially diagnosed at the emergency room and is awaiting an EMG scheduled for June to further evaluate the condition. The patient also experiences right knee pain, for which she received intra- articular steroid injection on June 06, resulting in a 50% reduction in pain. She reports difficulty walking on rugs and a sensation of weakness in the knee when standing for prolonged periods. The patient is scheduled for an EMG on July 19 to assess for cervical radiculopathy, with a follow-up appointment on July 26 to discuss the results. Past Procedures: 06/06/25: Right knee intra-articular steroid injection- ongoing 50% pain relief PRIOR 05/31/25 Dr. Norris: Eliza is very pleasant 49 years old female who presents in my office today for the follow-up after the implantation of the bilateral curonix PNS to treat her bilateral sacroiliac joint pain. She reports that her pain continues to improve in the lower back. She reports improved mobility, she states that she is in contact with [employer] representatives to improve stimulation. However on the background of improved lower back pain her cervicalgia neck pain started to become worse. She reports pain in the neck on the right side of the neck radiating down the right upper extremity all the way to the wrist but not to the fingers. She was admitted to emergency room recently somewhere in the town, they performed CT scan which is not available for me. I decided today to schedule patient for the EMG and nerve conduction study. I will prescribe her tizanidine 2 mg t.i.d.. I also will see this patient in 1 month. With d iagnosis of radiculopathy confirmed by EMG more advanced studies might be required, the patient will be sent for MRI, and possibly to a neurosurgeon. If there is no radiculopathy on EMG and nerve conduction tests I would need to consider her pain related to arthritis of the cervical spine. PRIOR: The patient is a 49-year-old female presenting for follow-up, one-week status post bilateral sacroiliac joint peripheral nerve stimulation trial with Curonix. The patient experienced increased discomfort initially post-procedure, but subsequently reported a reduction in her usual low back pain by about 50% to 70%. The pain is associated with morning stiffness, which hinders her ability to initiate daily activities. Walking has been a beneficial activity that alleviates her pain. Additionally, muscle spasms have been documented in her leg, predominantly associated with device overstimulation, which required modification. - Onset: Chronic, exacerbated by recent surgical procedure. - Quality: Initially increased discomfort post-procedure, now improved with less pressure sensation. - Location: Primarily in the low back, with extension to the leg manifesting as muscle spasms. - Radiation: Spine to lower extremity. - Exacerbating Factors: Overstimulation from the spinal device, morning stiffness. - Relieving Factors: Device adjustment, walking, less pressure on spinal region. - Affect: Patient finds her overall mood and function improved with the pain device. - Analgesia: Approximately 50% to 70% pain reduction post-device placement. - Adverse Effects: Initial increased pain post-surgery; muscle spasm due to overstimulation. - Activities of Daily Living: Improvement in walking and daily functions; initial post-surgical recovery hindered daily activity. - Aberrant Drug Related Behaviors: None reported. [facility] Medical History Chest pressure Neck pain on right side Breast cancer screening by mammogram Obesity (BMI 30-39.9) Family history of ovarian cancer Tinea corporis Anemia Colon cancer screening Menorrhagia Vision blurring Medicare annual wellness visit, initial Sacroiliitis Gastroenteritis Chronic pain syndrome Obesity Encounter for Essure implantation Fibroadenoma Family history of breast cancer Breast mass, right H/O sigmoidoscopy Barretts esophagus Osteoarthritis, knee Fatty liver Cholelithiasis Carpal tunnel syndrome on both sides Lumbar degenerative disc disease Hypercholesterolemia Hypertension Vitamin D deficiency GERD (gastroesophageal reflux disease) Constipation Surgical History History of back surgery History of insertion of nerve stimulator H/O esophagogastroduodenoscopy H/O colonoscopy History of section History of breast mammoplasty History of carpal tunnel release H/O gastric bypass Family History Father Colon cancer CVD (cardiovascular disease) Mother Breast cancer Brain tumor Sister Colon cancer Breast cancer Social History Household Members: Children Household Members Other:: Daugher Housing: Apartment Are you a primary hemodialysis patient care specialist to a significant other at home: No Do you presently have visiting nurse or other home services: Yes Alcohol intake: never Comment: tolerable Patient Tobacco Use Status: Never used Tobacco Tobacco use type: Cigarette e-Cigarette/Vaping Use: Never Used Second Hand Smoke Exposure: No service: No Current occupational status: disabled Cognitive needs: No Hearing needs: No Vision needs: No Female Reproductive History Menstrual Age of Menarche: 14 Review of Systems Const All systems reviewed & are unremarkable except as noted in HPI and below Physical Exam Vital Signs: Last Vital Signs Pulse 73 07/07/25 14:10 BP 136/79 07/07/25 14:10 Pulse Ox 99 07/07/25 14:10 Oxygen Delivery Method Room Air 07/07/25 14:10 BMI result Body Mass Index 38.3 General: Appears afebrile. Alert and oriented. Mood and affect appropriate. Follows and participates in conversation appropriately. Respiratory effort is unlabored. No cough. Able to transition from sit to stand unassisted. Ambulates with bilaterally normal heel strike and toe off. Neck Neck: Yes normal visual inspection, Yes no lymphadenopathy, Yes supple, No anterior neck swelling, Yes no JVD, No prominent supraclavicular fat pad and Yes prominent dorsocervical fat pad Back/Spine/Pelvis Cervical Spine: No Lhermitte's sign positive, cervical muscular tenderness, pain with cervical ROM, cervical spasm, No Cervical spine tenderness and No step off deformity Thoracic/Lumbar Spine: thoracic and lumbar spine normal to inspection, Thoracic/lumbar spine scar(s), pain with thoraco-lumbar ROM, thoraco-lumbar ROM limited, No thoracic spinal tenderness and No lumbar spinal tenderness Sacroiliac joints: bilaterally tender to palpation (mild) Extrem General: Yes capillary refill normal, Yes no clubbing, cyanosis or edema and Yes no calf tenderness Right lower extremity: knee Details: normal to inspection, tenderness Location: of the patella and of the pre-patellar area, normal ROM and crepitus; no swelling, no ecchymosis, no deformity and no unusual warmth Results Reviewed Results Reviewed: XR KNEE 4 OR MORE VIEWS RIGHT 02/15/25 HISTORY: M25.561 - Pain in right knee COMPARISON: Comparison is made with the prior examination dated 01/24/2019. FINDINGS: Four views of the right knee are submitted. Osseous mineralization is normal. There is no fracture or dislocation. The joint spaces are preserved. Again seen are small osteophytes off the patella. The soft tissues are unremarkable. There is no joint effusion. IMPRESSION: Mild patellofemoral osteoarthritis. Assessment & Plan Assessment & Plan (1) Carpal tunnel syndrome on both sides: Code(s): G56.03 - Carpal tunnel syndrome, bilateral upper limbs Category: Medical (2) Right knee pain: Code(s): M25.561 - Pain in right knee Category: Medical (3) Cervicalgia: Code(s): M54.2 - Cervicalgia Category: Medical (4) Cervical spondylosis: Code(s): M47.812 - Spondylosis without myelopathy or radiculopathy, cervical region Category: Medical (5) Neck pain on right side: Code(s): M54.2 - Cervicalgia Category: Medical (6) Radiculopathy, cervical: Code(s): M54.12 - Radiculopathy, cervical region Category: Medical Plan The patient will undergo an EMG on July 19 to evaluate the presence of a pinched nerve and potential cervical radiculopathy, she has known history of bilateral chronic CTS. A follow-up appointment is scheduled for July 26 to discuss the EMG results and determine further management strategies. The patient has experienced a 50% reduction in knee pain following an injection and will continue to monitor the pain levels. She is encouraged to continue her current level of activity, including walking on a treadmill, while avoiding activities that exacerbate her symptoms. All questions and concerns have been answered and patient agreed with the treatment plan. Follow up for EMG results with Dr. Norris as scheduled and sooner as needed. Patient was informed and verbally consented to the use of an ambient scribe for clinic note documentation during this visit. Coding Level of Care Code Est Pt Level 3 (14256) Complex EM visit Add On G2211 Diagnoses Carpal tunnel syndrome on both sides G56.03 Right knee pain M25.561 Cervicalgia M54.2 Cervical spondylosis M47.812 Neck pain on right side M54.2 Radiculopathy, cervical M54.12
[2025-07-07 14:10] VITALS: BP 136/79; PULSE 73; O2SAT 99; BMI 38.3
== END 2025-07-07 14:24 | disposition home or self-care (01) ==
LOC: HO.PMC 13:21
PROVIDERS: PCP Internal Medicine; Visit Provider Nurse Practitioner Family
DX: G56.03 Carpal tunnel syndrome, bilateral upper limbs (principal); M25.561 Pain in right knee; M54.2 Cervicalgia; M47.812 Spondylosis without myelopathy or radiculopathy, cervical region; M54.12 Radiculopathy, cervical region
CPT/HCPCS: 99213; G2211

== ENCOUNTER → 2025-07-07 13:20 | Outpatient (BNVA) | payer OTHER, SELFPAY | PROVIDERS: PCP Internal Medicine; Visit Provider Nurse Practitioner Family | DX: G56.03 Carpal tunnel syndrome, bilateral upper limbs (principal); M25.561 Pain in right knee; M54.2 Cervicalgia; M47.812 Spondylosis without myelopathy or radiculopathy, cervical region | CPT/HCPCS: 99212 ==

== ENCOUNTER 2025-07-14 09:31 | Outpatient (AMB) | payer OTHER, SELFPAY ==
--- NOTE | 2025-07-14 10:14 | A.OFFVIS_ITS ---
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 Allergies topiramate (From TOPAMAX) Allergy (Intermediate, Verified 07/14/25 10:19) NAUSEA & VOMITING ENVIRONMENTAL Allergy (Severe, Uncoded 07/14/25 10:19) SINUS INFXN SYMPTOMS STATED BY PT Medication List - Last Reconciled 07/14/25 by Rashaun Noonan MD ascorbic acid (vitamin C) (Vitamin C) 500 mg PO DAILY atorvastatin 40 mg PO DAILY 90 days [bedside Commode As directed] cholecalciferol (vitamin D3) 50 mcg PO DAILY clonazepam 0.5 mg PO TID 30 days clotrimazole 1% 1 appl topical TID dicyclomine 10 mg PO TID PRN docusate sodium 100 mg PO BID duloxetine 60 mg PO DAILY erythromycin 0.5 inches ophthalmic (eye) QID 5 days estradiol 1 patch transdermal 2XW estradiol 0.01%(0.1mg/gram) 1 appl vaginal DAILY ferrous sulfate 325 mg PO DAILY 90 days [Fit right ultra underwear As directed] gabapentin 300 mg PO TID 90 days [Grab bar As directed] hydroxyzine HCl 50 mg PO BEDTIME PRN 90 days ketoconazole 2% 1 appl topical BID lidocaine 5% 1 appl topical BID PRN loratadine 10 mg PO DAILY 90 days mesalamine ER TAKE 4 CAPSULES BY MOUTH EVERY MORNING FOR 1 MONTH. miconazole nitrate 2% 1 appl topical TID mirabegron ER (Myrbetriq) 50 mg PO DAILY nystatin 1 appl topical TID omeprazole 20 mg PO BID 90 days ondansetron 4 mg PO Q8H PRN oxycodone-acetaminophen 5-325 mg 1 tab PO Q8H PRN 7 days polyethylene glycol 3350 (Miralax) 17 grams PO BID prazosin 1 mg PO BEDTIME progesterone micronized 200 mg PO BEDTIME [SHOWER CHAIR As directed] [Shower chair As directed] simethicone 125 mg PO TID-QID PRN sucralfate 10 mL PO BIDAC [Suction grab bars As directed] tizanidine 2 mg PO TID PRN 30 days [Transfer board As directed] trazodone 50 mg PO BEDTIME ubrogepant (Ubrelvy) 100 mg PO ONCE PRN vibegron (Gemtesa) 75 mg PO DAILY HPI 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 She sees a lot of different physicians and she is on multiple medications of unclear benefit She complains of a constellation of symptoms, primarily GI: nausea, GERD, vomiting, constipation and diarrhea as well as pain requiring narcotics and gabapentin despite two recent surgeries to address this. [facility]LY [facility], [facility] Medical History (Updated 07/14/25 @ 10:56 by Rashaun Noonan MD) Obesity Chest pressure Neck pain on right side Breast cancer screening by mammogram Obesity (BMI 30-39.9) Family history of ovarian cancer Tinea corporis Anemia Colon cancer screening Menorrhagia Vision blurring Medicare annual wellness visit, initial Sacroiliitis Gastroenteritis Chronic pain syndrome Encounter for Essure implantation Fibroadenoma Family history of breast cancer Breast mass, right H/O sigmoidoscopy Barretts esophagus Osteoarthritis, knee Fatty liver Cholelithiasis Carpal tunnel syndrome on both sides Lumbar degenerative disc disease Hypercholesterolemia Hypertension Vitamin D deficiency GERD (gastroesophageal reflux disease) Constipation Surgical History History of back surgery History of insertion of nerve stimulator H/O esophagogastroduodenoscopy H/O colonoscopy History of section History of breast mammoplasty History of carpal tunnel release H/O gastric bypass Family History Father Colon cancer CVD (cardiovascular disease) Mother Breast cancer Brain tumor Sister Colon cancer Breast cancer Social History Household Members: Children Household Members Other:: Daugher Housing: Apartment Are you a primary physician assistant primary care to a significant other at home: No Do you presently have visiting nurse or other home services: Yes Unable to assess alcohol history related to: Unknown Alcohol intake: never Comment: tolerable Patient Tobacco Use Status: Never used Tobacco Tobacco use type: Cigarette e-Cigarette/Vaping Use: Never Used Second Hand Smoke Exposure: No service: No Current occupational status: disabled Cognitive needs: No Hearing needs: No Vision needs: No Female Reproductive History Menstrual Age of Menarche: 14 Telehealth Telehealth Telehealth Platform: Telephone Location of provider rendering services: practice address Location of patient: address on file Patient Identification confirmed using: Name, : Yes Telehealth method: voice only Patient verbally consented to treatment: Yes Patient verbally consented to billing insurance company: Yes Patient informed of any privacy concerns related to visit: Yes Minutes spent on Phone/Video with Pt.: 60 Assessment & Plan Assessment & Plan (1) Obesity (BMI 30-39.9): Code(s): E66.9 - Obesity, unspecified Category: Medical Plan: 1. To be scheduled for EGD to assess the bypass's anatomy. The possibility of biopsies was discussed. Patient needs to avoid use of NSAIDs and aspirin for 1 week prior to EGD. You must be on liquids only the day before your endoscopy. Risks of perforation and bleeding was discussed with the patient. This will be an outpatient procedure with IV sedation. 2. Send me weight measurements tomorrow form the body composition scale 3. Purchase the Celebrate REBUILD protein shakes and Celebrate protein bars, any flavor you prefer. Let me know when you get them 4. Stop Gemtesa. Update me in 5 days how you feel without it
--- OUTSIDE RECORDS SUMMARY | 2025-07-14 10:42 | XMS_ITS | Continuity of Care Document ---
Author Name [facility], Medical Address [address] [place] [id number] Organization Unknown Address [address] [place] [address] Medications No known medications Problems No known problems
--- OUTSIDE RECORDS SUMMARY | 2025-07-14 10:42 | XMS_ITS | Encounter Summary ---
Author Organization [facility] Address [address] [place] [address] Encounters * CPT with Medical [facility] at [facility] on 2025-06-27 { reasonForRequest : Pt reporting a lot of gastro pain , patientReports&quo t;: Sharp focal or diffuse abdominal pain , denies :[ Vomiting blood/coffee ground material , Bloating, jaundice new onset with pain , Nausea and vomiting greater than 2 hours with abdominal pain , Tearing pain that radiates to back ,"Food Impaction ], chiefComplaints : Abdominal Pain , pmh : Inflammatory Bowel Disease (Crohn's Disease, Ulcerative Colitis), Chronic Back Pain, Hypertension", allergies : Topamax, Morphine, Hydromorphone , otherAllergies :null, painAssessment : Level 10 out of 10 , visitOutcome : ,"additionalComments : 50 y.o female complains of Abdominal Pain\nPatient calling reporting severe, mid, upper abdominal pain starting approx one hour ago. Patient reports she has Crohn's disease and has a history of GI problems. Patient states she took her daily medication today Mesalamine. Patient states she receives an IV medication every 8 weeks as well. Patient reports diarrhea for the last three days, no reported blood in stool. Patient also endorsing nausea, but no vomiting.Patient reports when the pain is severe she gets shortness of breath. Patient states she has tried taking a bath and using a heating pad for the pain with minimal relief in symptoms. I provided information on the mobile health provider response time and advised the patient and/or caregiver to monitor reported signs and symptoms. I discussed the warning signs of when to seek emergency care -Vira Chavez RN } Sent to a call for a pt complaining of abd pain. SC8 arrives on scene, pt is alert and oriented, airway is patent. Pt allergies verified: Topamax, Morphine, and Hydromorphone. Pt complains of the following chronic symptoms: headache, dizziness (with walking/standing), sob w/ high pain levels, nausea, diarrhea, and epigastric pain. Pt complains of worsening nausea x 3 days. Pt denies cp, vomiting,black/bloody stool, fever, or loc. Pt states she has Crohn's disease and gets Entyvio injections every 8 weeks, with last injection on 06/19/25. Pt states she had follow up with GI yesterday who saidthey are considering changing Entyvio intervals to every 6 weeks if pt continues having pain. Pt states she has had Zofran prescription in past, but ran out a long time ago. Pt also states she has history of anemia and usually takes iron during her menstrual period. Pt reports first day of last period was 06/16, period was at baseline, but pt didn't take Iron as normal. Pt states she has been eating small amounts, but has been staying hydrated. (sitting) BP:107/71, P:68, RR:18, SpO2:97% RA, T:98.2; (standing) BP:116/78, P:74; Head: unremarkable; Lung sounds: clear bilaterally; Abdomen: soft, non-tender, no distention; Back: unremarkable; Extremities: unremarkable; Skin: pink, warm, dry; Venous blood draw performed; Chem8+ results: uploaded to [facility]; [facility] [place] Zofran 4mg IV, Lactated Ringers 1 liter IV. [facility] [place] script to pt's pharmacy for Zofran. First attempt at IV access: unsuccessful; Pt refuses further needle sticks citing they hurt too much and poor vasculature. [facility] orders Zofran ODT 4mg. 5 med rights verified; Zofran ODT 4mg administered without incident. Pt is advised to follow up with GI doctor. Pt advised to wait 8hrs before taking another dose of Zofran. Red flags discussed. Pt has no further questions. IV_(FLUIDS_AND/OR_MEDICATION), MEDICATION_IM Written by [facility] on 2025-06-27
[2025-07-14 11:05] VITALS: BMI 38.3
== END 2025-07-14 11:06 | disposition home or self-care (01) ==
LOC: HO.HBS 09:31
PROVIDERS: PCP Internal Medicine; Visit Provider Surgery
DX: E66.9 Obesity, unspecified (principal); Z68.38 Body mass index [BMI] 38.0-38.9, adult
CPT/HCPCS: 99205

== ENCOUNTER 2025-07-19 10:10 | Outpatient (REF) | payer OTHER, SELFPAY ==
--- NOTE | 2025-07-19 10:15 | EMG_ITS ---
Chief complaint: Right-sided neck pain radiating down to the arm EMG done by Dr. 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 Patient underwent right CTR. Reason for referral: Evaluate for cervical radiculopathy versus Carpal Tunnel Syndrome Referred by: Dr. Norris Procedure done: Right upper extremity NCS/EMG Precautions and/or limitations: None The limb temperature was monitored continuously and remained between 32-36 degrees C during the performance of the NCS. Nerve Conduction Studies Anti Sensory Summary Table ?Stim Site NR Onset (ms) Norm Onset (ms) Peak (ms) Norm Peak (ms) O-P Amp (?V) Norm O-P Amp Site1 Site2 Delta-0 (ms) Dist (cm) Burton (m/s) Norm Burton (m/s) Right Median Anti Sensory (2nd Digit) Wrist ? 2.8 3.5 <3.6 43.2 >10 Wrist 2nd Digit 2.8 14.0 50 Right Radial Anti Sensory (Thumb) Forearm ? 1.6 2.1 <3.1 24.1 Forearm Thumb 1.6 0.0 Right Ulnar Anti Sensory (5th Digit) Wrist ? 2.1 3.0 <3.7 54.6 >15.0 Wrist 5th Digit 2.1 14.0 67 Motor Summary Table ?Stim Site NR Onset (ms) Norm Onset (ms) O-P Amp (mV) Norm O-P Amp iAmp (mV) Amp (1st) (%) Site1 Site2 Delta-0 (ms) Dist (cm) Burton (m/s) Norm Burton (m/s) Right Median Motor (Abd Poll Brev) Wrist ? 3.5 <3.9 13.1 >4.5 15.4 100.0 Elbow Wrist 3.1 18.0 58 >45 Elbow ? 6.6 13.2 15.8 100.8 Right Ulnar Motor (Abd Dig Minimi) Wrist ? 3.0 <3.0 9.6 >5 10.9 100.0 B Elbow Wrist 3.1 17.0 55 >45 B Elbow ? 6.1 9.8 11.1 102.1 A Elbow B Elbow 1.2 10.0 83 >45 A Elbow ? 7.3 9.9 11.2 103.1 EMG ?Side Muscle Nerve Root Ins Act Fibs Psw Amp Dur Poly Recrt Int Pat Comment Right 1stDorInt Ulnar C8-T1 Nml Nml Nml Nml Nml 0 Nml Complete Right FlexCarRad Median C6-7 Nml Nml Nml Nml Nml 0 Nml Complete Right Biceps Musculocut C5-6 Nml Nml Nml Nml Nml 0 Nml Complete Right Triceps Radial C6-7-8 Nml Nml Nml Nml Nml 0 Nml Complete Right Deltoid Axillary C5-6 Nml Nml Nml Nml Nml 0 Nml Complete Paraspinal EMG ?Side Muscle Nerve Root Ins Act Fibs Psw Comment Right Cervical Upper Rami Nml Nml Nml Right Cervical Mid Rami Nml Nml Nml Right Cervical Lower Rami Nml Nml Nml FINDINGS: All motor and sensory nerves tested showed normal latencies, amplitudes and conduction velocities. Concentric needle EMG was performed in selected muscles of the right upper extremity and cervical paraspinals. Study did not reveal signs of electric abnormalities as shown in the table above. IMPRESSION: 1. This is a normal study. 2. There is no electrodiagnostic evidence for median neuropathy, ulnar neuropathy, brachial plexopathy, or cervical radiculopathy. Thank you for your kind referral. Yue Dangelo MD, HILDA Board Certified, [place] [employer] and Rehabilitation (ABPMR) Board Certified, [place] Board of Electrodiagnostic Medicine (ABEM) CODIN [id number] [facility]
== END 2025-07-19 10:11 | disposition home or self-care (01) ==
LOC: HO.NEURO 10:10
PROVIDERS: PCP Internal Medicine; Visit Provider Anesthesiology
DX: M54.12 Radiculopathy, cervical region (principal)
CPT/HCPCS: 95886; 95909

== ENCOUNTER → 2025-07-19 10:15 | Outpatient (BNV) | payer OTHER, SELFPAY | PROVIDERS: PCP Internal Medicine; Visit Provider Physical Medicine & Rehabilitation | DX: M54.12 Radiculopathy, cervical region (principal) | CPT/HCPCS: 95886; 95909 ==

== ENCOUNTER 2025-07-21 14:08 | Outpatient (REF) | payer OTHER, SELFPAY ==
--- OUTSIDE RECORDS SUMMARY | 2025-07-21 16:11 | XMS_ITS | Data Portability ---
Author Organization [facility] [employer] [facility], [facility] Address [address] [place] [id number] Care Team Providers Care Marketing Programs Specialist Name Role Phone HIM CCA OTHER ALEX GUERRERO Primary Care Provider Assessment Encounter Date Assessment Date Assessment LastModified by Organization Details LastModified Time 06/27/2025 06/27/2025 I provided real -time medical direction via phone for this encounter, and was available for additional phone based assistance as needed. I have reviewed and agree with the Assessment and Plan as documented by the Value Advisor. We discussed the diagnostic uncertainty of home [...] to call 911- verbalized understanding of instruction [email or web address] Not available 06/28/2025 22:37:41 Plan of Treatment Reminders Order Date Submit Date Provider Last Modified By Organization Details Last Modified Time Details Appointments None recorded. Lab BMP, serum or plasma [facility]24 [facility], [address] [place] [address], [id number] 17:54:53 Referral None recorded. Procedures None recorded. Surgeries None recorded. Imaging None recorded. Medication Orders ondansetron 4 mg disintegrat ing tablet 2024 025 [email or web address] [facility] #[id number], [address], [place], [address], 15:17:33 ondansetron 4 mg disintegrat ing tablet 2024 025 [email or web address] 0 [facility] #[id number], [address], [place], [address], 15:17:32 Patient TargetsNo targets recorded. Patient InstructionsNo [...] Name and Address Organization Details Recorded Time 44438 Topamax medicatio n Not available Not available Not available 06/27/2025 26539 3 RxNorm Not Available [employer] - production 5 12:03:30 47351 morphine medicatio n Not available Not available Not available 06/27/2025 7052 RxNorm Not Available [facility] - production 5 12:03:30 04659 [employer] severino medicatio n Not available Not [...] 5 152.4 cm 68 /min 18 /min 15512.6 64 g 97 % 97 % 74 /min 98.2 [degF] 107/71 mm[Hg] 116/78 mm[Hg] Not Available [facility] - production 5 14:50:19 Social History None [...] ICD10 Code Diagnosis IMO Codes Diagnosis Note [id number] Zuri Judd MD [facility] Medical [address] [phone] 06/27/2025 14:50:15 06/29/2025 10:43:04 Epigastric pain [id number] R10.13 [id number] pain is chronic, patient ran out of [...] Workman Member ID Guarantor Name 06/29/2025 1 [facility] - DOS ON OR AFTER 2022 - DUAL ELIGIBLE - NURSING HOME OPTIONS AND ONE CARE (MEDICARE REPLACEMENT/ADV ANTAGE - HMO) Eliza Salas [id number] Eliza Salas Notes Date Note Type Note [...] to seek emergency care -Vira Chavez RN Value Advisor Organization Information for Wilbur Yahaira Migdalia VELARDE [employer] Legal Name: [employer] Address: [address] [place] [address], Manufacturing Maintenance Manager: Pradip Acosta MD CLIA No.: [id number] Value Advisor POC Test Results from Yahaira Bowles - [facility] iSTAT Chem8+ (14:50:11) Na: 139mEq/L K: 4.0mEq/L Cl: 106mEq/L iCa: 1.19mmol/L TCO2: 20mmol/L Glu: 91mg/dL BUN: 12mg/dL Crea: 0.7mg/dL Hct: 33% Hb: 11.2g/dL Ammol/L Cartridge Number: [id number] Attachments uploaded as part of this test result can be found under Documents section. .................... .................... .................... .................... .................... .................... .................... . Value Advisor Note From Yahaira Bowles: Sent to a [...] blood draw performed; Chem8+ results: uploaded to [employer]; [facility] [place] orders Zofran 4mg IV, Lactated Ringers 1 liter IV. [facility] [place] script to pt's pharmacy for Zofran. First attempt at IV access: unsuccessful; Pt refuses further needle sticks citing they hurt too much and poor vasculature. [facility] [place] orders Zofran ODT 4mg. 5 med rights verified; Zofran ODT 4mg administered without incident. Pt is advised to follow up with GI doctor. Pt advised to wait 8hrs before taking another dose of Zofran. Red flags discussed. Pt has no further questions. [facility] [place] Lab Orders: BMP, serum or plasma: Performed [facility] [place] Medication Orders: ondansetron 4 mg disintegrating tablet: Performed .................... .................... .................... .................... .................... .................... .................... . [facility] [place] Consulted: Zuri Judd .................... .................... .................... .................... .................... .................... .................... . Disposition: Fulfilled Zuri Judd MD [address] [place] [address],[address], [place], [phone], [facility] 06/28/2025 22:37:49 OBGyn Episode No OBEpisode recorded.
[2025-07-28 21:49] LABS: Lactoferrin, Fecal, Quant. 19.35 mcg/mL (<7.25)
== END 2025-07-21 14:09 | disposition home or self-care (01) ==
LOC: HO.LNP 14:08
PROVIDERS: Visit Provider Internal Medicine Gastroenterology
DX: K51.50 Left sided colitis without complications (principal)
CPT/HCPCS: 83631

== ENCOUNTER 2025-08-03 11:34 | Day surgery (SDC) | payer OTHER, SELFPAY ==
--- OUTSIDE RECORDS SUMMARY | 2025-07-18 13:15 | XMS_ITS | Data Portability ---
Author Organization [facility] [employer] [facility], [facility] Address [address] [place] [id number] Care Team Providers Care Pyrotechnic Mixer Name Role Phone HIM CCA OTHER ALEX GUERRERO Primary Care Provider Assessment Encounter Date Assessment Date Assessment LastModified by Organization Details LastModified Time 06/27/2025 06/27/2025 I provided real -time medical direction via phone for this encounter, and was available for additional phone based assistance as needed. I have reviewed and agree with the Assessment and Plan as documented by the Social Staff Worker. We discussed the diagnostic uncertainty of home visits and the risk associated with this. In this case the patient and I felt this to be an acceptable and reasonable amount of risk given the benefit of avoiding an ED visit. The patient given the opportunity to ask questions. Advised close f/u with her GI/ callus if needs another visit -if develops CP/severe SOB/turning blue/ severe abd pain/ uncontrolled n/v/d or black/bloody emesis or stool/ AMS/ syncope/ hi fever to call 911- verbalized understanding of instruction [email or web address] Not available 06/28/2025 22:37:41 Plan of Treatment Reminders Order Date Submit Date Provider Last Modified By Organization Details Last Modified Time Details Appointments None recorded. Lab BMP, serum or plasma 2024 025 [facility] [address] [place] [address], [id number] 17:54:53 Referral None recorded. Procedures None recorded. Surgeries None recorded. Imaging None recorded. Medication Orders ondansetron 4 mg disintegrat ing tablet 2024 025 [email or web address] [facility]armacy #[id number], [address], [place], [address], 15:17:33 ondansetron 4 mg disintegrat ing tablet 2024 025 [email or web address] 0 [facility]/Pharmacy #[id number], [address], [place], [address], 15:17:32 Patient TargetsNo targets recorded. Patient InstructionsNo instructions recorded. Reason for Referral None Reported. Results Created Date Observation Date Name Description Value Unit Range Abnormal Flag Note LastModifiedBy Organization Detail LastModifiedTime Result Notes None recorded. Medical Equipment None Reported. Allergies Allergen ID Allergen Name Allergen Category Reaction Reaction Severity Criticality Documentation Date Start Date Code Code System Note Provider Name and Address Organization Details Recorded Time 74764 Topamax medicatio n Not available Not available Not available 06/27/2025 01045 3 RxNorm Not Available [facility] - production 5 12:03:30 82237 morphine medicatio n Not available Not available Not available 06/27/2025 7052 RxNorm Not Available [facility] - production 5 12:03:30 00212 hydromorp severino medicatio n Not available Not available Not available 06/27/2025 3423 RxNorm Not Available [facility] - production 5 12:03:30 Medications Name Sig Start Date Stop Date Status Note LastModified by Organization Details LastModified Time tizanidine 2 mg tablet TAKE 1 TABLET BY MOUTH THREE TIMES A DAY NEEDED FOR MUSCLE SPASTICITY FOR 30 DAYS active Not Available Not Available Not Available prednisone 20 mg tablet TAKE 2 TABLETS BY MOUTH EVERY DAY active Not Available Not Available No t Available estradiol 0.05 mg/24 hr semiweekly transdermal patch APPLY 1 PATCH TRANSDERMAL LY TWICE A WEEK active Not Available Not Available No t Available methocarbamo l 750 mg tablet TAKE 1 TABLET BY MOUTH EVERY 8 HOURS active Not Available Not Available No t Available progesterone micronized 200 mg capsule TAKE 1 CAPSULE BY MOUTH EVERY DAY FOR 12 DAYS active Not Available Not Available No t Available nystatin 100,000 unit/gram topical powder APPLY TO THE AFFECTED AREA(S) BY TOPICAL ROUTE UP TO THREE TIMES DAILY NEEDED active Not Available Not Available No t Available estradiol 0.01% (0.1 mg/gram) vaginal cream INSERT 0.5 GRAM INTRAVAGINA LLY 2 TIMES PER WEEK active Not Available Not Available No t Available ondansetron 4 mg disintegrati ng tablet PLACE 1 TABLET EVERY 8 HOURS BY TRANSLINGUA L ROUTE NEEDED, FOR NAUSEA VOMITING. active Not Available Not Available No t Available chlorhexidin e gluconate 0.12 % mouthwash SWISH AND SPIT WITH 15 ML 2-3 TIMES A DAY AFTER EATING active Not Available Not Available No t Available Ubrelvy 100 mg tablet TAKE 1 TAB BY MOUTH ONCE NEEDED FOR MIGRAINE REPEAT IN 2HR IF NEEDED MAX 2TABS/24HR OR 2DAYS/WEEK active Not Available Not Available N ot Available Gemtesa 75 mg tablet TAKE 1 TABLET BY MOUTH EVERY DAY active Not Available Not Available No t Available Vitals Date Recorded Body height Heart rate Respiratory rate Body weight Oxygen saturation Oxygen saturation in Arterial blood by Pulse oximetry Heart rate Body temperature Systolic And Diastolic Systolic And Diastolic Provider Name and Address Organization Details Last Updated DateTime 5 152.4 cm 68 /min 18 /min 81211.6 64 g 97 % 97 % 74 /min 98.2 [degF] 107/71 mm[Hg] 116/78 mm[Hg] Not Available [employer] - production 5 14:50:19 Social History None recorded. Functional Status None recorded. Mental Status None recorded. Family History Nothing Reported. Medical History No medical history recorded. Gynecological HistoryNo gynecological history recorded. Obstetrics History GPAL:G 0 P 0 0 0 0 Past Encounters Encounter ID Performer Location Encounter Start Date Encounter Closed Date Diagnosis/Indication Diagnosis SNOMED-CT Code Diagnosis ICD10 Code Diagnosis IMO Codes Diagnosis Note [id number] Zuri Judd MD [facility] ED Medical [address] [phone] 06/27/2025 14:50:15 06/29/2025 10:43:04 Epigastric pain 59446274 R10.13 26705 pain is chronic, patient ran out of Zofran and is requesting medication for nausea/I have no labs but her chemistry appears stable and she is mildly anemic. Patient reports a history of anemia and she did not take her iron with her last menses which were on 06/16-she denies any possibilit y of . Medic attempted IV access once, unable to get in, patient refused further attempts. Able to give Zofran sublingual ly. Health Concerns Section Related Observation LastModified by Organization Detai ls LastModified Time None Recorded Concern Status LastModified by Organization Details LastModified Time None Recorded Advance Directives Directive None Recorded Payers Insurance Date Sequence Insurance Name Policy Number Policy Workman Covered Member ID Workman Member ID Guarantor Name 06/29/2025 1 [facility] - DOS ON OR AFTER 2022 - DUAL ELIGIBLE - [employer] OPTIONS AND ONE CARE (MEDICARE REPLACEMENT/ADV ANTAGE - HMO) Eliza Salas [id number] Eliza Salas Notes Date Note Type Note Provider Name and Address Organization Details Recorded Time 06/27/2025 text/html ROS as noted in the HPI [facility] Nurse Triage Notes (Arnold Chavez - LESLE[facility]): Reason For Request: Pt reporting a lot of gastro pain Patient Reports: Sharp focal or diffuse abdominal pain Denies: Vomiting blood/coffee ground material Bloating, jaundice new onset with pain Nausea and vomiting greater than 2 hours with abdominal pain Tearing pain that radiates to back Food Impaction Chief Complaints: Abdominal Pain PMH: Inflammatory Bowel Disease (Crohn's Disease, Ulcerative Colitis), Chronic Back Pain, Hypertension PMH Reviewed at 06/27/2025 - 12:03 Allergies Reviewed at 06/27/2025 - 12:03 Pain Assessment: Level 10 out of 10 Comments: 50 y.o female complains of Abdominal Pain Patient calling reporting severe, mid, upper abdominal pain [...] stool. Patient also endorsing nausea, but no vomiting. Patient reports when the pain is severe she [...] to seek emergency care -Vira Chavez RN Social Staff Worker Organization Information for Wilbur Yahaira Migdalia VELARDE [email or web address] Legal Name: [employer]. Address: [address] [place] [address], Tree Faller: Pradip Acosta MD CLIA No.: [id number] Social Staff Worker POC Test Results from Yahaira Bowles - [facility] iSTAT Chem8+ (14:50:11) Na: 139mEq/L K: 4.0mEq/L Cl: 106mEq/L iCa: 1.19mmol/L TCO2: 20mmol/L Glu: 91mg/dL BUN: 12mg/dL Crea: 0.7mg/dL Hct: 33% Hb: 11.2g/dL Ammol/L Cartridge Number: [id number] Attachments uploaded as part of this test result can be found under Documents section. .................... .................... .................... .................... .................... .................... .................... . Social Staff Worker Note From Yahaira Bowles: Sent to a call for a pt complaining of abd pain. SC8 arrives on scene, pt is alert and oriented, airway is patent. Pt allergies verified: Topamax, Morphine, and Hydromorphone. Pt complains of the following chronic symptoms: headache, dizziness (with walking/standing), sob w/ high pain levels, nausea, diarrhea, and epigastric pain. Pt complains of worsening nausea x 3 days. Pt denies cp, vomiting, black/bloody stool, fever, or loc. Pt states she has Crohn's disease and gets Entyvio injections every 8 weeks, with last injection on 06/19/25. Pt states she had follow up with GI yesterday who said they are considering changing Entyvio intervals to every [...] blood draw performed; Chem8+ results: uploaded to [employer]; [facility] [place] 4mg IV, Lactated Ringers 1 liter IV. [facility] [place] pt's pharmacy for Zofran. First attempt at IV access: unsuccessful; Pt refuses further needle sticks citing they hurt too much and poor vasculature. [facility] [place] Zofran ODT 4mg. 5 med rights verified; Zofran ODT 4mg administered without incident. Pt is advised to follow up with GI doctor. Pt advised to wait 8hrs before taking another dose of Zofran. Red flags discussed. Pt has no further questions. [facility] [place] Orders: BMP, serum or plasma: Performed [facility] [place] Medication Orders: ondansetron 4 mg disintegrating tablet: Performed .................... .................... .................... .................... .................... .................... .................... . [facility] Consulted: Zuri Judd .................... .................... .................... .................... .................... .................... .................... . Disposition: Fulfilled Zuri Judd MD [address] [place] [address],[address], [place], [phone], [facility] 06/28/2025 22:37:49 OBGyn Episode No OBEpisode recorded.
--- NOTE | 2025-08-01 10:41 | HO.ANESPROP2 ---
Documented by User: Yahaira Payne NP 08/01/25 10:42 HPI - Anesthesia Eval Consult details Narrative: 50 yr old female for upper endoscopy [facility] Active Problems Active Problems: All Active Problems (Updated 07/14/25 @ 10:56 by Rashaun Noonan MD) Obesity (Acute) Osteoarthritis of right knee (Acute) Radiculopathy, cervical (Acute) Low back pain (Acute) Muscle spasms of neck (Acute) Cervical spondylosis (Acute) Neck pain on right side (Acute) Chronic sacroiliac joint pain (Acute) Cervicalgia (Acute) Colitis (Acute) Right knee pain (Acute) Abdominal pain (Acute) Frequency of micturition (Acute) Overactive bladder (Acute) Annual physical exam (Acute) Fibromyalgia (Acute) Hordeolum externum left lower eyelid (Acute) Chest pressure (Acute) Acute on chronic low back pain (Acute) Hypotension (Acute) Dysphagia (Acute) Urge incontinence (Acute) Plantar fasciitis of left foot (Acute) Acute lower GI bleeding (Acute) Medicare annual wellness visit, subsequent (Acute) Abnormal bowel habits (Acute) Morbid obesity (Acute) Mild obstructive sleep apnea (Acute) Pelvic pain (Acute) Attempted IUD removal, unsuccessful (Acute) IUD strings lost (Acute) Abnormal uterine bleeding (AUB) (Acute) Well woman exam (Acute) Chest pain (Acute) Iron deficiency anemia (Acute) Generalized anxiety disorder (Acute) Sacroiliitis (Acute) Osteoarthritis, knee (Acute) Schatzki's ring (Acute) Post concussive syndrome (Acute) IBS (irritable bowel syndrome) (Acute) Allergic rhinitis (Acute) Breast cancer screening by mammogram (Acute) Obesity (BMI 30-39.9) (Acute) H/O gastric bypass (Acute) Fibroadenoma (Acute) Family history of breast cancer (Acute) Breast mass, right (Acute) Barretts esophagus (Acute) Carpal tunnel syndrome on both sides (Acute) Hypercholesterolemia (Acute) Hypertension (Acute) Vitamin D deficiency (Acute) GERD (gastroesophageal reflux disease) (Acute) Constipation (Acute) Past Medical History Medical History Hx of flexible sigmoidoscopy Obesity Chest pressure Neck pain on right side Breast cancer screening by mammogram Obesity (BMI 30-39.9) Family history of ovarian cancer Tinea corporis Anemia Colon cancer screening Menorrhagia Vision blurring Medicare annual wellness visit, initial Sacroiliitis Gastroenteritis Chronic pain syndrome Encounter for Essure implantation Fibroadenoma Family history of breast cancer Breast mass, right H/O sigmoidoscopy Barretts esophagus Osteoarthritis, knee Fatty liver Cholelithiasis Carpal tunnel syndrome on both sides Lumbar degenerative disc disease Hypercholesterolemia Hypertension Vitamin D deficiency GERD (gastroesophageal reflux disease) Constipation Family History Family History Father Colon cancer CVD (cardiovascular disease) Mother Breast cancer Brain tumor Sister Colon cancer Breast cancer Family history of problems with anesthesia: No Surgical History Surgical History History of back surgery History of insertion of nerve stimulator H/O esophagogastroduodenoscopy H/O colonoscopy History of section History of breast mammoplasty History of carpal tunnel release H/O gastric bypass History of Problems with Anesthesia: No Social History Social History Household Members: Children Household Members Other:: [facility] Housing: Apartment Are you a primary care support representative to a significant other at home: No Do you presently have visiting nurse or other home services: Yes Alcohol intake: never Comment: tolerable Patient Tobacco Use Status: Never used Tobacco Tobacco use type: Cigarette e-Cigarette/Vaping Use: Never Used Second Hand Smoke Exposure: No Use of substances other than those prescribed or required for medical reasons: No Advance Directives: No Advance Directives Information Provided: Yes service: No Current occupational status: disabled Cognitive needs: No Hearing needs: No Vision needs: No Meds Allergies Allergy/AdvReac Type Severity Reaction Status Date / Time environmental allergies Allergy Severe severe Verified 08/01/25 13:49 sinus infection per patient topiramate (From TOPAMAX) Allergy Intermediate Nausea and Verified 08/01/25 13:49 Vomiting Home Medications ?Medication ?Instructions ?Recorded ?Confirmed ?Last Taken ?Type dicyclomine 10 mg capsule 10 mg PO TID PRN GI UPSET 08/06/23 08/01/25 Unknown History sucralfate 100 mg/mL oral 10 ml PO BIDAC 08/06/23 08/01/25 Unknown History suspension estradiol 0.01% (0.1 mg/gram) 1 appl vaginal DAILY 06/13/24 08/01/25 Unknown History vaginal cream estradiol 0.05 mg/24 hr semiweekly 1 patch transdermal 2XW 06/13/24 08/01/25 Unknown History transdermal patch progesterone micronized 200 mg 200 mg PO BEDTIME 06/13/24 08/01/25 Unknown History capsule ubrogepant 100 mg tablet (Ubrelvy) 100 mg PO ONCE PRN Migraine 06/13/24 08/01/25 Unknown History Headache duloxetine 60 mg capsule,delayed 60 mg PO DAILY 01/26/25 08/01/25 Unknown History release vibegron 75 mg tablet (Gemtesa) 75 mg PO DAILY 01/26/25 08/01/25 Unknown History prazosin 1 mg capsule 1 mg PO BEDTIME 05/26/25 08/01/25 Unknown History Exam Narrative Narrative: EKG 02/2025 NSR, rate 83 Nonspecific T wave changes; no change from prior in 2021 Assessment and Plan Final Anesthetic Review Family History of Problems with Anesthesia: No History of Problems with Anesthesia: No Documented by User: Yvonne Salomon MD 08/03/25 15:06 [facility] Past Medical History Medical History Hx of flexible sigmoidoscopy Obesity Chest pressure Neck pain on right side Breast cancer screening by mammogram Obesity (BMI 30-39.9) Family history of ovarian cancer Tinea corporis Anemia Colon cancer screening Menorrhagia Vision blurring Medicare annual wellness visit, initial Sacroiliitis Gastroenteritis Chronic pain syndrome Encounter for Essure implantation Fibroadenoma Family history of breast cancer Breast mass, right H/O sigmoidoscopy Barretts esophagus Osteoarthritis, knee Fatty liver Cholelithiasis Carpal tunnel syndrome on both sides Lumbar degenerative disc disease Hypercholesterolemia Hypertension Vitamin D deficiency GERD (gastroesophageal reflux disease) Constipation Family History Family History Father Colon cancer CVD (cardiovascular disease) Mother Breast cancer Brain tumor Sister Colon cancer Breast cancer Surgical History Surgical History History of back surgery History of insertion of nerve stimulator H/O esophagogastroduodenoscopy H/O colonoscopy History of section History of breast mammoplasty History of carpal tunnel release H/O gastric bypass Social History Social History Household Members: Children Household Members Other:: Daugher Housing: Apartment Are you a primary care support representative to a significant other at home: No Do you presently have visiting nurse or other home services: Yes Alcohol intake: never Comment: tolerable Patient Tobacco Use Status: Never used Tobacco Tobacco use type: Cigarette e-Cigarette/Vaping Use: Never Used Second Hand Smoke Exposure: No Use of substances other than those prescribed or required for medical reasons: No Advance Directives: No Advance Directives Information Provided: Yes service: No Current occupational status: disabled Cognitive needs: No Hearing needs: No Vision needs: No Meds Allergies Allergy/AdvReac Type Severity Reaction Status Date / Time environmental allergies Allergy Severe severe Verified 08/01/25 13:49 sinus infection per patient topiramate (From TOPAMAX) Allergy Intermediate Nausea and Verified 08/01/25 13:49 Vomiting Home Medications ?Medication ?Instructions ?Recorded ?Confirmed ?Last Taken ?Type dicyclomine 10 mg capsule 10 mg PO TID PRN GI UPSET 08/06/23 08/01/25 Unknown History sucralfate 100 mg/mL oral 10 ml PO BIDAC 08/06/23 08/01/25 Unknown History suspension estradiol 0.01% (0.1 mg/gram) 1 appl vaginal DAILY 06/13/24 08/01/25 Unknown History vaginal cream estradiol 0.05 mg/24 hr semiweekly 1 patch transdermal 2XW 06/13/24 08/01/25 Unknown History transdermal patch progesterone micronized 200 mg 200 mg PO BEDTIME 06/13/24 08/01/25 Unknown History capsule ubrogepant 100 mg tablet (Ubrelvy) 100 mg PO ONCE PRN Migraine 06/13/24 08/01/25 Unknown History Headache duloxetine 60 mg capsule,delayed 60 mg PO DAILY 01/26/25 08/01/25 Unknown History release vibegron 75 mg tablet (Gemtesa) 75 mg PO DAILY 01/26/25 08/01/25 Unknown History prazosin 1 mg capsule 1 mg PO BEDTIME 05/26/25 08/01/25 Unknown History Exam Airway Mallampati Class: II TM Dist: >3cm Neck ROM: Full Loose/Missing/Broken Teeth: No Heart: RRR Lungs: CTA Assessment and Plan Assessment Anesthesia Assessment: Anesthesia Plan Discussed and Chart Reviewed Final Anesthetic Review NPO: Yes ASA Class: II Final Preanesthetic Review: Meds/Allgs Chart Reviewed, Consent Obtained/Reviewed and Anes Risks/Benef Reviewed Patient Risk: Low Procedure Risk: Intermediate Anesthetic Plan Anesthetic Plan: MAC: Disposition: Standard PACU
[2025-08-01 13:53] VITALS: BMI 38.3
[2025-08-03 12:50] VITALS: BMI 37.3
[2025-08-03 13:10] LABS: UPreg QC Valid YES
[2025-08-03 13:12] VITALS: BP 105/61; PULSE 57; RESP 16; TEMP 35.9; O2SAT 100
[2025-08-03] MEDS: Lactated Ringers 1,000 ML 100 ML IVCONT (13:15)
--- NOTE | 2025-08-03 14:51 | P.HPSUR_ITS ---
Pre-Procedural Eval Section A - 24 Hr Update-Section A only Date of Service: 08/03/25 The patient is an INPATIENT: No The patient has been examined within 24 hours of the surgical procedure. The History & Physical has been completed within 30 days and I have reviewed it.: Yes Section B - Complete if H&P > 30 days Chief Complaint: Obesity, unspecified Details of Present Illness: s/p Lap gastric bypass, nausea, vomiting and david rrhea Relevant Family History (Specify if Yes): No Relevant Social History: None Present Medications: None Medical History: No relevant PMH History of Previous Operations: Relevant previous surgery/procedure and date(s) (Laparoscopic gastric bypass (Dr. Braun)) Allergies: Allergies Allergy/AdvReac Type Severity Reaction Status Date / Time environmental allergies Allergy Severe severe Verified 08/01/25 13:49 sinus infection per patient topiramate (From TOPAMAX) Allergy Intermediate Nausea and Verified 08/01/25 13:49 Vomiting Review of Systems Sugical H&P ROS: Negative: Constitution, Cardiovascular, Respiratory, Neurological, Psychiatric, Hem-Onc, Allergic/Immunologic, Gastrointestinal, Genitourinary, Musculoskeletal, Integumentary, Endocrine and Eyes/Ears/Nose/Throat Exam Surgical H&P Exam: Normal: HEENT, Normal: Heart, Normal: Lungs, Normal: Extremities, Normal: Abdomen, Normal: Skin and Normal: Neurological Plan Diagnosis/Plan: Unchanged (EGD to assess the gastric bypass's anatomy. Risks of bleeding and perforation were discussed with the patient and she is in agreement with the plan.) I have reviewed the history and physical and performed a pertinent physical examination on my patient. No changes have occurred unless specified. Time Spent With Patient Time: Total time managing care of this patient today ____ minutes.
--- NOTE | 2025-08-03 14:52 | PM.OP ---
Brief Operative Note Date of Service: 08/03/25 Pre-op diagnosis: s/p gastric bypass, nausea, vomiting and diarrhea Post-op diagnosis: same Procedure: PROCEDURE DATE: ?08/03/2025 PREOPERATIVE DIAGNOSIS: Nausea and vomiting, s/p gastric bypass POSTOPERATIVE DIAGNOSIS: ?Same as above. 1) Redundant gastric pouch PROCEDURE: [id number] with biopsies Surgeon: ?Wily Noonan M.D.. Ph.D. Capping Machine Operator: ?None ? Anesthesia: IV sedation Estimated blood loss: ?Minimal FINDINGS AND PROCEDURE: ? OPERATIVE INDICATIONS: ?The patient is a 50 year old female known to me who underwent a laparoscopic gastric bypass in [address] Braun. The patient had inadequate weight loss and has been complaining of persistent nausea, vomiting and diarrhea.? Based on this information I recommended an upper endoscopy to evaluate the patient's symptoms.? Risks and complications of the surgery were discussed with the patient in advance particularly the possibility of perforation or bleeding that may require surgical intervention. The patient understood the risks and was in agreement with the plan. ? PROCEDURE: After informed consent was obtained by the patient, the patient was ?transferred to the Operating Room and was placed in the supine position.? After successful induction of IV sedation, a mouth block was placed and the patient was placed in the left lateral decubitus position. An upper endoscopy was performed next, the oropharynx and esophagus appeared within the normal limits. There was no hiatal hernia.? The z-line was smooth. Two biopsies were obtained from the distal esophagus 2-3 cm proximal to the GE junction and two biopsies from the GE junction. The gastric pouch was entered. It was uniformly enlarged with mild fundal redundancy. There was no gastritis and the gastrojejunostomy was patent. The pouch was 6cm long (34-40cm from incisors). A biopsy was obtained from the gastric pouch. No significant bleeding was noted from any of the biopsy sites. There was no anastomotic ulcer.? At that point the scope was advanced into the proximal small intestine (proximal Emmy limb) which appeared to be normal as well. The Emmy limb and the pouch were decompressed and the scope was withdrawn from the patient's mouth. The patient was awaken and was transferred in stable condition to the Recovery Room for further care. I was present and performed all steps of the procedure. There were no residents to assist with this case. Wily Noonan M.D., Ph.D. Surgeon: Rashaun Noonan MD Anesthesia: MAC Was an Capping Machine Operator used for this Procedure?: No Estimated blood loss (mL): 0 IV fluids (mL): 400 Urine output (mL): 0 (No Heath to record output) Pathology: other (1) gastric pouch x1, 2) GE junction x2, 3) distal esophagus x2) Condition: stable Disposition: PACU
[2025-08-03 15:15] VITALS: BP 102/47; PULSE 64; RESP 18; TEMP 36.3; O2SAT 100
[2025-08-03 15:30] VITALS: BP 108/55; PULSE 55; RESP 18; O2SAT 100
[2025-08-03 15:45] VITALS: BP 119/73; PULSE 56; RESP 14; O2SAT 100
== END 2025-08-03 16:09 | disposition home or self-care (01) ==
PROVIDERS: Nurse Practitioner; PCP Internal Medicine; Visit Provider Surgery
PROC: 0DJ08ZZ Inspection of Upper Intestinal Tract, Via Natural or Artificial Opening Endoscopic (ICD-10-PCS; CPT 43235; principal; 2025-08-03 15:00)
DX: K95.89 Other complications of other bariatric procedure (principal); R11.2 Nausea with vomiting, unspecified; R19.7 Diarrhea, unspecified; E66.9 Obesity, unspecified; Z68.41 Body mass index [BMI] 40.0-44.9, adult; D64.9 Anemia, unspecified; K76.0 Fatty (change of) liver, not elsewhere classified; I10 Essential (primary) hypertension; E78.00 Pure hypercholesterolemia, unspecified; E55.9 Vitamin D deficiency, unspecified; K21.9 Gastro-esophageal reflux disease without esophagitis; K22.70 Barrett's esophagus without dysplasia; M51.369 Other intervertebral disc degeneration, lumbar region without mention of lumbar back pain or lower extremity pain; G89.4 Chronic pain syndrome; Z96.82 Presence of neurostimulator; Z98.84 Bariatric surgery status; Z79.899 Other long term (current) drug therapy; Z99.89 Dependence on other enabling machines and devices; Z88.8 Allergy status to other drugs, medicaments and biological substances
CPT/HCPCS: 43239; 81025; 88305; 88313; 88342; J2003; J2704

== ENCOUNTER → 2025-08-03 11:34 | Outpatient (BNV) | payer OTHER, SELFPAY | PROVIDERS: PCP Internal Medicine; Visit Provider Surgery | DX: R11.2 Nausea with vomiting, unspecified (principal); R19.7 Diarrhea, unspecified | CPT/HCPCS: 43239 ==

== ENCOUNTER 2025-08-07 12:50 | Outpatient (AMB) | payer OTHER, SELFPAY ==
[2025-08-07 12:56] VITALS: BP 136/64; PULSE 71; TEMP 36.3; O2SAT 95; BMI 37.9
--- NOTE | 2025-08-07 12:56 | A.OFFPC_ITS ---
Vital Signs 08/07/25 12:56 Height 5 ft Weight 194 lb BMI 37.9 BP 136/64 Blood Pressure Location Lt brachial Position Sitting Pulse 71 Pulse Source Pulse Oximeter Temp 97.3 F Temp Source Temporal Artery Scan Pulse Oximetry (%) 95 Oxygen Delivery Method Room Air Intake Visit Reasons: gastritis Gastro referred her to PCP Allergies environmental allergies Allergy (Severe, Verified 08/07/25 12:59) severe sinus infection per patient topiramate (From TOPAMAX) Allergy (Intermediate, Verified 08/07/25 12:59) Nausea and Vomiting Medication List - Last Reconciled 08/07/25 by Nancy Regan MD ascorbic acid (vitamin C) (Vitamin C) 500 mg PO DAILY atorvastatin 40 mg PO DAILY 90 days [bedside Commode As directed] cholecalciferol (vitamin D3) 50 mcg PO DAILY clonazepam 0.5 mg PO TID 30 days clotrimazole 1% 1 appl topical TID dicyclomine 10 mg PO TID PRN docusate sodium 100 mg PO BID duloxetine 60 mg PO DAILY erythromycin 0.5 inches ophthalmic (eye) QID 5 days estradiol 1 patch transdermal 2XW estradiol 0.01%(0.1mg/gram) 1 appl vaginal DAILY ferrous sulfate 325 mg PO DAILY 90 days [Fit right ultra underwear As directed] gabapentin 300 mg PO TID 90 days [Grab bar As directed] hydroxyzine HCl 50 mg PO BEDTIME PRN 90 days ketoconazole 2% 1 appl topical BID lidocaine 5% 1 appl topical BID PRN loratadine 10 mg PO DAILY 90 days mesalamine ER TAKE 4 CAPSULES BY MOUTH EVERY MORNING FOR 1 MONTH. miconazole nitrate 2% 1 appl topical TID mirabegron ER (Myrbetriq) 50 mg PO DAILY nystatin 1 appl topical TID omeprazole 20 mg PO BID 90 days ondansetron 4 mg PO Q8H PRN polyethylene glycol 3350 (Miralax) 17 grams PO BID prazosin 1 mg PO BEDTIME progesterone micronized 200 mg PO BEDTIME [SHOWER CHAIR As directed] [Shower chair As directed] simethicone 125 mg PO TID-QID PRN sucralfate 10 mL PO BIDAC [Suction grab bars As directed] tizanidine 2 mg PO TID PRN 30 days [Transfer board As directed] ubrogepant (Ubrelvy) 100 mg PO ONCE PRN vibegron (Gemtesa) 75 mg PO DAILY Tobacco use date assessed: 08/07/25 Dental Screening Dental Screen Date: 08/07/25 Did you have a dental visit in the last 12 months?: Yes Did you have a dental problem in the last 6 months where you did not have access to dental care?: No Was dental information given to patient?: Patient has dentist HPI HPI Comments History of Present Illness Details Patient is a 50-year-old female with a complex GI history including gastric bypass, Renee's esophagus with chronic inflammation requiring esophageal dilatation in the past, ongoing abdominal pain, history of focal colitis on entyvio infusions (now on 8 weeks cycle). She is following with Gastroenterology. Today, patient reports a longstanding history of stomach issues including intermittent nausea, vomiting, abdominal cramping and bloating. She states she had her entyvio infusion today, and had endoscopy 4 days ago, pending results. Today, she is reporting symptoms of stomach upset with nausea and vomiting. She also reports struggles with weight management, previously on injectable that she could not get anymore due to insurance issues. She is currently following with weight management. She reports she has stopped taking trazodone as it effects her stomach. Patient reports that she underwent back surgery in March of this year and still recovering, experiencing residual back pain. Patient reports lot of frustration given all her symptoms, in addition to experiencing menopausal symptoms. She currently sees a therapist to help with managing. [facility] Medical History Hx of flexible sigmoidoscopy Obesity Chest pressure Neck pain on right side Breast cancer screening by mammogram Obesity (BMI 30-39.9) Family history of ovarian cancer Tinea corporis Anemia Colon cancer screening Menorrhagia Vision blurring Medicare annual wellness visit, initial Sacroiliitis Gastroenteritis Chronic pain syndrome Encounter for Essure implantation Fibroadenoma Family history of breast cancer Breast mass, right H/O sigmoidoscopy Barretts esophagus Osteoarthritis, knee Fatty liver Cholelithiasis Carpal tunnel syndrome on both sides Lumbar degenerative disc disease Hypercholesterolemia Hypertension Vitamin D deficiency GERD (gastroesophageal reflux disease) Constipation Surgical History History of back surgery History of insertion of nerve stimulator H/O esophagogastroduodenoscopy H/O colonoscopy History of section History of breast mammoplasty History of carpal tunnel release H/O gastric bypass Family History Father Colon cancer CVD (cardiovascular disease) Mother Breast cancer Brain tumor Sister Colon cancer Breast cancer Social History Household Members: Children Household Members Other:: Daugher Housing: Apartment Are you a primary special needs caregiver to a significant other at home: No Do you presently have visiting nurse or other home services: Yes Alcohol intake: never Comment: tolerable Patient Tobacco Use Status: Never used Tobacco Tobacco use type: Cigarette e-Cigarette/Vaping Use: Never Used Second Hand Smoke Exposure: No service: No Current occupational status: disabled Cognitive needs: No Hearing needs: No Vision needs: Yes Female Reproductive History Menstrual Age of Menarche: 14 Questionnaire PHQ-9 Over the last 2 weeks, how often have you been bothered by any of the following problems? 1. Little interest or pleasure in doing things: nearly every day 2. Feeling down, depressed, or hopeless: nearly every day 3. Trouble falling or staying asleep, or sleeping too much: nearly every day 4. Feeling tired or having little energy: nearly every day 5. Poor appetite or overeating: nearly every day 6. Feeling bad about yourself - or that you are a failure or have let yourself or your family down: not at all 7. Trouble concentrating on things, such as reading the newspaper or watching television: not at all 8. Moving or speaking so slowly that other people could have noticed. Or the opposite - being so fidgety or restless that you have been moving around a lot more than usual: several days 9. Thoughts that you would be better off or of hurting yourself in some way: not at all Total score: 16 Depression Screening Interpretation: Positive Depression Screening Done: Yes Source: Developed by Drs. Curly Williamson, Yue Ren, Mathew Newton and colleagues, with an educational kenneth from [employer]. Thrive Questionnaire Date Thrive assessed: 11/15/24 I am a: Patient What is your living situation today?: I choose not to answer this question Within the past 12 months, did the food you bought not last and you didn't have the money to get more?: Often true Within the past 12 months, did you worry whether your food would run out before you got money to buy more?: Often true Do you have trouble paying for medicines?: Yes Do you have trouble getting transportation to medical appointments?: Yes Do you have trouble paying your heating and electricity bill?: Yes Do you have trouble taking care of your child, family member or friend?: No Do you have trouble with day-to-day activities such as bathing, preparing meals, shopping, managing finances, etc.?: Yes Are you currently unemployed and looking for a job?: No Are you interested in more education?: No Please select the resources that you would like help with: Food Currently or been in a relationship where the following occur: No concerns reported THRIVE Score: 4 AUDIT C Alcohol Use Questionnaire (AUDIT-C) 1. How often do you have a drink containing alcohol?: Never 3. How often do you have six or more drinks on one occasion?: Never Total Score: 0 SHARON-7 AMB Questionnaire SHARON-7 Date SHARON - 7 assessed: 05/26/25 Feeling nervous, anxious, or on edge: 3 = Nearly every day Not being able to stop or control worryin = Nearly every day Worrying too much about different things: 3 = Nearly every day Trouble relaxin = Nearly every day Being so restless that it is hard to sit still: 1 = Several days Becoming easily annoyed or irritable: 3 = Nearly every day Feeling afraid as if something awful might happen: 3 = Nearly every day Total SHARON-7 score (0-4 normal; 5-9 mild; 10-14 moderate; 15-21 severe): 19 Source: Developed by Drs. Curly Williamson, Yue Ren, Mathew Newton and colleagues, with an educational kenneth from [employer]. Physical exam (Primary Care) Vital Signs: Last Vital Signs Temp 97.3 F 08/07/25 12:56 Pulse 71 08/07/25 12:56 BP 136/64 08/07/25 12:56 Pulse Ox 95 08/07/25 12:56 Oxygen Delivery Method Room Air 08/07/25 12:56 General: Well-appearing, alert, oriented ?3, in no acute distress. Cardiovascular: RRR, S1-S2 appreciated, no murmurs, rubs or gallops. Respiratory: Lungs clear to auscultation bilaterally, no wheezes, rales or rhonchi. Abdomen: Soft, nontender, nondistended. Normoactive bowel sounds. BMI result Body Mass Index 37.9 Tobacco/Smoking Status: Tobacco use Status Tobacco use date assessed 08/07/25 08/07/25 13:01 Patient Tobacco Use Status Never used Tobacco 08/07/25 12:56 Tobacco use type Cigarette 08/07/25 12:56 e-Cigarette/Vaping Use Never Used 08/07/25 12:56 PHQ-9: PHQ-9 Score PHQ-9: Total score 16 08/07/25 17:58 Depression Screening Interpretation: Positive Thrive Assessment: Date of Thrive Assessment Date Thrive assessed 11/15/24 08/07/25 12:56 Currently or been in a relationship where the following occur: No concerns reported Coding Level of Care Code Est Pt Level 4 (12310) Diagnoses Gastroesophageal reflux disease without esophagitis K21.9 Esophagitis presence: without esophagitis Obesity (BMI 30-39.9) E66.9 Generalized anxiety disorder F41.1 Irritable bowel syndrome, unspecified type K58.9 Irritable bowel syndrome type: unspecified Assessment & Plan Assessment & Plan (1) GERD (gastroesophageal reflux disease): Code(s): K21.9 - Gastro-esophageal reflux disease without esophagitis Category: Medical Qualifiers: Esophagitis presence: without esophagitis Qualified Code(s): K21.9 - Gastro-esophageal reflux disease without esophagitis Plan: Patient presenting with symptoms of stomach upset/heartburn, with nausea and vomiting. She has a history of gastric bypass in 2001, Renee's esophagus, and colitis on Entyvio infusions. Patient has a chronic history of intermittent abdominal pain and GI symptoms. She is on multiple medications including simethicone, sucralfate, dicyclomine and omeprazole. She was previously on a Down syndrome that helped with her nausea symptoms. -refill ondansetron 4 mg p.o. q.8 hours p.r.n. nausea and vomiting -follow up with GI (2) Obesity (BMI 30-39.9): Code(s): E66.9 - Obesity, unspecified Category: Medical Plan: The patient is encouraged to continue her engagement with the weight management team and adhere to the prescribed dietary plan, which includes shakes and small meals. She should continue gentle exercise, such as walking and stretching, as tolerated during her recovery from back surgery. (3) Generalized anxiety disorder: Comment: Referral to [facility] (09/2024) Code(s): F41.1 - Generalized anxiety disorder Category: Medical Plan: Extensive counseling was provided on the importance of stress management to help break the cycle of anxiety and physical symptom exacerbation. It was recommended that she ask her therapist about resources for relaxation techniques, such as yoga or meditation. The patient was encouraged to be patient and gentle with herself and her body throughout the healing process. I provided reassurance that she is taking positive steps by actively engaging with her healthcare team, including gastroenterology, weight management, and therapy. (4) IBS (irritable bowel syndrome): Code(s): K58.9 - Irritable bowel syndrome, unspecified Category: Medical Qualifiers: Irritable bowel syndrome type: unspecified Qualified Code(s): K58.9 - Irritable bowel syndrome without diarrhea Plan: As above Medications: Refilled ondansetron 4 mg PO Q8H PRN 20 tabs 0RF nausea and vomiting Discontinued trazodone Discontinued Reason: Patient no longer taking 50 mg PO BEDTIME 90 tabs 3RF E78.00 - Pure hypercholesterolemia, unspecified
--- OUTSIDE RECORDS SUMMARY | 2025-08-07 14:54 | XMS_ITS | Data Portability ---
Author Organization [facility] [address] [facility], [facility] Address [address] [place] [phone] Care Team Providers Care Motel Manager Name Role Phone HIM CCA OTHER ALEX GUERRERO Primary Care Provider Assessment Encounter Date Assessment Date Assessment LastModified by Organization Details LastModified Time 06/27/2025 06/27/2025 I provided real -time medical direction via phone for this encounter, and was available for additional phone based assistance as needed. I have reviewed and agree with the Assessment and Plan as documented by the Deliver Driver. We discussed the diagnostic uncertainty of home [...] to call 911- verbalized understanding of instruction [email or web address] Not available 06/28/2025 22:37:41 Plan of Treatment Reminders Order Date Submit Date Provider Last Modified By Organization Details Last Modified Time Details Appointments None recorded. Lab BMP, serum or plasma [facility] [address] [place] [address], [id number] 17:54:53 Referral None recorded. Procedures None recorded. Surgeries None recorded. Imaging None recorded. Medication Orders ondansetron 4 mg disintegrat ing tablet 2024 025 [email or web address] 0 [facility]/Pharmacy #[id number], [address] [facility], [place], [address], 15:17:33 ondansetron 4 mg disintegrat ing tablet 2024 025 [email or web address] 0 [facility]/Pharmacy #[id number], [address] [facility], [place], [address], 15:17:32 Patient TargetsNo targets recorded. Patient InstructionsNo [...] Name and Address Organization Details Recorded Time 49119 Topamax medicatio n Not available Not available Not available 06/27/2025 37327 3 RxNorm Not Available [employer] - production 5 12:03:30 06476 morphine medicatio n Not available Not available Not available 06/27/2025 7052 RxNorm Not Available [employer] - production 5 12:03:30 95862 [employer] severino medicatio n Not available Not [...] 5 152.4 cm 68 /min 18 /min 06124.6 64 g 97 % 97 % 74 /min 98.2 [degF] 107/71 mm[Hg] 116/78 mm[Hg] Not Available [employer] - production 5 14:50:19 Social History None [...] ICD10 Code Diagnosis IMO Codes Diagnosis Note [id number] Zuri Judd MD [facility] ED Medical [address] [phone] 06/27/2025 14:50:15 06/29/2025 10:43:04 Epigastric pain [id number] R10.13 [id number] pain is chronic, patient ran out of [...] Workman Member ID Guarantor Name 06/29/[address] [facility] - DOS ON OR AFTER 2022 - DUAL ELIGIBLE - DETENTION OPTIONS AND ONE CARE (MEDICARE REPLACEMENT/ADV ANTAGE - HMO) Eliza Salas [id number] Eliza Salas Notes Date Note Type Note [...] to seek emergency care -Vira Chavez RN Deliver Driver Organization Information for Wilbur Yahaira Migdalia VELARDE [employer] Legal Name: [employer]. Address: [address] [place] [address], Architectural Administrative Assistant: Pradip Acosta MD CLIA No.: [id number] Deliver Driver POC Test Results from Yahaira Bowles - [facility] iSTAT Chem8+ (14:50:11) Na: 139mEq/L K: 4.0mEq/L Cl: 106mEq/L iCa: 1.19mmol/L TCO2: 20mmol/L Glu: 91mg/dL BUN: 12mg/dL Crea: 0.7mg/dL Hct: 33% Hb: 11.2g/dL Ammol/L Cartridge Number: [id number] Attachments uploaded as part of this test result can be found under Documents section. .................... .................... .................... .................... .................... .................... .................... . Deliver Driver Note From Yahaira Bowles: Sent to a [...] blood draw performed; Chem8+ results: uploaded to [employer]; [facility] [place] [place] orders Zofran 4mg IV, Lactated Ringers 1 liter IV. [facility] [place] [place] sends script to pt's pharmacy for Zofran. First attempt at IV access: unsuccessful; Pt refuses further needle sticks citing they hurt too much and poor vasculature. [facility] [place] [place] orders Zofran ODT 4mg. 5 med rights verified; Zofran ODT 4mg administered without incident. Pt is advised to follow up with GI doctor. Pt advised to wait 8hrs before taking another dose of Zofran. Red flags discussed. Pt has no further questions. [facility] [place] [place] Lab Orders: BMP, serum or plasma: Performed [facility] [place] [place] Medication Orders: ondansetron 4 mg disintegrating tablet: Performed .................... .................... .................... .................... .................... .................... .................... . [facility] [place] [place] Consulted: Zuri Judd .................... .................... .................... .................... .................... .................... .................... . Disposition: Fulfilled Zuri Judd MD [address] [place] [address],[address], [place], [phone], [facility] 06/28/2025 22:37:49 OBGyn Episode No OBEpisode recorded.
== END 2025-08-07 13:37 | disposition home or self-care (01) ==
LOC: HO.HMCH 12:51
PROVIDERS: PCP Internal Medicine; Visit Provider Student in an Organized Health Care Education/Training Program
DX: K21.9 Gastro-esophageal reflux disease without esophagitis (principal); E66.9 Obesity, unspecified; Z68.37 Body mass index [BMI] 37.0-37.9, adult; F41.1 Generalized anxiety disorder; K58.9 Irritable bowel syndrome, unspecified

== ENCOUNTER → 2025-08-07 12:50 | Outpatient (BNVA) | payer OTHER, SELFPAY | PROVIDERS: PCP Internal Medicine; Visit Provider Student in an Organized Health Care Education/Training Program | DX: K21.9 Gastro-esophageal reflux disease without esophagitis (principal); E78.00 Pure hypercholesterolemia, unspecified; E66.9 Obesity, unspecified; F41.1 Generalized anxiety disorder; K58.9 Irritable bowel syndrome, unspecified; Z13.31 Encounter for screening for depression | CPT/HCPCS: 96127; 99212 ==

== ENCOUNTER 2025-08-30 13:47 | Outpatient (AMB) | payer OTHER, SELFPAY ==
--- NOTE | 2025-08-30 14:08 | MHC.PC.OV ---
Vital Signs 08/30/25 14:09 Height 5 ft Weight 193 lb BMI 37.7 BP 112/68 Blood Pressure Location Lt brachial Position Sitting Pulse 78 Pulse Source Pulse Oximeter Pulse Oximetry (%) 98 Oxygen Delivery Method Room Air Intake Visit Reasons: 3 month f/u Intake Note: Requesting refill on eye ointment and nystatin cream for under her belly, med for nausea that is placed under the tongue. and wants hard copy of diaper script. Scripts for bed rails Allergies environmental allergies Allergy (Severe, Verified 08/30/25 14:10) severe sinus infection per patient topiramate (From TOPAMAX) Allergy (Intermediate, Verified 08/30/25 14:10) Nausea and Vomiting Medication List - Last Reconciled 08/30/25 by Minnie Lazcano MD ascorbic acid (vitamin C) (Vitamin C) 500 mg PO DAILY atorvastatin 40 mg PO DAILY 90 days [bedside Commode As directed] cholecalciferol (vitamin D3) 50 mcg PO DAILY clonazepam 0.5 mg PO TID 30 days clotrimazole 1% 1 appl topical TID dicyclomine 10 mg PO TID PRN docusate sodium 100 mg PO BID duloxetine 60 mg PO DAILY erythromycin 0.5 inches ophthalmic (eye) QID 5 days estradiol 1 patch transdermal 2XW estradiol 0.01%(0.1mg/gram) 1 appl vaginal DAILY ferrous sulfate 325 mg PO DAILY 90 days [Fit right ultra underwear As directed] gabapentin 300 mg PO TID 90 days [Grab bar As directed] hydroxyzine HCl 50 mg PO BEDTIME PRN 90 days ketoconazole 2% 1 appl topical BID lidocaine 5% 1 appl topical BID PRN loratadine 10 mg PO DAILY 90 days mesalamine ER TAKE 4 CAPSULES BY MOUTH EVERY MORNING FOR 1 MONTH. miconazole nitrate 2% 1 appl topical TID mirabegron ER (Myrbetriq) 50 mg PO DAILY nystatin 1 appl topical TID omeprazole 20 mg PO BID 90 days ondansetron 4 mg PO Q8H PRN polyethylene glycol 3350 (Miralax) 17 grams PO BID prazosin 1 mg PO BEDTIME progesterone micronized 200 mg PO BEDTIME [Pull Ups for sensitive skin As directed (FitRight Ultra brand underwear, absorbency heavy)] [Rollator walker with seat As directed] [SHOWER CHAIR As directed] [Shower chair As directed] simethicone 125 mg PO TID-QID PRN sucralfate 10 mL PO BIDAC [Suction grab bars As directed] tizanidine 2 mg PO TID PRN 30 days [Transfer board As directed] ubrogepant (Ubrelvy) 100 mg PO ONCE PRN vibegron (Gemtesa) 75 mg PO DAILY Tobacco use date assessed: 08/07/25 Dental Screening Dental Screen Date: 08/07/25 HPI HPI Comments History of Present Illness Details History of Present Illness The patient is a 50-year-old individual presenting for a follow-up visit for chronic condition and medication management. The patient has a history of obesity and underwent a gastric bypass in 2001. Past medical history is significant for GERD, hypertension, hypercholesterolemia, Renee's esophagus, generalized anxiety disorder, and overactive bladder. Regarding gastrointestinal health, the patient reports persistent stomach pain and nausea with every meal, along with slow digestion. The patient experiences constipation that requires medication. A healthcare risk control consultant suggested that the patient's polypharmacy may be causing these symptoms. An EGD in July 2023 was negative for H. pylori, with biopsies showing minimal chronic inflammation and no metaplasia. The patient has a history of anemia, last identified in January, and has been taking iron supplements. Prior labs also revealed mildly elevated liver function, which is not a new finding, and low vitamin D. Cholesterol tested in October showed an LDL of 127. The patient has a history of cervical radiculopathy and has been seen by pain management, with nerve conduction studies showing normal results. The patient reports knee pain, for which prior injections provided only temporary relief, and chronic back pain status post a stimulation procedure, for which the patient uses a brace. Health maintenance screenings are up to date, with a mammogram due in October 2024 and a colonoscopy completed in July 2023. The patient is menopausal and experiences sweating. Health Maintenance - Mammogram: Up to date, last performed with next screening due October 2024. - Colonoscopy: Up to date, last performed July 2023. - Cholesterol Screening: Last checked in October with an LDL of 127; fasting bloodwork for retesting is planned in three months. - Diet and Exercise: Advised to drink 6-8 glasses of water, eat green leafy vegetables for fiber, and exercise regularly for overall health and to manage constipation. - The patient is advised to continue follow-up with bariatrics. Social History - The patient reports exercising and eating green leafy vegetables. - The patient lives with a CERTIFIED FRAUD EXAMINER and reports feeling lonely, as the patient's 23-year-old daughter has her own plans for the holidays. Results - Labs (January): Showed anemia. - Labs: Electrolytes and renal function were good; liver function was mildly elevated (chronic). - Labs (October): LDL was 127. - Procedures (July 2023): EGD with biopsy was negative for H. pylori and metaplasia, showing minimal chronic inflammation. - Diagnostics: Nerve conduction tests were normal. [facility] Medical History Hx of flexible sigmoidoscopy Obesity Chest pressure Neck pain on right side Breast cancer screening by mammogram Obesity (BMI 30-39.9) Family history of ovarian cancer Tinea corporis Anemia Colon cancer screening Menorrhagia Vision blurring Medicare annual wellness visit, initial Sacroiliitis Gastroenteritis Chronic pain syndrome Encounter for Essure implantation Fibroadenoma Family history of breast cancer Breast mass, right H/O sigmoidoscopy Barretts esophagus Osteoarthritis, knee Fatty liver Cholelithiasis Carpal tunnel syndrome on both sides Lumbar degenerative disc disease Hypercholesterolemia Hypertension Vitamin D deficiency GERD (gastroesophageal reflux disease) Constipation Surgical History History of back surgery History of insertion of nerve stimulator H/O esophagogastroduodenoscopy H/O colonoscopy History of section History of breast mammoplasty History of carpal tunnel release H/O gastric bypass Family History Father Colon cancer CVD (cardiovascular disease) Mother Breast cancer Brain tumor Sister Colon cancer Breast cancer Social History Household Members: Children Household Members Other:: Daugher Housing: Apartment Are you a primary caregiver assisted living to a significant other at home: No Do you presently have visiting nurse or other home services: Yes Unable to assess alcohol history related to: Unknown Alcohol intake: never Comment: tolerable Patient Tobacco Use Status: Never used Tobacco Tobacco use type: Cigarette e-Cigarette/Vaping Use: Never Used Second Hand Smoke Exposure: No service: No Current occupational status: disabled Cognitive needs: No Hearing needs: No Vision needs: Yes Female Reproductive History Menstrual Age of Menarche: 14 Questionnaire Thrive Questionnaire Date Thrive assessed: 11/15/24 I am a: Patient What is your living situation today?: I choose not to answer this question Within the past 12 months, did the food you bought not last and you didn't have the money to get more?: Often true Within the past 12 months, did you worry whether your food would run out before you got money to buy more?: Often true Do you have trouble paying for medicines?: Yes Do you have trouble getting transportation to medical appointments?: Yes Do you have trouble paying your heating and electricity bill?: Yes Do you have trouble taking care of your child, family member or friend?: No Do you have trouble with day-to-day activities such as bathing, preparing meals, shopping, managing finances, etc.?: Yes Are you currently unemployed and looking for a job?: No Are you interested in more education?: No Please select the resources that you would like help with: Food Currently or been in a relationship where the following occur: No concerns reported THRIVE Score: 4 SHARON-7 AMB Questionnaire SHARON-7 Date SHARON - 7 assessed: 05/26/25 Source: Developed by Drs. Curly Williamson, Yue Ren, Mathew Newton and colleagues, with an educational kenneth from [employer]. Review of Systems Narrative Review of Systems - Constitutional: Reports sweating, which the patient attributes to menopause. - Gastrointestinal: Reports stomach pain and nausea with every meal, slow digestion, and constipation. - Genitourinary: Reports urinary incontinence. - Musculoskeletal: Reports knee pain and chronic back pain. - Neurological: Reports severe headaches. - Psychiatric: Reports anxiety. Physical exam (Primary Care) Vital Signs: Last Vital Signs Pulse 78 08/30/25 14:09 BP 112/68 08/30/25 14:09 Pulse Ox 98 08/30/25 14:09 Oxygen Delivery Method Room Air 08/30/25 14:09 BMI result Body Mass Index 37.7 Tobacco/Smoking Status: Tobacco use Status Tobacco use date assessed 08/07/25 08/30/25 14:15 Patient Tobacco Use Status Never used Tobacco 08/30/25 14:15 Tobacco use type Cigarette 08/30/25 14:15 e-Cigarette/Vaping Use Never Used 08/30/25 14:15 Thrive Assessment: Date of Thrive Assessment Date Thrive assessed 11/15/24 08/30/25 14:15 Currently or been in a relationship where the following occur: No concerns reported Narrative Physical Exam Const General: alert; No acute distress Eyes Conjunctivae: conjunctivae normal Resp Auscultation: clear to auscultation bilaterally Cardio Rate: regular rate Rhythm: regular rhythm GI Inspection: Yes normal to inspection Extrem General: Yes normal to inspection and No edema Coding Level of Care Code Est Pt Level 4 (18188) Complex visit Add On G2211 Diagnoses Hypercholesterolemia E78.00 H/O gastric bypass Z98.84 Obesity (BMI 30-39.9) E66.9 Gastroesophageal reflux disease without esophagitis K21.9 Esophagitis presence: without esophagitis Overactive bladder N32.81 Iron deficiency anemia due to chronic blood loss D50.0 Iron deficiency anemia type: chronic blood loss Generalized anxiety disorder F41.1 Assessment & Plan Assessment & Plan (1) Hypercholesterolemia: Code(s): E78.00 - Pure hypercholesterolemia, unspecified Category: Medical Plan: Avoid fried foods, chicken skin, eggs, butter margarine, pastries and meat. Be it pork or beef they have a lot of cholesterol on atorvastatin 40 mg once a day need retesting next year (2) H/O gastric bypass: Comment: [address] [facility] [address] Tang Code(s): Z98.84 - Bariatric surgery status Category: Surgical Plan: Continue to follow-up with bariatric (3) Obesity (BMI 30-39.9): Code(s): E66.9 - Obesity, unspecified Category: Medical Plan: Diet and exercise (4) GERD (gastroesophageal reflux disease): Code(s): K21.9 - Gastro-esophageal reflux disease without esophagitis Category: Medical Qualifiers: Esophagitis presence: without esophagitis Qualified Code(s): K21.9 - Gastro-esophageal reflux disease without esophagitis Plan: Avoid the foods that causes that usually spicy foods, tomato products, juices, coffee, soda and foods that your sensitive to. After eating do not lie down, allow 3-4 hours before in lie down. And keep the head of bed above 30 degrees to avoid the acid from going up. (5) Overactive bladder: Code(s): N32.81 - Overactive bladder Category: Medical Plan: Timed voiding meaning every 1-2 hours even if you do not feel like urinating empty the bladder, avoid drinks with high sweet content like juices or caffeine that makes her urinate, 2 hours before you sleep hold liquids so that in the morning you do not get the bladder to be too full. (6) Iron deficiency anemia: Code(s): D50.9 - Iron deficiency anemia, unspecified Category: Medical Qualifiers: Iron deficiency anemia type: chronic blood loss Qualified Code(s): D50.0 - Iron deficiency anemia secondary to blood loss (chronic) Plan: Blood work requested (7) Generalized anxiety disorder: Comment: Referral to [facility] (09/2024) Code(s): F41.1 - Generalized anxiety disorder Category: Medical Plan: Continue with counseling and therapy Plan Plan Patient was informed and verbally consented to the use of an ambient scribe for clinic note documentation during this visit. 1. Polypharmacy And Medication Management The primary focus of the visit was medication review and deprescribing due to the patient's concerns and gastrointestinal side effects. We will discontinue tizanidine. Refills for antifungal creams and powder, loratadine, and simethicone were discussed. 2. Gastrointestinal Complaints (Pain, Nausea, Constipation) To manage GERD and reduce medication burden, omeprazole will be reduced from twice daily to once daily, or as needed for heartburn. For constipation, the patient was advised on lifestyle modifications including increasing water intake to 6-8 glasses daily, consuming a diet rich in green leafy vegetables, and regular exercise. The patient will continue dicyclomine for intestinal pain and docusate for constipation as needed. 3. Anemia Blood work, including a CBC and iron studies, will be ordered to re-evaluate the patient's anemia, which was last noted in January. The decision to continue or adjust iron supplementation will be based on these results, as iron is known to be constipating. 4. Hypercholesterolemia The patient will continue atorvastatin 40 mg daily. A fasting lipid panel is planned for three months from now. 5. Neuropathic Pain And Cervical Radiculopathy To reduce potential side effects like gut slowing, the gabapentin dose will be decreased from 300 mg three times a day to twice a day. 6. Urinary Incontinence The patient was found to be on two medications for overactive bladder, Myrbetriq and Gemtesa. Myrbetriq will be discontinued as it is duplicative therapy. The patient plans to discuss surgical options with an WIRE HANGER to manage the incontinence. 7. Knee Pain As prior injections provided only temporary relief, a referral for physical therapy for the knee pain will be provided. 8. Anxiety And Depression The patient will continue with counseling and therapy. Medication adjustments include tapering duloxetine and clonazepam. 9. Follow-Up A follow-up appointment is scheduled in two months to review lab results and monitor progress on medication changes. Discussion Notes I reviewed the patient's extensive medication list with the goal of deprescribing, as polypharmacy is a likely contributor to the patient's gastrointestinal symptoms. We decided to reduce gabapentin to twice daily, reduce omeprazole to once daily or as needed, and discontinue the duplicative bladder medication Myrbetriq, as well as the muscle relaxant tizanidine. I ordered blood work to check the patient's CBC and iron levels to determine if ongoing iron supplementation for anemia is necessary, acknowledging that iron contributes to constipation. I emphasized the importance of lifestyle measures, including adequate water intake, a high-fiber diet, and physical activity, to manage constipation and improve overall health. Given the lack of lasting relief from knee injections, I provided a referral for physical therapy. We scheduled a follow-up appointment in two months to review lab results and assess the impact of these medication changes. Patient Instructions - We are making several changes to your medications to reduce side effects. - Stop taking Myrbetriq for your bladder; continue with Gemtesa only. - Reduce your gabapentin dose to two times per day instead of three. - Take your stomach medicine, omeprazole, only once a day, or just when you have heartburn. - Stop taking the muscle relaxer, tizanidine. - To help with constipation, drink 6 to 8 glasses of water daily, eat foods with fiber like leafy greens, and get regular exercise. - A referral for physical therapy for your knee pain has been sent. - Please get the ordered blood work done soon to check your blood count and iron levels. - You will need to get another set of fasting blood tests in three months to check your cholesterol. - Continue with your counseling and therapy. - Schedule a follow-up appointment to see me in two months. Orders: Orders Complete Blood Count Auto Diff 3 Months E78.00 - Pure hypercholesterolemia, unspecified Comprehensive Met. Panel 3 Months E78.00 - Pure hypercholesterolemia, unspecified Free T4 (Free Thyroxine) 3 Months E78.00 - Pure hypercholesterolemia, unspecified Thyroid Stimulating Hormone 3 Months E78.00 - Pure hypercholesterolemia, unspecified IRON PROFILE 3 Months E78.00 - Pure hypercholesterolemia, unspecified Reticulocyte Count 3 Months E78.00 - Pure hypercholesterolemia, unspecified Vitamin B12 and Folate 3 Months E78.00 - Pure hypercholesterolemia, unspecified Vitamin D 25-OH Total 3 Months E78.00 - Pure hypercholesterolemia, unspecified Complete Blood Count Auto Diff Today E78.00 - Pure hypercholesterolemia, unspecified PT Evaluation and Treatment Today M17.10 - Unilateral primary osteoarthritis, unspecified knee Ferritin 3 Months E78.00 - Pure hypercholesterolemia, unspecified Hemoglobin A1c 3 Months E78.00 - Pure hypercholesterolemia, unspecified Lipid Panel 3 Months E78.00 - Pure hypercholesterolemia, unspecified UA CC w/rflx Micro + Cult 3 Months E78.00 - Pure hypercholesterolemia, unspecified, R30.0 - Dysuria Comprehensive Met. Panel Today E78.00 - Pure hypercholesterolemia, unspecified Ferritin Today E78.00 - Pure hypercholesterolemia, unspecified IRON PROFILE Today E78.00 - Pure hypercholesterolemia, unspecified Reticulocyte Count Today E78.00 - Pure hypercholesterolemia, unspecified Vitamin B12 and Folate Today E78.00 - Pure hypercholesterolemia, unspecified Magnesium Today E78.00 - Pure hypercholesterolemia, unspecified Medications: Changed From gabapentin 300 mg PO TID 90 days 270 caps 1RF F41.9 - Anxiety disorder, unspecified To gabapentin 300 mg PO BID 180 caps 1RF 90 days F41.9 - Anxiety disorder, unspecified From [Pull Ups for sensitive skin] As directed 240 ea 11RF N39.41 - Urge incontinence, R19.8 - Other specified symptoms and signs involving the digestive system and abdomen To [Pull Ups for sensitive skin] As directed (FitRight Ultra brand underwear, absorbency heavy) 240 ea 11RF N39.41 - Urge incontinence, R19.8 - Other specified symptoms and signs involving the digestive system and abdomen From omeprazole 20 mg PO BID 90 days 180 caps 0RF K22.70 - Renee's esophagus without dysplasia To omeprazole 20 mg PO .QD PRN 30 caps 0RF GERD 90 days K22.70 - Renee's esophagus without dysplasia Refilled miconazole nitrate 2% 1 appl topical TID 85 grams 0RF E78.00 - Pure hypercholesterolemia, unspecified loratadine 10 mg PO DAILY 90 tabs 3RF 90 days J30.9 - Allergic rhinitis, unspecified ketoconazole 2% 1 appl topical BID 60 grams 0RF G89.29 - Other chronic pain, M54.50 - Low back pain, unspecified simethicone soft gel version please 125 mg PO TID-QID PRN 90 caps 2RF abdominal distention E78.00 - Pure hypercholesterolemia, unspecified Discontinued tizanidine Discontinued Reason: Doctor's Order 2 mg PO TID 30 days PRN 90 tabs 8RF muscle spasticity
[2025-08-30 14:09] VITALS: BP 112/68; PULSE 78; O2SAT 98; BMI 37.7
--- OUTSIDE RECORDS SUMMARY | 2025-08-30 16:32 | XMS_ITS | Data Portability ---
Author Organization [facility] [employer] [facility], [facility] Address [address] [place] [phone] Care Team Providers Care Steeping Press Operator Name Role Phone HIM CCA OTHER ALEX GUERRERO Primary Care Provider Assessment Encounter Date Assessment Date Assessment LastModified by Organization Details LastModified Time 06/27/2025 06/27/2025 I provided real -time medical direction via phone for this encounter, and was available for additional phone based assistance as needed. I have reviewed and agree with the Assessment and Plan as documented by the Land Agent. We discussed the diagnostic uncertainty of home [...] to call 911- verbalized understanding of instruction [email or web address] Not available 06/28/2025 22:37:41 Plan of Treatment Reminders Order Date Submit Date Provider Last Modified By Organization Details Last Modified Time Details Appointments None recorded. Lab BMP, serum or plasma 2024 025 [facility] [address] [place] [address], [phone] 17:54:53 Referral None recorded. Procedures None recorded. Surgeries None recorded. Imaging None recorded. Medication Orders ondansetron 4 mg disintegrat ing tablet 2024 025 [email or web address] [facility]/Pharmacy #[id number], [address], [place], [address], 15:17:33 ondansetron 4 mg disintegrat ing tablet 2024 025 [email or web address] [facility]/Pharmacy #[id number], [address], [place], [address], 15:17:32 Patient TargetsNo targets recorded. Patient InstructionsNo [...] Name and Address Organization Details Recorded Time 15068 Topamax medicatio n Not available Not available Not available 06/27/2025 41264 3 RxNorm Not Available [facility] - production 5 12:03:30 97291 morphine medicatio n Not available Not available Not available 06/27/2025 7052 RxNorm Not Available [facility] - production 5 12:03:30 76918 hydromorp severino medicatio n Not available Not [...] rate Respiratory rate Body weight Oxygen saturation Heart rate Body temperature Systolic And Diastolic Systolic And Diastolic Provider Name and Address Organization Details Last Updated DateTime 5 152.4 cm 68 /min 18 /min 55167.6 64 g 97 % 74 /min 98.2 [degF] 107/71 mm[Hg] 116/78 mm[Hg] Not Available [facility] - production 5 14:50:19 Social History None [...] ICD10 Code Diagnosis IMO Codes Diagnosis Note [id number] Zuri Judd MD [facility] ED Medical [address] [phone] 06/27/2025 14:50:15 06/29/2025 10:43:04 Epigastric pain 26509445 R10.13 65484 pain is chronic, patient ran out of [...] Workman Member ID Guarantor Name 06/29/2025 1 [facility] - DOS ON OR AFTER 2022 - DUAL ELIGIBLE - [facility] OPTIONS AND ONE CARE (MEDICARE REPLACEMENT/ADV ANTAGE - HMO) Eliza Salas [id number] Eliza Salas Notes Date Note Type Note Provider Name and Address Organization Details Recorded Time 06/27/2025 text/html ROS as noted in the [facility] Nurse Triage Notes (Arnold Chavez - RN): Reason For Request: Pt reporting a lot [...] - 12:03 Allergies Reviewed at 06/27/2025 - :03 Pain Assessment: Level 10 out of 10 [...] to seek emergency care -Vira Chavez RN Land Agent Organization Information for Yahaira Bowles Business Legal Name: [employer]. Address: [address] [place] [address], Skylights Assembler: Pradip Acosta MD [place] No.: [id number] Land Agent POC Test Results from Yah[facility]a Bowles iSTAT Chem8+ (14:50:11) Na: 139mEq/L K: 4.0mEq/L Cl: 106mEq/L iCa: 1.19mmol/L TCO2: 20mmol/L Glu: 91mg/dL BUN: 12mg/dL Crea: 0.7mg/dL Hct: 33% Hb: 11.2g/dL Ammol/L Cartridge Number: [id number] Attachments uploaded as part of this test result can be found under Documents section. .................... .................... .................... .................... .................... .................... .................... . Land Agent Note From Yahaira Bowles: Sent to a [...] blood draw performed; Chem8+ results: uploaded to [employer]; [facility] [place]fr[place] 4mg IV, Lactated Ringers 1 liter IV. [facility] [place]'s pharmacy for Zofran. First attempt at IV access: unsuccessful; Pt refuses further needle sticks citing they hurt too much and poor vasculature. [facility] [place] Zofran ODT 4mg. 5 med rights verified; Zofran ODT 4mg administered without incident. Pt is advised to follow up with GI doctor. Pt advised to wait 8hrs before taking another dose of Zofran. Red flags discussed. Pt has no further questions. [facility] [place] Orders: BMP, serum or plasma: Performed [facility] [place] Medication Orders: ondansetron 4 mg disintegrating tablet: Performed .................... .................... .................... .................... .................... .................... .................... . [facility] [place] Consulted: Zuri Judd .................... .................... .................... .................... .................... .................... .................... . Disposition: Fulfilled Zuri Judd MD [address] [place] [address],[address], [place], [phone], ANGELA ANDREW 06/28/2025 22:37:49 OBGyn Episode No OBEpisode recorded.
--- OUTSIDE RECORDS SUMMARY | 2025-08-30 16:32 | XMS_ITS | Continuity of Care Document ---
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 I have reviewed and agree with the Assessment and Plan as documented by the E/M Engineer. We discussed the diagnostic uncertainty of home [...] to call 911- verbalized understanding of instruction [email or web address] Not available 06/28/2025 22:37:41 Plan of Treatment Reminders Order Date Submit Date Provider Last Modified By Organization Details Last Modified Time Details Appointments None recorded. Lab BMP, serum or plasma 2024 025 [facility], [address] [place] [address], [phone] 17:54:53 Referral None recorded. Procedures None recorded. Surgeries None recorded. Imaging None recorded. Medication Orders ondansetron 4 mg disintegrat ing tablet 2024 025 [email or web address] [facility]/Pharmacy #[id number], [address] [facility], [place], [address], 15:17:33 ondansetron 4 mg disintegrat ing tablet 2024 025 [email or web address] [facility]/Pharmacy #[id number], [address] [facility], [place], [address], 15:17:32 Patient TargetsNo targets recorded. Patient InstructionsNo [...] Name and Address Organization Details Recorded Time 82218 Topamax medicatio n Not available Not available Not available 06/27/2025 73579 3 RxNorm Not Available [facility] - production 5 12:03:30 49810 morphine medicatio n Not available Not available Not available 06/27/2025 7052 RxNorm Not Available [facility] - production 5 12:03:30 49164 hyd[employer]orp severino medicatio n Not available Not [...] 5 152.4 cm 68 /min 18 /min 70937.6 64 g 97 % 74 /min 98.2 [...] ICD10 Code Diagnosis IMO Codes Diagnosis Note [id number] Zuri Judd MD [facility] ED Medical [address] [phone] 06/27/2025 14:50:15 06/29/2025 10:43:04 Epigastric pain [id number] R10.13 87258 pain is chronic, patient ran out of [...] by Organization Details LastModified Time None Recorded Payers Encounter Date Sequence Insurance Name Policy Number Policy Workman Covered Member ID Workman Member ID Guarantor Name 06/27/2025 1 [facility] - DOS ON OR AFTER 2022 - DUAL ELIGIBLE - SNF OPTIONS AND ONE CARE (MEDICARE REPLACEMENT/ADV ANTAGE - HMO) Eliza Salas [id number] Eliza Salas Notes Date Note Type Note [...] to seek emergency care -Vira Chavez RN E/M Engineer Organization Information for BowlesYahaira Business Legal Name: [employer]. Address: [address] [place] [address], Pulmonology Technician: Pradip Acosta MD CLIA No.: [id number] E/M Engineer POC Test Results from [facility] - ALS iSTAT Chem8+ (14:50:11) Na: 139mEq/L K: 4.0mEq/L Cl: 106mEq/L iCa: 1.19mmol/L TCO2: 20mmol/L Glu: 91mg/dL BUN: 12mg/dL Crea: 0.7mg/dL Hct: 33% Hb: 11.2g/dL Ammol/L Cartridge Number: [id number] Attachments uploaded as part of this test result can be found under Documents section. .................... .................... .................... .................... .................... .................... .................... . E/M Engineer Note From Yahaira Bowles: Sent to a [...] blood draw performed; Chem8+ results: uploaded to [employer]; [facility] [place] 4mg IV, Lactated Ringers 1 liter IV. [facility] [place] pharmacy for Zofran. First attempt at IV access: unsuccessful; Pt refuses further needle sticks citing they hurt too much and poor vasculature. [facility] [place] Zofran ODT 4mg. 5 med rights verified; Zofran ODT 4mg administered without incident. Pt is advised to follow up with GI doctor. Pt advised to wait 8hrs before taking another dose of Zofran. Red flags discussed. Pt has no further questions. [facility] [place] Orders: BMP, serum or plasma: Performed [facility] Medication Orders: ondansetron 4 mg disintegrating tablet: Performed .................... .................... .................... .................... .................... .................... .................... . [facility] Consulted: Zuri Judd .................... .................... .................... .................... .................... .................... .................... . Disposition: Fulfilled Zuri Judd MD [address] [place] [address],[address], [place], [phone], ANGELA ANDREW 06/28/2025 22:37:49 OBGyn Episode No OBEpisode recorded.
== END 2025-08-30 15:04 | disposition home or self-care (01) ==
LOC: HO.HMCH 13:48
PROVIDERS: PCP Internal Medicine; Visit Provider Internal Medicine
DX: E78.00 Pure hypercholesterolemia, unspecified (principal); Z98.84 Bariatric surgery status; E66.9 Obesity, unspecified; Z68.37 Body mass index [BMI] 37.0-37.9, adult; N32.81 Overactive bladder; K21.9 Gastro-esophageal reflux disease without esophagitis; D50.0 Iron deficiency anemia secondary to blood loss (chronic); F41.1 Generalized anxiety disorder

== ENCOUNTER → 2025-08-30 13:47 | Outpatient (BNVA) | payer OTHER, SELFPAY | PROVIDERS: PCP Internal Medicine; Visit Provider Internal Medicine | DX: K21.9 Gastro-esophageal reflux disease without esophagitis (principal); E78.00 Pure hypercholesterolemia, unspecified; E66.9 Obesity, unspecified; N32.81 Overactive bladder; D50.0 Iron deficiency anemia secondary to blood loss (chronic); F41.1 Generalized anxiety disorder; Z68.37 Body mass index [BMI] 37.0-37.9, adult; Z98.84 Bariatric surgery status | CPT/HCPCS: 99212 ==